=== PATIENT | female | born 2000 | race Caucasian/White ===

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

== ENCOUNTER 2020-03-07 18:09 | Emergency (ER) | payer OTHER, MEDICAID, SELFPAY ==
[2020-03-07 18:09] VITALS: BP 139/90; PULSE 102; RESP 16; TEMP 36.1; O2SAT 98
[2020-03-07 18:10] VITALS: BP 139/90; PULSE 96; RESP 16; TEMP 36.1; O2SAT 98; BMI 32.7
--- NOTE | 2020-03-07 18:36 | ED.DCSUM_ITS ---
- ER Visit Summary Date of Service: 03/07/20 Chief Complaint: [Pain to right thumb] History of Present Illness: The patient is a 19 F [presents to the emergency department with pain in the right thumb that started 2 or 3 days ago. Patient denies any trauma. Patient states certain movements cause her severe pain and at times having hard time changing her baby's diaper due to the pain. Patient is right-hand dominant. Patient is not currently working and does not do a lot of repetitive motions with her hands. She denies any fevers or recent illness. She has not taken anything for the pain at home.] Physical Examination: [Right hand-patient does have tenderness along the exte nsor tendon of the thumb. She has a positive Erin test. There is no erythema or warmth noted to the thumb. There is no swelling to the thumb. She has normal range of motion. She is neurovascular intact. No evidence of trauma.] Test Results: [None indicated] Emergency Department Course and Treatment: [She was placed in a thumb spica splint] Treatment Plan: [We will be given a prescription for naproxen. Patient advised to follow-up with her primary care physician in 10 days.] Disposition: [Discharged home in stable condition] Impression: [Right thumb pain-suspect de Quervain's synovitis] This note was generated with [employer] dictation software. It may contain incorrect words, spelling, and punctuation that were not noted in review of the chart prior to signing ED Disposition - Plan for ED Patient: Referrals: Osiel Jennings MD [Primary Care Provider] -
--- NOTE | 2020-03-07 18:38 | ED.DEP ---
ED Disposition - Plan for ED Patient: Instructions: ED De Quervain Tenosynovitis Prescriptions: Naproxen [Naprosyn] 500 mg PO BID PRN #20 tab Prescription Printed Referrals: Osiel Jennings MD [Primary Care Provider] - 5-7 Days
== END 2020-03-07 19:03 | disposition home or self-care (01) ==
PROVIDERS: Emergency Provider Emergency Medicine; PCP Pediatrics
DX: M79.644 Pain in right finger(s) (principal)
CPT/HCPCS: 99283

== ENCOUNTER 2020-05-18 12:59 | Emergency (ER) | payer OTHER, MEDICAID, SELFPAY ==
[2020-05-18 13:00] VITALS: BP 133/86; PULSE 97; RESP 16; TEMP 36.1; O2SAT 98; BMI 30.6
--- NOTE | 2020-05-18 13:48 | RAD_ITS ---
STUDY: X-RAY - LEFT ANKLE REASON FOR EXAM: Left ankle pain status post left ankle injury from fall yesterday. TECHNIQUE: 3 view(s) of the ankle. COMPARISON: None. FINDINGS: Normal visualized distal tibia and fibula. Normal medial and lateral malleoli. There is a tibiotalar joint effusion. Normal visualized talus and calcaneus. The visualized subtalar, talonavicular, calcaneocuboid and tarsal articulations are normal. There is soft tissue swelling overlying the lateral malleolus. RAD/Ankle min 3 Views IMPRESSION: Tibiotalar joint effusion. Soft tissue swelling. Electronically Signed: Roberto Crowell MD at 14:14 EST Tel , Service support ,
--- NOTE | 2020-05-18 14:40 | ED.VIS.GEN ---
History of Present Illness Chief Complaint: Fall Informant: Patient Onset: Yesterday Context: Gradual Onset Timing: Continuous Current Severity: Moderate Maximum Severity: Moderate Narrative: The patient is an otherwise healthy 20-year-old female who presents to the emergency department with lower extremity injury. Patient states she was going downstairs last night it was dark. She states she thought she was at the bottom and stepped. She ended up losing her balance and falling. She struck her head on the wall but did not lose consciousness. She states that she had a mild headache today, but no visual change, vomiting, or other neurologic symptoms. Her major complaint is of pain in the right ankle which she states twisted underneath her. She has been able to bear weight with difficulty. Prior similar symptoms: No Recent Illness/Hospitalization: No Past Medical History - Allergies and Home Meds Allergies/Adverse Reactions: Allergies No Known Allergies Allergy (Verified 05/18/20 13:02) Primary Care Physician: Osiel Jennings MD [Primary Care Provider] - Prior records reviewed: Yes Past Medical History: None Surgical History: no surgical history Smoking Status: Never smoker Review of Systems General: Denies: Chills, Fever, Sweats Eyes: Denies: Visual changes - bilaterally, Diplopia ENT: Denies: Rhinorrhea, Sore throat Cardiovascular: Denies: Chest pain, Palpitations Respiratory: Denies: Dyspnea, Cough, Dyspnea on exertion Gastrointestinal: Denies: Abdominal pain, Nausea, Vomiting, Diarrhea, Melena, Hematochezia Genitourinary: Denies: Dysuria, Hematuria, Frequency Musculoskeletal: Denies: Back pain, Extremity Pain Skin: Denies: Rash, Wounds Neurological: Denies: Headache, Weakness, Numbness Physical Exam Vital Signs/Narrative: Vital Signs Temp Pulse Resp BP Pulse Ox 05/18/20 13:00 97.0 F L 97 16 133/86 H 98 Inital Vital Signs reviewed: Yes General: Well nourished, Well developed, No Acute Distress Head: Normocephalic, Atraumatic Eyes: Perrl, EOMI ENT: Moist mucous membranes, No rhinorrhea Neck: Supple, Nontender Cardiovascular: Regular rate, Regular rhythm, No murmurs Respiratory: No distress, CTA bilaterally, Chest nontender Abdomen: Soft, Nontender, Nondistended, Normal bowel sounds Back: Nontender, Normal Inspection Extremities: No edema, Tenderness - Tender over the lateral malleolus. No pain at the proximal fibula. No pain at fifth metatarsal. Argueta negative. Normal pulses. Skin: Normal color, No rash Neurological: Alert, Oriented x3, Cranial nerves II-XII grossly intact, Normal Strength, Normal Sensation Psychological: Normal affect, Normal Mood Diagnostic/Tx/Re-eval Clinical Impression(s) from Imaging Studies Ankle X-Ray 05/18/20 13:48 IMPRESSION: Tibiotalar joint effusion. Soft tissue swelling. Electronically Signed: Roberto Crowell MD at 14:14 EST Tel , Service support , - Medical Decision Making Plain films were obtained. These were reviewed by both myself and the radiologist. There is no evidence of fracture dislocation. There is some soft tissue swelling. Patient is placed in an Aircast for comfort. She will be given crutches and anti-inflammatories. She was counseled on concerning symptoms and reasons to return. She will be discharged home. Impression 1. Left ankle sprain ED Disposition - Plan for ED Patient: Instructions: ED Ankle Sprain (Adult) Prescriptions: Naproxen [Naprosyn] 500 mg PO BID PRN #20 tab Prescription Printed Referrals: Osiel Jennings MD [Primary Care Provider] -
--- NOTE | 2020-05-18 15:03 | ED.RN ---
DISCHARGE INSTRUCTIONS GIVEN TO AND REVIEWED WITH PATIENT, PATIENT DENIES QUESTIONS OR CONCERNS AND VOICES UNDERSTANDING OF DISCHARGE INSTRUCTIONS. PT AMBULATES OUT OF ROOM WITHOUT DIFFICULTY.
== END 2020-05-18 15:21 | disposition home or self-care (01) ==
LOC: ED 14:58
PROVIDERS: Emergency Provider Emergency Medicine; PCP Family Medicine
DX: S93.402A Sprain of unspecified ligament of left ankle, initial encounter (principal); X50.1XXA Overexertion from prolonged static or awkward postures, initial encounter; Y93.89 Activity, other specified; Y92.009 Unspecified place in unspecified non-institutional (private) residence as the place of occurrence of the external cause; Y99.8 Other external cause status
CPT/HCPCS: 73610; 99284

== ENCOUNTER → 2020-06-26 | Outpatient (CLI) | payer OTHER, MEDICAID, SELFPAY ==
[2020-07-01 08:44] LABS: HPV Reflexed? NOT INDICATED
== END | disposition home or self-care (01) ==
LOC: LABSPEC 13:15
PROVIDERS: PCP Family Medicine; Visit Provider Obstetrics & Gynecology
DX: Z12.4 Encounter for screening for malignant neoplasm of cervix (principal)
CPT/HCPCS: 88175; G0145

== ENCOUNTER 2020-10-22 20:52 | Emergency (ER) | payer OTHER, MEDICAID, SELFPAY ==
[2020-10-22 20:52] VITALS: BP 120/75; PULSE 95; RESP 16; TEMP 36.6; O2SAT 98; BMI 34.0
--- NOTE | 2020-10-22 23:02 | EX.ED.DYSGE1 ---
HPI History of Present Illness Chief Complaint: Cold Sx Informant: patient Onset/Context/Timing Onset: Days Context: Gradual Onset Timing: Continuous Current Severity: Mild Maximum Severity: Mild Worsened by: None Relieved by: None Narrative Recent Illness/Hospitalization: No PFSH PFSH Home Medications NK 10/22/20 [History Last Taken Unknown] Allergy/AdvReac Type Severity Reaction Status Date / Time No Known Allergies Allergy Verified 10/22/20 20:53 Social History Smoking Status: Never smoker ROS ROS ED Constitutional Constitutional ED: Denies chills or fever(s) ENT ENT ED: Reports rhinorrhea and sore throat; Denies ear pain Cardiovascular Cardiovascular: Denies chest pain Respiratory/Chest Respiratory/Chest: Reports cough; Denies dyspnea Gastrointestinal Gastrointestinal: Denies abdominal pain or nausea Genitourinary Genitourinary ED: Denies dysuria Musculoskeletal Musculoskeletal: Denies myalgias Integumentary Denies rash Neurologic Neurologic: Denies headache(s) Psychiatric Psychiatric: Denies depression Endocrine Endocrinology: Denies polyuria Allergic/Immunologic Allergic/Immunologic ED: Denies urticaria EXAM Physical Exam Const Vital Signs: 10/22/20 20:52 10/22/20 21:05 10/22/20 23:11 Temperature 97.9 F Temperature Source Temporal Pulse Rate 95 90 Respiratory Rate 16 16 Blood Pressure 120/75 118/68 Blood Pressure Mean 90 Pulse Ox 98 97 Oxygen Delivery Method Room Air Room Air Positive well nourished and well developed General Appearance ED: well developed HEENT Negative for trauma Eyes EOMs intact bilaterally Neck no lymphadenopathy and supple Resp normal respiratory effort and clear to auscultation bilaterally Cardio regular rate and regular rhythm Extremity normal to inspection Neuro oriented x3 Sensorium / Orientation: alert Psych mental status grossly normal Skin no rashes or lesions noted MDM MDM MDM Narrative Medical decision making narrative: Patient has some mild erythema. No sign of abscess. Strep test was negative. Covid negative. Patient declined treatment. She was given a work note. Lab Data Attestation: I reviewed the patient's lab results. Discharge Plan Triage Chief Complaint: Cold Sx ED Provider: Ulices Story Dx/Rx/DC Orders Clinical Impression: Pharyngitis Instructions: ED Pharyngitis, Viral Prescriptions: No Action NK RF: 0 Primary Care Provider: Gabino Summers Referrals: Gabino Summers MD [Primary Care Provider] - Disposition Disposition: Home, self care Discharge Date/Time: 10/22/20 23:12
[2020-10-22 23:11] VITALS: BP 118/68; PULSE 90; RESP 16; O2SAT 97
== END 2020-10-22 23:12 | disposition home or self-care (01) ==
PROVIDERS: Emergency Provider Emergency Medicine; PCP Family Medicine
DX: J02.9 Acute pharyngitis, unspecified (principal)
CPT/HCPCS: 87426; 87880; 99282

== ENCOUNTER 2021-05-09 14:19 | Emergency (ER) | payer OTHER, MEDICAID, SELFPAY ==
[2021-05-09 14:19] VITALS: BP 116/78; PULSE 89; RESP 18; TEMP 36.1; O2SAT 99; BMI 30.4
--- NOTE | 2021-05-09 14:22 | RAD_ITS ---
STUDY: X-RAY - RIGHT KNEE REASON FOR EXAM: Female, 21 years old. FALL TECHNIQUE: 4 view(s) of the knee. COMPARISON: September 12, 2018 right knee x-ray FINDINGS: There are benign-appearing bilateral sclerotic densities within the medial lateral femoral condyles measuring 7.2 mm on the medially and 3.3 mm on the right. Normal visualized proximal tibia and fibula. Normal proximal tibiofibular articulation. Normal medial femorotibial compartment. Normal lateral femorotibial compartment. Normal patellofemoral articulation. The soft tissue structures are unremarkable. RAD/Knee 4 or More Views IMPRESSION: Stable right knee. No visualized acute fracture. Electronically Signed: Patito Person MD at 15:41 EST Tel , Service support ,
--- NOTE | 2021-05-09 14:22 | RAD_ITS ---
STUDY: X-RAY - RIGHT HAND REASON FOR EXAM: Female, 21 years old. FALL TECHNIQUE: 3 view(s) of the hand. COMPARISON: None. FINDINGS: Normal radiocarpal articulation. Normal distal radioulnar joint. Normal visualized carpal bones. Normal carpal articulations Normal carpometacarpal articulation of the thumb. Normal second through fifth carpometacarpal joints. Normal metacarpi. Normal metacarpophalangeal joint of the thumb. Normal interphalangeal joint of the thumb. Normal proximal and distal phalanges of the thumb. Normal metacarpophalangeal joints of the second through fifth fingers. Normal proximal and distal interphalangeal joints of the second through fifth fingers. Normal phalanges of the second through fifth fingers. The soft tissue structures are unremarkable. RAD/Hand Min 3 Views IMPRESSION: Normal x-ray examination of the hand. Electronically Signed: Patito Person MD at 15:52 EST Tel , Service support ,
--- NOTE | 2021-05-09 17:58 | ED.VIS.FALL ---
HPI HPI - Fall History of Present Illness Chief Complaint: Fall Detail of Chief Complaint: Fall with injury to right ring finger and right knee Informant: patient Narrative Narrative: Patient presents to the emergency department with a fall that occurred approximately noon today. Patient states that she was coming down her spiral staircase that is within when she fell and she thinks she went down about 20 steps. Patient complains of pain in her right knee and right ring finger. She denies regular head or loss consciousness. She denies chest or abdomen pain. She has been ambulatory. PFS PFS Home Medications NK 10/22/20 [History Last Taken Unknown] Allergy/AdvReac Type Severity Reaction Status Date / Time No Known Allergies Allergy Verified 05/09/21 14:19 Social History Smoking Status: Never smoker ROS ROS ED Constitutional Constitutional ED: Reports systems reviewed and no addt'l complaints, except as documented; Denies body ache(s), change in weight or chills Eyes Eyes: Denies acute decrease in peripheral vision, change in vision, double vision or loss of vision ENT ENT ED: Reports none; Denies ear pain, lip swelling, loss taste/smell, neck pain, otalgia or sore throat Cardiovascular Cardiovascular: Reports none; Denies abdominal pain, chest pain with activity, leg edema, lightheadedness, palpitations, rapid heart rate or syncope Respiratory/Chest Respiratory/Chest: Reports none; Denies change in mental status, dry cough, dyspnea, hemoptysis, shortness of breath at rest or shortness of breath with exertion Gastrointestinal Gastrointestinal: Reports none; Denies abdominal pain, change in stool character, diarrhea, hematemesis, hematochezia, melena, rectal bleeding or vomiting Genitourinary Genitourinary ED: Reports none; Denies abdominal discomfort, anuria, dysuria, genital pain or polyuria Musculoskeletal Musculoskeletal: Reports none and other Details: Right knee pain and right ring finger pain ; Denies arthralgias, back pain, difficulty walking, extremity pain, muscle weakness or myalgias Integumentary Reports none; Denies abscess or rash Neurologic Neurologic: Reports none; Denies abnormal gait, confusion, focal weakness, frequent falls, headache(s), loss of vision, numbness, paresthesias, radicular pain, vertigo or weakness Psychiatric Psychiatric: Reports systems reviewed and no addt'l complaints, except as documented and none; Denies behavioral changes, confusion, difficulty concentrating, hallucinations, suicidal ideation, tactile hallucinations or visual hallucinations Endocrine Endocrinology: Denies none, cold intolerance, excessive sweating, fatigue or heat intolerance Hematologic/Lymphatic Hematologic/Lymphatic: Reports none; Denies anemia, easy bleeding or easy bruising Allergic/Immunologic Allergic/Immunologic ED: Denies as per HPI, none, lip swelling, mouth swelling, throat swelling, tongue swelling or hives EXAM Physical Exam Const Vital Signs: 05/09/21 14:19 Temperature 96.9 F L Temperature Source Temporal Pulse Rate 89 Respiratory Rate 18 Blood Pressure 116/78 Blood Pressure Mean 90 Pulse Ox 99 Oxygen Delivery Method Room Air Positive well nourished and well developed General Appearance ED: well developed and NAD HEENT Reports TM's clear and moist mucous membranes normocephalic and atraumatic; Negative for trauma or tenderness Tympanic Membrane ED: Yes TM's clear Eyes PERRL and EOMs intact bilaterally General Eye ED: Negative for pale conjunctiva or scleral icterus Neck no lymphadenopathy, supple and no JVD General: Negative for tenderness Chest Wall inspection of chest normal and palpation of chest normal Chest: Negative for tenderness Resp normal respiratory effort and clear to auscultation bilaterally Effort and Inspection: Negative for respiratory distress or pain with movement Auscultation: Negative for rhonchi, wheezes or diminished lung sounds Cardio regular rate, regular rhythm, S1 normal heart sound, S2 normal heart sound and no murmurs Peripheral Pulses: pulses 2+ throughout GI normal to inspection, nondistended, normoactive bowel sounds, soft to palpation, non-tender, non-distended and no masses Back/Spine no CVA tenderness and no thoracic nor lumbar tenderness Extremity Extremity Narrative: Evaluation of the right ring finger does reveal some tenderness and some mild soft tissue swelling over the distal phalanx of the ring finger. No ecchymosis or bruising noted. No obvious deformity. No subungual hematoma noted. Evaluation of the right knee reveals some tenderness over the medial joint line. There is no ecchymosis or bruising noted. Normal varus and valgus stress on the knee noted. Normal anterior and posterior drawer test. Neurovascular intact distally. There is no joint effusion noted. General Extremety ED: Negative for edema General Extremity: Negative for edema Neuro oriented x3, CN's II-XII intact bilaterally, no sensory deficits noted and gait normal Sensorium / Orientation: awake, alert, oriented to person, oriented to place and oriented to time Motor Exam: strength 5/5 throughout and strength abnormal Psych mental status grossly normal Skin no rashes or lesions noted and no wounds MDM MDM Radiography Diagnostic Testing: Clinical Impression(s) from Imaging Studies Hand X-Ray 05/09/21 14:22 IMPRESSION: Normal x-ray examination of the hand. Electronically Signed: Patito Person MD at 15:52 EST Tel , Service support , Knee X-Ray 05/09/21 14:22 IMPRESSION: Stable right knee. No visualized acute fracture. Electronically Signed: Patito Person MD at 15:41 EST Tel , Service support , Discharge Plan Triage Chief Complaint: Fall ED Provider: Reece Carbone Dx/Rx/DC Orders Clinical Impression: Fall, Right knee sprain, Contusion of right ring finger Instructions: ED Knee Sprain, ED Finger Sprain Prescriptions: No Action NK RF: 0 Primary Care Provider: Gabino Summers Referrals: Gabino Summers MD [Primary Care Provider] - 5-7 Days Disposition Disposition: Home, Self Care
[2021-05-09 19:34] VITALS: RESP 18
== END 2021-05-09 19:38 | disposition home or self-care (01) ==
LOC: ED 18:02
PROVIDERS: Emergency Provider Emergency Medicine; PCP Family Medicine
DX: S60.041A Contusion of right ring finger without damage to nail, initial encounter (principal); S83.91XA Sprain of unspecified site of right knee, initial encounter; W10.8XXA Fall (on) (from) other stairs and steps, initial encounter
CPT/HCPCS: 73130; 73564; 99283

== ENCOUNTER 2021-07-14 17:26 | Emergency (ER) | payer OTHER, MEDICAID, SELFPAY ==
[2021-07-14 17:27] VITALS: BP 126/82; PULSE 96; RESP 16; TEMP 36.9; O2SAT 98; BMI 30.4
--- NOTE | 2021-07-14 18:59 | EX.ED.DYSGE1 ---
HPI History of Present Illness Chief Complaint: Sore Throat Informant: patient Narrative Narrative: Presents here for concern of Covid. Symptoms started 5 days ago. Sinus congestion, chills myalgias. States she cannot taste or smell. She has been vaccinated however has been over a year ago she is not have any booster. 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 Mild dyspnea and cough. No vomiting or diarrhea. No Covid infections in the past. She states she was at a health care clinic earlier today with a negative rapid test. Reports sore throat started today. Prior similar symptoms: No PFSH PFSH Medical History Encounter for screening for COVID-19 Home Medications NK 10/22/20 [History Last Taken Unknown] Allergy/AdvReac Type Severity Reaction Status Date / Time No Known Allergies Allergy Verified 07/14/21 17:26 Social History Smoking Status: Never smoker ROS ROS ED Constitutional Constitutional ED: Reports chills; Denies fever(s) or sweats Eyes Eyes: Denies change in vision ENT ENT ED: Denies dysphagia or sore throat Cardiovascular Cardiovascular: Denies chest pain, leg edema, palpitations or racing heartbeat Respiratory/Chest Respiratory/Chest: Reports cough and dyspnea; Denies dyspnea on exertion Gastrointestinal Gastrointestinal: Denies abdominal pain, diarrhea, nausea or vomiting Genitourinary Genitourinary ED: Denies dysuria, hematuria or urinary frequency Musculoskeletal Musculoskeletal: Reports myalgias; Denies back pain, extremity pain or neck pain Integumentary Denies rash or wounds Neurologic Neurologic: Denies headache(s), paresthesias or weakness EXAM Physical Exam Const Vital Signs: 07/14/21 17:27 Temperature 98.4 F Temperature Source Temporal Pulse Rate 96 Respiratory Rate 16 Blood Pressure 126/82 H Blood Pressure Mean 96 Pulse Ox 98 Oxygen Delivery Method Room Air Positive well nourished and well developed General Appearance ED: well developed and NAD HEENT Reports moist mucous membranes HEENT Narrative: No posterior pharyngeal erythema. No exudates. Airway patent. normocephalic and atraumatic Eyes PERRL, EOMs intact bilaterally and conjunctivae normal General Eye ED: Yes normal appearance of both eyes Neck no lymphadenopathy and supple General: Negative for tenderness Chest Wall Chest: Negative for tenderness Resp normal respiratory effort and normal air movement Effort and Inspection: symmetric chest movement; Negative for respiratory distress Cardio regular rate, regular rhythm and no murmurs Peripheral Pulses: pulses 2+ throughout GI normal to inspection, nondistended, normoactive bowel sounds and non-tender Palpation: Negative for guarding or rebound tenderness present Back/Spine no CVA tenderness and no thoracic nor lumbar tenderness Extremity normal to inspection General Extremety ED: Negative for edema or tenderness General Extremity: Negative for edema Neuro oriented x3 and no sensory deficits noted Sensorium / Orientation: awake and alert Skin no rashes or lesions noted and no wounds MDM MDM MDM Narrative Medical decision making narrative: Patient vital signs stable afebrile pulse ox 98% room air. She has normal throat exam. She had rapid strep obtained from triage discussed this will be negative due to her normal throat exam. PCR Covid was obtained and sent due to her symptoms and reporting rapid test negative earlier. She does have Covid symptoms with loss of taste or smell. She is not hypoxic. She will picker/puller a pulse oximeter to monitor discussed return precautions. Should use Tylenol Motrin as needed. Discussed with her cough and sputum, could have Covid pneumonia changes if x-ray was obtained however would not change the plan as antibiotics would not be warranted. She is currently not hypoxic. All questions were answered. Patient is being discharged under pandemic conditions under declared global, national and state disaster activation, with limited medical resources. Patient and community understands this. Results discussed in layman's terms to the patient satisfaction. All questions answered in layman's terms. Patient understands importance of follow-up care as directed. Patient has been instructed to return to the ED immediately if new symptoms, problems, or questions occur. We mutually agree with the plan of disposition. The patient understand that they may call or return with any questions or concerns at any time. Discharge Plan Triage Chief Complaint: Sore Throat ED Provider: Marco A Garcia Dx/Rx/DC Orders Clinical Impression: Suspected 2019-nCoV infection, Sore throat Instructions: Coronavirus Disease 2019 (COVID-19): Caring for Yourself or Others Prescriptions: No Action NK RF: 0 Primary Care Provider: Gabino Summers Referrals: Gabino Summers MD [Primary Care Provider] - 5-7 Days Activity Restrictions/Additional Instructions: Your PCR test is pending. Use Tylenol Motrin as needed continue oral fluids. Monitor your pulse ox. Return if oxygen drops below 90 or significant worsening dyspnea. Disposition Disposition: Home, Self Care
== END 2021-07-14 19:23 | disposition home or self-care (01) ==
LOC: ED 19:20
PROVIDERS: Student in an Organized Health Care Education/Training Program; Emergency Provider Emergency Medicine; PCP Family Medicine; Visit Provider Emergency Medicine
DX: J02.9 Acute pharyngitis, unspecified (principal); Z20.822 Contact with and (suspected) exposure to COVID-19; R06.00 Dyspnea, unspecified
CPT/HCPCS: 87077; 87635; 87880; 99282; U0003; U0005

== ENCOUNTER 2021-09-15 13:34 | Emergency (ER) | payer OTHER, MEDICAID, SELFPAY ==
[2021-09-15 13:35] VITALS: BP 123/77; PULSE 78; RESP 15; TEMP 36.1; O2SAT 99; BMI 29.2
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
--- NOTE | 2021-09-15 14:10 | RAD_ITS ---
INDICATION: injury -- add NAVICULAR please EXAMINATION/TECHNIQUE: X-RAY - LEFT XR Wrist Min 3 Views 4 VIEWS COMPARISON: None. FINDINGS: SOFT TISSUES: No soft tissue swelling or gas. No radiopaque foreign body. BONES/JOINTS: No acute fracture or subluxation.. Normal alignment. Preservation of the joint space.. No sclerotic or destructive changes observed. RAD/Wrist min 3 Views IMPRESSION: No evidence of acute osseous abnormality Electronically Signed: Moreno Felder MD at 14:34 EDT ,
[2021-09-15 15:21] VITALS: PULSE 76; RESP 16; O2SAT 98
== END 2021-09-15 15:34 | disposition home or self-care (01) ==
PROVIDERS: Emergency Provider Emergency Medicine; PCP Family Medicine; Visit Provider Emergency Medicine
DX: S63.92XA Sprain of unspecified part of left wrist and hand, initial encounter (principal); V17.4XXA Pedal cycle driver injured in collision with fixed or stationary object in traffic accident, initial encounter; Y93.55 Activity, bike riding
CPT/HCPCS: 73110; 99283

== ENCOUNTER → 2021-11-16 | Outpatient (CLI) | payer OTHER, MEDICAID, SELFPAY ==
[2021-11-16 12:34] LABS: Hematocrit 40.2 % (37-47); Hemoglobin 13.7 g/dL (12.0-15.0); Mean Corp Hgb Conc 34.1 g/dL (32-36); Mean Corpuscular Hgb 28.7 pg (27.0-32.0); Mean Corpuscular Volume 84.3 fL (81-99); Mean Platelet Vol. 10.1 fl (6.2-12.0); Platelet Count 346 K/mm3 (150-450); RBC Distribution Width CV 12.3 % (11.6-14.6); RBC Distribution Width SD 37.3 fl (35.1-43.9); Red Blood Count 4.77 M/mm3 (4.2-5.4); White Blood Count 8.2 K/mm3 (4.4-11.0)
[2021-11-16 12:50] LABS: T3 Total - Triiodothyronine 1.26 ng/mL (0.6-1.81); Vitamin B12 356 pg/mL (211-911); Vitamin D,25 Hydroxy 27.2 ng/mL
[2021-11-16 12:59] LABS: ALB/GLOB Ratio 1.1 RATIO (0.9-2.4); AST(SGOT) 10 U/L (15-37); Alanine Aminotransfer ALT/SGPT 22 U/L (13-56); Albumin, Serum 3.9 g/dL (3.2-5.0); Alkaline Phosphatase 61 U/L (45-117); Anion Gap 5 (5-15); BUN 18 mg/dL (7-18); BUN/Creat Ratio 20.1 RATIO (10-20); Calcium,Total 9.3 mg/dL (8.5-10.1); Chloride 108 mmol/L (98-107); EST Glomerular Filtration Rate 83 mL/min (>60); Est Glom Filt Rate - Afr Amer 101 mL/min (>60); Ferritin 32 ng/mL (8-252); Free T3 3.1 pg/mL (2.18-3.98); Globulin 3.4 g/dL (2.2-4.2); Glucose 81 mg/dL (74-106); Iron 66 ug/dL (50-170); Iron Binding Capacity,Total 301 ug/dL (250-450); Potassium 4.3 mmol/L (3.5-5.1); Protein, Total 7.3 g/dL (6.4-8.2); Sodium Level 141 mmol/L (136-145); T4 Free Direct 0.95 ng/dL (0.76-1.46); Thyroid Stim Hormone (TSH) 2.42 uIU/mL (0.358-3.74)
[2021-11-17 22:07] LABS: Chlamydia By Nucleic Acid AMP Negative (Negative)
[2021-11-18 12:43] LABS: Gonococcus By Nucleic Acid AMP Negative (Negative)
== END | disposition home or self-care (01) ==
LOC: WOBLAB 12:15
PROVIDERS: PCP Family Medicine; Visit Provider Obstetrics & Gynecology
DX: E03.9 Hypothyroidism, unspecified (principal); F32.1 Major depressive disorder, single episode, moderate; E55.9 Vitamin D deficiency, unspecified; F41.1 Generalized anxiety disorder; D51.3 Other dietary vitamin B12 deficiency anemia; N91.5 Oligomenorrhea, unspecified; Z11.3 Encounter for screening for infections with a predominantly sexual mode of transmission
CPT/HCPCS: 36415; 80053; 82306; 82607; 82728; 83540; 83550; 84439; 84443; 84480; 84481; 85027; 87491; 87591

== ENCOUNTER → 2021-11-19 | Outpatient (CLI) | payer OTHER, MEDICAID, SELFPAY ==
[2021-11-19 09:53] LABS: Glucose 75GTT - Fasting 95 mg/dL (70-99)
[2021-11-19 09:54] LABS: Glucose 75GTT - 30 minutes 127 mg/dL (100-160)
[2021-11-19 10:01] LABS: Insulin 75GTT - Fasting 25.9 mU/L (2.6-37.6)
[2021-11-19 10:01] LABS: Insulin 75GTT - 30 MIN 146.2 mU/L (Not Estab.)
[2021-11-19 12:03] LABS: Glucose 75GTT - 120 minutes 103 mg/dL (70-140)
[2021-11-19 12:03] LABS: Glucose 75GTT - 60 minutes 103 mg/dL (100-160)
[2021-11-19 12:10] LABS: Insulin 75GTT - 60 min 180.2 mU/L (Not Estab)
[2021-11-19 12:16] LABS: Insulin 75GTT - 120 min 68.9 mU/L (Not Estab.)
[2021-11-19 13:02] LABS: hCG Titer Quant., Serum < 1 mIU/mL (1-3)
== END | disposition home or self-care (01) ==
LOC: WOBLAB 08:46
PROVIDERS: PCP Family Medicine; Visit Provider Obstetrics & Gynecology
DX: R73.09 Other abnormal glucose (principal); Z83.3 Family history of diabetes mellitus; N91.5 Oligomenorrhea, unspecified
CPT/HCPCS: 36415; 82951; 82952; 83525; 84702

== ENCOUNTER 2022-05-14 12:57 | Emergency (ER) | payer OTHER, MEDICAID, SELFPAY ==
[2022-05-14 12:57] VITALS: BP 126/80; PULSE 110; RESP 18; TEMP 36.1; O2SAT 97; BMI 31.6
--- NOTE | 2022-05-14 15:00 | RAD_ITS ---
INDICATION: COUGH EXAMINATION/TECHNIQUE: X-RAY - XR Chest 1 View COMPARISON: 12/28/2017 FINDINGS: LINES/DEVICES: None. LUNGS: No consolidation, edema or effusion. No pneumothorax. MEDIASTINUM AND CARDIOVASCULAR STRUCTURES: Cardiac silhouette not enlarged. Central airways and mediastinal contour are unremarkable. BONES AND SOFT TISSUES: Unremarkable. RAD/Chest 1 View (Portable) IMPRESSION: No radiographic evidence of acute cardiopulmonary disease. Electronically Signed: German Kirby MD at 15:25 EST ,
[2022-05-14 16:32] VITALS: O2SAT 98
--- NOTE | 2022-05-14 16:47 | EX.ED.VIS.UR ---
HPI HPI - URI History of Present Illness Chief Complaint: Shortness of Breath Narrative Narrative: 22-year-old female presenting with fever, chills, body aches. She also complains of nausea without vomiting. She states is hard to eat because she cannot taste anything. She states she had a fever the other day at work about 3 days ago. She has not had return of fever. She also complains of sore throat and pain with swallowing. She states that being ill has now made her feel like she is having a migraine and she has a history of migraines. There is nothing typical or abnormal about her migraine headache today ROS ROS ED Constitutional Constitutional ED: Reports chills and fever(s) Eyes Eyes: Denies change in vision or diplopia ENT ENT ED: Denies rhinorrhea or sore throat Cardiovascular Cardiovascular: Denies chest pain or palpitations Respiratory/Chest Respiratory/Chest: Denies cough or dyspnea Gastrointestinal Gastrointestinal: Reports nausea and vomiting; Denies abdominal pain Genitourinary Genitourinary ED: Denies dysuria or hematuria Musculoskeletal Musculoskeletal: Reports myalgias Integumentary Denies abscess or Abrasions Neurologic Neurologic: Reports headache(s); Denies paresthesias or weakness Psychiatric Psychiatric: Denies anxiety or depression [facility] Medical History (Updated 05/14/22 @ 16:34 by Alexandre Guevara) Anxiety Depression Encounter for screening for COVID-19 Home Medications amoxicillin 875 mg-potassium clavulanate 125 mg tablet 1 tab PO BID #20 tabs 05/14/22 [Rx Last Taken Unknown] ondansetron 4 mg disintegrating tablet 4 mg PO Q8H PRN nausea and vomiting #10 tabs 05/14/22 [Rx Last Taken Unknown] Allergy/AdvReac Type Severity Reaction Status Date / Time No Known Allergies Allergy Verified 05/14/22 13:00 Social History Smoking Status: Never smoker EXAM Physical Exam Const Vital Signs: 05/14/22 12:57 05/14/22 16:32 05/14/22 16:57 Temperature 97.0 F L Temperature Source Temporal Pulse Rate 110 H 108 H Respiratory Rate 18 15 Respiratory Effort Normal Respiratory Depth Normal Respiratory Pattern Normal Blood Pressure 126/80 H 105/60 Blood Pressure Mean 95 75 Pulse Ox 97 99 Oxygen Delivery Method Room Air Room Air Room Air Positive well nourished General Appearance ED: NAD; Negative for pallor HEENT Reports moist mucous membranes normocephalic Mouth ED: Yes lips normal and Yes tongue normal Mouth: lips normal and tongue normal Throat: posterior oropharynx abnormal Positive for erythema and exudates Eyes PERRL Neck General: lymphadenopathy anterior cervical Resp normal respiratory effort and clear to auscultation bilaterally Auscultation: Negative for rales, rhonchi or wheezes Cardio Rate: regular rate Rhythm: regular rhythm GI non-tender Extremity normal to inspection Neuro oriented x3 and CN's II-XII intact bilaterally Sensorium / Orientation: alert Psych mental status grossly normal Skin General Skin Exam: Negative for jaundice or pallor MDM MDM MDM Narrative Medical decision making narrative: Patient presenting with viral symptoms. Rapid COVID and rapid influenza are negative. Chest x-ray on my interpretation shows no acute cardiopulmonary process. The radiologist are persistent and agrees. On exam she does have erythema and exudates and I will test her for strep. She is also complaining of a migraine headache today and will be treated with Reglan and Benadryl. Patient tested positive for strep today. She is given 10 mg of Decadron p.o. She started on Augmentin here in the ER. She will be given prescription for this. Patient feeling improved after treatment. She will be discharged home in stable condition. Impression: 1. Strep pharyngitis 2. Headache 3. Nausea/vomiting Lab Data Attestation: I reviewed the patient's lab results. Radiography Diagnostic Testing: Clinical Impression(s) from Imaging Studies Chest X-Ray 05/14/22 15:00 IMPRESSION: No radiographic evidence of acute cardiopulmonary disease. Electronically Signed: German Kirby MD at 15:25 EST , Discharge Plan Triage Chief Complaint: Shortness of Breath ED Provider: Matty Hubbard Dx/Rx/DC Orders Instructions: ED Pharyngitis, Strep (Confirmed) Prescriptions: New amoxicillin-pot clavulanate 875-125 mg tablet 1 tab PO BID Qty: 20 0RF ondansetron 4 mg tablet,disintegrating 4 mg PO Q8H PRN (Reason: nausea and vomiting) Qty: 10 0RF Primary Care Provider: Gabino Summers Referrals: Gabino Summers MD [Primary Care Provider] - Disposition Disposition: Home, Self Care
[2022-05-14 16:57] VITALS: BP 105/60; PULSE 108; RESP 15; O2SAT 99
[2022-05-14] MEDS: DiphenhydrAMINE 50 MG/ML Syringe 25 MG IV (17:05)
[2022-05-14] MEDS: 0.9% Normal Saline 1,000 ML 999 ML IV (17:05)
[2022-05-14] MEDS: Metoclopramide 10 MG/2 ML Vial IV (17:05)
[2022-05-14] MEDS: dexAMETHasone 10 MG/ML Vial PO.IVFORM (17:58)
[2022-05-14] MEDS: Amox/Clavulanate 875 MG Tablet PO (17:58)
[2022-05-14 18:03] VITALS: BP 120/78; PULSE 107; RESP 16; O2SAT 100
== END 2022-05-14 18:04 | disposition home or self-care (01) ==
PROVIDERS: Emergency Provider Student in an Organized Health Care Education/Training Program; PCP Family Medicine; Visit Provider Student in an Organized Health Care Education/Training Program
DX: J02.0 Streptococcal pharyngitis (principal); R11.2 Nausea with vomiting, unspecified; R51.9 Headache, unspecified; R06.02 Shortness of breath; Z20.822 Contact with and (suspected) exposure to COVID-19
CPT/HCPCS: 71045; 87077; 87428; 87880; 96361; 96374; 96375; 99284; J7030; A4216

== ENCOUNTER 2022-09-27 20:50 | Emergency (ER) | payer OTHER, MEDICAID, SELFPAY ==
[2022-09-27 20:50] VITALS: BP 135/90; PULSE 84; RESP 18; TEMP 36.2; O2SAT 98; BMI 33.3
--- NOTE | 2022-09-27 20:58 | ED.VIS.DYS ---
HPI History of Present Illness Chief Complaint: Shortness of Breath Narrative Narrative: 22-year-old female here with shortness of breath. Patient notes has been ongoing for the past several days, approximately 3. She notes today got worse she notes having a panic attack which caused worsening shortness of breath. She denies any chest pain. She denies any productive cough. Does note coughing when she is having difficulty breathing. She denies any lower extremity edema, orthopnea or proximal nocturnal dyspnea. She denies any volume loss such as vomiting or diarrhea. She denies any bleeding diathesis. She denies any sick contacts or recent travel. The patient denies recent surgery in the last 4 weeks or immobilization in the last 3 days, denies previous diagnosis of DVT or PE, hemoptysis, unilateral leg swelling or malignancy with treatment the last 6 months. No estrogen use noted. [facility] Medical History (Updated 09/27/22 @ 22:[address] Da Viramontes DO) Anxiety Depression Encounter for screening for COVID-19 Home Medications amoxicillin 875 mg-potassium clavulanate 125 mg tablet 1 tab PO BID #20 tabs 05/14/22 [Rx Last Taken Unknown] ondansetron 4 mg disintegrating tablet 4 mg PO Q8H PRN nausea and vomiting #10 tabs 05/14/22 [Rx Last Taken Unknown] Allergy/AdvReac Type Severity Reaction Status Date / Time No Known Allergies Allergy Verified 09/27/22 20:52 Social History Smoking Status: Never smoker ROS ROS ED ROS Narrative Constitutional: Denies fever HEENT: Denies sore throat Neck: Denies neck pain Cardiovascular: Denies chest pain, syncope Respiratory: Endorses shortness of breath GI: Denies nausea vomiting or abdominal pain : Denies changes in urinary habits Musculoskeletal: Denies muscle or joint pain Neurologic: Denies numbness weakness or loss of sensation Skin denies rash EXAM Physical Exam Narrative Exam Narrative: Nursing triage notes reviewed, Vital signs reviewed Constitutional: please see mdm HENT: MMM Eyes: Pupils equal round and reactive to light, Extraocular muscles intact Neck: No stridor, no JVD, full neck ROM Lungs: Clear to auscultation, No wheezing or rales. No increased work of breathing, no conversational dyspnea, no accessory muscle use, no nasal flaring. No respiratory distress noted Heart: Regular rate and rhythm, No murmurs, No rubs and No gallops, 2+ distal pulses (radial, femoral, posterior tibial) in all extremities Abdomen: Soft, there is no tenderness, rigidity, rebound or guarding, no obvious peritoneal signs, no palpable pulsatile abdominal masses, no auscultated abdominal bruit : No CVAT Extremities: No edema Neuro: No focal neurological deficits, cranial nerves II through XII intact, 5/5 strength in all extremities. Intact sensation to light touch in all extremities, 2+ reflexes bilateral patella dens. Normal gait. No ataxia. Skin: No rash or lesions noted Const Vital Signs: 09/27/22 20:50 09/27/22 21:33 Temperature 97.2 F L Temperature Source Temporal Pulse Rate 84 Respiratory Rate 18 Respiratory Effort Normal Non-Labored Respiratory Depth Normal Respiratory Pattern Normal Blood Pressure 135/90 H Blood Pressure Mean 105 Pulse Ox 98 Oxygen Delivery Method Room Air Room Air MDM MDM MDM Narrative Medical decision making narrative: Chief Complaint: Shortness of breath External records reviewed: Chest x-ray from 2021 shows no acute process MDM: The patient was hemodynamically stable, afebrile, nontoxic-appearing. Patient no signs of significant respiratory distress did not require BiPAP or intubation. Patient no conversational dyspnea or increased work of breathing. Accessory muscle use. Lungs were clear. No obvious full consolidation was noted on exam I considered the following differential diagnosis: Pneumonia, asthma exacerbation, PE, ACS, arrhythmia, COVID, flu Patient's physical exam was not consistent with asthma or COPD as there is no wheezing. She had a low risk Wells score and as such I have low suspicion for PE. I did obtain an EKG and chest x-ray to rule out evidence of pneumonia, ACS or arrhythmia obtain a COVID and flu swab to rule out signs of viral infectious etiologies. Work-up showed no evidence of myocardial ischemia, arrhythmia. No evidence of pneumonia, pneumothorax or focal cardiopulmonary abnormalities. COVID and flu swab are pending at this time. Instructed patient follow-up on [facility] for COVID and flu swab results. There is no need for ED observation to await these test as there is no specific treatment that is indicated given her benign appearance, low risk factor profile and young age. She is window for Tamiflu. There is no benefit to Paxlovid in this patient population and demographic. Factors affecting care: None Social determinants of health: None History obtained from others: Shared decision making: I will have a discussion with the patient and or visitors regarding risk/benefits of further testing or admission. They will be made aware of of the risk/benefits inherent in this decision they will be given the opportunity to voice understanding. Consults: None Lab Data Attestation: I reviewed the patient's lab results. Lab results narrative: EKG with normal sinus rhythm, normal axis, normal intervals, no ST or T wave changes to suggest ischemia. No evidence of WPW, Brugada, ARVD. Radiography Chest X-Ray - ED: Read by ED Physician Diagnostic Testing: Clinical Impression(s) from Imaging Studies Chest X-Ray 09/27/22 21:35 IMPRESSION: Normal x-ray examination of the chest. Electronically Signed: Guru Ward MD at 21:51 EDT Reading Location ID and State: [address] [place] [address] , Service support , I have personally reviewed the patient's chest x-ray. Chest x-ray is unremarkable for pulmonary edema, pneumothorax, pneumonia or focal cardiopulmonary abnormality. Discharge Plan Triage Chief Complaint: Shortness of Breath ED Provider: Da Viramontes Dx/Rx/DC Orders Clinical Impression: Acute dyspnea Instructions: ED Dyspnea Prescriptions: No Action amoxicillin-pot clavulanate 875-125 mg tablet 1 tab PO BID Qty: 20 0RF ondansetron 4 mg tablet,disintegrating 4 mg PO Q8H PRN (Reason: nausea and vomiting) Qty: 10 0RF Stand Alone Forms: ED Work / School Excuse Primary Care Provider: Gabino Summers Referrals: Gabino Summers MD [Primary Care Provider] - Activity Restrictions/Additional Instructions: Thank you for trusting us with your care today! Please take Tylenol (2 pills, 650 mg), ibuprofen (2 pills, 400 mg) every 6 hours as needed for pain and fever control. Please return to the emergency department if your symptoms change or worsen. Please follow with your primary care physician for further outpatient evaluation and management. Disposition Disposition: Home, Self Care
[2022-09-27 21:33] VITALS: O2SAT 99
--- NOTE | 2022-09-27 21:35 | RAD_ITS ---
STUDY: X-RAY CHEST REASON FOR EXAM: Female, 22 years old. Shortness of breath TECHNIQUE: PA and lateral COMPARISON: May 14 0.22 FINDINGS: The lungs are clear and expanded. There is no demonstrated pleural abnormality. Normal size heart. Normal mediastinum and karyn. Normal visualized pulmonary arteries. Normal visualized aortic arch and descending thoracic aorta. Normal visualized thoracic spine. Normal visualized ribs, clavicles, and shoulders. There is no demonstrated abnormality of the visualized soft tissue structures of the upper abdomen. RAD/Chest PA and Lateral IMPRESSION: Normal x-ray examination of the chest. Electronically Signed: Guru Ward MD at 21:51 EDT ,
[2022-09-27 22:41] VITALS: BP 129/84; PULSE 62; RESP 15; O2SAT 99
== END 2022-09-27 22:42 | disposition home or self-care (01) ==
PROVIDERS: Emergency Provider Emergency Medicine; PCP Family Medicine; Visit Provider Emergency Medicine
DX: R06.00 Dyspnea, unspecified (principal)
CPT/HCPCS: 71046; 87428; 93005; 99282

== ENCOUNTER 2023-05-26 21:30 | Emergency (ER) | payer OTHER, MEDICAID, SELFPAY ==
[2023-05-26 21:31] VITALS: BP 127/88; PULSE 97; RESP 15; TEMP 37; O2SAT 99; BMI 32.5
--- NOTE | 2023-05-26 22:32 | EX.ED.DYSGE1 ---
HPI History of Present Illness Chief Complaint: General Illness Informant: patient Onset/Context/Timing Onset: Days Context: Gradual Onset Timing: Continuous Maximum Severity: Mild Narrative Narrative: 23-year-old female no seen past medical history. URI symptoms with a sore throat last 3 days. No vomiting or diarrhea. No dysuria. She also requested to be tested to see if she might be . Last menstrual period was 04/21/23. No abdominal pain. No vaginal bleeding. Prior similar symptoms: Yes Recent Illness/Hospitalization: No PFSH PFSH Medical History Anxiety Depression Encounter for screening for COVID-19 Home Medications amoxicillin 875 mg-potassium clavulanate 125 mg tablet 1 tab PO BID #20 tabs 05/14/22 [Rx Last Taken Unknown] ondansetron 4 mg disintegrating tablet 4 mg PO Q8H PRN nausea and vomiting #10 tabs 05/14/22 [Rx Last Taken Unknown] Allergy/AdvReac Type Severity Reaction Status Date / Time No Known Allergies Allergy Verified 05/26/23 21:36 Social History Smoking Status: Never smoker ROS ROS ED ROS Narrative Cough, fever, chills and sore throat. Review of Systems ROS Unobtainable: Denies due to encephalopathy Constitutional Constitutional ED: Reports chills, fever(s) and subjective Eyes Eyes: Denies blurry vision ENT ENT ED: Reports sore throat; Denies ear pain or rhinorrhea Cardiovascular Cardiovascular: Denies chest pain or palpitations Respiratory/Chest Respiratory/Chest: Reports cough Gastrointestinal Gastrointestinal: Denies abdominal pain, constipation, diarrhea, melena, nausea or vomiting Genitourinary Genitourinary ED: Denies dysuria or hematuria Musculoskeletal Musculoskeletal: Denies arthralgias or back pain Integumentary Denies abscess or Abrasions Neurologic Neurologic: Denies headache(s) Psychiatric Psychiatric: Denies anxiety or depression Endocrine Endocrinology: Denies cold intolerance Hematologic/Lymphatic Hematologic/Lymphatic: Reports none Allergic/Immunologic Allergic/Immunologic ED: Denies mouth swelling, tongue swelling or urticaria EXAM Physical Exam Narrative Exam Narrative: 23-year-old female no acute distress. Vital signs stable afebrile. Pulse ox 99% room air no hypoxia. H EENT exam TMs normal. Posterior pharynx minimally erythematous. No exudate. No sign of swelling. No trouble swallowing or breathing. Moist mucous membranes. Neck nontender no lymphadenopathy. No meningismus. Lungs clear to auscultation bilaterally. Heart regular rhythm no murmur. Rate about 90. Abdomen soft nontender. Moving all 4 extremities. Nontender no edema. Awake and alert. Answering questions following commands. Const Vital Signs: 05/26/23 21:31 05/26/23 22:48 Temperature 98.6 F Temperature Source Temporal Pulse Rate 97 Respiratory Rate 15 Respiratory Effort Normal Non-Labored Respiratory Pattern Normal Blood Pressure 127/88 H Blood Pressure Mean 101 Pulse Ox 99 Oxygen Delivery Method Room Air Positive well nourished and well developed; Negative for obese, cachectic, contractures or unkempt General Appearance ED: well developed and NAD; Negative for unkempt, cachectic, contractures, cyanotic, diaphoretic or pallor Nutritional Appearance: Negative for cachectic or obese HEENT Reports moist mucous membranes; Denies dry mucous membranes HEENT Narrative: Mild posterior erythema. No exudate. Tonsils are nonenlarged. No abscess. No trouble breathing or swallowing. Negative for trauma or tenderness Mouth ED: No dry mucous membranes Mouth: No dry mucous membranes Eyes PERRL and EOMs intact bilaterally General Eye ED: Negative for pale conjunctiva or scleral icterus Neck no lymphadenopathy, supple and no JVD General: Negative for tenderness Lymph Lymphatic: Negative for other Chest Wall inspection of chest normal and palpation of chest normal Chest: Negative for other Resp normal respiratory effort and clear to auscultation bilaterally Effort and Inspection: Negative for retractions Auscultation: Negative for rales, rhonchi or wheezes Cardio regular rate, regular rhythm, S1 normal heart sound, S2 normal heart sound and no murmurs Palpation: Negative for palpable S3 or palpable S4 Rate: Negative for bradycardia or tachycardic Rhythm: Negative for abnormal rhythm GI normal to inspection, nondistended, normoactive bowel sounds, non-tender, non-distended and no masses Inspection: Negative for abdominal distention Auscultation: normoactive bowel sounds Palpation: soft; Negative for tender, guarding, mass or rebound tenderness present Bladder / Kidney Exam: No other Back/Spine no CVA tenderness General Back: Negative for CVA tenderness Cervical Spine: Negative for cervical spine tenderness Thoracic Spine / Upper Back: Negative for thoracic spinal tenderness Lumbar Spine / Lower Back: Negative for lumbar spinal tenderness Extremity normal to inspection General Extremety ED: Negative for edema, tenderness or other findings General Extremity: Negative for edema or other findings Neuro oriented x3 and CN's II-XII intact bilaterally Sensorium / Orientation: alert Motor Exam: strength 5/5 throughout Psych mental status grossly normal Appearance: Negative for unkempt Attitude: No agitated Mood & Affect: Negative for depressed, anxious or tearful Skin no rashes or lesions noted, no wounds and skin turgor normal General Skin Exam: elasticity normal; Negative for jaundice or pallor Lesions: No lesion noted Rashes: No rashes noted Trauma: Negative for abrasion Wounds: Negative for wounds noted MDM MDM MDM Narrative Medical decision making narrative: 23-year-old female viral syndrome versus strep throat. Strep being obtained. She also requested a test. Clinically she looks well. She does not need IV, labs or imaging. Repeat exam unchanged. Patient be treated as a viral syndrome. Fluids and rest. Tylenol and Motrin. Warm salt water gargling. Follow-up if not improving or return if worse. History & Record Review Discussion w/independent historian: Patient Additional record(s) reviewed:: Prior inpatient record, Prior outpatient record, Prior ED visit and Prior labs Lab Data Attestation: I reviewed the patient's lab results. Lab results narrative: Rapid strep is negative. Urine test negative. Labs: Laboratory Results - last 24 hr 05/26/23 22:38 Urine Test Negative Discharge Plan Triage Chief Complaint: General Illness ED Provider: Timi Muñoz Dx/Rx/DC Orders Clinical Impression: Viral syndrome Instructions: ED Viral Syndrome (Adult) Prescriptions: No Action amoxicillin-pot clavulanate 875-125 mg tablet 1 tab PO BID Qty: 20 0RF ondansetron 4 mg tablet,disintegrating 4 mg PO Q8H PRN (Reason: nausea and vomiting) Qty: 10 0RF Primary Care Provider: Gabino Summers Referrals: Gabino Summers MD [Primary Care Provider] - As Needed Activity Restrictions/Additional Instructions: Plenty of fluids and rest. Alternate Tylenol and Motrin for fever and body aches. Warm salt water gargling. Follow-up if not improving or return if worse. Your rapid strep test was negative. Your urine test was negative. Disposition Disposition: Home, Self Care
--- OUTSIDE RECORDS SUMMARY | 2023-05-26 22:38 | XMS RPT_ITS | CCD ---
Author Name Unknown Address [address] [place] [address] Organization [facility] Care Team Providers Care Sustain Engineer Name Role Phone CAROL BRYANT Unavailable Unavailable TIKI WATSON Unavailable JOSE ELIAS [place] Unavailable Patrick Peterson MD Primary Care Provider Patrick Porras MD Primary Care Provider Patrick Porras MD Primary Care Provider PATRICK PORRAS Primary Care UnavailPATRICK Braga Primary Care UnavailZOEY Beck Referring Unavailable ZOEY DELGADO Attending Unavailable PATRICK PORRAS Primary Care Unavailab ZOEY Granda Referring Unavailable PATRICK PORRAS Primary Care Unavailab [place] Allergies Allergy Classification Reported Allergen(s) Allergy Type Date of Onset Reaction(s) Facility (6 sources) Cat; Translations: [CATS] Propensity to adverse reactions 04-27-2006 [facility] Work Phone: Medications Current Medications Medication Drug Class(es) Dates Sig (Normalized) Sig (Original) amoxicillin 500 mg oral capsule (1 source) Penicillin-class Antibacterial Start: 02-06-2023 End: 02-16-2023 take 1 capsule by mouth twice daily amoxicillin (AMOXIL) 500 mg capsule Take 1 capsule by mouth twice daily for 10 days. 20 capsule 0 02/06/2023 02/16/2023 Active Completed/Discontinued Medications Medication Drug Class(es) Dates Sig (Normalized) Sig (Original) [id number] 200 actuat albuterol 0.09 mg/actuat metered dose inhaler (5 sources) beta2-Adrenergic Agonist Start: 02-11-2021 take 2 puff(s) by inhalation every four hours as needed for wheezing albuterol HFA (PROVENTIL HFA, VENTOLIN HFA) 90 mcg/actuation inhaler Indications: SOB (shortness of breath) Inhale 2 Puffs as instructed every 4 hours as needed for wheezing/shortnes s of breath. 8.5 g 0 02/11/2021 Active Problems Active Problems Problem Classification Problem Date Documented Date Episodic/Chronic Acquired foot deformities (1 source) Acquired hallux valgus; Translations: [Hallux valgus (acquired), unspecified foot] Chronic Acquired foot deformities (1 source) Talipes planus; Translations: [Flat foot [pes planus] (acquired), right foot] Episodic Disorders usually diagnosed in infancy, childhood, or adolescence (5 sources) Attention deficit hyperactivity disorder, predominantly inattentive type; Translations: [Other specified behavioral and emotional disorders with onset usually occurring in childhood and adolescence] 09-26-2012 Chronic Menstrual disorders (5 sources) Irregular periods; Translations: [Irregular menstruation, unspecified] Onset: 10-23-2012 10-23-2012 Chronic Mycoses (1 source) Tinea pedis; Translations: [Tinea pedis] Episodic Other connective tissue disease (2 sources) Pain in both feet; Translations: [Pain in right foot] Episodic Other non-traumatic joint disorders (1 source) Pain in wrist; Translations: [Pain in left wrist] Episodic Other upper respiratory infections (2 sources) Sore throat symptom; Translations: [Acute pharyngitis, unspecified] 02-06-2023 Episodic Past or Other Problems Problem Classification Problem Date Documented Date Episodic/Chronic Other connective tissue disease (5 sources) Marfanoid physique; Translations: [Unspecified symptoms and signs involving the musculoskeletal system] Onset: 02-22-2016 02-22-2016 Episodic Other connective tissue disease (1 source) Pain in right foot; Translations: [Bilateral foot pain] Onset: 03-03-2022 Episodic Other connective tissue disease (1 source) Pain in left foot; Translations: [Bilateral foot pain] Onset: 03-03-2022 Episodic Results Test Name Value Interpretation Reference Range Facil ity Vital Signs Date Time Vital Sign Value Performing Clinician Evita vargas 02-06-2023 10:27-0400 Body temperature 98.2 [degF] Guru Jenibury CIGARETTE TESTER.MULTIGRAPH OPERATOR Work Phone: [facility] 02-06-2023 10:27-0400 Body weight 84.01 kg Guru Santana CIGARETTE TESTER.MULTIGRAPH OPERATOR Work Phone: [facility] 02-06-2023 10:27-0400 Diastolic blood pressure 74 mm[Hg] Guru Santana CIGARETTE TESTER.MULTIGRAPH OPERATOR Work Phone: [facility] 02-06-2023 10:27-0400 Heart rate 83 /min Guru Santana CIGARETTE TESTER.MULTIGRAPH OPERATOR Work Phone: [facility] 02-06-2023 10:27-0400 Respiratory rate 21 /min Guru Santana CIGARETTE TESTER.MULTIGRAPH OPERATOR Work Phone: [facility] 02-06-2023 10:27-0400 SaO2% (BldA) [Mass fraction] 98 % Guru Santana CIGARETTE TESTER.MULTIGRAPH OPERATOR Work Phone: [facility] 02-06-2023 10:27-0400 Systolic blood pressure 102 mm[Hg] Guru Santana CIGARETTE TESTER.MULTIGRAPH OPERATOR Work Phone: [facility] 08-30-2021 08:44-0400 Body temperature 97 [degF] Jerson Busch MD Work Phone: [facility] 08-30-2021 08:44-0400 Body weight 79.38 kg Jerson Busch MD Work Phone: [facility] 08-30-2021 08:44-0400 Diastolic blood pressure 70 mm[Hg] Jerson Busch MD Work Phone: [facility] 08-30-2021 08:44-0400 Heart rate 72 /min Jerson Busch MD Work Phone: [facility] 08-30-2021 08:44-0400 Respiratory rate 16 /min Jerson Busch MD Work Phone: [facility] 08-30-2021 08:44-0400 SaO2% (BldA) [Mass fraction] 98 % Jerson Busch MD Work Phone: [facility] 08-30-2021 08:44-0400 Systolic blood pressure 122 mm[Hg] Jerson Busch MD Work Phone: [facility] Encounters Encounter Date Encounter Type Care Provider Facility Start: 02-06-2023 End: 02-06-2023 ambulatory PATRICK PORRAS Facility:[facility] Start: 02-06-2023 End: 02-06-2023 Office outpatient visit 25 minutes Guru Santana APRN.CNP Work Phone: [facility] Procedures Date Procedure Procedure Detail Performing Clinician
[2023-05-26 22:52] LABS: Internal QC Validated? YES +Cl - CLEAR BKGD; Pregnancy, Urine Negative Negative
[2023-05-26 22:59] VITALS: BP 108/62; PULSE 73; RESP 15; O2SAT 99
--- NOTE | 2023-05-28 11:56 | ED.RN ---
THIS RN RECEIVED A CALL FROM LAB. PT STREP CULTURE POSITIVE. PER DR. SIMMS REVIEW PT TO BE TREATED WITH KEFLEX 500 MG BID FOR TEN DAYS. THIS RN CALLED AND EDUCATED PATIENT ON DX AND TREATMENT. PRESCRIPTION CALLED TO [facility] [place] AT THE PATIENTS REQUEST.
== END 2023-05-26 22:59 | disposition home or self-care (01) ==
PROVIDERS: Emergency Provider Emergency Medicine; PCP Family Medicine; Visit Provider Emergency Medicine
DX: B34.9 Viral infection, unspecified (principal)
CPT/HCPCS: 81025; 87077; 87880; 99282

== ENCOUNTER 2023-06-01 11:25 | Emergency (ER) | payer OTHER, MEDICAID, SELFPAY ==
[2023-06-01 11:26] VITALS: BP 102/56; PULSE 121; RESP 18; TEMP 38.9; O2SAT 99; BMI 31.2
[2023-06-01 13:27] VITALS: PULSE 120; RESP 12; O2SAT 98
--- NOTE | 2023-06-01 14:06 | EDS_ITS ---
HPI HPI - URI History of Present Illness Chief Complaint: Cold Sx Detail of Chief Complaint: Upper respiratory tract infectious symptoms with fever, chills and myalgias Informant: patient Onset/Context/Timing Onset: Yesterday Context: Sudden Onset Timing: Continuous Quality: Documented temperature to 102.8 ?F, upper respiratory tract symptoms Location: Generalized Current Severity: Mild Maximum Severity: Severe Worsened by: Not Worsened By Swallowing, Eating Solids or Drinking Liquids Relieved by: Not Relieved By Tylenol or NSAIDs Associated Symptoms Associated Symptoms: Positive for Nasal Congestion, Headache, Myalgias, Nausea, Shortness of Breath, Chest Pain and Nonproductive cough; Negative for Sinus Pressure, Vomiting, Diarrhea, Hemoptysis or Productive Cough Narrative Narrative: Patient is a 23-year-old who presents with document temperature 102.8 ?F with headache, myalgias, arthralgias, nonproductive cough with nasal congestion, postnasal drainage sore throat. She denies any ill contacts. She denies light sensitivity, neck stiffness. She does report nausea without vomiting diarrhea. She denies urologic symptoms. Patient states she is not . Prior similar symptoms: No Recent Illness/Hospitalization: No ROS ROS ED Constitutional Constitutional ED: Reports chills, fever(s) and sweats Eyes Eyes: Denies blurry vision, change in vision or diplopia ENT ENT ED: Reports rhinorrhea and sore throat; Denies ear pain Cardiovascular Cardiovascular: Reports chest pain; Denies orthopnea, palpitations, paroxysmal nocturnal dyspnea or racing heartbeat Respiratory/Chest Respiratory/Chest: Reports cough and dyspnea; Denies dyspnea on exertion, orthopnea, paroxysmal nocturnal dyspnea or sputum Gastrointestinal Gastrointestinal: Reports nausea; Denies abdominal pain, diarrhea or vomiting Genitourinary Genitourinary ED: Denies dysuria, hematuria or urinary frequency Musculoskeletal Musculoskeletal: Reports arthralgias and myalgias; Denies back pain or neck pain Integumentary Denies Abrasions or rash Neurologic Neurologic: Reports headache(s); Denies paresthesias or weakness Endocrine Endocrinology: Denies cold intolerance or heat intolerance Hematologic/Lymphatic Hematologic/Lymphatic: Denies easy bleeding or easy bruising [facility] Medical History Anxiety Depression Encounter for screening for COVID-19 Home Medications ondansetron 4 mg disintegrating tablet 4 mg PO Q8H PRN nausea and vomiting #10 tabs 05/14/22 [Rx Last Taken Unknown] cephalexin 500 mg capsule 500 mg PO Q12H 06/01/23 [History Last Taken Unknown] ondansetron 4 mg disintegrating tablet 4 mg PO Q8H PRN PRN Nausea #10 tabs 06/01/23 [Rx Last Taken Unknown] oseltamivir 75 mg capsule (Tamiflu) 75 mg PO BID 5 days #10 caps 06/01/23 [Rx Last Taken Unknown] Allergy/AdvReac Type Severity Reaction Status Date / Time No Known Allergies Allergy Verified 06/01/23 11:26 Social History household members: family current occupational status: employed Smoking Status: Never smoker EXAM Physical Exam Const Vital Signs: 06/01/23 11:26 06/01/23 13:25 06/01/23 13:27 Temperature 102.0 F H Temperature Source Oral Pulse Rate 121 H 120 H Respiratory Rate 18 12 Respiratory Pattern Normal Blood Pressure 102/56 L Blood Pressure Mean 71 Pulse Ox 99 98 Oxygen Delivery Method Room Air Vital signs remarkable temperature 102.0 ?F with a heart rate of 120. Positive well nourished and well developed Constitutional Narrative: Patient appears ill but not toxic. General Appearance ED: well developed; Negative for cyanotic, diaphoretic or pallor HEENT Reports dry mucous membranes normocephalic and atraumatic Face and Sinus: Negative for sinus tenderness Mouth ED: Yes dry mucous membranes Mouth: dry mucous membranes Throat: posterior oropharynx normal Eyes PERRL and EOMs intact bilaterally General Eye ED: Negative for pale conjunctiva or scleral icterus Neck no lymphadenopathy, supple and no meningeal signs Resp normal respiratory effort and clear to auscultation bilaterally Cardio S1 normal heart sound, S2 normal heart sound and no murmurs Rate: tachycardic Rhythm: regular rhythm GI non-tender, non-distended and no masses Auscultation: normoactive bowel sounds Palpation: soft Back/Spine no CVA tenderness Extremity normal to inspection and full ROM General Extremety ED: Negative for cyanosis General Extremity: Negative for cyanosis Neuro oriented x3, CN's II-XII intact bilaterally and no sensory deficits noted Sensorium / Orientation: alert Psych mental status grossly normal Skin General Skin Exam: Negative for jaundice or pallor Lesions: no lesions Rashes: no rashes MDM MDM MDM Narrative Medical decision making narrative: Patient with upper respiratory tract infectious symptoms. Will obtain swab to rule out COVID versus influenza versus RSV. Since patient's respiratory rate is normal with no hypoxia and no abnormal oscillatory findings x-ray was not obtained. Patient was treated with Zofran for her nausea. She was prescribed Tamiflu. She was given a work excuse. Prior records indicate patient had uncomplicated . Otherwise unremarkable. History & Record Review Additional record(s) reviewed:: Prior inpatient record Discharge Plan Triage Chief Complaint: Cold Sx ED Provider: Dereje Sanchez Dx/Rx/DC Orders Clinical Impression: Fever in adult, Type A influenza, Sinus tachycardia seen on monitoring specialist Instructions: ED Influenza (Adult) Prescriptions: New oseltamivir [Tamiflu] 75 mg capsule 75 mg PO BID 5 Days Qty: 10 0RF ondansetron [ondansetron] 4 mg tablet,disintegrating 4 mg PO Q8H PRN PRN (Reason: Nausea) Qty: 10 0RF No Action ondansetron 4 mg tablet,disintegrating 4 mg PO Q8H PRN (Reason: nausea and vomiting) Qty: 10 0RF cephalexin 500 mg capsule 500 mg PO Q12H Patient Comments: TAKE 1 CAPSULE BY MOUTH TWICE DAILY Primary Care Provider: Gabino Summers Referrals: Gabino Summers MD [Primary Care Provider] - 1 Week if not improving Disposition Disposition: Home, Self Care
[2023-06-01] MEDS: Ibuprofen 400 MG Tablet 800 MG PO (14:22)
[2023-06-01] MEDS: Ondansetron ODT 4 MG Tablet PO (14:22)
[2023-06-01 14:24] VITALS: PULSE 118; RESP 14
== END 2023-06-01 14:25 | disposition home or self-care (01) ==
PROVIDERS: Emergency Provider Emergency Medicine; PCP Family Medicine; Visit Provider Emergency Medicine
DX: J10.1 Influenza due to other identified influenza virus with other respiratory manifestations (principal); R00.0 Tachycardia, unspecified; R51.9 Headache, unspecified
CPT/HCPCS: 87631; 99283

== ENCOUNTER 2024-04-13 15:43 | Emergency (ER) | payer OTHER, SELFPAY ==
[2024-04-13] VITALS (8 sets, daily range): BP systolic 124–129; BP diastolic 72–84; PULSE 74–116; RESP 15–22; TEMP 36.7–37; O2SAT 96–99; BMI 34.1
--- NOTE | 2024-04-13 16:03 | RAD_ITS ---
INDICATION: cough, sob EXAMINATION/TECHNIQUE: X-RAY - XR Chest 2 Views COMPARISON: 09/27/2022 FINDINGS: LINES/DEVICES: None. LUNGS: No consolidation, edema or effusion. No pneumothorax. MEDIASTINUM AND CARDIOVASCULAR STRUCTURES: Cardiac silhouette not enlarged. Central airways and mediastinal contour are unremarkable. BONES AND SOFT TISSUES: Unremarkable. RAD/Chest PA and Lateral IMPRESSION: No radiographic evidence of acute cardiopulmonary disease. Electronically Signed: German Kirby MD at 17:15 EST ,
--- NOTE | 2024-04-13 16:03 | EKG12_ITS ---
Test Reason : SOB Blood Pressure : */* mmHG Vent. Rate : 86 BPM Atrial Rate : 86 BPM P-R Int : 146 ms QRS Dur : 78 ms QT Int : 370 ms P-R-T Axes : 42 78 54 degrees QTcB Int : 442 ms Normal sinus rhythm with sinus arrhythmia Normal ECG Confirmed by SAIRA MC, CLAUDE ([id number]), rewrite editor BRIGETTE VIGIL ([id number]) on 04/15/2024 8:13:06 AM Referred By: Confirmed By: CLAUDE CHÁVEZ MD
--- NOTE | 2024-04-13 16:05 | EX.ED.DYSGE1 ---
HPI History of Present Illness Chief Complaint: Shortness of Breath Narrative Narrative: Patient is a 23-year-old female with a past medical history anxiety, depression who presents to the emergency department chief complaint of cough and shortness of breath. Patient states that she has had a cough for the past week and notes that she has been coughing up thick yellow sputum. States that her daughter is sick as well. She states that she also is complaining some shortness of breath which is worsening, which ultimately prompted her for here for further evaluation management. Patient denies any history of blood clots denies any recent travel history. [facility] Medical History Anxiety Depression Encounter for screening for COVID-19 Home Medications ?Medication ?Instructions ?Recorded ?Last Taken ?Type NK 04/13/24 Unknown History prednisone 50 mg tablet 50 mg PO DAILY 5 days #5 tabs 04/13/24 Unknown Rx Allergy/AdvReac Type Severity Reaction Status Date / Time cat dander (cats) Allergy Mild Itching Verified 04/13/24 15:44 Social History household members: family current occupational status: employed Smoking Status: Never smoker ROS ROS ED ROS Narrative Constitutional: Complains of chills denies any fevers, headaches, lightness, dizziness Eyes: Denies change in vision, double vision Cardiovascular: Complains of chest pain mainly when she coughs and denies any palpitation Respiratory: Complains of cough and shortness of breath as noted above denies wheezing Abdomen: Complains of nausea vomiting denies any abdominal pain : Denies any pain phonation, hematuria, polyuria, vaginal discharge, possibility Neurological: Denies numbness, weakness, tingling Musculoskeletal: Denies back pain Skin: Denies rashes or lesions EXAM Physical Exam Narrative Exam Narrative: General: Patient lying in bed rest comfortably did not appear to be in acute distress Head: Atraumatic, normocephalic Eyes: PERRL bilateral, EOMI bilateral, no conjunctival injection noted Neck: Soft, supple, trachea midline Cardiovascular: Regular in rhythm no murmurs gallops rubs noted Respiratory: Clear to auscultation bilaterally no rales rhonchi or wheezes noted Abdomen: Soft, nondistended, nontender to palpation, bowel sounds present for Extremities: +5/5 strength noted in the bilateral upper and lower extremities, no pedal edema exam, radial pulses +2/4 in the bilateral upper extremities Neurological: Patient is following commands knew that she was at [facility] there is 2023 Skin: Warm, dry, intact Const Vital Signs: 04/13/24 15:44 04/13/24 16:46 04/13/24 16:48 Temperature 98.6 F Temperature Source Oral Pulse Rate 89 Respiratory Rate 20 H Respiratory Effort Normal Respiratory Depth Normal Respiratory Pattern Blood Pressure 124/84 H Blood Pressure Mean 97 Pulse Ox 98 99 Oxygen Delivery Method Room Air Room Air Room Air 04/13/24 17:43 04/13/24 18:14 04/13/24 19:00 Temperature Temperature Source Pulse Rate 89 74 113 H Respiratory Rate 15 20 H 22 H Respiratory Effort Respiratory Depth Respiratory Pattern Tachypnea Blood Pressure Blood Pressure Mean Pulse Ox 96 99 Oxygen Delivery Method Room Air 04/13/24 19:03 Temperature 98.1 F Temperature Source Oral Pulse Rate 116 H Respiratory Rate 22 H Respiratory Effort Respiratory Depth Respiratory Pattern Blood Pressure 129/72 H Blood Pressure Mean 91 Pulse Ox 98 Oxygen Delivery Method Room Air MDM MDM MDM Narrative Medical decision making narrative: Patient is a 23-year-old female who presented to the emergency department with a chief complaint of cough and shortness of breath. Patient will have a workup performed here on the differential diagnose includes but not limited to pneumonia, upper respiratory infection second viral etiology, ACS, PE although based on revised Durham score she is in the low risk group therefore feel this less likely. Once workup is obtained reviewed she will be reevaluated. Patient CBC reviewed and was largely unremarkable no evidence leukocytosis white blood count normal at 9.5, hemoglobin stable 13.4, platelet count normal at 330. Patient sodium normal at 139, potassium normal 3.7, creatinine normal at 0.97. Patient's troponin was normal at less than 3. Patient's EKG was reviewed and independently interpreted by myself which showed sinus rhythm with a rate of 86 bpm. Patient's test was negative. Patient's chest x-ray was reviewed and by myself and by radiology showed no acute cardiopulmonary processes. Patient ambulated here in the emergency department and her oxygen level dropped to the mid 80s and she became tachypneic therefore I added on a CTA of the chest as well as gave her 3 DuoNebs and steroids. Patient CTA of the chest reviewed and showed no evidence of pulmonary embolism or arterial dissection. Did reevaluate the patient states that she is feeling better and would like to go home. Patient will be prescribed a MDI inhaler which will be dispensed here. And will be placed on a 5-day course of steroids once again she does not have any history of asthma or COPD that she is stating however she was wheezing here in the emergency department. Patient was advised to follow-up with her primary care physician and return with worsening symptoms or other concerns. She is agreeable this plan all question concerns answered she is discharged home in stable condition Lab Data Labs: Laboratory Results - last 24 hr 04/13/24 16:25 WBC 9.5 RBC 4.76 Hgb 13.4 Hct 39.8 MCV 83.6 MCH 28.2 MCHC 33.7 RDW Std Deviation 37.6 RDW Coeff of Bailee 12.4 Plt Count 330 MPV 9.6 Immature Gran % (Auto) 0.300 Neut % (Auto) 57.0 Lymph % (Auto) 25.2 [place] % (Auto) 5.8 Eos % (Auto) 11.3 H Baso % (Auto) 0.4 Absolute Neuts (auto) 5.4 Absolute Lymphs (auto) 2.39 Nucleated RBC % 0 Sodium 139 Potassium 3.7 Chloride 109 H Carbon Dioxide 28.0 Anion Gap 2 L BUN 10 Creatinine 0.97 Estim Creat Clear Calc 100.79 Est GFR (MDRD) Af Amer 90 Est GFR (MDRD) Non-Af 74 BUN/Creatinine Ratio 10.3 Glucose 81 Calcium 8.9 Troponin I High Sens < 3 L Serum , Qual NEGATIVE Radiography Diagnostic Testing: Clinical Impression(s) from Imaging Studies Chest X-Ray 04/13/24 16:03 IMPRESSION: No radiographic evidence of acute cardiopulmonary disease. Electronically Signed: German Kirby MD at 17:15 EST Reading Location ID and State: [facility] / [place] Tel , Service support , Chest CTA 04/13/24 18:05 IMPRESSION: Normal CTA chest examination, without a demonstrated pulmonary embolism or arterial dissection. Electronically Signed: German Kirby MD at 19:44 EST , Discharge Plan Triage Chief Complaint: Shortness of Breath ED Provider: Tee Templeton Dx/Rx/DC Orders Clinical Impression: Upper respiratory infection, viral, Bilateral wheezing, Shortness of breath Prescriptions: New prednisone 50 mg tablet 50 mg PO DAILY 5 Days Qty: 5 0RF No Action NK Primary Care Provider: Sofie Paz NP Referrals: Sofie Paz NP, [facility] [Primary Care Provider] - Activity Restrictions/Additional Instructions: Use inhaler as prescribed take steroids as prescribed. Follow with your primary care physician outpatient setting. Return with worsening symptoms or any concerns Print Language: Welsh Disposition Disposition: Home, Self Care
[2024-04-13 16:33] LABS: Absolute Lymphocyte Count 2.39 X10^3/uL (0.83-4.51); Absolute Neutrophil Count 5.4 X10^3/uL (2.0-7.7); Basophil# 0.04 X10^3/uL; Basophil% 0.4 % (0-1); Eosinophil# 1.07 X10^3/uL; Eosinophils% 11.3 % (0-5); Hematocrit 39.8 % (37-47); Hemoglobin 13.4 g/dL (12.0-15.0); Lymphocyte # 2.39 X10^3/ul (0.83-4.51); Lymphocyte % 25.2 % (19-41); Mean Corp Hgb Conc 33.7 g/dL (32-36); Mean Corpuscular Hgb 28.2 pg (27.0-32.0); Mean Corpuscular Volume 83.6 fL (81-99); Mean Platelet Vol. 9.6 fl (6.2-12.0); Monocyte# 0.55 X10^3/uL; Monocyte% 5.8 % (0-10); NRBC Flagged by Analyzer 0 % (0-5); Platelet Count 330 K/mm3 (150-450); RBC Distribution Width CV 12.4 % (11.6-14.6); RBC Distribution Width SD 37.6 fl (35.1-43.9); Red Blood Count 4.76 M/mm3 (4.2-5.4); White Blood Count 9.5 K/mm3 (4.4-11.0)
[2024-04-13 16:44] LABS: Internal QC Validated? YES +Cl - CLEAR BKGD; Pregnancy, Serum, hCG Quali. NEGATIVE Negative
[2024-04-13 16:51] LABS: Anion Gap 2 (5-15); BUN 10 mg/dL (7-18); BUN/Creat Ratio 10.3 RATIO (10-20); Calcium,Total 8.9 mg/dL (8.5-10.1); Chloride 109 mmol/L (98-107); Creatinine, Serum 0.97 mg/dL (0.55-1.02); EST Glomerular Filtration Rate 74 mL/min (>60); Est Glom Filt Rate - Afr Amer 90 mL/min (>60); Estimated Creatinine Clearance 100.79 ml/min; Glucose 81 mg/dL (74-106); Potassium 3.7 mmol/L (3.5-5.1); Sodium Level 139 mmol/L (136-145); Troponin-I HS < 3 pg/mL (3.0-54.0)
--- NOTE | 2024-04-13 18:05 | CT_ITS ---
STUDY: CTA CHEST REASON FOR EXAM: Female, 23 years old. Hypoxia with ambulation RADIATION DOSAGE (If Supplied By Facility): CTDIvol = ( 18.46 ) mGy, DLP = ( 500.10 ) mGycm TECHNIQUE: The examination was performed with the intravenous administration of 100mL Isovue-370. Post-processing of the angiographic images was performed, with multiplanar reformation and 3D reconstruction. Individualized dose optimization techniques were used for this CT. COMPARISON: None. FINDINGS: Normal enhancement of the main pulmonary artery and right and left pulmonary arteries. Normal enhancement of the bilateral peripheral pulmonary arteries. There is no demonstrated pulmonary embolism. Normal thoracic aorta and visualized great vessels. There is no demonstrated aortic dissection. Normal heart and pericardium. Normal mediastinum. Normal hilar regions. There are no pulmonary infiltrates. There are no pleural effusions. Normal osseous structures. No acute findings in the upper abdomen. CT/CTA Chest W/WO Contrast IMPRESSION: Normal CTA chest examination, without a demonstrated pulmonary embolism or arterial dissection. Electronically Signed: German Kirby MD at 19:44 EST ,
[2024-04-13] MEDS: Ipratropium/Albuterol Sulfate 3 ML AMPUL.NEB INHALATION ×3 (18:12)
[2024-04-13] MEDS: predniSONE 20 MG Tablet 60 MG PO (18:17)
--- NOTE | 2024-04-13 20:04 | ED.RN ---
Patient ambulated, HR 130, O2 96% and RR 30 during ambulation.
== END 2024-04-13 21:21 | disposition home or self-care (01) ==
PROVIDERS: Emergency Provider Emergency Medicine; PCP Nurse Practitioner Adult Health; Visit Provider Emergency Medicine
DX: J06.9 Acute upper respiratory infection, unspecified (principal); F41.9 Anxiety disorder, unspecified; R06.02 Shortness of breath; F32.A Depression, unspecified; R06.2 Wheezing; Z79.52 Long term (current) use of systemic steroids
CPT/HCPCS: 71046; 71275; 80048; 84484; 84703; 85025; 93005; 94640; 99284; Q9967; A4216

== ENCOUNTER 2024-08-25 11:09 | Emergency (ER) | payer OTHER, MEDICAID, SELFPAY ==
[2024-08-25 11:10] VITALS: BP 137/108; PULSE 125; RESP 22; TEMP 35.9; O2SAT 97; BMI 31.8
--- NOTE | 2024-08-25 11:44 | EKG12_ITS ---
Test Reason : GENERAL Blood Pressure : */* mmHG Vent. Rate : 106 BPM Atrial Rate : 106 BPM P-R Int : 140 ms QRS Dur : 76 ms QT Int : 328 ms P-R-T Axes : 40 82 39 degrees QTcB Int : 435 ms Sinus tachycardia Otherwise normal ECG Confirmed by SAIRA MC, CLAUDE ([id number]), food expeditor EDDIE RAMOS ([id number]) on 08/27/2024 8:24:16 AM Referred By: Confirmed By: CLAUDE CHÁVEZ MD
[2024-08-25] MEDS: 0.9% Normal Saline (1000mL) 1,000 ML 999 ML IV (11:57)
--- NOTE | 2024-08-25 11:57 | EX.ED.DYSGE1 ---
HPI <FRANKY Dolan - Last Filed: 08/25/24 15:57> History of Present Illness Chief Complaint: Shortness of Breath Narrative Narrative: Patient presenting today with flulike symptoms that started Monday. She reports productive cough with white-colored sputum, fatigue, decreased appetite, nausea, 4 episodes of vomiting yesterday, 1 episode of vomiting today, fevers, chills, headache, and feeling short of breath. She denies abdominal pain, hematemesis, diarrhea, and urinary symptoms. She has no concerns for , she is currently on her menstrual period. Her daughter is currently sick with similar symptoms. PFS <FRANKY Dolan - Last Filed: 08/25/24 15:57> [facility] Medical History Anxiety Depression Encounter for screening for COVID-19 Home Medications ?Medication ?Instructions ?Recorded ?Last Taken ?Type prednisone 50 mg tablet 50 mg PO DAILY 5 days #5 tabs 04/13/24 Unknown Rx azithromycin 250 mg tablet 250 mg PO DAILY #4 TABLETS 08/25/24 Unknown Rx prednisone 20 mg tablet 40 mg (2 x 20 mg) PO DAILY 4 days 08/25/24 Unknown Rx #8 tabs Allergy/AdvReac Type Severity Reaction Status Date / Time latex Allergy Intermediate Hives Verified 08/25/24 11:10 cat dander (cats) Allergy Mild Itching Verified 08/25/24 11:10 ochoa Allergy Mild PT UNSURE Verified 08/25/24 11:10 OF REACTION Social History household members: family current occupational status: employed Smoking Status: Never smoker ROS <FRANKY Dolan - Last Filed: 08/25/24 15:57> ROS ED Constitutional Constitutional ED: Reports chills and fever(s) ENT ENT ED: Denies rhinorrhea or sore throat Cardiovascular Cardiovascular: Denies chest pain or palpitations Respiratory/Chest Respiratory/Chest: Reports cough, dyspnea and sputum Gastrointestinal Gastrointestinal: Reports nausea and vomiting; Denies abdominal pain, constipation or diarrhea Genitourinary Genitourinary ED: Denies dysuria, hematuria or urinary urgency Musculoskeletal Musculoskeletal: Denies arthralgias or myalgias Integumentary Denies rash Neurologic Neurologic: Reports headache(s); Denies weakness EXAM <Janet Castillo PA - Last Filed: 08/25/24 15:57> Physical Exam Const Vital Signs: 08/25/24 11:10 08/25/24 11:59 08/25/24 12:00 Temperature 96.7 F L Temperature Source Temporal Pulse Rate 125 H Respiratory Rate 22 H Respiratory Effort Normal Non-Labored Respiratory Depth Normal Respiratory Pattern Normal Blood Pressure 137/108 H Blood Pressure Mean 117 Pulse Ox 97 Oxygen Delivery Method Room Air Room Air Room Air 08/25/24 12:18 08/25/24 13:09 08/25/24 15:40 Temperature 98.9 F Temperature Source Pulse Rate 83 104 H 90 Respiratory Rate 16 20 H 18 Respiratory Effort Respiratory Depth Respiratory Pattern Blood Pressure 115/78 112/73 Blood Pressure Mean 90 86 Pulse Ox 92 98 Oxygen Delivery Method Room Air Positive well nourished, well developed and no apparent distress General Appearance ED: well developed HEENT Reports normocephalic and head/scalp atraumatic Mouth ED: Yes moist mucous membranes normal Eyes PERRL and EOMs intact bilaterally Neck full ROM and supple Neck Narrative: No meningeal signs Chest Wall inspection of chest normal Resp normal respiratory effort Resp Narrative: Faint expiratory wheezes bilaterally Cardio regular rhythm Rate: tachycardic GI soft to palpation, non-tender, non-distended and no masses Back/Spine normal ROM and normal to inspection Extremity normal to inspection and full ROM Neuro oriented x3, CN's II-XII intact bilaterally, moves all extremities, no focal motor deficits and no sensory deficits noted Sensorium / Orientation: awake and alert Psych mental status grossly normal and thought process normal Skin no rashes or lesions noted and no wounds <Dr. Ulices Don DO - Last Filed: 08/25/24 15:22> Physical Exam Const Vital Signs: 08/25/24 11:10 08/25/24 11:59 08/25/24 12:00 Temperature 96.7 F L Temperature Source Temporal Pulse Rate 125 H Respiratory Rate 22 H Respiratory Effort Normal Non-Labored Respiratory Depth Normal Respiratory Pattern Normal Blood Pressure 137/108 H Blood Pressure Mean 117 Pulse Ox 97 Oxygen Delivery Method Room Air Room Air Room Air 08/25/24 12:18 08/25/24 13:09 08/25/24 15:40 Temperature 98.9 F Temperature Source Pulse Rate 83 104 H 90 Respiratory Rate 16 20 H 18 Respiratory Effort Respiratory Depth Respiratory Pattern Blood Pressure 115/78 112/73 Blood Pressure Mean 90 86 Pulse Ox 92 98 Oxygen Delivery Method Room Air [facility] <FRANKY Dolan - Last Filed: 08/25/24 15:57> [facility] Narrative Medical decision making narrative: Patient presenting with flulike symptoms that started on . She is nontoxic-appearing. Daughter is currently sick with similar symptoms. I do suspect viral illness. She was tested for COVID, influenza, RSV and viral swab is negative. Given she is tachypneic and tachycardic, labs will be obtained, she reports feeling dehydrated, she will be given IV fluids. CBC, BMP, troponin, troponin, urine hCG are negative. D-dimer is elevated, therefore CT of the chest obtained to assess for PE and infiltrate. CTA shows scattered groundglass pneumonia. She was given a DuoNeb breathing treatment. On reexamination she does report improvement of her symptoms. Due to slight wheezing during initial exam, she will be given a course of prednisone. She will also be started on a Z-Dhaval with first dose here. Given she is resting comfortably and has a pulse ox of 98% I do feel she can be discharged. Recommended she follow-up closely with her PCP, she will be discharged home in stable condition. Lab Data Labs: Laboratory Results - last 24 hr 08/25/24 08/25/24 08/25/24 11:45 11:58 13:46 WBC 6.3 RBC 5.06 Hgb 14.4 Hct 41.8 MCV 82.6 MCH 28.5 MCHC 34.4 RDW Std Deviation 37.7 RDW Coeff of Bailee 12.4 Plt Count 298 MPV 9.3 Immature Gran % (Auto) 0.200 Neut % (Auto) 72.0 H Lymph % (Auto) 16.3 L [place] % (Auto) 7.7 Eos % (Auto) 3.3 Baso % (Auto) 0.5 Absolute Neuts (auto) 4.5 Absolute Lymphs (auto) 1.02 Nucleated RBC % 0 D-Dimer Quant (PE/DVT) 1.04 H* Sodium 136 Potassium 4.0 Chloride 102 Carbon Dioxide 20.9 L Anion Gap 13 BUN 17 Creatinine 1.07 Estim Creat Clear Calc 87.36 Est GFR (MDRD) Non-Af 74 BUN/Creatinine Ratio 15.4 Glucose 87 Calcium 9.4 Troponin T High Sens < 6 Urine Test Negative Radiography X-Ray: Read by ED Physician Diagnostic Testing: Clinical Impression(s) from Imaging Studies Chest X-Ray 08/25/24 12:11 IMPRESSION: No acute process detected. Reading Location: [facility] Chest CTA 08/25/24 12:21 IMPRESSION: No PE. Scattered patches of ground-glass pneumonia. Reading Location: [facility] EKG Initial EKG: Comments: 106 bpm, no ST elevation, sinus tachycardia, interpreted by attending ED physician <Dr. Ulices Don, DO - Last Filed: 08/25/24 15:22> [facility] History & Record Review Discussion w/independent historian: Patient Lab Data Attestation: I reviewed the patient's lab results. Labs: Laboratory Results - last 24 hr 08/25/24 08/25/24 08/25/24 11:45 11:58 13:46 WBC 6.3 RBC 5.06 Hgb 14.4 Hct 41.8 MCV 82.6 MCH 28.5 MCHC 34.4 RDW Std Deviation 37.7 RDW Coeff of Bailee 12.4 Plt Count 298 MPV 9.3 Immature Gran % (Auto) 0.200 Neut % (Auto) 72.0 H Lymph % (Auto) 16.3 L [place] % (Auto) 7.7 Eos % (Auto) 3.3 Baso % (Auto) 0.5 Absolute Neuts (auto) 4.5 Absolute Lymphs (auto) 1.02 Nucleated RBC % 0 D-Dimer Quant (PE/DVT) 1.04 H* Sodium 136 Potassium 4.0 Chloride 102 Carbon Dioxide 20.9 L Anion Gap 13 BUN 17 Creatinine 1.07 Estim Creat Clear Calc 87.36 Est GFR (MDRD) Non-Af 74 BUN/Creatinine Ratio 15.4 Glucose 87 Calcium 9.4 Troponin T High Sens < 6 Urine Test Negative Radiography Diagnostic Testing: Clinical Impression(s) from Imaging Studies Chest X-Ray 08/25/24 12:11 IMPRESSION: No acute process detected. Reading [facility] Chest CTA 08/25/24 12:21 IMPRESSION: No PE. Scattered patches of ground-glass pneumonia. Reading Location: [facility] Treatment and Re-Evaluation :: I have personally performed a face to face assessment of the patient and have reviewed the GABBY Note. I performed a substantive portion of the visit including all aspects of the following. My jj findings include: History is 24-year-old female presenting to the emergency room with cough and shortness of breath. Patient states that her daughter has had an upper respiratory infection. She began to feel ill for the past several days noting cough headache rhinorrhea. Cough has been productive of whitish sputum. She notes that she uses a albuterol inhaler but does not have a history of asthma as her PFTs were negative. Exam is afebrile. Patient does have a slight tachypnea and tachycardia. Lung sounds show some mild wheezing expiratory bilaterally and rhonchi at the bases left greater than right. She is awake alert no acute distress. Medical Decison Making my independent interpretation the chest x-ray is no acute process. D-dimer slightly elevated. EKG is a sinus rhythm. Normal white count. COVID flu RSV swabs were negative. CTA of the chest was obtained. Patient received a DuoNeb. The CT of the chest is negative patient will be discharged home with burst dose prednisone as well as continued MDI. PCP follow-up if not improving return if worsening. Discharge Plan Triage Chief Complaint: Shortness of Breath ED Midlevel Provider: Janet Castillo ED Provider: Ulices Don Dx/Rx/DC Orders Clinical Impression: Pneumonia Instructions: ED Pneumonia (Adult) Prescriptions: New prednisone 20 mg tablet 40 mg PO DAILY 4 Days Qty: 8 0RF azithromycin 250 mg tablet 250 mg PO DAILY Qty: 4 0RF No Action prednisone 50 mg tablet 50 mg PO DAILY 5 Days Qty: 5 0RF Stand Alone Forms: ED Work / School Excuse Primary Care Provider: Sofie Paz NP Referrals: Sofie Paz NP, [employer] [Primary Care Provider] - 5-7 Days Activity Restrictions/Additional Instructions: Follow-up with your PCP and return for any worsening symptoms. Print Language: Iraqi Disposition Disposition: Home, Self Care Discharge Date/Time: 08/25/24 15:48
[2024-08-25 11:59] VITALS: O2SAT 97
[2024-08-25 12:00] VITALS: O2SAT 93
[2024-08-25] MEDS: Ketorolac 15 MG/ML Vial IV (12:01)
[2024-08-25] MEDS: Ondansetron 4 MG/2 ML Vial IV (12:01)
[2024-08-25 12:04] LABS: Absolute Lymphocyte Count 1.02 X10^3/uL (0.83-4.51); Absolute Neutrophil Count 4.5 X10^3/uL (2.0-7.7); Basophil# 0.03 X10^3/uL; Basophil% 0.5 % (0-1); Eosinophil# 0.21 X10^3/uL; Eosinophils% 3.3 % (0-5); Hematocrit 41.8 % (37-47); Hemoglobin 14.4 g/dL (12.0-15.0); Lymphocyte # 1.02 X10^3/ul (0.83-4.51); Lymphocyte % 16.3 % (19-41); Mean Corp Hgb Conc 34.4 g/dL (32-36); Mean Corpuscular Hgb 28.5 pg (27.0-32.0); Mean Corpuscular Volume 82.6 fL (81-99); Mean Platelet Vol. 9.3 fl (6.2-12.0); Monocyte# 0.48 X10^3/uL; Monocyte% 7.7 % (0-10); NRBC Flagged by Analyzer 0 % (0-5); Neutrophil # 4.52 X10^3/uL (2.7-7.7); Platelet Count 298 K/mm3 (150-450); RBC Distribution Width CV 12.4 % (11.6-14.6); RBC Distribution Width SD 37.7 fl (35.1-43.9); Red Blood Count 5.06 M/mm3 (4.2-5.4); White Blood Count 6.3 K/mm3 (4.4-11.0)
--- NOTE | 2024-08-25 12:11 | RAD_ITS ---
PROCEDURE: CHEST PA AND LATERAL 08/25/2024 REASON FOR EXAM: Shortness of breath, cough, congestion, sore throat, nausea and vomiting TECHNIQUE: Frontal and lateral views of the chest. COMPARISON: Chest radiograph 04/13/2024 FINDINGS: Hardware: No internal hardware detected. EKG lead wires overlie the chest. Heart: Heart size is normal. Contour is normal. Mediastinum: Contours normal. Lungs: Lungs are clear. No pleural effusions. No thickening of interstitium. Bones: Unremarkable RAD/Chest PA and Lateral IMPRESSION: No acute process detected. Reading [facility]
[2024-08-25 12:17] LABS: D-Dimer Quantitative (DVT/PE) 1.04 FEU/ug/m (0.27-0.49)
[2024-08-25 12:18] VITALS: PULSE 83; RESP 16
[2024-08-25] MEDS: Ipratropium/Albuterol Sulfate 3 ML AMPUL.NEB INHALATION (12:18)
--- NOTE | 2024-08-25 12:21 | CT_ITS ---
PROCEDURE: CTA of the chest for pulmonary embolism 08/25/2024 REASON FOR EXAM: SOB, ELEVATED D-DIMER TECHNIQUE: CTA imaging of the abdomen and pelvis with intravenous contrast. Coronal and Sagittal reconstruction series were provided. 3D, 3D post processing, 3D reconstructions, Maximum intensity projection (MIPs) Volume rendering and Shaded surface rendering was provided. CONTRAST: Isovue 370 VOLUME: 100mL One or more dose reduction techniques were used (e.g., Automated exposure control, adjustment of the mA and/or kV according to patient size, use of iterative reconstruction technique). RADIATION DOSE SUMMARY: CTDlvol: 13.86 mGy DLP: 466.56 mGycm COMPARISON: CTA chest 04/13/2024 FINDINGS: Aorta: Unremarkable No filling defects in the pulmonary arteries are appreciated. Scattered focal patches of ground-glass pneumonia are present. No pleural effusion. No bony abnormalities. Other Findings: CT/CTA Chest W/WO Contrast IMPRESSION: No PE. Scattered patches of ground-glass pneumonia. Reading Location[facility]
[2024-08-25 12:31] LABS: Anion Gap 13 (5-15); BUN 17 mg/dL (4-19); BUN/Creat Ratio 15.4 RATIO (10-20); Calcium,Total 9.4 mg/dL (7.6-11.0); Carbon Dioxide 20.9 mmol/L (21.0-32.0); Chloride 102 mmol/L (98-108); Creatinine, Serum 1.07 mg/dL (0.70-1.20); EST Glomerular Filtration Rate 74 (>60); Estimated Creatinine Clearance 87.36 ml/min (50-250); Glucose 87 mg/dL (70-99); Sodium Level 136 mmol/L (133-145)
[2024-08-25 13:09] VITALS: BP 115/78; PULSE 104; RESP 20; O2SAT 92
[2024-08-25 13:28] LABS: Troponin T High Sensitivity < 6 ng/L (<=14)
[2024-08-25 13:57] LABS: Internal QC Validated? YES +Cl - CLEAR BKGD; Pregnancy, Urine Negative Negative
[2024-08-25 15:40] VITALS: BP 112/73; PULSE 90; RESP 18; TEMP 37.2; O2SAT 98
[2024-08-25] MEDS: Azithromycin 250 MG Tablet 500 MG PO (15:45)
[2024-08-25] MEDS: predniSONE 20 MG Tablet 40 MG PO (15:45)
== END 2024-08-25 15:48 | disposition home or self-care (01) ==
PROVIDERS: Physician Assistant; Emergency Provider Emergency Medicine; PCP Nurse Practitioner Adult Health; Visit Provider Emergency Medicine
DX: J18.9 Pneumonia, unspecified organism (principal); R51.9 Headache, unspecified
CPT/HCPCS: 71046; 71275; 80048; 81025; 84484; 85025; 85379; 87631; 93005; 94640; 96361; 96374; 96375; 99284; Q9967; J2405

== ENCOUNTER 2025-02-07 09:02 | Emergency (ER) | payer OTHER, SELFPAY ==
[2025-02-07 09:02] VITALS: BP 119/88; PULSE 90; RESP 14; TEMP 36.1; O2SAT 98; BMI 33.5
[2025-02-07 09:16] VITALS: BP 109/80; BP 116/75; BP 121/80; PULSE 72; PULSE 77; PULSE 79
--- NOTE | 2025-02-07 09:16 | EKG12_ITS ---
Test Reason : Blood Pressure : */* mmHG Vent. Rate : 74 BPM Atrial Rate : 74 BPM P-R Int : 156 ms QRS Dur : 80 ms QT Int : 390 ms P-R-T Axes : 50 85 43 degrees QTcB Int : 432 ms Normal sinus rhythm Normal ECG Confirmed by Finn Peng ([id number]), editor city BRIGETTE VIGIL ([id number]) on 02/10/2025 1:07:35 PM Referred By: SEAN Confirmed By: Finn Peng
--- NOTE | 2025-02-07 09:17 | EDS_ITS ---
HPI History of Present Illness Chief Complaint: Diarrhea Narrative Narrative: Patient is a 24-year-old female with past medical history of anxiety, depression who presented to the emergency department chief complaint of lightheadedness, nausea and diarrhea. Patient states that on 01/29/2025 she donated blood and states that during this time she passed out for about 30 seconds. States that ever since then she has not been feeling well. States that the diarrhea is minimal but notes that her stool is looser than normal for her per self. She denies any recent antibiotic use. Patient states that she does not feel like her heart is racing during these episodes of lightheadedness. States that when she goes from the sitting to standing position this does appear to be worse. States that she was told to drink plenty of fluids with electrolytes which she has been doing as well. Patient notes that the staff called her today where she donated blood and she told them her symptoms and they advised her to seek medical attention by going to the emergency department but did not specify why. [facility] Medical History Anxiety Depression Encounter for screening for COVID-19 Home Medications ?Medication ?Instructions ?Recorded ?Last Taken ?Type prednisone 50 mg tablet 50 mg PO DAILY 5 days #5 tab s 04/13/24 Unknown Rx azithromycin 250 mg tablet 250 mg PO DAILY #4 TABLETS 08/25/24 Unknown Rx prednisone 20 mg tablet 40 mg (2 x 20 mg) PO DAILY 4 days 08/25/24 Unknown Rx #8 tabs ondansetron 4 mg disintegrating 4 mg PO Q6H PRN nausea and 02/07/25 Unknown Rx tablet vomiting #20 tabs Allergy/AdvReac Type Severity Reaction Status Date / Time latex Allergy Intermediate Hives Verified 02/07/25 09:03 cat dander (cats) Allergy Mild Itching Verified 02/07/25 09:03 ochoa Allergy Mild PT UNSURE Verified 02/07/25 09:03 OF REACTION Social History household members: family current occupational status: employed Smoking Status: Never smoker ROS ROS ED ROS Narrative Constitutional: Complains of intermittent lightheadedness as noted above denies any fevers, chills, headaches, dizziness Eyes: Denies double vision blurry vision change in vision Cardiovascular: Denies chest pain Respiratory: Denies shortness of breath Abdomen: Complains of nausea and diarrhea as noted above denies abdominal pain vomiting : Denies any painful urination, hematuria, polyuria states that she is currently on her menstrual cycle Neurological: Denies any numbness, weakness, tingling Musculoskeletal: Denies back pain Skin: Denies any rashes or lesions EXAM Physical Exam Narrative Exam Narrative: General: Patient is lying in bed rest comfortably did not appear to be in acute distress Head: Atraumatic, normocephalic Eyes: PERRL bilateral, EOMI bilaterally, no conjunctival injection noted Neck: Soft, supple, trachea midline Cardiovascular: Regular rate and rhythm Respiratory: Clear to auscultation bilaterally Abdomen: Soft, nondistended, nontender to palpation Extremities: +5/5 strength noted in the bilateral upper and lower extremities, radial pulses +2/4 in the bilateral extremities Neurological: Patient follow commands and that she was at [facility] year is 2024 Skin: Warm, dry, intact no rashes lesions noted Const Vital Signs: 02/07/25 09:02 02/07/25 09:16 Temperature 97 F L Temperature Source Temporal Pulse Rate 90 Pulse Rate [Lying] 72 Pulse Rate [Sitting (for 1 minute prior to obtaining)] 79 Pulse Rate [Standing (for 1 minute prior to obtaining)] 77 Respiratory Rate 14 Blood Pressure 119/88 H Blood Pressure [Lying] 116/75 Blood Pressure [Sitting (for 1 minute prior to obtaining)] 121/80 H Blood Pressure [Standing (for 1 minute prior to obtaining)] 109/80 Blood Pressure Mean 98 Blood Pressure Mean [Lying] 88 Blood Pressure Mean [Sitting (for 1 minute prior to obtaining)] 93 Blood Pressure Mean [Standing (for 1 minute prior to obtaining)] 89 Pulse Ox 98 Oxygen Delivery Method Room Air MDM MDM MDM Narrative Medical decision making narrative: Patient is a 24-year-old female who presents to the emergency department chief complaint of lightheadedness, diarrhea, nausea. On the differential diagnose includes but not limited to cardiac arrhythmia, electrolyte abnormality, viral gastroenteritis, dehydration, orthostatic hypotension. Once workup is obtained reviewed she will be reevaluated. Patient given IV fluids as well as Zofran Patient's CBC reviewed and showed no evidence leukocytosis white blood count was 7.9, he was 13.7, plate count was noted be 367. Patient sodium was 130, potassium normal 4.3, creatinine normal at 0.92. Patient's AST and ALT were 22 and 24 respectively. Patient's troponin was less than 6 EKG reviewed showed sinus rhythm with a rate of 74 bpm with a FL interval 156. Patient lipase no rmal at 16 patient urinalysis reviewed showed no evidence of infection test was negative. At this point in time discussed results with the patient she is feeling much improved and would like to go home at this point time. Orthostatics were negative. She was vies to wear the Holter monitor as prescribed follow-up with her doctor in outpatient and return with worsening symptoms or any concerns. She is agreeable this plan all question concerns answered she was discharged home in stable condition Lab Data Labs: Laboratory Results - last 24 hr 02/07/25 02/07/25 09:18 09:56 WBC 7.9 RBC 4.92 Hgb 13.7 Hct 41.2 MCV 83.7 MCH 27.8 MCHC 33.3 RDW Std Deviation 37.2 RDW Coeff of Bailee 12.3 Plt Count 362 MPV 9.6 Immature Gran % (Auto) 0.300 Neut % (Auto) 55.6 Lymph % (Auto) 24.0 [place] % (Auto) 7.5 Eos % (Auto) 12.0 H Baso % (Auto) 0.6 Absolute Neuts (auto) 4.4 Absolute Lymphs (auto) 1.90 Nucleated RBC % 0 Sodium 138 Potassium 4.3 Chloride 104 Carbon Dioxide 22.9 Anion Gap 11 BUN 12 Creatinine 0.92 Estim Creat Clear Calc 100.85 Est GFR (MDRD) Non-Af 89 BUN/Creatinine Ratio 13.3 Glucose 103 H Calcium 9.3 Total Bilirubin 0.36 AST 22 ALT 24 Alkaline Phosphatase 71 Troponin T High Sens < 6 Total Protein 7.7 Albumin 4.8 Globulin 2.9 Albumin/Globulin Ratio 1.7 Lipase 16 Urine Color Yellow Urine Clarity Clear Urine pH 6.5 Ur Specific [place] 1.010 Urine Protein 15 H Urine Glucose (UA) Normal Urine Ketones Negative Urine Occult Blood 150 H Urine Nitrite Negative Urine Bilirubin Negative Urine Urobilinogen Normal Ur Leukocyte Esterase Negative Urine RBC 5-10 SEEN Urine WBC 0 SEEN Ur Squamous Epith Cells 0-5 SEEN Urine Bacteria 0 SEEN Urine Mucus 0 SEEN Urine Test Negative Discharge Plan Triage Chief Complaint: Diarrhea ED Provider: Tee Templeton Dx/Rx/DC Orders Clinical Impression: Lightheadedness, Nausea, Diarrhea Prescriptions: New ondansetron 4 mg tablet,disintegrating 4 mg PO Q6H PRN (Reason: nausea and vomiting) Qty: 20 0RF No Action prednisone 50 mg tablet 50 mg PO DAILY 5 Days Qty: 5 0RF prednisone 20 mg tablet 40 mg PO DAILY 4 Days Qty: 8 0RF azithromycin 250 mg tablet 250 mg PO DAILY Qty: 4 0RF Primary Care Provider: Sofie Paz NP Referrals: Sofie Paz NP, [facility] [Primary Care Provider] - Activity Restrictions/Additional Instructions: Your blood work did not show any acute findings here today. Your blood pressures were normal when you went from lying to sitting to standing. Your EKG did not show any acute findings. Wear Holter monitor as prescribed. Follow-up your doctor in outpatient setting and return with worsening symptoms or any concerns. Use the Zofran that was sent to your pharmacy as needed for nausea. Print Language: [place] Disposition Disposition: Home, Self Care
[2025-02-07] MEDS: 0.9% Normal Saline (1000mL) 1,000 ML 999 ML IV (09:28)
[2025-02-07 09:31] LABS: Hematocrit 41.2 % (37-47); Hemoglobin 13.7 g/dL (12.0-15.0); Immature Granulocytes Count 0.020 X10^3/uL (0.0-0.0); Mean Corp Hgb Conc 33.3 g/dL (32-36); Mean Corpuscular Volume 83.7 fL (81-99); Mean Platelet Vol. 9.6 fl (6.2-12.0); NRBC Flagged by Analyzer 0 % (0-5); Platelet Count 362 K/mm3 (150-450); RBC Distribution Width CV 12.3 % (11.6-14.6); RBC Distribution Width SD 37.2 fl (35.1-43.9); Red Blood Count 4.92 M/mm3 (4.2-5.4); White Blood Count 7.9 K/mm3 (4.4-11.0)
[2025-02-07 10:01] LABS: Mucous, Urine 0 SEEN /hpf (<or=2+)
[2025-02-07 10:04] LABS: Color, Urine Yellow (Yellow); Glucose, Dipstick Normal (Normal); Ketone-Dipstick Negative (Negative); Leukocyte Esterase-Dipstick Negative /ul (Negative); Nitrite-Dipstick Negative (Negative); Occult Blood-Urine 150 /ul (Negative); Protein-Dipstick 15 mg/dl (Negative); Specific Gravity, Urine 1.010 (1.002-1.030); Urine Bilirubin Dipstick Negative (Negative)
[2025-02-07 10:13] LABS: Internal QC Validated? YES +Cl - CLEAR BKGD; Pregnancy, Urine Negative Negative; Record Kit Lot#,Urine Preg 0000964736; Red Blood Cells-Urine 5-10 SEEN /hpf (0-5); Squamous Epithelial Cells - UA 0-5 SEEN /hpf (5-10)
[2025-02-07 10:18] LABS: AST(SGOT) 22 U/L (<=31); Alanine Aminotransfer ALT/SGPT 24 U/L (<=34); Albumin, Serum 4.8 g/dL (3.5-5.0); Alkaline Phosphatase 71 U/L (35-104); Anion Gap 11 (5-15); BUN 12 mg/dL (4-19); BUN/Creat Ratio 13.3 RATIO (10-20); Calcium,Total 9.3 mg/dL (7.6-11.0); Carbon Dioxide 22.9 mmol/L (21.0-32.0); Chloride 104 mmol/L (98-108); Estimated Creatinine Clearance 100.85 ml/min (50-250); Globulin 2.9 g/dL (2.2-4.2); Glucose 103 mg/dL (70-99); Lipase 16 U/L (13-75); Potassium 4.3 mmol/L (3.3-5.1)
[2025-02-07 10:37] LABS: Troponin T High Sensitivity < 6 ng/L (<=14)
[2025-02-07 11:14] VITALS: BP 119/88; PULSE 90; RESP 14; TEMP 36.1; O2SAT 98
== END 2025-02-07 11:17 | disposition home or self-care (01) ==
PROVIDERS: Emergency Provider Emergency Medicine; PCP Nurse Practitioner Adult Health; Visit Provider Emergency Medicine
DX: R42 Dizziness and giddiness (principal); R19.7 Diarrhea, unspecified; R11.0 Nausea
CPT/HCPCS: 80053; 81001; 81025; 83690; 84484; 85025; 93005; 96361; 96374; 99284; J2405

== ENCOUNTER 2025-03-12 17:26 | Emergency (ER) | payer OTHER, MEDICAID, SELFPAY ==
[2025-03-12 17:26] VITALS: BP 136/93; PULSE 87; RESP 26; TEMP 36.4; O2SAT 99; BMI 33.3
[2025-03-12 17:54] VITALS: O2SAT 97
--- OUTSIDE RECORDS SUMMARY | 2025-03-12 18:09 | XMS RPT_ITS | CCD ---
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 Status: DEP ER Ordering Dr: Tee Templeton DO Date: 02/07/25 Location: ED Sex: F C Admitted: Test Reason : Blood Pressure : */* mmHG Vent. Rate : 74 BPM Atrial Rate : 74 BPM P-R Int : 156 ms QRS Dur : 80 ms QT Int : 390 ms P-R-T Axes : 50 85 43 degrees QTcB Int : 432 ms Normal sinus rhythm Normal ECG Confirmed by Finn Peng ([id number]), news copy editor BRIGETTE VIGIL ([id number]) on 02/10/2025 1:07:35 PM Referred By: SEAN Confirmed By: Finn Peng 02/10/25 1307 Date Finn Peng MD CC: CUSTOMER PRICING MANAGER-Kristen Mccallum; Dr. Tee Templeton, DO Signed Normal [facility] Absolute lymphocyte countOrd ered By: Tee Templeton on 02-07-2025 Lymphocytes Auto (Unsp spec) [#/Vol] 1.90 10*3/uL 0.83-4.51 [facility] Absolute neutrophil countOrd ered By: Tee Templeton on 02-07-2025 Neutrophils (Bld) [#/Vol] 4.4 10*3/uL 2.0-7.7 [facility] Anion gap in Serum or Plasma Ordered By: Tee Templeton on 02-07-2025 Anion gap [Moles/Vol] 11 mmol/L 5-15 [facility] Automated lymphocyte count a s percentage of total leukocytesOrdered By: Tee Templeton on 02-07-2025 Lymphocytes/100 WBC Auto (Unsp spec) 24.0 % 19-41 [facility] BUN/creatinine ratioOrdered By: Tee Templeton on 02-07-2025 Urea nitrogen/Creatinine [Mass ratio] 13.3 mg/mg 10-20 [facility] Basophil percentageOrdered B y: Tee Templeton on 02-07-2025 Basophils/100 WBC (Bld) 0.6 % 0-1 [facility] Bilirubin Test strip Ql (U)O rdered By: Tee Templeton on 02-07-2025 Bilirubin Ql (U) Negative Negative [facility] Bilirubin, totalOrdered By: Tee Templeton on 02-07-2025 Bilirubin [Mass/Vol] 0.36 mg/dL 0.00-1.30 [facility] CBC W/Diff, Automatedon 01-27 Absolute Lymph 1.90 X10 3/uL Normal 0.83-4.51 [facility] Comment on above: Performed By: #### L 629.2243 #### [facility] [address] [place], [place] [address], [address] Absolute Neut 4.4 X10 3/uL Normal 2.0-7.7 [facility] Comment on above: Performed By: #### L 400.7600 #### [facility] [address] [place], [address] Basophils/100 WBC (Bld) 0.6 % Normal 0-1 [facility] Comment on above: Performed By: #### L 400.7600 #### [facility] [address] [place], [address] Eosinophils/100 WBC (Bld) 12.0 % High 0-5 [facility] Comment on above: Performed By: #### L 400.7600 #### [facility] [address] [place], [address] Erythrocyte distribution width (RBC) [Ratio] 12.3 % Normal 11.6-14.6 [facility] Comment on above: Performed By: #### L 400.7600 #### [facility] [address] [place], [address] Hematocrit (Bld) [Volume fraction] 41.2 % Normal 37-47 [facility] Comment on above: Performed By: #### L 400.7600 #### [facility] [address] [place], [address] Hemoglobin (Bld) [Mass/Vol] 13.7 g/dL Normal 12.0-15.0 [facility] Comment on above: Performed By: #### L 400.7600 #### [facility] [address] [place], [address] IG% 0.300 Normal 0.0-0.9 [facility] Comment on above: Result Comment: IG% - Immature Granulocytes (promyelocytes, myelocytes and metamyelocytes) > 1% indicates that a LEFT SHIFT is Present. Performed By: #### L 400.7600 #### [facility] [address] [place], [address] Lymphocytes/100 WBC (Bld) 24.0 % Normal 19-41 [facility] Comment on above: Performed By: #### L 400.7600 #### [facility] [address] [place], [address] MCH (RBC) [Entitic mass] 27.8 pg Normal 27.0-32.0 [facility] Comment on above: Performed By: #### L 400.7600 #### [facility] [address] [place], [address] MCHC (RBC) [Mass/Vol] 33.3 g/dL Normal 32-36 [facility] Comment on above: Performed By: #### L 400.7600 #### [facility] [address] [place], [address] MCV (RBC) [Entitic vol] 83.7 fL Normal 81-99 [facility] Comment on above: Performed By: #### L 400.7600 #### [facility] [address] [place], [address] Monocytes/100 WBC (Bld) 7.5 % Normal 0-10 [facility] Comment on above: Performed By: #### L 400.7600 #### [facility] [address] [place], [address] Neutrophils/100 WBC (Bld) 55.6 % Normal 47-70 [facility] Comment on above: Performed By: #### L 400.7600 #### [facility] [address] [place], [address] Nucleated RBC (Bld) [#/Vol] 0 10*3/uL Normal 0-5 [facility] Comment on above: Performed By: #### L 400.7600 #### [facility] [address] [place], [address] Platelet mean volume (Bld) [Entitic vol] 9.6 fL Normal 6.2-12.0 [facility] Comment on above: Performed By: #### L 400.7600 #### [facility] [address] [place], [address] Platelets (Bld) [#/Vol] 362 10*3/uL Normal 150-450 [facility] Comment on above: Performed By: #### L 400.7600 #### [facility] [address] [place], [address] RBC (Bld) [#/Vol] 4.92 10*6/uL Normal 4.2-5.4 [facility] Comment on above: Performed By: #### L 400.7600 #### [facility] [address] [place], [address] RDW SD 37.2 fl Normal 35.1-43.9 [facility] Comment on above: Performed By: #### L 400.7600 #### [facility] [address] [place], [address] WBC (Bld) [#/Vol] 7.9 10*3/uL Normal 4.4-11.0 [facility] Comment on above: Performed By: #### L 400.7600 #### [facility] [address] [place], [address] Carbon dioxide, total [Moles /volume] in Central venous bloodOrdered By: Tee Templeton on 02-07-2025 CO2 [Moles/Vol] 22.9 mmol/L 21.0-32.0 [facility] Chloride assayOrdered By: James Templeton on 02-07-2025 Chloride [Moles/Vol] 104 mmol/L 98-108 [facility] Comprehensive Metabolic Prof ilon 02-07-2025 Albumin [Mass/Vol] 4.8 g/dL Normal 3.5-5.0 [facility] Comment on above: Performed By: #### L 400.7600 #### [facility] [address] [place], [address] Albumin/Globulin [Mass ratio] 1.7 {ratio} Normal 0.9-2.4 [facility] Comment on above: Performed By: #### L 400.7600 #### [facility] [address] [place], [address] ALK PHOS 71 U/L Normal 35-104 [facility] Comment on above: Performed By: #### L 400.7600 #### [facility] [address] [place], [address] ALT [Catalytic activity/Vol] 24 U/L Normal <=34 [facility] Comment on above: Performed By: #### L 400.7600 #### [facility] [address] [place], [address] AST [Catalytic activity/Vol] 22 U/L Normal <=31 [facility] Comment on above: Performed By: #### L 400.7600 #### [facility] [address] [place], [address] Bilirubin [Mass/Vol] 0.36 mg/dL Normal 0.00-1.30 [facility] Comment on above: Performed By: #### L 400.7600 #### [facility] [address] [place], [address] BUN/CRE 13.3 RATIO Normal 10-20 [facility] Comment on above: Performed By: #### L 400.7600 #### [facility] [address] [place], [address] Calcium [Mass/Vol] 9.3 mg/dL Normal 7.6-11.0 [facility] Comment on above: Performed By: #### L 400.7600 #### [facility] [address] [place], [address] Chloride [Moles/Vol] 104 mmol/L Normal 98-108 [facility] Comment on above: Performed By: #### L 400.7600 #### [facility] [address] [place], [address] CO2 [Moles/Vol] 22.9 mmol/L Normal 21.0-32.0 [facility] Comment on above: Performed By: #### L 400.7600 #### [facility] [address] [place], [address] Creatinine [Mass/Vol] 0.92 mg/dL Normal 0.70-1.20 [facility] Comment on above: Performed By: #### L 400.7600 #### [facility] [address] [place], [address] ECRCL 100.85 ml/min Normal 50-250 [facility] Comment on above: Performed By: #### L 400.7600 #### [facility] [address] [place], [address] GAP 11 Normal 5-15 [facility] Comment on above: Performed By: #### L 400.7600 #### [facility] [address] [place], [address] GFR/1.73 sq M.predicted among non-blacks MDRD (S/P/Bld) [Vol rate/Area] 89 mL/min/{1.73_m2} Normal >60 [facility] Comment on above: Result Comment: mL/m in/1.73m2 CKD-EPI Creatinine Equation (2020) Performed By: #### L 400.7600 #### [facility] [address] [place], [address] Globulin (S) [Mass/Vol] 2.9 g/dL Normal 2.2-4.2 [facility] Comment on above: Performed By: #### L 400.7600 #### [facility] [address] [place], [address] Glucose [Mass/Vol] 103 mg/dL High 70-99 [facility] Comment on above: Performed By: #### L 400.7600 #### [facility] [address] [place], [address] Potassium [Moles/Vol] 4.3 mmol/L Normal 3.3-5.1 [facility] Comment on above: Performed By: #### L 400.7600 #### [facility] [address] [place], [address] Sodium [Moles/Vol] 138 mmol/L Normal 133-145 [facility] Comment on above: Performed By: #### L 400.7600 #### [facility] [address] [place], [address] T PROT 7.7 g/dL Normal 5.9-8.4 [facility] Comment on above: Performed By: #### L 400.7600 #### [facility] [address] [place], [address] Urea nitrogen [Mass/Vol] 12 mg/dL Normal 4-19 [facility] Comment on above: Performed By: #### L 400.7600 #### [facility] [address] [place], [address] Emergency Department Summary on 02-07-2025 Emergency Department Summary [facility] Medical Records Department [address] [place] [address] Emergency Department Summary 02/07/25 MR#: [id number] Acct: [id number] Name: GORDO KHAN Rep #: [id number] : 2000 From: Tee Templeton DO PCP: REESE Bennett Status:REG ER Location: ED ADDENDUM by Dr. Tee Templeton DO on 02/07/25 at 1058 We do not have any Holter monitors here in the emergency department therefore patient was given an out patient ambulatory order for one 02/07/25 1058 Cosigner Signature (if applicable): cc: REESE Mccallum * Signed HPI History of Present Illness Chief Complaint: Diarrhea Narrative Narrative: Patient is a 24-year-old female with past medical history of anxiety, depression who presented to the emergency department chief complaint of lightheadedness, nausea and diarrhea. Patient states that on 01/29/2025 she donated blood and states that during this time she passed out for about 30 seconds. States that ever since then she has not been feeling well. States that the diarrhea is minimal but notes that her stool is looser than normal for her per self. She denies any recent antibiotic use. Patient states that she does not feel like her heart is racing during these episodes of lightheadedness. States that when she goes from the sitting to standing position this does appear to be worse. States that she was told to drink plenty of fluids with electrolytes which she has been doing as well. Patient notes that the staff called her today where she donated blood and she told them her symptoms and they advised her to seek medical attention by going to the emergency department but did not specify why. [facility] Medical History Anxiety Depression Encounter for screening for COVID-19 Home Medications ???Medication ???Instructions ???Recorded ???Last Taken ???Type prednisone 50 mg tablet 50 mg PO DAILY 5 days #5 tabs 03/29 11/19 Unknown Rx azithromycin 250 mg tablet 250 mg PO DAILY #4 TABLETS 5 Unknown Rx prednisone 20 mg tablet 40 mg (2 x 20 mg) PO DAILY 4 days 08/25/24 Unknown Rx #8 tabs ondansetron 4 mg disintegrating 4 mg PO Q6H PRN nausea and 5 Unknown Rx tablet vomiting #20 tabs Allergy/AdvReac Type Severity Reaction Status Date / Time latex Allergy Intermediate Hives Verified 02/07/25 09:03 cat dander (cats) Allergy Mild Itching Verified 02/07/25 09:03 tran Allergy Mild PT UNSURE Verified 02/07/25 09:03 OF REACTION Social History household members: family current occupational status: employed Smoking Status: Never smoker ROS ROS ED ROS Narrative Constitutional: Complains of intermittent lightheadedness as noted above denies any fevers, chills, headaches, dizziness Eyes: Denies double vision blurry vision change in vision Cardiovascular: Denies chest pain Respiratory: Denies shortness of breath Abdomen: Complains of nausea and diarrhea as noted above denies abdominal pain vomiting : Denies any painful urination, hematuria, polyuria states that she is currently on her menstrual cycle Neurological: Denies any numbness, weakness, tingling Musculoskeletal: Denies back pain Skin: Denies any rashes or lesions EXAM Physical Exam Narrative Exam Narrative: General: Patient is lying in bed rest comfortably did not appear to be in acute distress Head: Atraumatic, normocephalic Eyes: PERRL bilateral, EOMI bilaterally, no conjunctival injection noted Neck: Soft, supple, trachea midline Cardiovascular: Regular rate and rhythm Respiratory: Clear to auscultation bilaterally Abdomen: Soft, nondistended, nontender to palpation Extremities: +5/5 strength noted in the bilateral upper and lower extremities, radial pulses +2/4 in the bilateral extremities Neurological: Patient follow commands and that she was at [facility] year is 2024 Skin: Warm, dry, intact no rashes lesions noted Const Vital Signs: 02/07/25 09:02 02/07/25 09:16 Temperature 97 F L Temperature Source Temporal Pulse Rate 90 Pulse Rate [Lying] 72 Pulse Rate [Sitting (for 1 minute prior to obtaining)] 79 Pulse Rate [Standing (for 1 minute prior to obtaining)] 77 Respiratory Rate 14 Blood Pressure 119/88 H Blood Pressure [Lying] 116/75 Blood Pressure [Sitting (for 1 minute prior to obtaining)] 121/80 H Blood Pressure [Standing (for 1 minute prior to obtaining)] 109/80 Blood Pressure Mean 98 Blood Pressure Mean [Lying] 88 Blood Pressure Mean [Sitting (for 1 minute prior to obtaining)] 93 Blood Pressure Mean [Standing (for 1 minute prior to obtaining)] 89 Pulse Ox 98 Oxygen Delivery Method Room Air MDM MDM MDM Narrative (more content not included)... Normal [facility] Eosinophil percentageOrdered By: Tee Tmepleton on 02-07-2025 Eosinophils/100 WBC (Bld) 12.0 % High 0-5 [facility] Erythrocyte distribution wid th ratioOrdered By: Tee Templeton on 02-07-2025 Erythrocyte distribution width (RBC) [Ratio] 12.3 % 11.6-14.6 [facility] Erythrocyte distribution wid th standard deviationOrdered By: Tee Templeton on 02-07-2025 Erythrocyte distribution width (RBC) [Ratio] 37.2 fl 35.1-43.9 [facility] Glomerular filtration rate ( GFR) estimation/1.73 sq m using serum, plasma, or whole bOrdered By: Tee Templeton on 02-07-2025 GFR/1.73 sq M.predicted among non-blacks MDRD (S/P/Bld) [Vol rate/Area] 89 mL/min/{1.73_m2} >60 [facility] Comment on above: mL/min/1.73m2 CKD-EP I Creatinine Equation (2020) Hematocrit Auto (Bld) [Volum e fraction]Ordered By: Tee Templeton on 02-07-2025 Hematocrit (Bld) [Volume fraction] 41.2 % 37-47 [facility] Hemoglobin measurementOrdere d By: Tee Templeton on 02-07-2025 Hemoglobin (Bld) [Mass/Vol] 13.7 g/dL 12.0-15.0 [facility] Immature granulocytes/100 WB C Auto (Bld)Ordered By: Tee Templeton on 02-07-2025 Immature granulocytes/100 WBC (Bld) 0.300 % 0.0-0.9 [facility] Comment on above: IG% - Immature Granu locytes (promyelocytes, myelocytes and metamyelocytes) > 1% indicates that a LEFT SHIFT is Present. Ketones Test strip Ql (U)Ord ered By: Tee Templeton on 02-07-2025 Ketones Ql (U) Negative Negative [facility] L501.4021on 02-07-2025 Trop T High Sen < 6 Normal <=14 [facility] Comment on above: Performed By: #### L 400.3886 #### [facility] [address] [place], [address] Laboratory - Chemistry and C hemistry - challengeOrdered By: Tee Templeton on 02-07-2025 AST [Catalytic activity/Vol] 22 U/L <32 [facility] Lipaseon 02-07-2025 Lipase [Catalytic activity/Vol] 16 U/L Normal 13-75 [facility] Comment on above: Result Comment: Jemma nassar note: LIPASE revised reference range effective 22. New Lipase methodology. Expected to produce lower values than the previous assay method. NEW Reference Range: 13 - 75 U/L Performed By: #### L 700.6800 #### [facility] [place], [address] Lipase measurementOrdered By : Tee Templeton on 02-07-2025 Lipase [Catalytic activity/Vol] 16 U/L 13-75 [facility] Comment on above: Please note:LIPASE r evised reference range effective 22. New Lipase methodology. Expected to produce lower values than the previous assay method. NEW Reference Range: 13 - 75 U/L MCV (mean corpuscular volume ) determinationOrdered By: Tee Templeton on 02-07-2025 MCV (RBC) [Entitic vol] 83.7 fL 81-99 [facility] Mean corpuscular hemoglobin (MCH) determinationOrdered By: Tee Templeton on 02-07-2025 MCH (RBC) [Entitic mass] 27.8 pg 27.0-32.0 [facility] Mean corpuscular hemoglobin concentration (MCHC) determinationOrdered By: Tee Templeton on 02-07-2025 MCHC (RBC) [Mass/Vol] 33.3 g/dL 32-36 [facility] Mean platelet volume determi nationOrdered By: Tee Templeton on 02-07-2025 Platelet mean volume (Bld) [Entitic vol] 9.6 fL 6.2-12.0 [facility] Microscopic analysis of urin e for red blood cells (RBC)Ordered By: Tee Templeton on 02-07-2025 Microscopic analysis of urine for red blood cells (RBC) 5-10 SEEN /hpf 0-5 [facility] Monocyte percentageOrdered B y: Tee Templeton on 02-07-2025 Monocytes/100 WBC (Bld) 7.5 % 0-10 [facility] Mucus LM Ql (Urine sed)Order ed By: Tee Templeton on 02-07-2025 Mucus Ql (Urine sed) 0 SEEN /hpf [facility] Neutrophil percentageOrdered By: Tee Templeton on 02-07-2025 Neutrophils/100 WBC (Bld) 55.6 % 47-70 [facility] Nitrite Test strip Ql (U)Ord ered By: Tee Templeton on 02-07-2025 Nitrite Ql (U) Negative Negative [facility] Nucleated red blood cell per centageOrdered By: Tee Templeotn on 02-07-2025 Nucleated RBC/100 WBC (Bld) [Ratio] 0 % 0-5 [facility] Platelet countOrdered By: James Templeton on 02-07-2025 Platelets (Bld) [#/Vol] 362 10*3/uL 150-450 [facility] Potassium measurement (mass/ volume)Ordered By: Tee Templeton on 02-07-2025 Potassium (Unsp spec) [Mass/Vol] 4.3 mmol/L 3.3-5.1 [facility] ,Urineon 02-07-2025 Beta HCG ( test) Ql (U) Negative Normal [facility] Comment on above: Result Comment: Very dilute urine specimens, as indicated by a low specific gravity, may not contain dairy supplies sales representative levels of hCG. If is still suspected, a first morning urine specimen should be collected 48 hours later and tested. Performed By: #### L 400.0001, L400.7600 #### [facility] [address] [place], [place] [address], [address] Protein Test strip Ql (U)Ord ered By: Tee Templeton on 02-07-2025 Protein Ql (U) 15 mg/dl High Negative [facility] RBC Auto (Bld) [#/Vol]Ordere d By: Tee Templeton on 02-07-2025 RBC (Bld) [#/Vol] 4.92 10*6/uL 4.2-5.4 [facility] Serum creatinine measurement (mass/volume)Ordered By: Tee Templeton on 02-07-2025 Creatinine [Mass/Vol] 0.92 mg/dL 0.70-1.20 [facility] Serum globulin measurementOr dered By: Tee Templeton on 02-07-2025 Globulin (S) [Mass/Vol] 2.9 g/dL 2.2-4.2 [facility] Serum glucose measurement (m ass/volume)Ordered By: Tee Templeton on 02-07-2025 Glucose [Mass/Vol] 103 mg/dL High 70-99 [facility] Serum or plasma alanine amador otransferase (ALT) measurementOrdered By: Tee Templeton on 02-07-2025 ALT [Catalytic activity/Vol] 24 U/L <35 [facility] Serum or plasma albumin trina urement (mass/volume)Ordered By: Tee Templeton on 02-07-2025 Albumin [Mass/Vol] 4.8 g/dL 3.5-5.0 [facility] Serum or plasma albumin/glob ulin mass ratioOrdered By: Tee Templeton on 02-07-2025 Albumin/Globulin [Mass ratio] 1.7 {ratio} 0.9-2.4 [facility] Serum or plasma alkaline fiordaliza sphatase measurementOrdered By: Tee Templeton on 02-07-2025 ALP [Catalytic activity/Vol] 71 U/L 35-104 [facility] Serum or plasma calcium trina urement (mass/volume)Ordered By: Tee Templeton on 02-07-2025 Calcium [Mass/Vol] 9.3 mg/dL 7.6-11.0 [facility] Serum or plasma urea nitroge n measurement (mass/volume)Ordered By: Tee Templeton on 02-07-2025 Urea nitrogen [Mass/Vol] 12 mg/dL 4-19 [facility] Sodium levelOrdered By: Ashlyn Templeton on 02-07-2025 Sodium [Moles/Vol] 138 mmol/L 133-145 [facility] Squamous epithelial cells de tection in urine sediment by light microscopyOrdered By: Tee Templeton on 02-07-2025 Epithelial cells.squamous LM Ql (Urine sed) 0-5 SEEN /hpf 5-10 [facility] Total proteinOrdered By: Judi Templeton on 02-07-2025 Protein [Mass/Vol] 7.7 g/dL 5.9-8.4 [facility] Troponin T HS 2 HRon 025 Trop T High Sen Normal <=14 [facility] Comment on above: Result Comment: Tyron elled via OM: Ordered Performed By: #### L 400.7600 #### [facility] [address] [place], [address] Troponin T HS 4 HRon 025 Trop T High Sen Normal <=14 [facility] Comment on above: Result Comment: Tyron elled via OM: Ordered Performed By: #### L 499.0043 #### [facility] [address] [place], [address] Troponin T.cardiac [Mass/vol ume] in Serum or Plasma by High sensitivity methodOrdered By: Tee Templeton on 02-07-2025 Troponin T.cardiac High sensitivity method [Mass/Vol] < 6 ng/L <14 [facility] Urinalysis, Completeon 02-07 EPI,SQUAMOUS 0-5 SEEN Normal 5-10 [facility] Comment on above: Order Comment: CLEAN CATCH Performed By: #### L 400.0001, L400.7600 #### [facility] [address] [place], [address] RBC 5-10 SEEN Normal 0-5 [facility] Comment on above: Order Comment: CLEAN CATCH Performed By: #### L 400.0001, L400.7600 #### [facility] [address] [place], [address] BACTERIA 0 SEEN Normal None Seen [facility] Comment on above: Order Comment: CLEAN CATCH Performed By: #### L 400.0001, L400.7600 #### [facility] [address] [place], [address] Mucus Ql (Urine sed) 0 SEEN Normal [facility] Comment on above: Order Comment: CLEAN CATCH Performed By: #### L 400.0001, L400.7600 #### [facility] [address] [place], [address] WBC 0 SEEN Normal 0-5 [facility] Comment on above: Order Comment: CLEAN CATCH Performed By: #### L 400.0001, L400.7600 #### [facility] [address] [place], [address] Urine clarityOrdered By: Judi Templeton on 02-07-2025 Clarity (U) Clear Clear [facility] Urine color determinationOrd ered By: Tee Templteon on 02-07-2025 Color (U) Yellow Yellow [facility] Urine glucose detectionOrder ed By: Tee Templeton on 02-07-2025 Glucose Ql (U) Normal mg/dl Normal [facility] Urine leukocyte esterase det ection by dipstickOrdered By: Tee Templeton on 02-07-2025 Leukocyte esterase Test strip Ql (U) Negative Negative [facility] Urine pHOrdered By: Tee bustillos on 02-07-2025 pH (U) 6.5 [pH] 5.0 - 8.0 [facility] Urine testOrdered By: Tee Templeton on 02-07-2025 HCG ( test) Ql (U) Negative [facility] Comment on above: Very dilute urine sp ecimens, as indicated by a low specificgravity, may not contain dairy supplies sales representative levels of hCG. If is still suspected, a first morning urinespecimen should be collected 48 hours later and tested. Urine sediment bacteria coun t by microscopy (number/high power field)Ordered By: Tee Templeton on 02-07-2025 Bacteria LM.HPF (Urine sed) [#/Area] 0 /[HPF] None Seen [facility] Urine specific gravity measu rementOrdered By: Tee Templeton on 02-07-2025 Specific gravity (U) [Rel density] 1.010 1.002-1.030 [facility] Urine urobilinogen measureme ntOrdered By: Tee Templeton on 02-07-2025 Urobilinogen Ql (U) Normal mg/dl Normal [facility] White blood cell (WBC) count Ordered By: Tee Templeton on 02-07-2025 WBC (Bld) [#/Vol] 7.9 10*3/uL [facility]11.[facility] White blood cell countOrdere d By: Tee Templeton on 02-07-2025 White blood cell count 0 SEEN /hpf 0-5 [facility] CNPNon 11-27-2024 CNPN Telephone (GMINE) GORDO KHAN ([id number]) 2000 F Date Time Provider Department 11/27/24 DHRUV ROBERTS During your visit today, we recorded the following information about you: Yaniv Vera 11/27/2024 3:36 PM Signed Attempted to reach PT in regard to upcoming genetics visit with Dhruv Roberts Left a vague VM on an unidentified voicemail box. Explained that I would also be following up with a FamilyLeaf message that they could respond there or provided the [facility] line for a call back. Yaniv [facility] Allergies As of Date: 11/27/2024 Noted Allergy Reaction CATS 04/27/2006 TRAN 09/04/2023 4 - Hives 9 - Itching 2 - Rash 12 - Shortness of Breath 7 - Swelling LATEX 09/04/2023 4 - Hives 9 - Itching 2 - Rash 7 - Swelling Date Reviewed: 10/23/2024 Reviewed by: Cristine Glass MA - Fully Assessed Reason for Visit: Appointment [186] Prescriptions as of 11/27/2024 - albuterol HFA (PROVENTIL HFA, VENTOLIN HFA) 90 mcg/actuation inhaler Inhale 2 puffs as instructed every 4 hours as needed for wheezing/shortness of breath. - medroxyPROGESTERone (PROVERA) 10 mg tablet Take 1 tablet by mouth once daily for 10 days. - letrozole (FEMARA) 2.5 mg tablet Take 1 tablet by mouth once daily. - PNV 119-iron fum-folic acid ( 19) 29 mg iron- 1 mg tab Take 1 tablet by mouth once daily. - fluticasone (FLONASE) 50 mcg/actuation nasal spray Use 2 Sprays in each nostril once daily. Rinse mouth after use. 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 CNOVmary kay 10-23-2024 CNOV Office Visit (OBGYWM ) GORDO KHAN ([id number]) 2000 F Date Time Provider Department 10/23/24 1:40 PM ARELY JIM OBGYWM During your visit today, we recorded the following information about you: Blood pressure Weight 118/70 88.5 kg Arely Jmi MD 10/23/2024 2:05 PM Signed Subjective The patient is a 24-year-old female with a history of one delivery and three miscarriages presenting for preconception counseling and evaluation of infertility. Infertility - Has been unable to conceive after at least a year of trying with her new partner. - One of her three miscarriages was with her current partner. - Carrier screening revealed she is positive for the spinal muscular atrophy (SMA) gene. - Uncertain if her daughter is a carrier of the SMA gene. - denies any known family history Thyroid Concerns - Thyroid peroxidase antibodies were positive. - Denies any known history of thyroid disease. No current symptoms were explicitly reported or denied in the transcript; therefore, no ROS items can be listed based on the available information. Objective Blood pressure 118/70, weight 88.5 kg (195 lb), last menstrual period 09/21/2024. General: No acute distress. Labs: - SMA carrier screening: Positive - TPO antibody test: Positive Assessment AND Plan 1. 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 - Ordered comprehensive thyroid function tests. - Discussed potential link between thyroid dysfunction and recurrent miscarriages. - Educated on low inflammatory diet: advised reducing processed foods and simple sugars, increasing intake of whole foods and proteins. - Will refer to endocrinology if thyroid function tests are abnormal. 2. 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 - Educated on autosomal recessive inheritance; partner needs testing to determine carrier status. - Partner to contact women's health for testing or wait for genetic counseling appointment. - Referral to Genetics for detailed family pedigree analysis and further counseling. 3. Irregular menstrual cycle (N92.6) - Discussed potential impact of thyroid dysfunction on menstrual irregularities. - Awaiting results of thyroid function tests to determine further management. 4. History of recurrent miscarriages (N96) 5. Infertility, female (N97.9) - Three miscarriages, one with current partner; unable to conceive after at least a year. - Discussed potential genetic and thyroid-related causes. - Ordered thyroid function tests. - Referral to Genetics for further evaluation and counseling. - Discussed possibility of CHLOE if partner is also a carrier of SMA. Recording using [employer] software for draft documentation of the visit was discussed with the patient/authorized dairy supplies sales representative; all questions welcomed and answered. Patient/authorized dairy supplies sales representative agreed to proceed Medical Decision Making: Problems: Moderate: New problem with uncertain prognosis Data: Unique test(s) ordered: 3+ Medical Decision Making Level: 4 - Moderate Arely Mclaughlin MD Allergies As of Date: 10/23/2024 Noted Allergy Reaction CATS 04/27/2006 TRAN 09/04/2023 4 - Hives 9 - Itching 2 - Rash 12 - Shortness of Breath 7 - Swelling LATEX 09/04/2023 4 - Hives 9 - Itching 2 - Rash 7 - Swelling Date Reviewed: 10/23/2024 Reviewed by: Cristine Glass MA - Fully Assessed Reason for Visit: Discussion [813] Primary Visit Diagnosis:Thyroid antibody positive [R76.8] Other Visit Diagnoses:Irregular menstrual cycle [N92.6] 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 - letrozole (FEMARA) 2.5 mg tablet Take 1 tablet by mouth once daily. - PNV 119-iron fum-folic acid ( 19) 29 mg iron- 1 mg tab Take 1 tablet by mouth once daily. - albuterol HFA (PROVENTIL HFA, VENTOLIN HFA) 90 mcg/actuation inhaler Inhale 2 puffs as instructed every 4 hours as needed for wheezing/shortness of breath. - fluticasone (FLONASE) 50 mcg/actuation nasal spray Use 2 Sprays in each nostril once daily. Rinse mouth after use. Meds Comments as of 10/01/2008: No current medications/reviewed October 01, 2008/Geraldine Brock Cma Ca Problem List As Of Date 10/23/2024 Noted Resolved Attention deficit disorder (ADD) [F98.8] Irregular menstrual cycle [N92.6] (more content not included)... Normal [facility] No Panel Informationon 10-23 Interpretation and review of laboratory results Normal [facility] T3, FREEon 10-23-2024 Free T3 [Mass/Vol] 3.4 pg/mL 2.3 - 4.1 pg/mL [facility] T3Free SerPl-mCncon 10-24-19 25 Free T3 [Mass/Vol] 3.4 pg/mL Normal 2.3-4.1 [facility] Comment on above: Order Comment: Speci men Type: BLOOD SPECIMENOrdering Facility: [facility] Address: [address] [place] [address] Performed By: #### 3 051-0, 3016-3, 3024-7 ####[facility] LABCLIA [id number] [place] [address] [place] T4 FREE/FREE THYROXINEon Free T4 [Mass/Vol] 1 ng/dL 0.9 - 1.7 ng/dL [facility] T4 Free SerP-nc 025 Free T4 [Mass/Vol] 1.0 ng/dL Normal 0.9-1.7 [facility] Comment on above: Order Comment: Speci men Type: BLOOD SPECIMENOrdering Facility: [facility] Address: [address] [place] [address] Performed By: #### 3 051-0, 3016-3, 3027 ####[facility] LABIA [id number] [place] [address] [place] THYROID STIMULATING HORMONEo n 10-23-2024 TSH Qn 2.55 m[IU]/L [facility] Comment on above: If the patient is pr egnant, TSH reference range varies by gestational period: First Trimester (weeks 9-12): 0.180-2.990 mIU/L Second Trimester: 0.110-3.980 mIU/L Third Trimester: 0.480-4.710 mIU/L Luisito Kohli et al. A Practical Approach for the Verifications and Determination of Site- and Trimester-Specific Reference Intervals for Thyroid Function tests in . Thyroid, 2019:29:3:412-420. Hank Singh et al. 2017 Guidelines of the [place] Thyroid Association for the Diagnosis and Management of Thyroid Disease during and the . Thyroid, 2017:27:3:315-389. TSH SerPl-aCncon 10-23-2024 TSH Qn 2.550 m[IU]/L Normal 0.270-4.200 [facility] Comment on above: Order Comment: Speci men Type: BLOOD SPECIMENOrdering Facility: [facility] Address: [address] [place] [address] Result Comment: If t he patient is , TSH reference range varies by gestational period: First Trimester (weeks 9-12): 0.180-2.990 mIU/L Second Trimester: 0.110-3.980 mIU/L Third Trimester: 0.480-4.710 mIU/L Luisito Kohli et al. A Practical Approach for the Verifications and Determination of Site- and Trimester-Specific Reference Intervals for Thyroid Function tests in . Thyroid, 2019:29:3:412-420. Hank Singh et al. 2017 Guidelines of the [place] Thyroid Association for the Diagnosis and Management of Thyroid Disease during and the . Thyroid, 2017:27:3:315-389. Performed By: #### 3 051-0, 3016-3, 3024-7 ####[facility] LABCLIA [id number] [place] [id number] [place] CARRIER SCREEN, STANDARDon 0 10-09-2024 CARRIER SCREEN RESULTS View results in S canned Documents link when available. Normal [facility] Comment on above: Order Comment: Speci men Type: BLOOD SPECIMENOrdering Facility: [facility] Address: [address] [place] [address] Performed By: #### C RRSCN ####MYRIADCLIA [id number] [place] [address] CHROMOSOME ANALYSIS, CONSTIT UTIONAL, BLOODon 10-09-2024 CHROMOSOME ANALYSIS, CONSTITUTIONAL, BLOOD Normal [facility] Comment on above: Order Comment: Speci men Type: BLOOD SPECIMENOrdering Facility: [facility] Address: [address] [place] [address] Result Comment: Elliot ruiz Accession Number: [id number] Doctor: DION BARRIENTOS Clinical diagnosis: History of recurrent miscarriages Specimen Type: Peripheral blood Received Date: 10/09/2024 Number of cells counted: 20 Number of cells analyzed: 5 Number of cells karyotyped: 5 Banding resolution: 550 Banding method: G-banding DIAGNOSIS: 46,XX INTERPRETATION: Normal, female karyotype COMMENT: Cytogenetic analysis on synchronized and unsynchronized PHA- stimulated, peripheral blood cultures showed a normal, female karyotype (46,XX). There was no significant numerical chromosome abnormality and no structural change detected within the limits of resolution. Interpretation performed by Heather Neri, PhD Performed by [facility] Molecular Pathology and Cytogenomics ([id number]), Division of Laboratory Medicine Ken Rodney Department of Pathology & Laboratory Medicine, Diagnostics [place] [id number] [place] [address]. [place] [address] Toll free: Performed By: #### C HRBLD ####CLARITY [email or web address] [facility] [id number] [place] [address] [place] CNOVon 10-09-2024 CNOV Office Visit (OBGYWM ) GORDO KHAN ([id number]) 2000 F Date Time Provider Department 10/09/24 11:30 AM DION BARRIENTOS OBGYWM During your visit today, we recorded the following information about you: Blood pressure Weight Last Period 114/78 87.5 kg 09/21/24 Dion Barrientos MD 10/09/2024 12:10 PM Addendum Begin taking 10 days of Provera starting tomorrow as directed. If you start your period unexpectedly during this time, please let us know. Continue taking your folic acid ( vitamin) daily. Follow the upcoming instructions provided on when to start Femara for ovulation induction, timing intercourse, and scheduling your blood work. Undergo the recommended blood tests, which include a thyroid panel with thyroperoxidase antibody levels, rubella and varicella immunity testing, and a prolactin level. Arrange to have a genetic carrier screening blood test and a chromosome analysis as discussed; please check with your insurance ([employer] and [employer]) regarding coverage. Marc is advised to complete a semen analysis. Schedule an ultrasound with saline infusion to evaluate your uterus for polyps or other abnormalities. Start the femara on day 3 of your cycle. Cycle day one is the first day of menstrual flow (usually more than spotting, when you would wear more than a pantyliner for protection). Take the femara for 5 days. If you are prescribed more than one pill of femara you make take them all at the same time. Time intercourse every other day cycle day 9-16. Use an ovulation prediction kit starting at about day 10 if you want. Record date/dates that you get color changes if you get color changes. Get a day 21 progesterone level drawn (if day 21 is a Monday it is ok to get it a day early or day late). Call with onset of your period or on day 32 w/ the results of a home test if you haven't started your period yet. Risks of ovulation induction include but are not limited to : multiple gestatations (twins or rarely triplets), ovarian hyperstimulation syndrome that results in large ovarian cysts and sometimes pain and electrolyte abnormalities that need treated by hospitalization, increased pain or bleeding with menstruation, moodiness, nausea, breast tenderness or allergic reactions to the medication. Dion Barrientos MD 10/09/2024 1:06 PM Signed Obstetrics and Gynecology [place] OPERATIONS LEAD Visit Subjective Recording using [employer] software for draft documentation of the visit was discussed with the patient/authorized dairy supplies sales representative; all questions welcomed and answered. Patient/authorized dairy supplies sales representative agreed to proceed CHIEF COMPLAINT: The patient is a 24-year-old female with a history of three miscarriages presenting for evaluation of infertility and irregular menstrual cycles. HPI: Infertility - Has been trying to conceive for over a year with her current partner, Marc, who is 30 years old and has no children. - Reports three miscarriages since 2019, with only one occurring in the past year. - Two miscarriages were with her previous partner, and the most recent one was with her current partner. - No complications conceiving her daughter, who was born full-term via vaginal delivery in 2019 with her ex-. - Miscarriages occurred around 2.5 months gestation; passed all three miscarriages on her own. - No history of surgeries, chemotherapy, or radiation that would affect fertility. - No known history of sexually transmitted diseases or pelvic infections for either patient or partner. - No major medical issues reported that would affect fertility. - Currently taking a vitamin daily. - Has not used ovulation prediction kits or timed intercourse; sexually active 2-3 times a week. - No history of genetic testing to determine carrier status for any conditions. Menstrual Irregularities - Reports irregular menstrual cycles, with periods sometimes showing up and sometimes not. - When periods do occur, they last at least 24 hours and are described as really bad on the first day, requiring changing protection every 2 hours. - The following two days are light, with specs here and there. - Has been tracking periods using an kaylie on her phone; last three periods were on August 20 (3 days), September 21 (3 days), and skipped June. - Periods have always been irregular, with similar patterns observed a year or two ago. - Menarche at age 11. - No history of thyroid issues, PCOS, pre-diabetes, or high blood sugars. - Reports heat intolerance, feeling burning up when others are cold. - No history of abnormal Pap smears. - No nipple discharge, excessive thirst, or urination. - No new headaches or blurry vision, though she reports always having headaches. - Prescribed control in the past but never took it. Family History - Pa (more content not included)... Normal [facility] MeV IgG Qn (S)on 10-09-2024 MEASLES IGG AB, QUAL Positive Normal [facility] Comment on above: Order Comment: Speci men Type: BLOOD SPECIMENOrdering Facility: [facility] Address: [address] [place] [address] Result Comment: The result suggests recent or past exposure to Measles virus or Measles vaccination. The current test does not detect neutralizing antibodies. Positive result may also be seen due to presence of passively-transferred antibodies. Please correlate with patient's history. Performed By: #### V ZVG2, 7962-4, RUBIGG ####[facility] LABCLIA [id number] [place] [address] [place] Prolactin SerPl-mCncon 10-09 Prolactin [Mass/Vol] 8.9 ng/mL Normal 4.4-33.8 [facility] Comment on above: Order Comment: Speci men Type: BLOOD SPECIMENOrdering Facility: [facility] Address: [address] [place] [address] Result Comment: Prol actin test is performed using the [employer] Electrochemiluminescence Immunoassay method. Results obtained with different methods or kits cannot be used interchangeably. Performed By: #### 2 842-3 ####[facility] LABIA [id number] [address] RUBELLA IGG ANTIBODYon 10-09 RUBELLA IGG AB, QUAL Positive Normal Positive [facility] Comment on above: Order Comment: Speci men Type: BLOOD SPECIMENOrdering Facility: [facility] Address: [address] [place] [address] Result Comment: The result suggests recent or past exposure to Rubella virus or history of Rubella vaccination. Positive result may also be seen due to presence of passively-transferred antibodies. Please correlate with patient's history. Performed By: #### V ZVG2, 7962-4, RUBIGG ####[facility] LABIA [id number] [place] [address] [place] THYROID PEROXIDASE ANTIBODYo n 10-09-2024 TPO Ab Qn 224.4 [IU]/mL High <5.6 [facility] Comment on above: Order Comment: Speci men Type: BLOOD SPECIMENOrdering Facility: [facility] Address: [address] [place] [address] Result Comment: Thyr oid Peroxidase Antibody test is used as an aid in diagnosis of autoimmune thyroid disease. Clinical correlation is required. Performed By: #### M ICRO ####[facility] LABCLIA [id number] [address] [place] VARICELLA ZOSTER IGGon 10-09 VARICELLA ZOSTER IGG, QUAL Positive Normal Positive [facility] Comment on above: Order Comment: Speci men Type: BLOOD SPECIMENOrdering Facility: [facility] Address: [address] [place] [address] [place] [address] Result Comment: The result suggests recent or past exposure to Varicella-Zoster virus or chickenpox vaccination or zoster vaccination. Positive result may also be seen due to presence of passively-transferred antibodies. Please correlate with patient's history. Performed By: #### V ZVG2, 7962-4, RUBIGG ####[facility] LABCLIA [id number] [address] OF [facility] CNOVon 10-03-2024 CNOV Office Visit (OBGYWM ) GORDO KHAN ([id number]) 2000 F Date Time Provider Department 10/03/24 7:00 AM TRACI JUDD OBBRIDGETTWM During your visit today, we recorded the following information about you: Blood pressure Weight Height Last Period 104/76 88 kg 1.63 m 09/21/24 Traci Judd APRN.SINGLE POINTED OPERATOR 10/03/2024 7:18 AM Signed Retail Manager In Training offered: Patient declines. Sam is a 24 year old who presents for an annual gynecologic exam with complaints, discuss infertility . Working at [employer]: cycles every 21-45 days and 1-3 days of flow. Contraception: none- actively trying for prenancy HPV vaccine: Yes Last Pap: 09/2023 normal HPV: N/A History of abnormal pap: No Last mammogram: never Sexually active: Yes OB History Gravida1 Para1 Term1 Preterm0 AB0 Living1 SAB0 IAB0 Ectopic0 Multiple0 Live Births1 [employer] History LMP: 09/21/2024, Having periods Age at Menarche: 11 Age at First : Age at Menopause: [employer] Mach[employer] History Comments: Sexual Activity: Yes; Male Contraception: None Menstrual Tracking History Flowsheet Row Office Visit from 10/03/2024 in OB/Gynecology Period Cycle (Days) 2 Period Duration (Days) 2 Menstrual Flow Heavy PAST MEDICAL HISTORY Diagnosis Date Attention deficit disorder (ADD) 05/29/2008 Depression Generalized anxiety disorder Infertility, female Menarche 05/29/2009 menstral cycle PMH - PAST MEDICAL HISTORY OF Color Vision - Normal PAST SURGICAL HISTORY Procedure Laterality Date EXTRACTION ERUPTED TOOTH/EXR 2023 wisdom teeth FAMILY HISTORY Problem Relation Age of Onset Diabetes Mother other (irritable bowel syndrome) Mother No Known Problems Father Stroke Maternal Grandmother Diabetes Maternal Grandmother Multiple Sclerosis Maternal Grandmother Diabetes Maternal Grandfather Bipolar disorder Maternal Grandfather Schizophrenia Maternal Grandfather Cancer Paternal Grandmother Depression Half-brother Suicide Attempts Half-brother Asthma Half-sister other (eating disorder) Half-sister Leukemia Paternal cousin 8 SOCIAL HISTORY Social History Tobacco Use Smoking status: Never Passive exposure: Yes Smokeless tobacco: Never Tobacco comments: Mom smokes in her bedroom Vaping Use Vaping status: Some Days Substances: Nicotine Substance Use Topics Alcohol use: Yes Comment: occasionally Drug use: Not Currently Types: Marijuana REVIEW OF SYSTEMS Abdomen: No abdominal pain, nausea, vomiting, diarrhea, or constipation. No bloating, early satiety, indigestion, or increased flatulence. Bladder: No dysuria, gross hematuria, urinary frequency, urinary urgency, or incontinence. Breast: No breast lumps, nipple d/c, overlying skin changes, redness or skin retraction. Allergies and current medication updated:Yes SENSITIVE EXAM: The sensitive examination was discussed with the Patient or Patient's Authorized Tape Sewer. As applicable, any other physician, advance practice provider, medical student, or other health professional student that will be observing or involved in the sensitive examination for educational or training purposes was discussed with the Patient or Authorized Tape Sewer. The Patient or Authorized Tape Sewer has agreed to proceed with the sensitive examination. (Sensitive examination includes inspection and/or palpation of the breasts, pelvis, prostate and anorectal regions). EXAM: BP 104/76 Ht 5' 4.173 (1.63m) Wt 194 lb (88.0kg) LMP 09/21/2024 BMI 33.12 kg/(m2). GENERAL: pleasant, female in no apparent distress HEENT: Normocephalic, atraumatic, mucus membranes moist, and no lesions DERMATOLOGY: Normal, without lesions, non-icteric, and non-hirsute BREAST: soft, non-tender, symmetric, no dominant mass, normal nipple-areolar complex, no lymphadenopathy, and no nipple discharge CHEST: Normal inspiratory effort ABDOMEN: soft, non-tender, and no masses PELVIC: external genitalia normal, normal Bartholin's glands, urethra, Waianae's glands, no vulvar lesions, no cervical lesions, good vaginal support, physiologic discharge present, normal appearing perineal body and perianal region BIMANUAL: uterus normal size, shape and consistency, no adnexal masses, and non-tender RECTOVAGINAL: deferred. NEURO: alert and oriented x3,exam grossly non-focal EXTREMITIES: normal ASSESSMENT/PLAN: 1) Health maintenance: Pap/HPV up to date. Mammogram starting age 40. Nutrition, exercise and routine health maintenance exams reviewed. Calcium/Vitamin D supplementation information provided. Colon cancer screening: start at age 45 2) Contraception: none. Contraceptive options reviewed and information provided. 3) STD screening: Declined STD check. 4) Follow up one year or sooner as needed Traci Judd APRN.SINGLE POINTED OPERATOR Allergies As of Date: 10/03/2024 Noted Alirio (more content not included)... Normal [facility] CNOVon 09-19-2024 CNOV Office Visit (MARTIN HAMPTON) GORDO KHAN ([id number]) 2000 F Date Time Provider Department 09/19/24 11:20 AM GENEVIEVE MCCALLUM During your visit today, we recorded the following information about you: Pulse Respiration Blood pressure Weight 88/minute 18/minute 118/68 88.5 kg Height 1.632 m Genevieve Mccallum APRN.SINGLE POINTED OPERATOR 09/19/2024 1:13 PM Signed This note was created using NoteWriter. Subjective Gordo Khan is a 24 year old female here today for [place] [facility] follow up on ER visit on 08/25/24 for SOB, cough, congestion, ST, nausea and vomiting. CT showed pneumonia. She was treated with antibiotic, steroid, and inhaler. Sypmptoms improved overall. She reports conitnued cough but this has improved. Non productive. She notices wheezing when lays down at night. SOB improved. She is using her inhaler as needed which is helping. She would like refill Denies fever, chills, NAVARRO, nausea, vomiting. CTA chest 04/13/2024 FINDINGS: Aorta: Unremarkable No filling defects in the pulmonary arteries are appreciated. Scattered focal patches of ground-glass pneumonia are present. No pleural effusion. No bony abnormalities. Other Findings: CT/CTA Chest W/WO Contrast IMPRESSION: No PE. Scattered patches of ground-glass pneumonia. Reading [facility] CC: REESE Mccallum; FRANKY Dolan ~ Computer Analyst: Signed ALLERGIES Allergen Reactions Cats Tran Hives, Itching, Rash, Shortness of Breath, Swelling Latex Hives, Itching, Rash, Swelling Current Outpatient Medications Medication Sig Dispense Refill fluticasone (FLONASE) 50 mcg/actuation nasal spray Use 2 Sprays in each nostril once daily. Rinse mouth after use. 1 Each 0 albuterol HFA (PROVENTIL HFA, VENTOLIN HFA) 90 mcg/actuation inhaler Inhale 2 puffs as instructed every 4 hours as needed for wheezing/shortness of breath. 18 g 1 methylPREDNISolone (MEDROL, BAL,) 4 mg Dose-Pack TAKE 1 PACK DIRECTED (Patient not taking: Reported on 09/19/2024) 21 tablet 0 cyclobenzaprine (FLEXERIL) 10 mg tablet Take 1 tablet by mouth three times a day as needed for muscle spasm for up to 12 doses. (Patient not taking: Reported on 09/19/2024) 12 tablet 0 No current facility-administered medications for this visit. ACTIVE PROBLEM LIST Attention Deficit Disorder (Add) Irregular Menses Marfanoid Habitus Obesity, Class I, Bmi 30-34.9 PAST MEDICAL HISTORY Diagnosis Date Attention deficit disorder (ADD) 05/29/2008 Depression Generalized anxiety disorder Menarche 05/29/2009 menstral cycle PMH - PAST MEDICAL HISTORY OF Color Vision - Normal PAST SURGICAL HISTORY Procedure Laterality Date EXTRACTION ERUPTED TOOTH/EXR 2023 wisdom teeth Social History Tobacco Use Smoking status: Never Passive exposure: Yes Smokeless tobacco: Never Tobacco comments: Mom smokes in her bedroom Vaping Use Vaping status: Some Days Substances: Nicotine Substance Use Topics Alcohol use: Yes Comment: occasionally Drug use: Not Currently Types: Marijuana Family History Problem Relation Age of Onset Diabetes Mother other (irritable bowel syndrome) Mother No Known Problems Father Stroke Maternal Grandmother Diabetes Maternal Grandmother Multiple Sclerosis Maternal Grandmother Diabetes Maternal Grandfather Bipolar disorder Maternal Grandfather Schizophrenia Maternal Grandfather Cancer Paternal Grandmother Depression Half-brother Suicide Attempts Half-brother Asthma Half-sister other (eating disorder) Half-sister Leukemia Paternal cousin 8 Review of Systems Constitutional: Negative for chills and fatigue. HENT: Negative for congestion, sinus pressure, sinus pain and sore throat. Respiratory: Positive for cough, shortness of breath and wheezing. Negative for chest tightness. Cardiovascular: Negative for chest pain and leg swelling. Gastrointestinal: Negative for diarrhea, nausea and vomiting. Musculoskeletal: Negative for arthralgias. Neurological: Negative for dizziness and headaches. Objective BP 118/68 Pulse 88 Resp 18 Ht 163.2 cm (5' 4.25) Wt 88.5 kg (195 lb) LMP 11/04/2023 (Exact Date) SpO2 95% BMI 33.21 kg/m? Physical Exam Vitals and nursing note reviewed. Constitutional: General: She is not in acute distress. Appearance: She is not ill-appearing. Cardiovascular: Rate and Rhythm: Normal rate and regular rhythm. Pulses: Normal pulses. Heart sounds: Normal heart sounds, S1 normal and S2 normal. Pulmonary: Effort: Pulmonary effort is normal. No accessory muscle usage or respiratory distress. Breath sounds: Normal breath sounds. No decreased breath sounds, wheezing, rhonchi or rales. Musculoskeletal: Right lower leg: No edema. Left lower leg: No edema. Skin: (more content not included)... Normal [facility] 12 Lead EKGon 08-25-2024 12 Lead EKG [facility] Cardiovascular Services [address] [place] [address] 12 Lead EKG 08/25/24 1159 MR#: [id number] Acct: [id number] Name: GORDO KHAN Rep #: [id number] : 2000 From: Bj Stanley MD Attending Dr: Status: DEP ER Ordering Dr: Janet Castillo Date: 08/25/24 Location: ED Sex: F C Admitted: Test Reason : GENERAL Blood Pressure : */* mmHG Vent. Rate : 106 BPM Atrial Rate : 106 BPM P-R Int : 140 ms QRS Dur : 76 ms QT Int : 328 ms P-R-T Axes : 40 82 39 degrees QTcB Int : 435 ms Sinus tachycardia Otherwise normal ECG Confirmed by SAIRA MC, BJ ([id number]), news copy editor VALERI RAMOS ([id number]) on 08/27/2024 8:24:16 AM Referred By: Confirmed By: BJ STANLEY MD 08/27/24 0824 Date Bj Stanley MD CC: REESE Mccallum; Dr. Ulices Don DO; FRANKY Dolan Signed Normal [facility] Absolute neutrophil countOrd ered By: Janet Castillo on 08-25-2024 Neutrophils (Bld) [#/Vol] 4.5 10*3/uL 2.0-7.7 [facility] Anion gap in Serum or Plasma Ordered By: Janet Castillo on 08-25-2024 Anion gap [Moles/Vol] 13 mmol/L 10-10 [facility] BUN/creatinine ratioOrdered By: Janet Castillo on 08-25-2024 Urea nitrogen/Creatinine [Mass ratio] 15.4 mg/mg 10- [facility] Basic Metabolic Profile (BMP )on 08-25-2024 BUN/CRE 15.4 RATIO Normal 10-20 [facility] Comment on above: Performed By: #### L 300.8000, L500.2500, L100.0100 #### [facility] [address] [place], [address] Calcium [Mass/Vol] 9.4 mg/dL Normal 7.6-11.0 [facility] Comment on above: Performed By: #### L 300.8000, L500.2500, L100.0100 #### [facility] [address] [place], [address] Chloride [Moles/Vol] 102 mmol/L Normal 98-108 [facility] Comment on above: Performed By: #### L 300.8000, L500.2500, L100.0100 #### [facility] [address] [place], [address] CO2 [Moles/Vol] 20.9 mmol/L Low 21.0-32.0 [facility] Comment on above: Performed By: #### L 300.8000, L500.2500, L100.0100 #### [facility] [address] [place], [address] Creatinine [Mass/Vol] 1.07 mg/dL Normal 0.70-1.20 [facility] Comment on above: Performed By: #### L 300.8000, L500.2500, L100.0100 #### [facility] [address] [place], [address] ECRCL 87.36 ml/min Normal 50-250 [facility] Comment on above: Performed By: #### L 300.8000, L500.2500, L100.0100 #### [facility] [address] [place], [address] GAP 13 Normal 5-15 [facility] Comment on above: Performed By: #### L 300.8000, L500.2500, L100.0100 #### [facility] [address] [place], [address] GFR/1.73 sq M.predicted among non-blacks MDRD (S/P/Bld) [Vol rate/Area] 74 mL/min/{1.73_m2} Normal >60 [facility] Comment on above: Result Comment: mL/m in/1.73m2 CKD-EPI Creatinine Equation (2020) Performed By: #### L 300.8000, L500.2500, L100.0100 #### [facility] [address] [place], [address] Glucose [Mass/Vol] 87 mg/dL Normal 70-99 [facility] Comment on above: Performed By: #### L 300.8000, L500.2500, L100.0100 #### [facility] [address] [place], [address] Potassium [Moles/Vol] 4.0 mmol/L Normal 3.3-5.1 [facility] Comment on above: Performed By: #### L 300.8000, L500.2500, L100.0100 #### [facility] [address] [place], [address] Sodium [Moles/Vol] 136 mmol/L Normal 133-145 [facility] Comment on above: Performed By: #### L 300.8000, L500.2500, L100.0100 #### [facility] [address] [place], [address] Urea nitrogen [Mass/Vol] 17 mg/dL Normal 4-19 [facility] Comment on above: Performed By: #### L 300.8000, L500.2500, L100.0100 #### [facility] [address] [place], [address] Basophil percentageOrdered B y: Janet Castillo on 08-25-2024 Basophils/100 WBC (Bld) 0.5 % 0-1 [facility] CBC W/Diff, Automatedon 03-3 0-2025 Absolute Lymph 1.02 X10 3/uL Normal 0.83-4.51 [facility] Comment on above: Performed By: #### L 300.8000, L500.2500, L100.0100 #### [facility] [address] [place], [address] Absolute Neut 4.5 X10 3/uL Normal 2.0-7.7 [facility] Comment on above: Performed By: #### L 300.8000, L500.2500, L100.0100 #### [facility] [address] [place], [address] Basophils/100 WBC (Bld) 0.5 % Normal 0-1 [facility] Comment on above: Performed By: #### L 300.8000, L500.2500, L100.0100 #### [facility] [address] [place], [address] Eosinophils/100 WBC (Bld) 3.3 % Normal 0-5 [facility] Comment on above: Performed By: #### L 300.8000, L500.2500, L100.0100 #### [facility] [address] [place], [address] Erythrocyte distribution width (RBC) [Ratio] 12.4 % Normal 11.6-14.6 [facility] Comment on above: Performed By: #### L 300.8000, L500.2500, L100.0100 #### [facility] [address] [place], [address] Hematocrit (Bld) [Volume fraction] 41.8 % Normal 37-47 [facility] Comment on above: Performed By: #### L 300.8000, L500.2500, L100.0100 #### [facility] [address] [place], [address] Hemoglobin (Bld) [Mass/Vol] 14.4 g/dL Normal 12.0-15.0 [facility] Comment on above: Performed By: #### L 300.8000, L500.2500, L100.0100 #### [facility] [address] [place], [address] IG% 0.200 Normal 0.0-0.9 [facility] Comment on above: Result Comment: IG% - Immature Granulocytes (promyelocytes, myelocytes and metamyelocytes) > 1% indicates that a LEFT SHIFT is Present. Performed By: #### L 300.8000, L500.2500, L100.0100 #### [facility] [address] [place], [address] Lymphocytes/100 WBC (Bld) 16.3 % Low 19-41 [facility] Comment on above: Performed By: #### L 300.8000, L500.2500, L100.0100 #### [facility] [address] [place], [address] MCH (RBC) [Entitic mass] 28.5 pg Normal 27.0-32.0 [facility] Comment on above: Performed By: #### L 300.8000, L500.2500, L100.0100 #### [facility] [address] [place], [address] MCHC (RBC) [Mass/Vol] 34.4 g/dL Normal 32-36 [facility] Comment on above: Performed By: #### L 300.8000, L500.2500, L100.0100 #### [facility] [address] [place], [address] MCV (RBC) [Entitic vol] 82.6 fL Normal 81-99 [facility] Comment on above: Performed By: #### L 300.8000, L500.2500, L100.0100 #### [facility] [address] [place], [address] Monocytes/100 WBC (Bld) 7.7 % Normal 0-10 [facility] Comment on above: Performed By: #### L 300.8000, L500.2500, L100.0100 #### [facility] [address] [place], [address] Neutrophils/100 WBC (Bld) 72.0 % High 47-70 [facility] Comment on above: Performed By: #### L 300.8000, L500.2500, L100.0100 #### [facility] [address] [place], [address] Nucleated RBC (Bld) [#/Vol] 0 10*3/uL Normal 0-5 [facility] Comment on above: Performed By: #### L 300.8000, L500.2500, L100.0100 #### [facility] [address] [place], [address] Platelet mean volume (Bld) [Entitic vol] 9.3 fL Normal 6.2-12.0 [facility] Comment on above: Performed By: #### L 300.8000, L500.2500, L100.0100 #### [facility] [address] [place], [address] Platelets (Bld) [#/Vol] 298 10*3/uL Normal 150-450 [facility] Comment on above: Performed By: #### L 300.8000, L500.2500, L100.0100 #### [facility] [address] [place], [address] RBC (Bld) [#/Vol] 5.06 10*6/uL Normal 4.2-5.4 [facility] Comment on above: Performed By: #### L 300.8000, L500.2500, L100.0100 #### [facility] [address] [place], [address] RDW SD 37.7 fl Normal 35.1-43.9 [facility] Comment on above: Performed By: #### L 300.8000, L500.2500, L100.0100 #### [facility] [address] [place], [address] WBC (Bld) [#/Vol] 6.3 10*3/uL Normal 4.4-11.0 [facility] Comment on above: Performed By: #### L 300.8000, L500.2500, L100.0100 #### [facility] [address] [place], [address] CTA Chest W/WO Contraston CTA Chest W/WO Contrast [facility] Imaging Services [address] [place] [address] CTA Chest W/WO Contrast MR#: [id number] Acct: [id number] Name: GORDO KHAN Rep #: [id number] : 2000 24 From: Al Webb DO PCP: REESE Bennett Status: REG ER Study: CTA Chest W/WO Contrast Date of Exam: 08/25/24 Exam# [id number] Ordering Dr: Janet Castillo PROCEDURE: CTA of the chest for pulmonary embolism 08/25/2024 REASON FOR EXAM: SOB, ELEVATED D-DIMER TECHNIQUE: CTA imaging of the abdomen and pelvis with intravenous contrast. Coronal and Sagittal reconstruction series were provided. 3D, 3D post processing, 3D reconstructions, Maximum intensity projection (MIPs) Volume rendering and Shaded surface rendering was provided. CONTRAST: Isovue 370 VOLUME: 100mL One or more dose reduction techniques were used (e.g., Automated exposure control, adjustment of the mA and/or kV according to patient size, use of iterative reconstruction technique). RADIATION DOSE SUMMARY: CTDlvol: 13.86 mGy DLP: 466.56 mGycm COMPARISON: CTA chest 04/13/2024 FINDINGS: Aorta: Unremarkable No filling defects in the pulmonary arteries are appreciated. Scattered focal patches of ground-glass pneumonia are present. No pleural effusion. No bony abnormalities. Other Findings: CT/CTA Chest W/WO Contrast IMPRESSION: No PE. Scattered patches of ground-glass pneumonia. Reading Location: [facility] CC: REESE Mccallum; FRANKY Dolan Computer Analyst: Signed Normal [facility] Carbon dioxide, total [Moles /volume] in Central venous bloodOrdered By: Janet Castillo on 08-25-2024 CO2 [Moles/Vol] 20.9 mmol/L Low 21.0-32.0 [facility] Chest PA and Lateralon 08-25 Chest PA and Lateral [facility] Imaging Services [address] [place] [address] Chest PA and Lateral MR#: [id number] Acct: [id number] Name: GORDO KHAN Rep #: [id number] : 2000 F 24 From: Al Webb DO PCP: REESE Bennett Status: PRE ER Study: Chest PA and Lateral Date of Exam: 08/25/24 Exam# [id number] Ordering Dr: Janet Castillo PROCEDURE: CHEST PA AND LATERAL 08/25/2024 REASON FOR EXAM: Shortness of breath, cough, congestion, sore throat, nausea and vomiting TECHNIQUE: Frontal and lateral views of the chest. COMPARISON: Chest radiograph 04/13/2024 FINDINGS: Hardware: No internal hardware detected. EKG lead wires overlie the chest. Heart: Heart size is normal. Contour is normal. Mediastinum: Contours normal. Lungs: Lungs are clear. No pleural effusions. No thickening of interstitium. Bones: Unremarkable RAD/Chest PA and Lateral IMPRESSION: No acute process detected. Reading Location: [facility] CC: REESE Mccallum; FRANKY Dolan Computer Analyst: Signed Normal [facility] Chloride assayOrdered By: Nai Castillo on 08-25-2024 Chloride [Moles/Vol] 102 mmol/L 98-108 [facility] D-Dimer Quantitative (DVT/PE )on 08-25-2024 D-DIMER QUANT 1.04 FEU/ug/m Invalid Interpretation Code 0.27-0.49 [facility] Comment on above: Order Comment: BO REYES VALUE CALLED TO HAYLEY SIMG 08/25/24 1217 Pam Iyer. RESULTS READ BACK BY SAME. Result Comment: D-Di joaquin ELEVATED (>0.49): Additional studies and clinical assessments are indicated to conclude diagnosis of: Deep Vein Thrombosis (DVT) or Pulmonary Embolism (PE) Performed By: #### L 300.8000, L500.2500, L100.0100 #### [facility] [address] [facility] [place], [address] D-dimer measurement for deep venous thrombosisOrdered By: Janet Castillo on 08-25-2024 D-Dimer Quantitative (PE/DVT) 1.04 FEU/ug/m High 0.27-0.49 [facility] Comment on above: D-Dimer ELEVATED (>0 .49): Additional studies and clinicalassessments are indicated to conclude diagnosis of:Deep Vein Thrombosis (DVT) or Pulmonary Embolism (PE) Emergency Department Summary on 08-25-2024 Emergency Department Summary [facility] Medical Records Department [address] [place] [address] Emergency Department Summary 08/25/24 MR#: [id number] Acct: [id number] Name: GORDO KHAN Rep #: [id number] : 2000 From: Janet WILKINS PCP: Genevieve Mccallum NP-C Status:DEP ER Location: ED HPI History of Present Illness Chief Complaint: Shortness of Breath Narrative Narrative: Patient presenting today with flulike symptoms that started Monday. She reports productive cough with white-colored sputum, fatigue, decreased appetite, nausea, 4 episodes of vomiting yesterday, 1 episode of vomiting today, fevers, chills, headache, and feeling short of breath. She denies abdominal pain, hematemesis, diarrhea, and urinary symptoms. She has no concerns for , she is currently on her menstrual period. Her daughter is currently sick with similar symptoms. [facility] Medical History Anxiety Depression Encounter for screening for COVID-19 Home Medications ???Medication ???Instructions ???Recorded ???Last Taken ???Type prednisone 50 mg tablet 50 mg PO DAILY 5 days #5 tabs 03/29 11/19 Unknown Rx azithromycin 250 mg tablet 250 mg PO DAILY #4 TABLETS 5 Unknown Rx prednisone 20 mg tablet 40 mg (2 x 20 mg) PO DAILY 4 days 08/25/24 Unknown Rx #8 tabs Allergy/AdvReac Type Severity Reaction Status Date / Time latex Allergy Intermediate Hives Verified 08/25/24 11:10 cat dander (cats) Allergy Mild Itching Verified 08/25/24 11:10 tran Allergy Mild PT UNSURE Verified 08/25/24 11:10 OF REACTION Social History household members: family current occupational status: employed Smoking Status: Never smoker ROS ROS ED Constitutional Constitutional ED: Reports chills and fever(s) ENT ENT ED: Denies rhinorrhea or sore throat Cardiovascular Cardiovascular: Denies chest pain or palpitations Respiratory/Chest Respiratory/Chest: Reports cough, dyspnea and sputum Gastrointestinal Gastrointestinal: Reports nausea and vomiting; Denies abdominal pain, constipation or diarrhea Genitourinary Genitourinary ED: Denies dysuria, hematuria or urinary urgency Musculoskeletal Musculoskeletal: Denies arthralgias or myalgias Integumentary Denies rash Neurologic Neurologic: Reports headache(s); Denies weakness EXAM Physical Exam Const Vital Signs: 08/25/24 11:10 08/25/24 11:59 08/25/24 12:00 Temperature 96.7 F L Temperature Source Temporal Pulse Rate 125 H Respiratory Rate 22 H Respiratory Effort Normal Non-Labored Respiratory Depth Normal Respiratory Pattern Normal Blood Pressure 137/108 H Blood Pressure Mean 117 Pulse Ox 97 Oxygen Delivery Method Room Air Room Air Room Air 08/25/24 12:18 08/25/24 13:09 08/25/24 15:40 Temperature 98.9 F Temperature Source Pulse Rate 83 104 H 90 Respiratory Rate 16 20 H 18 Respiratory Effort Respiratory Depth Respiratory Pattern Blood Pressure 115/78 112/73 Blood Pressure Mean 90 86 Pulse Ox 92 98 Oxygen Delivery Method Room Air Positive well nourished, well developed and no apparent distress General Appearance ED: well developed HEENT Reports normocephalic and head/scalp atraumatic Mouth ED: Yes moist mucous membranes normal Eyes PERRL and EOMs intact bilaterally Neck full ROM and supple Neck Narrative: No meningeal signs Chest Wall inspection of chest normal Resp normal respiratory effort Resp Narrative: Faint expiratory wheezes bilaterally Cardio regular rhythm Rate: tachycardic GI soft to palpation, non-tender, non-distended and no masses Back/Spine normal ROM and normal to inspection Extremity normal to inspection and full ROM Neuro oriented x3, CN's II-XII intact bilaterally, moves all extremities, no focal motor deficits and no sensory deficits noted Sensorium / Orientation: awake and alert Psych mental status grossly normal and thought process normal Skin no rashes or lesions noted and no wounds Physical Exam Const Vital Signs: 08/25/24 11:10 08/25/24 11:59 08/25/24 12:00 Temperature 96.7 F L Temperature Source Temporal Pulse Rate 125 H Respiratory Rate 22 H Respiratory Effort Normal Non-Labored Respiratory Depth Normal Respiratory Pattern Normal Blood Pressure 137/108 H Blood Pressure Mean 117 Pulse Ox 97 Oxygen Delivery Method Room Air Room Air Room Air 08/25/24 12:18 08/25/24 13:09 08/25/24 15:40 Temperature 98.9 F Temperature Source Pulse Rate 83 104 H 90 Respiratory Rate 16 20 H 18 Respiratory Effort Respiratory Depth Respiratory Pattern (more content not included)... Normal [facility] Eosinophil percentageOrdered By: Janet Castillo on 08-25-2024 Eosinophils/100 WBC (Bld) 3.3 % 0-5 [facility] Erythrocyte distribution wid th ratioOrdered By: Janet Castillo on 08-25-2024 Erythrocyte distribution width (RBC) [Ratio] 12.4 % 11.6-14.6 [facility] Erythrocyte distribution wid th standard deviationOrdered By: Janet Castillo on 08-25-2024 Erythrocyte distribution width (RBC) [Entitic vol] 37.7 fL 35.1-43.9 [facility] Estimation of creatinine fabrice aranceOrdered By: Janet Castillo on 08-25-2024 Estimated Creatinine Clearance Calc 87.36 ml/min 50-250 [facility] GFR/1.73 sq M.predicted jennifer g non-blacks MDRD (S/P/Bld) [Vol rate/Area]Ordered By: Janet Castillo on 08-25-2024 Estimated GFR (MDRD) Non-Af Amer 74 >60 [facility] Comment on above: mL/min/1.73m2 CKD-EP I Creatinine Equation (2020) Hematocrit Auto (Bld) [Volum e fraction]Ordered By: Janet Castillo on 08-25-2024 Hematocrit (Bld) [Volume fraction] 41.8 % 37-47 [facility] Hemoglobin measurementOrdere d By: Janet Castillo on 08-25-2024 Hemoglobin (Bld) [Mass/Vol] 14.4 g/dL 12.0-15.0 [facility] Immature granulocytes/100 WB C Auto (Bld)Ordered By: Janet Castillo on 08-25-2024 Immature granulocytes/100 WBC (Bld) 0.200 % 0.0-0.9 [facility] Comment on above: IG% - Immature Granu locytes (promyelocytes, myelocytes and metamyelocytes) > 1% indicates that a LEFT SHIFT is Present. Influenza virus A and B and SARS-CoV-2 (COVID-19) and Respiratory syncytial virus RNAOrdered By: Janet Castillo on 08-25-2024 SARS-CoV-2 (COVID-19) RNA ARSH+probe Ql (Unsp spec) [facility] L501.4021on 08-25-2024 Trop T High Sen < 6 Normal <=14 [facility] Comment on above: Performed By: #### L 501.4024 #### [facility] [address] [place] [address], [address] Lymphocytes Auto (Unsp spec) [#/Vol]Ordered By: Janet Castillo on 08-25-2024 Lymphocytes (Bld) [#/Vol] 1.02 10*3/uL 0.83-4.51 [facility] Lymphocytes/100 WBC Auto (Un sp spec)Ordered By: Janet Castillo on 08-25-2024 Lymphocytes/100 WBC (Bld) 16.3 % Low 19-41 [facility] M100.678on 08-25-2024 M100.678 SARS-CoV-2 (COVID 19 ) Negative INFLUENZA A Negative INFLUENZA B Negative RSV PCR Negative Normal [facility] Comment on above: Performed By: #### L [phone] #### [facility] [place], [address] MCV (mean corpuscular volume ) determinationOrdered By: Janet Castillo on 08-25-2024 MCV (RBC) [Entitic vol] 82.6 fL 81-99 [facility] Mean corpuscular hemoglobin (MCH) determinationOrdered By: Janet Castillo on 08-25-2024 MCH (RBC) [Entitic mass] 28.5 pg 27.0-32.0 [facility] Mean corpuscular hemoglobin concentration (MCHC) determinationOrdered By: Janet Castillo on 08-25-2024 MCHC (RBC) [Mass/Vol] 34.4 g/dL 32-36 [facility] Mean platelet volume determi nationOrdered By: Janet Castillo on 08-25-2024 Platelet mean volume (Bld) [Entitic vol] 9.3 fL 6.2-12.0 [facility] Monocyte percentageOrdered B y: Janet Castillo on 08-25-2024 Monocytes/100 WBC (Bld) 7.7 % 0-10 [facility] Neutrophil percentageOrdered By: Janet Castillo on 08-25-2024 Neutrophils/100 WBC (Bld) 72.0 % High 47-70 [facility] No Panel InformationOrdered By: Janet Castillo on 08-25-2024 Troponin T High Sensitivity < 6 ng/L <14 [facility] Nucleated red blood cell per centageOrdered By: Janet Castillo on 08-25-2024 Nucleated RBC/100 WBC (Bld) [Ratio] 0 % 0-5 [facility] Platelet countOrdered By: Nai Castillo on 08-25-2024 Platelets (Bld) [#/Vol] 298 10*3/uL 150-450 [facility] Potassium (Unsp spec) [Mass/ Vol]Ordered By: Janet Castillo on 08-25-2024 Potassium [Moles/Vol] 4.0 mmol/L 3.3-5.1 [facility] ,Urineon 08-25-2024 Beta HCG ( test) Ql (U) Negative Normal [facility] Comment on above: Result Comment: Very dilute urine specimens, as indicated by a low specific gravity, may not contain dairy supplies sales representative levels of hCG. If is still suspected, a first morning urine specimen should be collected 48 hours later and tested. Performed By: #### L [id number] #### [facility], [address] RBC Auto (Bld) [#/Vol]Ordere d By: Janet Castillo on 08-25-2024 RBC (Bld) [#/Vol] 5.06 10*6/uL 4.2-5.4 [facility] Serum creatinine measurement (mass/volume)Ordered By: Janet Castillo on 08-25-2024 Creatinine [Mass/Vol] 1.07 mg/dL 0.70-1.20 [facility] Serum glucose measurement (m ass/volume)Ordered By: Janet Castillo on 08-25-2024 Glucose [Mass/Vol] 87 mg/dL 70-99 [facility] Serum or plasma calcium trina urement (mass/volume)Ordered By: Janet Castillo on 08-25-2024 Calcium [Mass/Vol] 9.4 mg/dL 7.6-11.0 [facility] Serum or plasma urea nitroge n measurement (mass/volume)Ordered By: Janet Castillo on 08-25-2024 Urea nitrogen [Mass/Vol] 17 mg/dL 4-19 [facility] Sodium levelOrdered By: Roderick Castillo on 08-25-2024 Sodium [Moles/Vol] 136 mmol/L 133-145 [facility] Urine testOrdered By: Janet Castillo on 08-25-2024 HCG ( test) Ql (U) Negative [facility] Comment on above: Very dilute urine sp ecimens, as indicated by a low specificgravity, may not contain dairy supplies sales representative levels of hCG. If is still suspected, a first morning urinespecimen should be collected 48 hours later and tested. White blood cell (WBC) count Ordered By: Janet Castillo on 08-25-2024 WBC (Bld) [#/Vol] 6.3 10*3/uL 4.4-11.0 [facility] 08-21-2024 [facility] Office Visit (FRWS ) GORDO KHAN ([id number]) 2000 F Date Time Provider Department 08/21/24 2:30 PM [facility] During your visit today, we recorded the following information about you: Tanya Alas MA 08/21/2024 2:57 PM Signed Patient presents with: Left shoulder pain: Referred by Fadia Jeter AMB ROOMING INTAKE FLOWSHEET DATA Pain Pain Level: 8 Pain Location: Arm-Upper Left Description: Aching, Burning, Crushing, Pulsating, Sharp, Shooting, Sore, Spasm, Stabbing, Stiffness, Tenderness, Throbbing Duration Amount of Time: 45 Duration Units: Minutes Frequency: Continuous Intervention/Comfort measure: Medication, Cold, Heat Patient woke up Monday morning with pain in her left shoulder. Thought she slept on it wrong. Went to urgent care on Monday. Given Prednisone and Flexeril for the pain. Has 3 tablets left of Prednisone to take. 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 Roberto Hernandez V, DO 08/21/2024 2:57 PM Signed SERVICE DATE: August 21, 2024 PCP: Genevieve Mccallum APRN.SINGLE POINTED OPERATOR Subjective Patient ID: Gordo is a 24 year old female. Chief Complaint: Patient presents with: Left shoulder pain: Referred by Fadia Jeter PAIN EVALUATION 08/20/2024 1648 Pain Level: 8 Pain Location: Arm-Upper Left Description: Aching;Burning;Crushing ;Pulsating;Sharp;Shooti ng;Sore;Spasm;Stabbing; Stiffness; Tenderness;Throbbing Duration Amount of Time: 45 Duration Units: Minutes Frequency: Continuous Intervention/Comfort measure: Medication;Cold;Heat HPI Left Shoulder Pain: - Acute onset left shoulder pain began over the weekend. - Initially thought to be due to sleeping position; pain persisted and worsened, causing significant discomfort and inability to sleep on Monday night. - Describes pain as aching and severe enough to prevent sleep. - No previous history of left shoulder issues. - Pain localized to the posterior aspect of the shoulder, radiating from the shoulder to the bicep. - Pain present at rest and exacerbated by movement, particularly lifting the arm. - Unable to lift the arm above a certain height due to severe pain. - Pain also noted with wrist movement and pushing on the shoulder. - Denies numbness, tingling, or neck pain. - No recent changes in activities, hobbies, or sports. - No recent immunizations or injections in the left shoulder. - Right-handed, so the affected shoulder is non-dominant. - Currently taking Prednisone for 2 days with minimal relief; also using Flexeril at bedtime. Review of Systems ACTIVE PROBLEM LIST Attention Deficit Disorder (Add) Irregular Menses Marfanoid Habitus Obesity, Class I, Bmi 30-34.9 PAST MEDICAL HISTORY Diagnosis Date Attention deficit disorder (ADD) 05/29/2008 Depression Generalized anxiety disorder Menarche 05/29/2009 menstral cycle PMH - PAST MEDICAL HISTORY OF Color Vision - Normal PAST SURGICAL HISTORY Procedure Laterality Date EXTRACTION ERUPTED TOOTH/EXR 2023 wisdom teeth FAMILY HISTORY Problem Relation Age of Onset Diabetes Mother other (irritable bowel syndrome) Mother No Known Problems Father Stroke Maternal Grandmother Diabetes Maternal Grandmother Multiple Sclerosis Maternal Grandmother Diabetes Maternal Grandfather Bipolar disorder Maternal Grandfather Schizophrenia Maternal Grandfather Cancer Paternal Grandmother Depression Half-brother Suicide Attempts Half-brother Asthma Half-sister other (eating disorder) Half-sister Leukemia Paternal cousin 8 Social History Tobacco Use Smoking status: Never Passive exposure: Yes Smokeless tobacco: Never Tobacco comments: Mom smokes in her bedroom Vaping Use Vaping status: Some Days Substances: Nicotine Substance Use Topics Alcohol use: Yes Comment: occasionally Drug use: Not Currently Types: Marijuana ALLERGIES Allergen Reactions Cats Tran Hives, Itching, Rash, Shortness of Breath, Swelling Latex Hives, Itching, Rash, Swelling MEDICATIONS: cyclobenzaprine (FLEXERIL) 10 mg tablet Take 1 tablet by mouth three times a day as needed for muscle spasm for up to 12 doses. albuterol HFA (PROVENTIL HFA, VENTOLIN HFA) 90 mcg/actuation inhaler Inhale 2 Puffs as instructed every 4 hours as needed for wheezing/shortness of breath. fluticasone (FLONASE) 50 mcg/actuation nasal spray Use 2 Sprays in each nostril once daily. Rinse mouth after use. methylPREDNISolone (MEDROL, BAL,) 4 mg Dose-Pack TAKE 1 PACK DIRECTED Allergies, medications, past surgical history, family history and past medical history were reviewed per this encounter. Objective Ortho Exam General: No acute distress. MSK/Ext: Limited active range of motion in left shoulder due to pain; passive elevation of left arm elicits pain; pain with abduction and adduction of left arm; pain wit (more content not included)... Normal [facility] CNOVon 08-19-2024 CNOV Office Visit (WSTR ) GORDO KHAN ([id number]) 2000 F Date Time Provider Department 08/19/24 3:00 PM FADIA JETER [facility] During your visit today, we recorded the following information about you: Temperature Pulse Respiration Blood pressure 99.1 degrees 88/minute 16/minute 130/72 Weight 90 kg Fadia Jeter APRN.SINGLE POINTED OPERATOR 08/19/2024 3:15 PM Signed This note was created using NoteWriter. Subjective Gordo Kohli Bill is a 24 year old female. HPI Pt awoke two days ago with pain in her left bicep and shoulder. No known strain or trauma. No previous episodes. No fever Review of Systems As above Objective BP 130/72 Pulse 88 Temp 37.3 ?C (99.1 ?F) Resp 16 Wt 90 kg (198 lb 6.6 oz) LMP 11/04/2023 (Exact Date) SpO2 98% BMI 33.79 kg/m? Physical Exam Vitals and nursing note reviewed. Constitutional: General: She is not in acute distress. Appearance: Normal appearance. She is not ill-appearing. HENT: Head: Normocephalic. Mouth/Throat: Mouth: Mucous membranes are moist. Eyes: Conjunctiva/sclera: Conjunctivae normal. Cardiovascular: Rate and Rhythm: Normal rate and regular rhythm. Pulmonary: Effort: Pulmonary effort is normal. Breath sounds: Normal breath sounds. Musculoskeletal: Cervical back: Normal range of motion. Comments: Patient unable to move left shoulder due to pain. There is no obvious swelling, ecchymosis, erythema noted to the left upper arm or shoulder. Left upper arm and shoulder are very tender to light touch. Skin: General: Skin is warm and dry. Neurological: General: No focal deficit present. Mental Status: She is alert. Psychiatric: Mood and Affect: Mood normal. Behavior: Behavior normal. Assessment and Plan ASSESSMENT/PLAN: 1. Acute pain of left shoulder - ICD9: 719.41, ICD10: M25.512 Unsure of etiology of patient's presentation. Patient was given prescriptions for muscle relaxer and steroids in case there is a strain component. Basic x-ray was performed and she was given follow-up with orthopedics for continued evaluation and monitoring. - XR SHOULDER GENERAL 3V OR MORE AP/TRUE AP/OTHER LEFT - CONSULT PANEL TO ORTHOPAEDICS - CYCLOBENZAPRINE 10 MG TABLET - PREDNISONE 50 MG TABLET Fadia Jeter APRN.CNP Allergies As of Date: 08/19/2024 Noted Allergy Reaction CATS 04/27/2006 TRAN 09/04/2023 4 - Hives 9 - Itching 2 - Rash 12 - Shortness of Breath 7 - Swelling LATEX 09/04/2023 4 - Hives 9 - Itching 2 - Rash 7 - Swelling Date Reviewed: 08/19/2024 Reviewed by: Fadia Jeter APRN.SINGLE POINTED OPERATOR - Fully Assessed Reason for Visit: Arm Pain [137] Cmt: left shoulder and upper arm pain x 2 days, denies injury Primary Visit Diagnosis:Acute pain of left shoulder [M25.512] Order(s):XR SHOULDER GENERAL 3V OR MORE AP/TRUE AP/OTHER LEFT [[id number]] Order #: [id number] FUTURE CONSULT PANEL TO ORTHOPAEDICS [[id number]] Order #: [id number]: 1 FUTURE cyclobenzaprine (FLEXERIL) 10 mg tabletTake 1 tablet by mouth three times a day as needed for muscle spasm for up to 12 doses.Disp: 12 tabletRfl: 0 predniSONE (DELTASONE) 50 mgTake 1 tablet by mouth once daily for 5 days.Disp: 5 tabletRfl: 0 Prescriptions as of 08/19/2024 - cyclobenzaprine (FLEXERIL) 10 mg tablet Take 1 tablet by mouth three times a day as needed for muscle spasm for up to 12 doses. - predniSONE (DELTASONE) 50 mg Take 1 tablet by mouth once daily for 5 days. - albuterol HFA (PROVENTIL HFA, VENTOLIN HFA) 90 mcg/actuation inhaler Inhale 2 Puffs as instructed every 4 hours as needed for wheezing/shortness of breath. - fluticasone (FLONASE) 50 mcg/actuation nasal spray Use 2 Sprays in each nostril once daily. Rinse mouth after use. Meds Comments as of 10/01/2008: No current medications/reviewed October 01, 2008/Geraldine Brock [facility] Problem List As Of Date 08/19/2024 Noted Resolved Attention deficit disorder (ADD) [F98.8] Irregular menses [N92.6] 10/23/2012 Marfanoid habitus [R29.91] 02/22/2016 Obesity, Class I, BMI 30-34.9 [E66.811] 09/04/2023 Prescriptions ordered this encounter Disp Refills Start End CYCLOBENZAPRINE 10 MG TABLET 12 t* 0 08/19/2024 Route: ORAL Sig: Take 1 tablet by mouth three times a day as needed for muscle spasm for up to 12 doses. PREDNISONE 50 MG TABLET 5 ta* 0 08/19/2024 08/24/2024 Route: ORAL Sig: Take 1 tablet by mouth once daily for 5 days. Encounter Status:Closed by FADIA JETER on 08/19/24 Normal [facility] XR SHLDR >/=3V AP/GARY AP/OTH R LTon 08-19-2024 XR SHLDR >/=3V AP/GARY AP/OTHR LT * * *Final Report* * * DATE OF EXAM: Aug 19 2024 3:50PM WOX 5252 - XR SHLDR >/=3V AP/GARY AP/OTHR LT / PROCEDURE REASON: Acute pain of left shoulder * * * * Physician Interpretation * * * * PROCEDURE: Left shoulder INDICATION: Acute pain of left shoulder .pt. states Lt shoulder pain throughout for 2 days. No injury TECHNIQUE: XR SHLDR >/=3V AP/GARY AP/OTHR LT COMPARISON: None FINDINGS: No fractures or dislocations are seen. The bones, joint spaces and soft tissues are unremarkable. IMPRESSION: Negative Computer Analyst: PSCB Transcribe Date/Time: Aug 19 2024 4:04P Dictated by : MERRITT NAVARRO MD This examination was interpreted and the report reviewed and electronically signed by: MERRITT NAVARRO MD on Aug 19 2024 4:04PM EST [id number] Normal [facility] XR Shoulder - left 3 Viewson 08-19-2024 IMPRESSION: Negative Computer Analyst: PSCB Transcribe Date/Time: Aug 19 2024 4:04P Dictated by : MERRITT NAVARRO MD This examination was interpreted and the report reviewed and electronically signed by: MERRITT NAVARRO MD on Aug 19 2024 4:04PM EST DIVISION OF RADIOLOGY * * *Final Report* * * DATE OF EXAM: Aug 19 2024 3:50PM WOX 5252 - XR SHLDR >/=3V AP/GARY AP/OTHR LT / PROCEDURE REASON: Acute pain of left shoulder * * * * Physician Interpretation * * * * PROCEDURE: Left shoulder INDICATION: Acute pain of left shoulder .pt. states Lt shoulder pain throughout for 2 days. No injury TECHNIQUE: XR SHLDR >/=3V AP/GARY AP/OTHR LT COMPARISON: None FINDINGS: No fractures or dislocations are seen. The bones, joint spaces and soft tissues are unremarkable. DIVISION OF RADIOLOGY Provider, [facility] Medardo [facility] - 08/19/2024 * * *Final Report* * * DATE OF EXAM: Aug 19 2024 3:50PM WOX 5252 - XR SHLDR >/=3V AP/GARY AP/OTHR LT / PROCEDURE REASON: Acute pain of left shoulder * * * * Physician Interpretation * * * * PROCEDURE: Left shoulder INDICATION: Acute pain of left shoulder .pt. states Lt shoulder pain throughout for 2 days. No injury TECHNIQUE: XR SHLDR >/=3V AP/GARY AP/OTHR LT COMPARISON: None FINDINGS: No fractures or dislocations are seen. The bones, joint spaces and soft tissues are unremarkable. IMPRESSION IMPRESSION: Negative Computer Analyst: ESPERANZA Transcribe Date/Time: Aug 19 2024 4:04P Dictated by : MERRITT NAVARRO MD This examination was interpreted and the report reviewed and electronically signed by: MERRITT NAVARRO MD on Aug 19 2024 4:04PM EST [facility] Radiology Study observation (narrative) [facility] XR Shoulder - left 3 ViewsOr dered By: [facility]cf Provider on 08-19-2024 [facility] CNOVon 07-16-2024 CNOV Office Visit (UCWSTR ) GORDO KHAN ([id number]) 2000 F Date Time Provider Department 07/16/24 10:30 AM TRU [facility] During your visit today, we recorded the following information about you: Temperature Pulse Respiration Blood pressure 98.1 degrees 80/minute 18/minute 118/78 Weight 88.1 kg Tru Walters APRN.SINGLE POINTED OPERATOR 07/16/2024 10:50 AM Signed ASSESSMENT/PLAN: 1. Skin infection - ICD9: 686.9, ICD10: L08.9 (primary diagnosis) - Begin treatment with Cephalaxin (Keflex) - No lymphangetic streaking, this was defined for patient to watch for and to seek medical care immediately if appears - Follow up for recheck in three days - CEPHALEXIN 500 MG CAPSULE - MUPIROCIN 2 % TOPICAL OINTMENT 2. Cat scratch - ICD9: 919.0, E906.8, ICD10: W55.03XA 3. Need for tetanus booster - ICD9: V03.7, ICD10: Z23 - TDAP VACCINE, AGE 7+ YR (ADACEL, BOOSTRIX) ROSE MARIE Blackburn Jonathan, APRN.CNP 07/16/2024 12:29 PM Signed Subjective HPI HPI Gordo Khan is a 24 year old female who presents today for CC of cat scratches on right hand. This started 2 days ago/worsening. Has tried otc medication for relief. Symptoms are worsened by rom of hand. Denies possibility of being . . .Patient presents with: cat scratches : Right hand x 1 day PAST MEDICAL HISTORY Diagnosis Date Attention deficit disorder (ADD) 05/29/2008 Depression Generalized anxiety disorder Menarche 05/29/2009 menstral cycle PMH - PAST MEDICAL HISTORY OF Color Vision - Normal PAST SURGICAL HISTORY Procedure Laterality Date EXTRACTION ERUPTED TOOTH/EXR 2023 wisdom teeth ALLERGIES Cats, Tran, and Latex MEDICATIONS albuterol HFA (PROVENTIL HFA, VENTOLIN HFA) 90 mcg/actuation inhaler Inhale 2 Puffs as instructed every 4 hours as needed for wheezing/shortness of breath. fluticasone (FLONASE) 50 mcg/actuation nasal spray Use 2 Sprays in each nostril once daily. Rinse mouth after use. cephALEXin (KEFLEX) 500 mg capsule Take 1 capsule by mouth three times a day for 7 days. mupirocin (BACTROBAN) 2 % ointment Apply to affected area three times a day for 10 days. FAMILY HISTORY Problem Relation Age of Onset Diabetes Mother other (irritable bowel syndrome) Mother No Known Problems Father Stroke Maternal Grandmother Diabetes Maternal Grandmother Multiple Sclerosis Maternal Grandmother Diabetes Maternal Grandfather Bipolar disorder Maternal Grandfather Schizophrenia Maternal Grandfather Cancer Paternal Grandmother Depression Half-brother Suicide Attempts Half-brother Asthma Half-sister other (eating disorder) Half-sister Leukemia Paternal cousin 8 Social History Tobacco Use Smoking status: Never Passive exposure: Yes Smokeless tobacco: Never Tobacco comments: Mom smokes in her bedroom Vaping Use Vaping status: Some Days Substances: Nicotine Substance Use Topics Alcohol use: Yes Comment: occasionally Drug use: Not Currently Types: Marijuana ROS Objective Blood pressure 118/78, pulse 80, temperature 36.7 ?C (98.1 ?F), temperature source Tympanic, resp. rate 18, weight 88.1 kg (194 lb 3.6 oz), last menstrual period 11/04/2023, SpO2 98%. Physical Exam Constitutional: General: She is not in acute distress. Appearance: She is not toxic-appearing or diaphoretic. HENT: Head: Normocephalic and atraumatic. Pulmonary: Effort: Pulmonary effort is normal. No accessory muscle usage or respiratory distress. Musculoskeletal: Hands: Neurological: Mental Status: She is alert and oriented to person, place, and time. ASSESSMENT/PLAN: 1. Skin infection - ICD9: 686.9, ICD10: L08.9 (primary diagnosis) - Begin treatment with Cephalaxin (Keflex) - No lymphangetic streaking, this was defined for patient to watch for and to seek medical care immediately if appears - Follow up for recheck in three days - CEPHALEXIN 500 MG CAPSULE - MUPIROCIN 2 % TOPICAL OINTMENT 2. Cat scratch - ICD9: 919.0, E906.8, ICD10: W55.03XA 3. Need for tetanus booster - ICD9: V03.7, ICD10: Z23 - TDAP VACCINE, AGE 7+ YR (ADACEL, BOOSTRIX) Tru Walters APRN.SINGLE POINTED OPERATOR Allergies As of Date: 07/16/2024 Noted Allergy Reaction CATS 04/27/2006 TRAN 09/04/2023 4 - Hives 9 - Itching 2 - Rash 12 - Shortness of Breath 7 - Swelling LATEX 09/04/2023 4 - Hives 9 - Itching 2 - Rash 7 - Swelling Date Reviewed: 07/16/2024 Reviewed by: Janiya Feliz LPN - Fully Assessed Reason for Visit: cat scratches [Other] Cmt: Right hand x 1 day Primary Visit Diagnosis:Skin infection [L08.9] Other Visit Diagnoses:Cat scratch [W55.03XA] Need for tetanus booster [Z23] Order(s):TDAP VACCINE, AGE 7+ YR (ADACEL, BOOSTRIX) [[id number]] Order #: [id number] cephALEXin (KEFLEX) 500 mg capsuleTake 1 capsule by mouth three times a day for 7 days.Disp: 21 capsuleRfl: 0 mupirocin (BACTROBAN) (more content not included)... Normal [facility] 05-27-2024 CNPN Telephone (AGINTMLW) GORDO KHAN ([id number]) 2000 F Date Time Provider Department 05/27/24 GENEVIEVE MCCALLUM During your visit today, we recorded the following information about you: Yecenia Blue MA 05/27/2024 4:38 PM Signed ----- Message from Genevieve Mccallum APRN.SINGLE POINTED OPERATOR sent at 05/26/2024 9:32 AM EST ----- PFT shows normal spirometry. They was some reduction in flow which can be seen with asthma or copd. An there was response with the inhaler. As needed inhaler can be beneficial and I would like her to continue to use this. Yecenia Blue MA 05/27/2024 4:38 PM Signed Patient informed of results and recommendations. Patient would like refill of albuterol inhaler sent to [facility] in [place], refill pended. Yecenia Blue MA Allergies As of Date: 05/27/2024 Noted Allergy Reaction CATS 04/27/2006 TRAN 09/04/2023 4 - Hives 9 - Itching 2 - Rash 12 - Shortness of Breath 7 - Swelling LATEX 09/04/2023 4 - Hives 9 - Itching 2 - Rash 7 - Swelling Date Reviewed: 04/29/2024 Reviewed by: Anisa Caruso LPN - Fully Assessed Reason for Visit: Results [95] Order(s):albuterol HFA (PROVENTIL HFA, VENTOLIN HFA) 90 mcg/actuation inhalerInhale 2 Puffs as instructed every 4 hours as needed for wheezing/shortness of breath.Disp: 18 gRfl: 1 Prescriptions as of 05/28/2024 - albuterol HFA (PROVENTIL HFA, VENTOLIN HFA) 90 mcg/actuation inhaler Inhale 2 Puffs as instructed every 4 hours as needed for wheezing/shortness of breath. - fluticasone (FLONASE) 50 mcg/actuation nasal spray Use 2 Sprays in each nostril once daily. Rinse mouth after use. Meds Comments as of 10/01/2008: No current medications/reviewed October 01, 2008/Geraldine Brock [facility] Problem List As Of Date 05/27/2024 Noted Resolved Attention deficit disorder (ADD) [F98.8] Irregular menses [N92.6] 10/23/2012 Marfanoid habitus [R29.91] 02/22/2016 Obesity, Class I, BMI 30-34.9 [E66.811] 09/04/2023 Prescriptions ordered this encounter Disp Refills Start End ALBUTEROL SULFATE HFA 90 MCG/ACTUATI* 18 g 1 05/28/2024 Cmt: Generic or brand: dispense inhaler preferred by patient/insurance unless DARIAN flag is selected. Route: INHALATION Sig: Inhale 2 Puffs as instructed every 4 hours as needed for wheezing/shortness of breath. Medications Discontinued During This Encounter Prescriptions - albuterol HFA (PROVENTIL HFA, VENTOLIN HFA) 90 mcg/actuation inhaler (Discontinued) Inhale 2 Puffs as instructed every 4 hours as needed for wheezing/shortness of breath. Encounter Status:Closed by GENEVIEVE MCCALLUM on 05/28/24 [facility] 05-23-2024 [facility] Telephone (AGINTMLW) GORDO KHAN ([id number]) 2000 F Date Time Provider Department 05/23/24 GENEVIEVE MCCALLUMMLYogi During your visit today, we recorded the following information about you: Charlette Soto 05/23/2024 11:44 AM Signed Patient was calling in to get the results from her Pulmonary Function test that she had done last week. Explained that Genevieve is out of the office this week. Patient was very understanding and said she will call back next week. Charlette Soto Allergies As of Date: 05/23/2024 Noted Allergy Reaction CATS 04/27/2006 TRAN 09/04/2023 4 - Hives 9 - Itching 2 - Rash 12 - Shortness of Breath 7 - Swelling LATEX 09/04/2023 4 - Hives 9 - Itching 2 - Rash 7 - Swelling Date Reviewed: 04/29/2024 Reviewed by: Anisa Caruso LPN - Fully Assessed Reason for Visit: Results [95] Prescriptions as of 05/23/2024 - albuterol HFA (PROVENTIL HFA, VENTOLIN HFA) 90 mcg/actuation inhaler Inhale 2 Puffs as instructed every 4 hours as needed for wheezing/shortness of breath. - fluticasone (FLONASE) 50 mcg/actuation nasal spray Use 2 Sprays in each nostril once daily. Rinse mouth after use. Meds Comments as of 10/01/2008: No current medications/reviewed October 01, 2008/Geraldine Brock [facility] Problem List As Of Date 05/23/2024 Noted Resolved Attention deficit disorder (ADD) [F98.8] Irregular menses [N92.6] 10/23/2012 Marfanoid habitus [R29.91] 02/22/2016 Obesity, Class I, BMI 30-34.9 [E66.811] 09/04/2023 Encounter Status:Closed by CHARLETTE SOTO on 05/23/24 [facility] CNOwen 04-29-2024 CN Office Visit (AGINTM LW) GORDO KHAN ([id number]) 2000 F Date Time Provider Department 04/29/24 2:20 PM GENEVIEVE MCCALLUMMLYogi During your visit today, we recorded the following information about you: Temperature Pulse Respiration Blood pressure 98.4 degrees 88/minute 18/minute 104/62 Weight Height 91.9 kg 1.632 m Genevieve Mccallum, MITCHELL.SINGLE POINTED OPERATOR 04/29/2024 3:32 PM Addendum This note was created using NoteWriter. Subjective Gordo Khan is a 23 year old female here today for concerns for persistent cough. She was seen by ARTHUR Walters on 01/30/24 for URI. She was given prednisone and flonase. She most recently went to urgent care on 04/13/24 for cough and sob. Cxr and CT chest negative. She reported cough with thick yellow sputum x 1 wk. Her daughter was reported as sick as well. They did report her oxygen dropped into mid 80s on ambulation and was why they ordered chest CT and gave her duonebs. This improved her symptoms and was discharged on prednisone. No leukocytosis. She reports she continues with cough and reports sinus drainage pressure and pain. She reports slight left ear discomfort. She reports feeling better after steroid rx. States she continues coughing and feeling fatigue. Sob improved but continues with coughing episodes. Denies fever, chills, wheezing, CP, palpitations, nausea, vomiting, diarrhea. STUDY: CTA CHEST REASON FOR EXAM: Female, 23 years old. Hypoxia with ambulation RADIATION DOSAGE (If Supplied By Facility): CTDIvol = ( 18.46 ) mGy, DLP = ( 500.10 ) mGycm TECHNIQUE: The examination was performed with the intravenous administration of 100mL Isovue-370. Post-processing of the angiographic images was performed, with multiplanar reformation and 3D reconstruction. Individualized dose optimization techniques were used for this CT. COMPARISON: None. FINDINGS: Normal enhancement of the main pulmonary artery and right and left pulmonary arteries. Normal enhancement of the bilateral peripheral pulmonary arteries. There is no demonstrated pulmonary embolism. Normal thoracic aorta and visualized great vessels. There is no demonstrated aortic dissection. Normal heart and pericardium. Normal mediastinum. Normal hilar regions. There are no pulmonary infiltrates. There are no pleural effusions. Normal osseous structures. No acute findings in the upper abdomen. CT/CTA Chest W/WO Contrast Chest xray X-RAY - XR Chest 2 Views COMPARISON: 09/27/2022 FINDINGS: LINES/DEVICES: None. LUNGS: No consolidation, edema or effusion. No pneumothorax. MEDIASTINUM AND CARDIOVASCULAR STRUCTURES: Cardiac silhouette not enlarged. Central airways and mediastinal contour are unremarkable. BONES AND SOFT TISSUES: Unremarkable. RAD/Chest PA and Lateral IMPRESSION: No radiographic evidence of acute cardiopulmonary disease. Electronically Signed: German Kirby MD at 17:15 EST Reading Location ID and State: [facility] / [place] Tel , Service support , CC: REESE Mccallum; Dr. Tee Templeton, DO ~ Computer Analyst: Signed Review of Systems Constitutional: Positive for fatigue. Negative for chills and fever. HENT: Positive for congestion, postnasal drip, rhinorrhea, sinus pressure and sinus pain. Negative for ear pain. Sinus headache Respiratory: Positive for cough, shortness of breath and wheezing. Negative for chest tightness. Cardiovascular: Negative for chest pain, palpitations and leg swelling. Gastrointestinal: Negative for diarrhea, nausea and vomiting. Musculoskeletal: Negative for arthralgias. Neurological: Positive for headaches. Negative for dizziness. Objective BP 104/62 Pulse 88 Temp 36.9 ?C (98.4 ?F) (Oral) Resp 18 Ht 163.2 cm (5' 4.25) Wt 91.9 kg (202 lb 9.6 oz) LMP 11/04/2023 (Exact Date) SpO2 96% BMI 34.51 kg/m? Physical Exam Vitals and nursing note reviewed. Constitutional: General: She is not in acute distress. Appearance: She is not ill-appearing. HENT: Head: Normocephalic and atraumatic. Right Ear: Hearing, tympanic membrane, ear canal and external ear normal. Left Ear: Hearing, ear canal and external ear normal. No drainage or swelling. A middle ear effusion is present. No mastoid tenderness. Tympanic membrane is erythematous. Tympanic membrane is not bulging. Nose: Congestion present. Right Sinus: Maxillary sinus tenderness present. Left Sinus: Maxillary sinus tenderness present. Mouth/Throat: Lips: Biron. Mouth: Mucous membranes are moist. Cardiovascular: Rate and Rhythm: Normal rate and regular rhythm. Pulses: Normal pulses. Heart sounds: Normal heart sounds. Pulmonary: Effort: Pulm (more content not included)... Normal [facility] 12 Lead EKGon 04-13-2024 12 Lead EKG [facility] [address] [place] [address] 12 Lead EKG 04/13/24 1611 MR#: [id number] Acct: [id number] Name: GORDO KHAN Rep #: [id number] : 2000 From: Bj Stanley MD Attending Dr: Status: DEP ER Ordering Dr: Tee Templeton DO Date: 04/13/24 Location: ED Sex: F C Admitted: Test Reason : SOB Blood Pressure : */* mmHG Vent. Rate : 86 BPM Atrial Rate : 86 BPM P-R Int : 146 ms QRS Dur : 78 ms QT Int : 370 ms P-R-T Axes : 42 78 54 degrees QTcB Int : 442 ms Normal sinus rhythm with sinus arrhythmia Normal ECG Confirmed by BJ STANLEY MD ([id number]), news copy editor BRIGETTE VIGIL ([id number]) on 04/15/2024 8:13:06 AM Referred By: Confirmed By: BJ STANLEY MD 04/15/24 0813 Date Bj Stanley MD CC: REESE Mccallum; Dr. Tee Templeton DO Signed Normal [facility] Basic Metabolic Profile (BMP )on 04-13-2024 BUN/CRE 10.3 RATIO Normal 10-20 [facility] Comment on above: Order Comment: 'TROP ' Serial specimen #1, #2 or #3: 1 Performed By: Zia### L 400.7600 #### [facility] [address] [place], [address] CA,Total 8.9 mg/dL Normal 8.5-10.1 [facility] Comment on above: Order Comment: 'TROP ' Serial specimen #1, #2 or #3: 1 Performed By: #### L 400.7600 #### [facility] [address] [place], [address] Chloride [Moles/Vol] 109 mmol/L High 98-107 [facility] Comment on above: Order Comment: 'TROP ' Serial specimen #1, #2 or #3: 1 Performed By: #### L 400.7600 #### [facility] [address] [place], [address] CO2 [Moles/Vol] 28.0 mmol/L Normal 21.0-32.0 [facility] Comment on above: Order Comment: 'TROP ' Serial specimen #1, #2 or #3: 1 Performed By: #### L 400.7600 #### [facility] [address] [place], [address] Creatinine [Mass/Vol] 0.97 mg/dL Normal 0.55-1.02 [facility] Comment on above: Order Comment: 'TROP ' Serial specimen #1, #2 or #3: 1 Result Comment: The validity of the calculated GFR GFRAA in patients over 70 years has not been determined. Clinical correlation is essential. Performed By: #### L 400.7600 #### [facility] [address] [place], [address] ECRCL 100.79 ml/min Normal [facility] Comment on above: Order Comment: 'TROP ' Serial specimen #1, #2 or #3: 1 Performed By: #### L 400.7600 #### [facility] [address] [place], [address] EST GFR - AA 90 mL/min Normal >60 [facility] Comment on above: Order Comment: 'TROP ' Serial specimen #1, #2 or #3: 1 Result Comment: Afri can Czech GFR Calc Performed By: #### L 400.7600 #### [facility] [address] [place], [address] GAP 2 Low 5-15 [facility] Comment on above: Order Comment: 'TROP ' Serial specimen #1, #2 or #3: 1 Performed By: #### L 400.7600 #### [facility] [address] [place], [address] GFR/1.73 sq M.predicted among non-blacks MDRD (S/P/Bld) [Vol rate/Area] 74 mL/min/{1.73_m2} Normal >60 [facility] Comment on above: Order Comment: 'TROP ' Serial specimen #1, #2 or #3: 1 Result Comment: Non- GFR Calc Performed By: #### L 400.7600 #### [facility] [address] [place], [address] Glucose [Mass/Vol] 81 mg/dL Normal 74-106 [facility] Comment on above: Order Comment: 'TROP ' Serial specimen #1, #2 or #3: 1 Performed By: #### L 400.7600 #### [facility] [address] [place], [address] Potassium [Moles/Vol] 3.7 mmol/L Normal 3.5-5.1 [facility] Comment on above: Order Comment: 'TROP ' Serial specimen #1, #2 or #3: 1 Performed By: #### L 400.7600 #### [facility] [address] [place], [address] Sodium [Moles/Vol] 139 mmol/L Normal 136-145 [facility] Comment on above: Order Comment: 'TROP ' Serial specimen #1, #2 or #3: 1 Performed By: #### L 400.7600 #### [facility] [address] [place], [address] Urea nitrogen [Mass/Vol] 10 mg/dL Normal 7-18 [facility] Comment on above: Order Comment: 'TROP ' Serial specimen #1, #2 or #3: 1 Performed By: #### L 400.7600 #### [facility] [address] [place], [address] CBC W/Diff, Automatedon 11-06 03-2023 Absolute Lymph 2.39 X10 3/uL Normal 0.83-4.51 [facility] Comment on above: Performed By: #### L 400.7600 #### [facility] [address] [place], [address] Absolute Neut 5.4 X10 3/uL Normal 2.0-7.7 [facility] Comment on above: Performed By: #### L 400.7600 #### [facility] [address] [place], [address] Basophils/100 WBC (Bld) 0.4 % Normal 0-1 [facility] Comment on above: Performed By: #### L 400.7600 #### [facility] [address] [place], [address] Eosinophils/100 WBC (Bld) 11.3 % High 0-5 [facility] Comment on above: Performed By: #### L 400.7600 #### [facility] [address] [place], [address] Erythrocyte distribution width (RBC) [Ratio] 12.4 % Normal 11.6-14.6 [facility] Comment on above: Performed By: #### L 400.7600 #### [facility] [address] [place], [address] Hematocrit (Bld) [Volume fraction] 39.8 % Normal 37-47 [facility] Comment on above: Performed By: #### L 400.7600 #### [facility] [address] [place], [address] Hemoglobin (Bld) [Mass/Vol] 13.4 g/dL Normal 12.0-15.0 [facility] Comment on above: Performed By: #### L 400.7600 #### [facility] [address] [place], [address] IG% 0.300 Normal 0.0-0.9 [facility] Comment on above: Result Comment: IG% - Immature Granulocytes (promyelocytes, myelocytes and metamyelocytes) > 1% indicates that a LEFT SHIFT is Present. Performed By: #### L 400.7600 #### [facility] [address] [place], [address] Lymphocytes/100 WBC (Bld) 25.2 % Normal 19-41 [facility] Comment on above: Performed By: #### L 400.7600 #### [facility] [address] [place], [address] MCH (RBC) [Entitic mass] 28.2 pg Normal 27.0-32.0 [facility] Comment on above: Performed By: #### L 400.7600 #### [facility] [address] [place], [address] MCHC (RBC) [Mass/Vol] 33.7 g/dL Normal 32-36 [facility] Comment on above: Performed By: #### L 400.7600 #### [facility] [address] [place], [address] MCV (RBC) [Entitic vol] 83.6 fL Normal 81-99 [facility] Comment on above: Performed By: #### L 400.7600 #### [facility] [address] [place], [address] Monocytes/100 WBC (Bld) 5.8 % Normal 0-10 [facility] Comment on above: Performed By: #### L 400.7600 #### [facility] [address] [place], [address] Neutrophils/100 WBC (Bld) 57.0 % Normal 47-70 [facility] Comment on above: Performed By: #### L 400.7600 #### [facility] [address] [place], [address] Nucleated RBC (Bld) [#/Vol] 0 10*3/uL Normal 0-5 [facility] Comment on above: Performed By: #### L 400.7600 #### [facility] [address] [place], [address] Platelet mean volume (Bld) [Entitic vol] 9.6 fL Normal 6.2-12.0 [facility] Comment on above: Performed By: #### L 400.7600 #### [facility] [address] [place], [address] Platelets (Bld) [#/Vol] 330 10*3/uL Normal 150-450 [facility] Comment on above: Performed By: #### L 400.7600 #### [facility] [address] [place], [address] RBC (Bld) [#/Vol] 4.76 10*6/uL Normal 4.2-5.4 [facility] Comment on above: Performed By: #### L 400.7600 #### [facility] [address] [place], [address] RDW SD 37.6 fl Normal 35.1-43.9 [facility] Comment on above: Performed By: #### L 400.7600 #### [facility] [address] [place], [address] WBC (Bld) [#/Vol] 9.5 10*3/uL Normal 4.4-11.0 [facility] Comment on above: Performed By: #### L 400.7600 #### [facility] [address] [place], [address] CTA Chest W/WO Contraston CTA Chest W/WO Contrast [facility] Imaging Services [address] [place], [place] [address] CTA Chest W/WO Contrast MR#: [id number] Acct: [id number] Name: GORDO KHAN Rep #: [id number] : 2000 23 From: German Kirby MD PCP: REESE Bennett Status: REG ER Study: CTA Chest W/WO Contrast Date of Exam: 04/13/24 Exam# [id number] Ordering Dr: [place] [id number] STUDY: CTA CHEST REASON FOR EXAM: Female, 23 years old. Hypoxia with ambulation RADIATION DOSAGE (If Supplied By Facility): CTDIvol = ( 18.46 ) mGy, DLP = ( 500.10 ) mGycm TECHNIQUE: The examination was performed with the intravenous administration of 100mL Isovue-370. Post-processing of the angiographic images was performed, with multiplanar reformation and 3D reconstruction. Individualized dose optimization techniques were used for this CT. COMPARISON: None. FINDINGS: Normal enhancement of the main pulmonary artery and right and left pulmonary arteries. Normal enhancement of the bilateral peripheral pulmonary arteries. There is no demonstrated pulmonary embolism. Normal thoracic aorta and visualized great vessels. There is no demonstrated aortic dissection. Normal heart and pericardium. Normal mediastinum. Normal hilar regions. There are no pulmonary infiltrates. There are no pleural effusions. Normal osseous structures. No acute findings in the upper abdomen. CT/CTA Chest W/WO Contrast IMPRESSION: Normal CTA chest examination, without a demonstrated pulmonary embolism or arterial dissection. Electronically Signed: German Kirby MD at 19:44 EST , CC: REESE Mccallum; Dr. Tee Templeton DO Computer Analyst: Signed Normal [facility] Chest PA and Lateralon 04-13 Chest PA and Lateral [facility] Imaging Services [address] [place] [id number] Chest PA and Lateral MR#: [id number] Acct: [id number] Name: GORDO KHAN Rep #: [id number] : 2000 23 From: German Kirby MD PCP: REESE Bennett Status: REG ER Study: Chest PA and Lateral Date of Exam: 04/13/24 Exam# [id number] Ordering Dr: [place] [id number] INDICATION: cough, sob EXAMINATION/TECHNIQUE: X-RAY - XR Chest 2 Views COMPARISON: 09/27/2022 FINDINGS: LINES/DEVICES: None. LUNGS: No consolidation, edema or effusion. No pneumothorax. MEDIASTINUM AND CARDIOVASCULAR STRUCTURES: Cardiac silhouette not enlarged. Central airways and mediastinal contour are unremarkable. BONES AND SOFT TISSUES: Unremarkable. RAD/Chest PA and Lateral IMPRESSION: No radiographic evidence of acute cardiopulmonary disease. Electronically Signed: German Kirby MD at 17:15 EST , CC: REESE Mccallum; Dr. Tee Templeton DO Computer Analyst: Signed Normal [facility] Emergency Department Summary on 04-13-2024 Emergency Department Summary [facility] Medical Records Department [address] [place] [address] Emergency Department Summary 04/13/24 MR#: [id number] Acct: [id number] Name: GORDO KHAN Rep #: [id number] : 2000 23 From: Tee Templeton DO PCP: REESE Bennett Status:REG ER Location: ED HPI History of Present Illness Chief Complaint: Shortness of Breath Narrative Narrative: Patient is a 23-year-old female with a past medical history anxiety, depression who presents to the emergency department chief complaint of cough and shortness of breath. Patient states that she has had a cough for the past week and notes that she has been coughing up thick yellow sputum. States that her daughter is sick as well. She states that she also is complaining some shortness of breath which is worsening, which ultimately prompted her for here for further evaluation management. Patient denies any history of blood clots denies any recent travel history. [facility] Medical History Anxiety Depression Encounter for screening for COVID-19 Home Medications ???Medication ???Instructions ???Recorded ???Last Taken ???Type NK 04/13/24 Unknown History prednisone 50 mg tablet 50 mg PO DAILY 5 days #5 tabs 04/13/24 Unknown Rx Allergy/AdvReac Type Severity Reaction Status Date / Time cat dander (cats) Allergy Mild Itching Verified 04/13/24 15:44 Social History household members: family current occupational status: employed Smoking Status: Never smoker ROS ROS ED ROS Narrative Constitutional: Complains of chills denies any fevers, headaches, lightness, dizziness Eyes: Denies change in vision, double vision Cardiovascular: Complains of chest pain mainly when she coughs and denies any palpitation Respiratory: Complains of cough and shortness of breath as noted above denies wheezing Abdomen: Complains of nausea vomiting denies any abdominal pain : Denies any pain phonation, hematuria, polyuria, vaginal discharge, possibility Neurological: Denies numbness, weakness, tingling Musculoskeletal: Denies back pain Skin: Denies rashes or lesions EXAM Physical Exam Narrative Exam Narrative: General: Patient lying in bed rest comfortably did not appear to be in acute distress Head: Atraumatic, normocephalic Eyes: PERRL bilateral, EOMI bilateral, no conjunctival injection noted Neck: Soft, supple, trachea midline Cardiovascular: Regular in rhythm no murmurs gallops rubs noted Respiratory: Clear to auscultation bilaterally no rales rhonchi or wheezes noted Abdomen: Soft, nondistended, nontender to palpation, bowel sounds present for Extremities: +5/5 strength noted in the bilateral upper and lower extremities, no pedal edema exam, radial pulses +2/4 in the bilateral upper extremities Neurological: Patient is following commands knew that she was at [facility] there is 2023 Skin: Warm, dry, intact Const Vital Signs: 04/13/24 15:44 04/13/24 16:46 04/13/24 16:48 Temperature 98.6 F Temperature Source Oral Pulse Rate 89 Respiratory Rate 20 H Respiratory Effort Normal Respiratory Depth Normal Respiratory Pattern Blood Pressure 124/84 H Blood Pressure Mean 97 Pulse Ox 98 99 Oxygen Delivery Method Room Air Room Air Room Air 04/13/24 17:43 04/13/24 18:14 04/13/24 19:00 Temperature Temperature Source Pulse Rate 89 74 113 H Respiratory Rate 15 20 H 22 H Respiratory Effort Respiratory Depth Respiratory Pattern Tachypnea Blood Pressure Blood Pressure Mean Pulse Ox 96 99 Oxygen Delivery Method Room Air 04/13/24 19:03 Temperature 98.1 F Temperature Source Oral Pulse Rate 116 H Respiratory Rate 22 H Respiratory Effort Respiratory Depth Respiratory Pattern Blood Pressure 129/72 H Blood Pressure Mean 91 Pulse Ox 98 Oxygen Delivery Method Room Air MDM MDM MDM Narrative Medical decision making narrative: Patient is a 23-year-old female who presented to the emergency department with a chief complaint of cough and shortness of breath. Patient will have a workup performed here on the differential diagnose includes but not limited to pneumonia, upper respiratory infection second viral etiology, ACS, PE although based on revised [place] score she is in the low risk group therefore feel this less likely. Once workup is obtained reviewed she will be reevaluated. Patient CBC reviewed and was largely unremarkable no evidence leukocytosis white blood count normal at 9.5, hemoglobin stable 13.4, platelet count normal at 330. Patient sodium normal at 139, po tassium normal 3.7, creatinine normal at 0.97. Patient's troponin was normal at less than 3. (more content not included)... Normal [facility] L501.4020on 04-13-2024 TROPONIN-I HS < 3 Low 3.0-54.0 [facility] Comment on above: Order Comment: 'TROP ' Serial specimen #1, #2 or #3: 1 Result Comment: Jemma nassar Note: New Test Units and Gender Specific Reference Ranges. For more information see Policy Stat Procedure [place] High Sensitivity Troponin (TNIH) and attachments. Performed By: #### L 400.7600 #### [facility] [address] [place], [place], [address] ,Serum,hCG Quali.on 04-13-2024 HCG, SERUM QUAL Negative Normal [facility] Comment on above: Performed By: #### L 700.6800 #### [facility] [address] [place], [place], [address] CNOVon 01-30-2024 CNOV Office Visit (UCTR ) GORDO KHAN Kamilla ([id number]) 2000 F Date Time Provider Department 01/30/24 1:15 PM [facility] During your visit today, we recorded the following information about you: Temperature Pulse Respiration Blood pressure 97.9 degrees 94/minute 16/minute 132/80 Weight 91.6 kg Tru Walters APRN.CNP 01/30/2024 1:11 PM Signed Subjective HPI HPI Gordo Kamilla Khan is a 23 year old female who presents today for CC of sinus congestion, cough, st, ear pain, mouth pain. This started 2 days ago. Has tried otc medication for relief. Symptoms are worsened by nothing. No known sick exposure. Nonsmoker. Denies possibility of being . .Patient presents with: Sinus Problem: drainage, sore throat, left ear pain x 2-3 days PAST MEDICAL HISTORY 05/29/2008: Attention deficit disorder (ADD) No date: Depression No date: Generalized anxiety disorder 05/29/2009: Menarche Comment: menstral cycle No date: PMH - PAST MEDICAL HISTORY OF Comment: Color Vision - Normal PAST SURGICAL HISTORY 2023: EXTRACTION ERUPTED TOOTH/EXR Comment: wisdom teeth ALLERGIES Cats, Tran, and Latex MEDICATIONS No prescriptions on file. FAMILY HISTORY Problem Relation Age of Onset Diabetes Mother other (irritable bowel syndrome) Mother No Known Problems Father Stroke Maternal Grandmother Diabetes Maternal Grandmother Multiple Sclerosis Maternal Grandmother Diabetes Maternal Grandfather Bipolar disorder Maternal Grandfather Schizophrenia Maternal Grandfather Cancer Paternal Grandmother Depression Half-brother Suicide Attempts Half-brother Asthma Half-sister other (eating disorder) Half-sister Leukemia Paternal cousin 8 Social History Tobacco Use Smoking status: Never Passive exposure: Yes Smokeless tobacco: Never Tobacco comments: Mom smokes in her bedroom Vaping Use Vaping status: Some Days Substances: Nicotine Substance Use Topics Alcohol use: Yes Comment: occasionally Drug use: Not Currently Types: Marijuana Review of Systems Constitutional: Positive for malaise/fatigue. Negative for fever. HENT: Positive for congestion, ear pain and sore throat. Negative for ear discharge and nosebleeds. Respiratory: Positive for cough. Negative for shortness of breath and wheezing. Musculoskeletal: Negative for neck pain. Skin: Negative for itching and rash. Objective Blood pressure 132/80, pulse 94, temperature 36.6 ?C (97.9 ?F), resp. rate 16, weight 91.6 kg (201 lb 15.1 oz), last menstrual period 11/04/2023, SpO2 98%. Physical Exam Constitutional: General: She is not in acute distress. Appearance: She is not toxic-appearing or diaphoretic. HENT: Head: Normocephalic and atraumatic. Right Ear: Hearing, tympanic membrane, ear canal and external ear normal. Left Ear: Hearing, tympanic membrane, ear canal and external ear normal. Nose: Nose normal. Mouth/Throat: Pharynx: Uvula midline. No pharyngeal swelling, oropharyngeal exudate, posterior oropharyngeal erythema or uvula swelling. Eyes: General: Lids are normal. No scleral icterus. Right eye: No discharge. Left eye: No discharge. Conjunctiva/sclera: Conjunctivae normal. Pupils: Pupils are equal, round, and reactive to light. Neck: Trachea: Trachea normal. Cardiovascular: Rate and Rhythm: Normal rate and regular rhythm. Heart sounds: Normal heart sounds. Pulmonary: Effort: Pulmonary effort is normal. Breath sounds: Normal breath sounds. Musculoskeletal: Cervical back: Normal range of motion and neck supple. Lymphadenopathy: Cervical: No cervical adenopathy. Right cervical: No superficial cervical adenopathy. Left cervical: No superficial cervical adenopathy. Skin: Findings: No rash. Neurological: Mental Status: She is alert and oriented to person, place, and time. ASSESSMENT/PLAN: 1. URI, acute - ICD9: 465.9, ICD10: J06.9 (primary diagnosis) - Discussed viral etiology and rationale for treatment. - Symptomatic treatment with prn analgesia - Supportive care with fluids and rest - Follow up in 3-5 days if symptoms persist or sooner if worsening of symptoms If positive for covid and desires treatment discuss with pcp. - PREDNISONE 10 MG TABLET - FLUTICASONE PROPIONATE 50 MCG/ACTUATION NASAL SPRAY,SUSPENSION 2. Stomatitis - ICD9: 528.00, ICD10: K12.1 -use medication as prescribed -follow up if symptoms persist, worsen, change - PREDNISONE 10 MG TABLET - TRIAMCINOLONE ACETONIDE 0.1 % DENTAL PASTE 3. Dysfunction of both eustachian tubes - ICD9: 381.81, ICD10: H69.93 -use medication as prescribed -follow up if symptoms persist, worsen, change - PREDNISONE 10 MG TABLET No problem-specific Assessment AND Plan notes found for this encounter. Tru Walters APRN.SINGLE POINTED OPERATOR 01/30/2024 1:34 PM Signed Addended by: TRU WALTERS on: 01/30/2024 01:34 PM Modules acce (more content not included)... Normal [facility] COVID AND INFLUENZA A/B AND RSV PCR, ROUTINEon 01-30-2024 SARS-CoV-2 (COVID-19) RNA ARSH+probe Ql (Unsp spec) SARS-COV-2 (AGENT OF COVID-19) RNA: Not detected INFLUENZA A RNA: Not detected INFLUENZA B RNA: Not detected RESPIRATORY SYNCYTIAL VIRUS (RSV) RNA: Not detected Normal [facility] Comment on above: Performed By: #### C VFLRS ####[facility] LABCLIA [id number] [address] CNPNon 01-18-2024 CNPN Telephone (AGFAMPLE) GORDO KHAN ([id number]) 2000 F Date Time Provider Department 01/18/24 GENEVIEVE MCCALLUM During your visit today, we recorded the following information about you: Becca Mercer MA 01/18/2024 9:48 AM Signed ----- Message from Genevieve Mccallum APRN.SINGLE POINTED OPERATOR sent at 01/17/2024 4:22 PM EDT ----- Let pt know that her NCT was unremarkable. There was no evidence of ulnar or median nerve neuropathy (CTS) or cervical radiculopathy. I would recommend NSAIDS. If persists she can follow up with ortho or may need neuro referral. Results: Extensive electrodiagnostic examination of the right upper extremity and additional nerve conduction studies on the left (including palmar mixed nerve responses) disclose no definite abnormalities. Specifically, there is no evidence of a right or left median neuropathy at or distal to the wrist (carpal tunnel syndrome). There is also no evidence of a right ulnar or radial mononeuropathy based on screening electrodiagnostic studies of these nerves. Furthermore, there is no evidence of a right cervical Becca Mercer MA 01/18/2024 9:50 AM Signed Patient is informed Becca Mercer MA Allergies As of Date: 01/18/2024 Noted Allergy Reaction CATS 04/27/2006 TRAN 09/04/2023 4 - Hives 9 - Itching 2 - Rash 12 - Shortness of Breath 7 - Swelling LATEX 09/04/2023 4 - Hives 9 - Itching 2 - Rash 7 - Swelling Date Reviewed: 12/09/2023 Reviewed by: Jessica Travis LPN - Fully Assessed Reason for Visit: Results [95] Meds Comments as of 10/01/2008: No current medications/reviewed October 01, 2008/Geraldine [facility] Problem List As Of Date 01/18/2024 Noted Resolved Attention deficit disorder (ADD) [F98.8] Irregular menses [N92.6] 10/23/2012 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 If you are a patient reviewing this test result, call the doctor who ordered the test with any questions. [facility] CNOVon 12-09-2023 CNOV Office Visit (UCWSTR ) INESSA KHANHAYLIE Kohli ([id number]) 2000 F Date Time Provider Department 12/09/23 8:45 AM [facility] During your visit today, we recorded the following information about you: Temperature Pulse Respiration Blood pressure 97.7 degrees 72/minute 20/minute 117/78 Weight Last Period 89 kg 11/04/23 Tru Walters APRN.TAMARA 12/09/2023 10:15 AM Signed Subjective HPI HPI Gordo Kohli Bill is a 23 year old female who presents today for CC of fall today, resulting in left ankle/foot injury and right wrist injury. Has tried nothing for reli. Symptoms are worsened by rom. Denies possibility of being . .Patient presents with: Trauma: Fell from standing on bed, hurt R wrist and Left ankle, x 30 mins ago PAST MEDICAL HISTORY Diagnosis Date Attention deficit disorder (ADD) 05/29/2008 Depression Generalized anxiety disorder Menarche 05/29/2009 menstral cycle PMH - PAST MEDICAL HISTORY OF Color Vision - Normal PAST SURGICAL HISTORY Procedure Laterality Date EXTRACTION ERUPTED TOOTH/EXR 2023 wisdom teeth ALLERGIES Cats, Tran, and Latex MEDICATIONS No prescriptions on file. FAMILY HISTORY Problem Relation Age of Onset Diabetes Mother other (irritable bowel syndrome) Mother No Known Problems Father Stroke Maternal Grandmother Diabetes Maternal Grandmother Multiple Sclerosis Maternal Grandmother Diabetes Maternal Grandfather Bipolar disorder Maternal Grandfather Schizophrenia Maternal Grandfather Cancer Paternal Grandmother Depression Half-brother Suicide Attempts Half-brother Asthma Half-sister other (eating disorder) Half-sister Leukemia Paternal cousin 8 Social History Tobacco Use Smoking status: Never Passive exposure: Yes Smokeless tobacco: Never Tobacco comments: Mom smokes in her bedroom Vaping Use Vaping Use: Some days Substances: Nicotine Substance Use Topics Alcohol use: Yes Comment: occasionally Drug use: Not Currently Types: Marijuana ROS Objective Blood pressure 117/78, pulse 72, temperature 36.5 ?C (97.7 ?F), resp. rate 20, weight 89 kg (196 lb 3.4 oz), last menstrual period 11/04/2023, SpO2 98%. Physical Exam Constitutional: General: She is not in acute distress. Appearance: She is not toxic-appearing or diaphoretic. HENT: Head: Normocephalic and atraumatic. Pulmonary: Effort: Pulmonary effort is normal. No accessory muscle usage or respiratory distress. Musculoskeletal: Right wrist: Tenderness and bony tenderness present. No snuff box tenderness. Decreased range of motion. Arms: Legs: Neurological: Mental Status: She is alert and oriented to person, place, and time. ASSESSMENT/PLAN: 1. Fall, initial encounter - ICD9: E888.9, ICD10: W19.XXXA (primary diagnosis) 2. Pain of left lower extremity due to injury - ICD9: 729.5, ICD10: M79.605 -no bony abnormality noted on xray -Rest, Ice, Compression, Elevation discussed -discussed use of ibuprofen -follow up with primary care if symptoms persist/worsen in 10-14 days - XR FOOT GENERAL 3V AP/LAT/OBL LEFT IMPRESSION: No acute bony finding. Hallux valgus with associated findings as described. Dictated by : MICHAEL HUDSON MD - XR ANKLE GENERAL 3V AP/LAT/OBL LEFT 3. Injury of right wrist, initial encounter - ICD9: 959.3, ICD10: S69.91XA - XR WRIST GENERAL 3V PA/LAT/OBL RIGHT Findings: Right wrist: No fracture or bony destruction. Joint space is maintained. Left foot and ankle: hallux valgus with lateral bunion and lateral subluxation first metatarsal sesamoid. Joint space is otherwise maintained. No fracture or bone destruction. Tru Walters APRN.SINGLE POINTED OPERATOR Allergies As of Date: 12/09/2023 Noted Allergy Reaction CATS 04/27/2006 TRAN 09/04/2023 4 - Hives 9 - Itching 2 - Rash 12 - Shortness of Breath 7 - Swelling LATEX 09/04/2023 4 - Hives 9 - Itching 2 - Rash 7 - Swelling Date Reviewed: 12/09/2023 Reviewed by: Jessica Travis LPN - Fully Assessed Reason for Visit: Trauma [112] Cmt: Fell from standing on bed, hurt R wrist and Left ankle, x 30 mins ago Primary Visit Diagnosis:Fall, initial encounter [W19.XXXA] Other Visit Diagnoses:Pain of left lower extremity due to injury [M79.605] Injury of right wrist, initial encounter [S69.91XA] Order(s):XR FOOT GENERAL 3V AP/LAT/OBL LEFT [[id number]] Order #: [id number]. #:[id number] XR ANKLE GENERAL 3V AP/LAT/OBL LEFT [[id number]] Order #: [id number] FUTURE XR WRIST GENERAL 3V PA/LAT/OBL RIGHT [[id number]] Order #: [id number]. #:[id number] Meds Comments as of 10/01/2008: No current medications/reviewed October 01, 2008/Geraldine Brock [facility] [place] Problem List As Of Date 12/09/2023 Noted Resolved Attention deficit disorder (ADD) [F98.8] Irregular menses [N92.6] 10/23/2012 Marfanoid habitus [R29.91] 02/22/2016 Obesity, Class I, (more content not included)... Normal [facility] No Panel Informationon 12-08 IMPRESSION: No acute bony finding. Hallux valgus with associated findings as described. Computer Analyst: ESPERANZA Transcribe Date/Time: Dec 09 2023 9:47A Dictated by : MICHAEL HUDSON MD This examination was interpreted and the report reviewed and electronically signed by: MICHAEL HUDSON MD on Dec 09 2023 9:54AM EST DIVISION OF RADIOLOGY Radiology Study observation (narrative) [facility] No Panel InformationOrdered By: [facility] Provider on 12-09-2023 [facility] XR ANKLE 3V AP/LAT/OBL LTon 12-09-2023 XR ANKLE 3V AP/LAT/OBL LT * * *Final Report* * * DATE OF EXAM: Dec 09 2023 9:17AM WOX 5298 - XR ANKLE 3V AP/LAT/OBL LT / PROCEDURE REASON: Pain of left lower extremity due to injury * * * * Physician Interpretation * * * * Left ankle and foot and RIGHT wrist HISTORY: 23 years old Clinical information: Pain of left lower extremity due to injury Medial left ankle and lateral hind foot pain following a fall this morning (accession [id number]), Medial left ankle and lateral hind foot pain following a fall this morning (accession [id number]), Radial right wrist pain following a fall this morning (accession [id number]) TECHNIQUE: Images: XR FOOT 3V AP/LAT/OBL LT, XR ANKLE 3V AP/LAT/OBL LT, XR WRIST 3V PA/LAT/OBL RT Comparison: None. RESULT: Findings: Right wrist: No fracture or bony destruction. Joint space is maintained. Left foot and ankle: hallux valgus with lateral bunion and lateral subluxation first metatarsal sesamoid. Joint space is otherwise maintained. No fracture or bone destruction. IMPRESSION: No acute bony finding. Hallux valgus with associated findings as described. Computer Analyst: NAYELIB Transcribe Date/Time: Dec 09 2023 9:47A Dictated by : MICHAEL HUDSON MD This examination was interpreted and the report reviewed and electronically signed by: MICHAEL HUDSON MD on Dec 09 2023 9:54AM EST [id number] Normal [facility] XR Ankle - left AP and Later al and obliqueon 12-09-2023 * * *Final Report* * * DATE OF EXAM: Dec 09 2023 9:17AM WOX 5298 - XR ANKLE 3V AP/LAT/OBL LT / PROCEDURE REASON: Pain of left lower extremity due to injury * * * * Physician Interpretation * * * * Left ankle and foot and RIGHT wrist HISTORY: 23 years old Clinical information: Pain of left lower extremity due to injury Medial left ankle and lateral hind foot pain following a fall this morning (accession [id number]), Medial left ankle and lateral hind foot pain following a fall this morning (accession [id number]), Radial right wrist pain following a fall this morning (accession [id number]) TECHNIQUE: Images: XR FOOT 3V AP/LAT/OBL LT, XR ANKLE 3V AP/LAT/OBL LT, XR WRIST 3V PA/LAT/OBL RT Comparison: None. RESULT: Findings: Right wrist: No fracture or bony destruction. Joint space is maintained. Left foot and ankle: hallux valgus with lateral bunion and lateral subluxation first metatarsal sesamoid. Joint space is otherwise maintained. No fracture or bone destruction. DIVISION OF RADIOLOGY Provider, [facility] - 12/09/2023 * * *Final Report* * * DATE OF EXAM: Dec 09 2023 9:17AM WOX 5298 - XR ANKLE 3V AP/LAT/OBL LT / PROCEDURE REASON: Pain of left lower extremity due to injury * * * * Physician Interpretation * * * * Left ankle and foot and RIGHT wrist HISTORY: 23 years old Clinical information: Pain of left lower extremity due to injury Medial left ankle and lateral hind foot pain following a fall this morning (accession [id number]), Medial left ankle and lateral hind foot pain following a fall this morning (accession [id number]), Radial right wrist pain following a fall this morning (accession [id number]) TECHNIQUE: Images: XR FOOT 3V AP/LAT/OBL LT, XR ANKLE 3V AP/LAT/OBL LT, XR WRIST 3V PA/LAT/OBL RT Comparison: None. RESULT: Findings: Right wrist: No fracture or bony destruction. Joint space is maintained. Left foot and ankle: hallux valgus with lateral bunion and lateral subluxation first metatarsal sesamoid. Joint space is otherwise maintained. No fracture or bone destruction. IMPRESSION IMPRESSION: No acute bony finding. Hallux valgus with associated findings as described. Computer Analyst: ESPREANZA Transcribe Date/Time: Dec 09 2023 9:47A Dictated by : MICHAEL HUDSON MD This examination was interpreted and the report reviewed and electronically signed by: MICHAEL HUDSON MD on Dec 09 2023 9:54AM EST [facility] XR FOOT 3V AP/LAT/OBL LTon 0 12-09-2023 XR FOOT 3V AP/LAT/OBL LT * * *Final Report* * * DATE OF EXAM: Dec 09 2023 9:17AM WOX 5336 - XR FOOT 3V AP/LAT/OBL LT / PROCEDURE REASON: Pain of left lower extremity due to injury * * * * Physician Interpretation * * * * Left ankle and foot and RIGHT wrist HISTORY: 23 years old Clinical information: Pain of left lower extremity due to injury Medial left ankle and lateral hind foot pain following a fall this morning (accession [id number]), Medial left ankle and lateral hind foot pain following a fall this morning (accession [id number]), Radial right wrist pain following a fall this morning (accession [id number]) TECHNIQUE: Images: XR FOOT 3V AP/LAT/OBL LT, XR ANKLE 3V AP/LAT/OBL LT, XR WRIST 3V PA/LAT/OBL RT Comparison: None. RESULT: Findings: Right wrist: No fracture or bony destruction. Joint space is maintained. Left foot and ankle: hallux valgus with lateral bunion and lateral subluxation first metatarsal sesamoid. Joint space is otherwise maintained. No fracture or bone destruction. IMPRESSION: No acute bony finding. Hallux valgus with associated findings as described. Computer Analyst: PSCB Transcribe Date/Time: Dec 09 2023 9:47A Dictated by : MICHAEL HUDSON MD This examination was interpreted and the report reviewed and electronically signed by: MICHAEL HUDSON MD on Dec 09 2023 9:54AM EST [id number] Normal [facility] XR Foot - left AP and Latera l and obliqueon 12-09-2023 * * *Final Report* * * DATE OF EXAM: Dec 09 2023 9:17AM WOX 5336 - XR FOOT 3V AP/LAT/OBL LT / PROCEDURE REASON: Pain of left lower extremity due to injury * * * * Physician Interpretation * * * * Left ankle and foot and RIGHT wrist HISTORY: 23 years old Clinical information: Pain of left lower extremity due to injury Medial left ankle and lateral hind foot pain following a fall this morning (accession [id number]), Medial left ankle and lateral hind foot pain following a fall this morning (accession [id number]), Radial right wrist pain following a fall this morning (accession [id number]) TECHNIQUE: Images: XR FOOT 3V AP/LAT/OBL LT, XR ANKLE 3V AP/LAT/OBL LT, XR WRIST 3V PA/LAT/OBL RT Comparison: None. RESULT: Findings: Right wrist: No fracture or bony destruction. Joint space is maintained. Left foot and ankle: hallux valgus with lateral bunion and lateral subluxation first metatarsal sesamoid. Joint space is otherwise maintained. No fracture or bone destruction. DIVISION OF RADIOLOGY Provider, [facility] - 12/09/2023 * * *Final Report* * * DATE OF EXAM: Dec 09 2023 9:17AM WOX 5336 - XR FOOT 3V AP/LAT/OBL LT / PROCEDURE REASON: Pain of left lower extremity due to injury * * * * Physician Interpretation * * * * Left ankle and foot and RIGHT wrist HISTORY: 23 years old Clinical information: Pain of left lower extremity due to injury Medial left ankle and lateral hind foot pain following a fall this morning (accession [id number]), Medial left ankle and lateral hind foot pain following a fall this morning (accession [id number]), Radial right wrist pain following a fall this morning (accession [id number]) TECHNIQUE: Images: XR FOOT 3V AP/LAT/OBL LT, XR ANKLE 3V AP/LAT/OBL LT, XR WRIST 3V PA/LAT/OBL RT Comparison: None. RESULT: Findings: Right wrist: No fracture or bony destruction. Joint space is maintained. Left foot and ankle: hallux valgus with lateral bunion and lateral subluxation first metatarsal sesamoid. Joint space is otherwise maintained. No fracture or bone destruction. IMPRESSION IMPRESSION: No acute bony finding. Hallux valgus with associated findings as described. Computer Analyst: ESPERANZA Transcribe Date/Time: Dec 09 2023 9:47A Dictated by : MICHAEL HUDSON MD This examination was interpreted and the report reviewed and electronically signed by: MICHAEL HUDSON MD on Dec 09 2023 9:54AM EST [facility] XR WRIST 3V PA/LAT/OBL RTon 12-09-2023 XR WRIST 3V PA/LAT/OBL RT * * *Final Report* * * DATE OF EXAM: Dec 09 2023 9:17AM WOX 5271 - XR WRIST 3V PA/LAT/OBL RT / PROCEDURE REASON: Injury of right wrist, initial encounter * * * * Physician Interpretation * * * * Left ankle and foot and RIGHT wrist HISTORY: 23 years old Clinical information: Pain of left lower extremity due to injury Medial left ankle and lateral hind foot pain following a fall this morning (accession [id number]), Medial left ankle and lateral hind foot pain following a fall this morning (accession [id number]), Radial right wrist pain following a fall this morning (accession [id number]) TECHNIQUE: Images: XR FOOT 3V AP/LAT/OBL LT, XR ANKLE 3V AP/LAT/OBL LT, XR WRIST 3V PA/LAT/OBL RT Comparison: None. RESULT: Findings: Right wrist: No fracture or bony destruction. Joint space is maintained. Left foot and ankle: hallux valgus with lateral bunion and lateral subluxation first metatarsal sesamoid. Joint space is otherwise maintained. No fracture or bone destruction. IMPRESSION: No acute bony finding. Hallux valgus with associated findings as described. Computer Analyst: [facility] Transcribe Date/Time: Dec 09 2023 9:47A Dictated by : MICHAEL HUDSON MD This examination was interpreted and the report reviewed and electronically signed by: MICHAEL HUDSON MD on Dec 09 2023 9:54AM EST [id number] Normal [facility] XR Wrist - right PA and Late ral and Obliqueon 12-09-2023 * * *Final Report* * * DATE OF EXAM: Dec 09 2023 9:17AM WOX 5271 - XR WRIST 3V PA/LAT/OBL RT / PROCEDURE REASON: Injury of right wrist, initial encounter * * * * Physician Interpretation * * * * Left ankle and foot and RIGHT wrist HISTORY: 23 years old Clinical information: Pain of left lower extremity due to injury Medial left ankle and lateral hind foot pain following a fall this morning (accession [id number]), Medial left ankle and lateral hind foot pain following a fall this morning (accession [id number]), Radial right wrist pain following a fall this morning (accession [id number]) TECHNIQUE: Images: XR FOOT 3V AP/LAT/OBL LT, XR ANKLE 3V AP/LAT/OBL LT, XR WRIST 3V PA/LAT/OBL RT Comparison: None. RESULT: Findings: Right wrist: No fracture or bony destruction. Joint space is maintained. Left foot and ankle: hallux valgus with lateral bunion and lateral subluxation first metatarsal sesamoid. Joint space is otherwise maintained. No fracture or bone destruction. DIVISION OF RADIOLOGY Provider, [facility] - 12/09/2023 * * *Final Report* * * DATE OF EXAM: Dec 09 2023 9:17AM WOX 5271 - XR WRIST 3V PA/LAT/OBL RT / PROCEDURE REASON: Injury of right wrist, initial encounter * * * * Physician Interpretation * * * * Left ankle and foot and RIGHT wrist HISTORY: 23 years old Clinical information: Pain of left lower extremity due to injury Medial left ankle and lateral hind foot pain following a fall this morning (accession [id number]), Medial left ankle and lateral hind foot pain following a fall this morning (accession [id number]), Radial right wrist pain following a fall this morning (accession [id number]) TECHNIQUE: Images: XR FOOT 3V AP/LAT/OBL LT, XR ANKLE 3V AP/LAT/OBL LT, XR WRIST 3V PA/LAT/OBL RT Comparison: None. RESULT: Findings: Right wrist: No fracture or bony destruction. Joint space is maintained. Left foot and ankle: hallux valgus with lateral bunion and lateral subluxation first metatarsal sesamoid. Joint space is otherwise maintained. No fracture or bone destruction. IMPRESSION IMPRESSION: No acute bony finding. Hallux valgus with associated findings as described. Computer Analyst: PSCB Transcribe Date/Time: Dec 09 2023 9:47A Dictated by : MICHAEL HUDSON MD This examination was interpreted and the report reviewed and electronically signed by: MICHAEL HUDSON MD on Dec 09 2023 9:54AM EST [facility] CNOVon 11-28-2023 CNOV Office Visit (AGINTM LW) GORDO KHAN ([id number]) 2000 F Date Time Provider Department 11/28/23 8:00 AM GENEVIEVE MCCALLUMMLW During your visit today, we recorded the following information about you: Temperature Pulse Respiration Blood pressure 97.8 degrees 80/minute 18/minute 102/70 Weight Height 91.2 kg 1.632 m Genevieve Mccallum, RAMP ATTENDANT.SINGLE POINTED OPERATOR 11/28/2023 1:29 PM Signed This note was created using [employer]. Subjective Gordo Khan is a 23 year old female here today for complaints of right hand pain. She reports this has been occurring for months. Reports pain starts base of thumb and will shoot up into her entire hand and into forearm. Reports worsening over the past week. States pain has been there for awhile but has worsened. States 1-4th digits are numb intermittently but the thumb is always numb and tingling. 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 Pain is constant. Pain 10/10. At best 8/10. She has tried tylenol aleve, ibuprofen and nothing helps. She is wearing a compression sleeve which she reports does not help. Reports her left hand is starting to have same symptoms but not as severe or constant as right. ALLERGIES Allergen Reactions Cats Tran Hives, Itching, Rash, Shortness of Breath, Swelling Latex Hives, Itching, Rash, Swelling No current outpatient medications on file. No current facility-administered medications for this visit. ACTIVE PROBLEM LIST Attention Deficit Disorder (Add) Irregular Menses Marfanoid Habitus Obesity, Class I, Bmi 30-34.9 PAST MEDICAL HISTORY Diagnosis Date Attention deficit disorder (ADD) 05/29/2008 Depression Generalized anxiety disorder Menarche 05/29/2009 menstral cycle PMH - PAST MEDICAL HISTORY OF Color Vision - Normal PAST SURGICAL HISTORY Procedure Laterality Date EXTRACTION ERUPTED TOOTH/EXR 2023 wisdom teeth Social History Tobacco Use Smoking status: Never Passive exposure: Yes Smokeless tobacco: Never Tobacco comments: Mom smokes in her bedroom Vaping Use Vaping Use: Some days Substances: Nicotine Substance Use Topics Alcohol use: Yes Comment: occasionally Drug use: Not Currently Types: Marijuana Family History Problem Relation Age of Onset Diabetes Mother other (irritable bowel syndrome) Mother No Known Problems Father Stroke Maternal Grandmother Diabetes Maternal Grandmother Multiple Sclerosis Maternal Grandmother Diabetes Maternal Grandfather Bipolar disorder Maternal Grandfather Schizophrenia Maternal Grandfather Cancer Paternal Grandmother Depression Half-brother Suicide Attempts Half-brother Asthma Half-sister other (eating disorder) Half-sister Leukemia Paternal cousin 8 Review of Systems Constitutional: Negative for activity change, appetite change, chills, fatigue and fever. Respiratory: Negative for shortness of breath and wheezing. Cardiovascular: Negative for chest pain, palpitations and leg swelling. Musculoskeletal: Positive for arthralgias. See HPI Skin: Negative. Neurological: Positive for numbness. Negative for dizziness and headaches. See HPI Objective BP 102/70 (BP Site: Right Arm, BP Position: Sitting, BP Cuff Size: Regular Adult) Pulse 80 Temp 36.6 ?C (97.8 ?F) (Oral) Resp 18 Ht 163.2 cm (5' 4.25) Wt 91.2 kg (201 lb) LMP 09/14/2023 (Exact Date) BMI 34.23 kg/m? Physical Exam Vitals and nursing note reviewed. Constitutional: General: She is not in acute distress. Appearance: She is not ill-appearing. Cardiovascular: Rate and Rhythm: Normal rate and regular rhythm. Pulses: Normal pulses. Heart sounds: Normal heart sounds. Pulmonary: Effort: Pulmonary effort is normal. Breath sounds: Normal breath sounds. Musculoskeletal: Right wrist: Tenderness present. Decreased range of motion. Left wrist: Normal. Right hand: Tenderness present. Decreased range of motion. Decreased strength. Decreased sensation. There is disruption of two-point discrimination. Left hand: Normal. Comments: Positive tinel's and phalens on right Skin: General: Skin is warm and dry. Neurological: Mental Status: She is alert and oriented to person, place, and time. Psychiatric: Mood and Affect: Mood normal. Behavior: Behavior normal. Thought Content: Thought content normal. Judgment: Judgment normal. ASSESSMENT/PLAN: 1. Pain in both hands - ICD9: 729.5, ICD10: M79.641, M79.642 (primary diagnosis) - Chronic, R>L, symptoms consistent with CTS, DD tendonitis. (+) tinel's and Phalen on right. Will order EMG. Reviewed exercises and use of splint at night. Will refer to ortho for evaluation and further recommendations. - CONSULT TO ORTHOPAEDICS - EMG(NEURO/NI) - COCK-UP WRIST SPLINT 2. Disturbance of skin sensation - ICD9: 782.0, ICD10: R20.9 - see above - CONSULT TO ORTHOPAEDICS - EM (more content not included)... [facility] Visit (AGINTM LW) GORDO KHAN ([id number]) 2000 F Date Time Provider Department 11/08/23 9:20 AM GENEVIEVE MCCALLUM AGINTMLW During your visit today, we recorded the following information about you: Temperature Pulse Respiration Blood pressure 98.2 degrees 82/minute 18/minute 102/72 Weight Height 88.4 kg 1.632 m Genevieve Mccallum, RAMP ATTENDANT.SINGLE POINTED OPERATOR 11/08/2023 12:57 PM Signed This note was created using NoteWriter. Subjective Gordo Khan is a 23 year old female here today that she might be . Reports she was concerned because she did not get her period for about a month. States she had one test that was positive than negative. Reportes she got her period 11/04/23. Prior her LMP was 09/14/23. She reports she is doing okay. She has been trying to get for about a year now. Denies fever, chills, abd pain. ALLERGIES Allergen Reactions Cats Tran Hives, Itching, Rash, Shortness of Breath, Swelling Latex Hives, Itching, Rash, Swelling No current outpatient medications on file. No current facility-administered medications for this visit. ACTIVE PROBLEM LIST Attention Deficit Disorder (Add) Irregular Menses Marfanoid Habitus Obesity, Class I, Bmi 30-34.9 PAST MEDICAL HISTORY Diagnosis Date Attention deficit disorder (ADD) 05/29/2008 Depression Generalized anxiety disorder Menarche 05/29/2009 menstral cycle PMH - PAST MEDICAL HISTORY OF Color Vision - Normal PAST SURGICAL HISTORY Procedure Laterality Date EXTRACTION ERUPTED TOOTH/EXR 2023 wisdom teeth Social History Tobacco Use Smoking status: Never Passive exposure: Yes Smokeless tobacco: Never Tobacco comments: Mom smokes in her bedroom Vaping Use Vaping Use: Some days Substances: Nicotine Substance Use Topics Alcohol use: Yes Comment: occasionally Drug use: Not Currently Types: Marijuana Family History Problem Relation Age of Onset Diabetes Mother other (irritable bowel syndrome) Mother No Known Problems Father Stroke Maternal Grandmother Diabetes Maternal Grandmother Multiple Sclerosis Maternal Grandmother Diabetes Maternal Grandfather Bipolar disorder Maternal Grandfather Schizophrenia Maternal Grandfather Cancer Paternal Grandmother Depression Half-brother Suicide Attempts Half-brother Asthma Half-sister other (eating disorder) Half-sister Leukemia Paternal cousin 8 . Review of Systems Constitutional: Negative for activity change, chills, diaphoresis, fatigue and fever. Respiratory: Negative for shortness of breath. Cardiovascular: Negative for chest pain. Genitourinary: Positive for vaginal bleeding. Negative for decreased urine volume, difficulty urinating, dyspareunia, dysuria, flank pain, frequency, genital sores, hematuria, pelvic pain, urgency, vaginal discharge and vaginal pain. See HPI Neurological: Negative for dizziness. Psychiatric/Behavioral: Negative for dysphoric mood. The patient is not nervous/anxious. Objective BP 102/72 (BP Site: Right Arm, BP Position: Sitting, BP Cuff Size: Regular Adult) Pulse 82 Temp 36.8 ?C (98.2 ?F) (Oral) Resp 18 Ht 163.2 cm (5' 4.25) Wt 88.4 kg (194 lb 12.8 oz) LMP 09/14/2023 (Exact Date) SpO2 97% BMI 33.18 kg/m? Physical Exam Vitals and nursing note reviewed. Constitutional: General: She is not in acute distress. Appearance: She is not ill-appearing. Cardiovascular: Rate and Rhythm: Normal rate and regular rhythm. Pulses: Normal pulses. Heart sounds: Normal heart sounds. No murmur heard. Pulmonary: Effort: Pulmonary effort is normal. Breath sounds: Normal breath sounds. Abdominal: Palpations: Abdomen is soft. Tenderness: There is no abdominal tenderness. Skin: General: Skin is warm and dry. Neurological: Mental Status: She is alert and oriented to person, place, and time. Psychiatric: Mood and Affect: Mood normal. Behavior: Behavior normal. Thought Content: Thought content normal. Judgment: Judgment normal. ASSESSMENT/PLAN: 1. Irregular menses - ICD9: 626.4, ICD10: N92.6 - missed period. She has now had her period. Normal bleeding. Support provided - encouraged to follow up with OPERATIONS LEAD if further concerns regarding . I did encourage her if this is something she is desiring she should be taking vitamin. She does not smoke. - call if any concerns Genevieve Mccallum APRN.SINGLE POINTED OPERATOR Allergies As of Date: 11/08/2023 Noted Allergy Reaction CATS 04/27/2006 TRAN 09/04/2023 4 - Hives 9 - Itching 2 - Rash 12 - Shortness of Breath 7 - Swelling LATEX 09/04/2023 4 - Hives 9 - Itching 2 - Rash 7 - Swelling Date Reviewed: 10/03/2023 Reviewed by: Traci Judd APRN.SINGLE POINTED OPERATOR - Fully Assessed Primary Visit Diagnosis:Irregular menses [N92.6] Meds Comments as of 10/01/2008: No current medications/reviewed October 01 (more content not included)... Normal [facility] CBC panel Auto (Bld)on 09-03 Erythrocyte distribution width (RBC) [Ratio] 12.5 % 11.5 - 15.0 % [facility] Hematocrit (Bld) [Volume fraction] 43.1 % 36.0 - 46.0 % [facility] Hemoglobin (Bld) [Mass/Vol] 14.2 g/dL 11.5 - 15.5 g/dL [facility] MCH (RBC) [Entitic mass] 28.1 pg 26.0 - 34.0 pg [facility] MCHC (RBC) [Mass/Vol] 32.9 g/dL 30.5 - 36.0 g/dL [facility] MCV (RBC) [Entitic vol] 85.2 fL 80.0 - 100.0 fL [facility] Platelet mean volume (Bld) [Entitic vol] 9.6 fL 9.0 - 12.7 fL [facility] Platelets (Bld) [#/Vol] 384 10*3/uL 150 - 400 k/uL [facility] RBC (Bld) [#/Vol] 5.06 10*6/uL 3.90 - 5.2 0 m/uL [facility] WBC (Bld) [#/Vol] 9.48 10*3/uL 3.70 - 11. 00 k/uL [facility] Comprehensive metabolic 2000 panelon 09-04-2023 Albumin [Mass/Vol] 4.6 g/dL 3.9 - 4.9 g/dL [facility] ALP [Catalytic activity/Vol] 67 U/L 34 - 123 U/L [facility] ALT With P-5'-P [Catalytic activity/Vol] 38 U/L 7 - 38 U/L [facility] Anion gap [Moles/Vol] 11 mmol/L 9 - 18 mmol/L [facility] AST With P-5'-P [Catalytic activity/Vol] 19 U/L 13 - 35 U/L [facility] Bilirubin [Mass/Vol] 0.2 mg/dL 0.2 - 1 .3 mg/dL [facility] Calcium [Mass/Vol] 10.0 mg/dL 8.5 - 10. 2 mg/dL [facility] Chloride [Moles/Vol] 102 mmol/L 97 - 10 5 mmol/L [facility] CO2 [Moles/Vol] 25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 [facility] 06-01-2023 14:24-0500 Respiratory rate 14 /min [facility] 06-01-2023 13:27-0500 SaO2% (BldA) [Mass fraction] 98 % [facility] 06-01-2023 11:26-0500 Body height 162.[address] [facility] 06-01-2023 11:26-0500 Body mass index (BMI) [Ratio] 31.2 kg/m2 [facility] 06-01-2023 11:26-0500 Body temperature 102 [degF] [facility] 06-01-2023 11:26-0500 Body weight 82.[address] [facility] 06-01-2023 11:26-0500 Diastolic blood pressure 56 mm[Hg] [facility] 06-01-2023 11:26-0500 Systolic blood pressure 102 mm[Hg] [facility] 05-26-2023 22:59-0500 Diastolic blood pressure 62 mm[Hg] [facility] 05-26-2023 22:59-0500 Heart rate 73 /min [facility] 05-26-2023 22:59-0500 Respiratory rate 15 /min [facility] 05-26-2023 22:59-0500 SaO2% (BldA) [Mass fraction] 99 % [facility] 05-26-2023 22:59-0500 Systolic blood pressure 108 mm[Hg] [facility] 05-26-2023 21:31-0500 Body height 162.[address] [facility] 05-26-2023 21:31-0500 Body mass index (BMI) [Ratio] 32.5 kg/m2 [facility] 05-26-2023 21:31-0500 Body temperature 98.6 [degF] [facility] 05-26-2023 21:31-0500 Body weight 86.[address] [facility] 02-06-2023 10:27-0400 Body temperature 98.2 [degF] Guru Santana RAMP ATTENDANT.SINGLE POINTED OPERATOR Work Phone: [facility] 02-06-2023 10:27-0400 Body weight 84.01 kg Guru Santana RAMP ATTENDANT.SINGLE POINTED OPERATOR Work Phone: [facility] 02-06-2023 10:27-0400 Diastolic blood pressure 74 mm[Hg] Guru Santana RAMP ATTENDANT.SINGLE POINTED OPERATOR Work Phone: [facility] 02-06-2023 10:27-0400 Heart rate 83 /min Guru Santana RAMP ATTENDANT.SINGLE POINTED OPERATOR Work Phone: [facility] 02-06-2023 10:27-0400 Respiratory rate 21 /min Guru Santana RAMP ATTENDANT.SINGLE POINTED OPERATOR Work Phone: [facility] 02-06-2023 10:27-0400 SaO2% (BldA) [Mass fraction] 98 % Guru Santana RAMP ATTENDANT.SINGLE POINTED OPERATOR Work Phone: [facility] 02-06-2023 10:27-0400 Systolic blood pressure 102 mm[Hg] Guru Santana RAMP ATTENDANT.SINGLE POINTED OPERATOR Work Phone: [facility] 09-27-2022 22:41-0400 Diastolic blood pressure 84 mm[Hg] [facility] 09-27-2022 22:41-0400 Heart rate 62 /min [facility] 09-27-2022 22:41-0400 Respiratory rate 15 /min [facility] 09-27-2022 22:41-0400 SaO2% (BldA) [Mass fraction] 99 % [facility] 09-27-2022 22:41-0400 Systolic blood pressure 129 mm[Hg] [facility] 09-27-2022 20:50-0400 Body height 162.[address] [facility] 09-27-2022 20:50-0400 Body mass index (BMI) [Ratio] 33.3 kg/m2 [facility] 09-27-2022 20:50-0400 Body temperature 97.2 [degF] [facility] 09-27-2022 20:50-0400 Body weight 88.[address] [facility] 05-14-2022 18:03-0500 Diastolic blood pressure 78 mm[Hg] [facility] Work Phone: 05-14-2022 18:03-0500 Heart rate 107 /min [facility] Work Phone: 05-14-2022 18:03-0500 Respiratory rate 16 /min [facility] Work Phone: 05-14-2022 18:03-0500 SaO2% (BldA) [Mass fraction] 100 % [facility] Work Phone: 05-14-2022 18:03-0500 Systolic blood pressure 120 mm[Hg] [facility] Work Phone: 05-14-2022 12:57-0500 Body height 165.[address] [facility] Work Phone: 05-14-2022 12:57-0500 Body mass index (BMI) [Ratio] 31.6 kg/m2 [facility] Work Phone: 05-14-2022 12:57-0500 Body temperature 97 [degF] [facility] Work Phone: 05-14-2022 12:57-0500 Body weight 86.[address] [facility] Work Phone: 09-15-2021 15:21-0400 Heart rate 76 /min Dr. Gabino Summers Work Phone: [facility] Work Phone: 09-15-2021 15:21-0400 Respiratory rate 16 /min Dr. Gabino Summers Work Phone: [facility] Work Phone: 09-15-2021 15:21-0400 SaO2% (BldA) [Mass fraction] 98 % Dr. Gabino Summers Work Phone: [facility] Work Phone: 09-15-2021 13:35-0400 Body height 162.[address] Gabino Summers Work Phone: [facility] Work Phone: 09-15-2021 13:35-0400 Body mass index (BMI) [Ratio] 29.2 kg/m2 Dr. Gabino Summers Work Phone: [facility] Work Phone: 09-15-2021 13:35-0400 Body temperature 96.9 [degF] Dr. Gabino Summers Work Phone: [facility] Work Phone: 09-15-2021 13:35-0400 Body weight 77.[address] Gabino Summers Work Phone: [facility] Work Phone: 09-15-2021 13:35-0400 Diastolic blood pressure 77 mm[Hg] Dr. Gabino Summers Work Phone: [facility] Work Phone: 09-15-2021 13:35-0400 Systolic blood pressure 123 mm[Hg] Dr. Gabino Summers Work Phone: [facility] Work Phone: 08-30-2021 08:44-0400 Body temperature 97 [degF] Jerson Busch MD Work Phone: [facility] 08-30-2021 08:44-0400 Body weight 79.38 kg Jerson Busch MD Work Phone: [facility] 08-30-2021 08:44-0400 Diastolic blood pressure 70 mm[Hg] Jerson Busch MD Work Phone: [facility] 08-30-2021 08:44-0400 Heart rate 72 /min Jerson Busch MD Work Phone: [facility] 08-30-2021 08:44-0400 Respiratory rate 16 /min Jerson Busch MD Work Phone: [facility] 08-30-2021 08:44-0400 SaO2% (BldA) [Mass fraction] 98 % Jerson Busch MD Work Phone: [facility] 08-30-2021 08:44-0400 Systolic blood pressure 122 mm[Hg] Jerson Busch MD Work Phone: [facility] 07-14-2021 16:27-0500 Body mass index (BMI) [Ratio] 30.4 kg/m2 Dr. Gabino Summers Work Phone: [facility] Work Phone: 07-14-2021 16:27-0500 Body temperature 98.4 [degF] Dr. Gabino Summers Work Phone: [facility] Work Phone: 07-14-2021 16:27-0500 Body weight 80.[address] Gabino Summers Work Phone: [facility] Work Phone: 07-14-2021 16:27-0500 Diastolic blood pressure 82 mm[Hg] Dr. Gabino Summers Work Phone: [facility] Work Phone: 07-14-2021 16:27-0500 Heart rate 96 /min Dr. Gabino Summers Work Phone: [facility] Work Phone: 07-14-2021 16:27-0500 Respiratory rate 16 /min Dr. Gabino Summers Work Phone: [facility] Work Phone: 07-14-2021 16:27-0500 SaO2% (BldA) [Mass fraction] 98 % Dr. Gabino Summers Work Phone: [facility] Work Phone: 07-14-2021 16:27-0500 Systolic blood pressure 126 mm[Hg] Dr. Gabino Summers Work Phone: [facility] Work Phone: 07-14-2021 10:11-0500 Body mass index (BMI) [Ratio] 29.4 kg/m2 Dr. Gabino Summers Work Phone: [facility] Work Phone: 07-14-2021 10:11-0500 Body temperature 97 [degF] Dr. Gabino Summers Work Phone: [facility] Work Phone: 07-14-2021 10:11-0500 Body weight 80.[address] Gabino Summers Work Phone: [facility] Work Phone: 07-14-2021 10:11-0500 Diastolic blood pressure 66 mm[Hg] Dr. Gabino Summers Work Phone: [facility] Work Phone: 07-14-2021 10:11-0500 Heart rate 71 /min Dr. Gabino Summers Work Phone: [facility] Work Phone: 07-14-2021 10:11-0500 Respiratory rate 16 /min Dr. Gabino Summers Work Phone: [facility] Work Phone: 07-14-2021 10:11-0500 SaO2% (BldA) [Mass fraction] 98 % Dr. Gabino Summers Work Phone: [facility] Work Phone: 07-14-2021 10:11-0500 Systolic blood pressure 108 mm[Hg] Dr. Gabino Summers Work Phone: [facility] Work Phone: Encounters Encounter Date Encounter Type Care Provider Facility Start: 02-07-2025 End: 02-07-2025 Emergency department patient visit Genevieve LEIGH Work Phone: -Emergency Department Work Phone: Start: 01-13-2025 End: 01-14-2025 Refill Genevieve Mccallum APRN.SINGLE POINTED OPERATOR Work Phone: [facility] Comment on above: Refill Request Start: 11-27-2024 End: 11-27-2024 Telephone encounter Dhruvedwina Roberts [facility] Work Phone: [facility] Comment on above: Appointment Start: 11-09-2024 End: 11-11-2024 Refill Genevieve Mccallum APRN.SINGLE POINTED OPERATOR Work Phone: [facility] Comment on above: Refill Request Start: 10-25-2024 End: 12-25-2024 Follow-up encounter Arely Diamond MD Work Phone: OB/Gynecology Start: 10-23-2024 End: 10-23-2024 Patient encounter procedure Arely Diamond MD Work Phone: OB/Gynecology Comment on above: Thyroid antibody pos itive (Primary Dx); Irregular menstrual cycle; History of recurrent miscarriages; Infertility, female; Carrier of spinal muscular atrophy Start: 10-23-2024 End: 10-23-2024 ambulatory ARELY DIAMOND Facility:[facility] Start: 10-18-2024 End: 10-23-2024 Follow-up encounter Dion Barrientos MD Work Phone: OB/Gynecology Start: 10-09-2024 End: 10-09-2024 ambulatory DION BARRIENTOS Facility:[facility] Start: 10-09-2024 End: 10-09-2024 Patient encounter procedure Dion Barrientos MD Work Phone: OB/Gynecology Comment on above: Irregular menstrual cycle (Primary Dx); Pre-conception counseling; Oligo-ovulation; History of recurrent miscarriages Start: 10-09-2024 End: 10-09-2024 ambulatory DION BARRIENTOS Facility:[facility] Start: 10-03-2024 End: 10-03-2024 Patient encounter procedure Traci Judd APRN.SINGLE POINTED OPERATOR Work Phone: OB/Gynecology Comment on above: Encounter for gyneco logical examination (general) (routine) without abnormal findings (Primary Dx) Start: 10-03-2024 End: 10-03-2024 Patient encounter status Traci Judd APRN.SINGLE POINTED OPERATOR Work Phone: [facility] Start: 10-03-2024 End: 10-03-2024 ambulatory TRACI JUDD Facility:[facility] Start: 10-03-2024 Encounter for gynecological examination (general) (routine) without abnormal findings TRACI JUDD [facility] Start: 09-19-2024 End: 09-19-2024 ambulatory GENEVIEVE MCCALLUM Facility:[facility] Start: 08-30-2024 End: 08-30-2024 ambulatory Genevieve Mccallum RAMP ATTENDANT.SINGLE POINTED OPERATOR Work Phone: [facility] Start: 08-30-2024 End: 08-30-2024 Follow-up encounter Genevieve Mccallum RAMP ATTENDANT.SINGLE POINTED OPERATOR Work Phone: [facility] Comment on above: ED Follow-up ([facility] 3/30/25) Start: 08-25-2024 End: 08-25-2024 Emergency department patient visit Genevieve Mccallum CUSTOMER PRICING MANAGER-C Work Phone: -Emergency Department Work Phone: Start: 08-21-2024 End: 08-21-2024 ambulatory ROBERTO HERNANDEZ Facility:[facility] Start: 08-21-2024 End: 08-21-2024 Patient encounter procedure Roberto Hernandez DO Work Phone: [facility] Comment on above: Subacromial bursitis of left shoulder joint (Primary Dx) Start: 08-19-2024 End: 08-19-2024 Subsequent hospital visit by physician [facility] Work Phone: Radiology Comment on above: Acute pain of left s carmelita [M25.512] Start: 08-19-2024 End: 08-19-2024 ambulatory FADIA MOOMAW Facility:[facility] Start: 08-19-2024 End: 08-19-2024 Patient encounter procedure Fadia Jeter RAMP ATTENDANT.SINGLE POINTED OPERATOR Work Phone: [facility] Comment on above: Acute pain of left s carmelita (Primary Dx) Start: 07-29-2024 End: 07-31-2024 E-mail encounter from caregiver Genevieve Mccallum APRN.SINGLE POINTED OPERATOR Work Phone: [facility] Start: 07-29-2024 End: 07-31-2024 Patient encounter procedure Genevieve Mccallum APRN.SINGLE POINTED OPERATOR Work Phone: [facility] Comment on above: Appointment Request Start: 07-24-2024 End: 07-25-2024 Refill Genevieve Mccallum APRN.SINGLE POINTED OPERATOR Work Phone: [facility] Comment on above: Refill Request Start: 07-16-2024 End: 07-16-2024 ambulatory GENEVIEVE MCCALLUM Facility:[facility] Start: 07-16-2024 End: 07-16-2024 Patient encounter procedure Tru Walters RAMP ATTENDANT.SINGLE POINTED OPERATOR Work Phone: [facility] Comment on above: Skin infection (Prim toy Dx); Cat scratch; Need for tetanus booster Start: 05-27-2024 End: 05-28-2024 Telephone encounter Genevieve Mccallum APRN.SINGLE POINTED OPERATOR Work Phone: [facility] Comment on above: Results Start: 05-23-2024 End: 05-23-2024 Telephone encounter Genevieve Mccallum RAMP ATTENDANT.SINGLE POINTED OPERATOR Work Phone: [facility] Comment on above: Results Start: 05-15-2024 End: 05-15-2024 Patient encounter procedure [facility] Start: 05-15-2024 End: 05-15-2024 ambulatory GENEVIEVE M ALESSIO [facility] Comment on above: Procedure Start: 04-29-2024 End: 04-29-2024 Patient encounter procedure Genevieve Mccallum RAMP ATTENDANT.SINGLE POINTED OPERATOR Work Phone: [facility] Comment on above: SOB (shortness of br eath) (Primary Dx); Lower respiratory infection; Acute non-recurrent maxillary sinusitis Start: 04-29-2024 End: 04-29-2024 ambulatory GENEVIEVE MCCALLUM Facility:[facility] Start: 04-16-2024 End: 04-16-2024 ambulatory Genevieve Mccallum APRN.SINGLE POINTED OPERATOR Work Phone: [facility] Start: 04-13-2024 End: 04-13-2024 Emergency department patient visit Genevieve Mccallum NP Facility:[facility] Start: 02-24-2024 End: 02-24-2024 Patient encounter procedure Immunization Clinic Nurse Fabiana Work Phone: [facility] Start: 02-24-2024 End: 02-24-2024 ambulatory Immunization Clinic Nurse Fabiana Work Phone: [facility] Start: 01-30-2024 End: 01-30-2024 Patient encounter procedure Tru Walters RAMP ATTENDANT.SINGLE POINTED OPERATOR Work Phone: [facility] Comment on above: URI, acute (Primary Dx); Stomatitis; Dysfunction of both eustachian tubes Start: 01-30-2024 End: 01-30-2024 ambulatory GENEVIEVE MCCALLUM Facility:[facility] Start: 01-18-2024 End: 01-18-2024 E-mail encounter from caregiver Alexandre Sauceda MD Work Phone: [facility] Start: 01-18-2024 End: 01-18-2024 Patient encounter procedure Alexandre Sauceda MD Work Phone: [facility] Comment on above: Appointment Cancella tion Request Start: 01-18-2024 End: 01-18-2024 Telephone encounter Genevieve Mccallum APRN.SINGLE POINTED OPERATOR Work Phone: [facility] Comment on above: Results Start: 01-08-2024 End: 01-09-2024 ambulatory GENEVIEVE MCCALLUM Neurology Comment on above: EMG Start: 01-08-2024 End: 01-08-2024 Patient encounter procedure Emg 1 Neur Main (Max Weight: 1000) Work Phone: Neurology Start: 12-09-2023 End: 12-09-2023 Subsequent hospital visit by physician Neema [facility] Fabiana Work Phone: Radiology Comment on above: Pain of left lower e xtremity due to injury [M79.605] Start: 12-09-2023 End: 12-09-2023 ambulatory GENEVIEVE MCCALLUM Facility:[facility] Start: 12-09-2023 End: 12-09-2023 Patient encounter procedure Tru Walters APRN.SINGLE POINTED OPERATOR Work Phone: [facility] Comment on above: Fall, initial encoun ter (Primary Dx); Pain of left lower extremity due to injury; Injury of right wrist, initial encounter Start: 11-28-2023 End: 11-28-2023 Patient encounter procedure Genevieve Mccallum APRN.SINGLE POINTED OPERATOR Work Phone: [facility] Comment on above: Pain in both hands ( Primary Dx); Disturbance of skin sensation Start: 11-28-2023 End: 11-28-2023 ambulatory GENEVIEVE MCCALLUM Facility:[facility] Start: 11-08-2023 End: 11-08-2023 Patient encounter procedure Genevieve Mccallum RAMP ATTENDANT.SINGLE POINTED OPERATOR Work Phone: [facility] Comment on above: Irregular menses (Pr imary Dx) Start: 11-08-2023 End: 11-08-2023 ambulatory GENEVIEVE MCCALLUM Facility:[facility] Start: 10-03-2023 End: 10-03-2023 Patient encounter procedure Traci Judd APRN.SINGLE POINTED OPERATOR Work Phone: OB/Gynecology Comment on above: Encounter for gyneco logical examination (general) (routine) without abnormal findings (Primary Dx); Screening for cervical cancer Start: 10-03-2023 End: 10-03-2023 Patient encounter status Traci Judd APRN.SINGLE POINTED OPERATOR Work Phone: [facility] Start: 09-04-2023 Telephone encounter Genevieve Mccallum APRN.SINGLE POINTED OPERATOR Work Phone: [facility] Comment on above: Results Start: 09-04-2023 End: 09-04-2023 Patient encounter procedure Genevieve Mccallum RAMP ATTENDANT.SINGLE POINTED OPERATOR Work Phone: [facility] Comment on above: Wellness examination (Primary Dx); Encounter for medical examination to establish care; Encounter for immunization; Screening for cervical cancer; Screening for thyroid disorder; Screening for lipid disorders; Screening for deficiency anemia; Encounter for screening for diabetes mellitus; Encounter for hepatitis C screening test for low risk patient; Screening for HIV (human immunodeficiency virus); Obesity, Class I, BMI 30-34.9 Start: 09-04-2023 End: 09-04-2023 Patient encounter status Genevieve Mccallum APRN.SINGLE POINTED OPERATOR Work Phone: [facility] Work Phone: Start: 06-01-2023 End: 06-01-2023 Emergency department patient visit [facility] Work Phone: Start: 05-26-2023 End: 05-26-2023 Emergency department patient visit [facility] Work Phone: Start: 02-06-2023 End: 02-06-2023 Office outpatient visit 25 minutes Guru Esther TROTTER Work Phone: [facility] Comment on above: Sore throat (Primary Dx); Strep throat Start: 09-27-2022 End: 09-27-2022 [facility] Start: 05-14-2022 End: 05-14-2022 [facility] Start: 03-03-2022 End: 03-03-2022 Patient encounter procedure Olivier Avserena Work Phone: Podiatry Comment on above: Acquired hallux valg us, unspecified laterality (Primary Dx); Pes planus of both feet; Tinea pedis of right foot Start: 03-03-2022 End: 03-03-2022 Subsequent hospital visit by physician Neema [facility] Work Phone: Radiology Comment on above: Bilateral foot pain [M79.671, M79.672] Start: 03-01-2022 Orders Only Olivier Min gardner Work Phone: Podiatry Comment on above: Bilateral foot pain (Primary Dx) Start: 11-19-2021 End: 11-19-2021 Patient encounter procedure [facility] vamp marker Off Start: 11-16-2021 End: 11-16-2021 Patient encounter procedure [facility] vamp marker Off Start: 09-15-2021 End: 09-15-2021 Emergency department patient visit Dr. Gabino Summers Work Phone: [facility] Start: 08-30-2021 End: 08-30-2021 Subsequent hospital visit by physician Neema [facility] Work Phone: Radiology Comment on above: Acute wrist pain, le ft [M25.532] Start: 08-30-2021 End: 08-30-2021 Patient encounter procedure Jerson Busch MD Work Phone: [facility] Comment on above: Acute wrist pain, le ft (Primary Dx) Start: 07-14-2021 End: 07-14-2021 Emergency department patient visit Dr. Gabino Summers Work Phone: [facility] Start: 07-14-2021 End: 07-14-[address] Gabino Summers Work Phone: [facility] Start: 04-11-2017 End: 04-11-2017 Ambulatory [facility] Procedures Date Procedure Procedure Detail Performing Clinician Start: 02-07-2025 Urnls dip stick/tabl et reagent auto microscopy Genevieve Alessio CUSTOMER PRICING MANAGER-C Work Phone: Start: 02-07-2025 Estimated creatinine clearance Genevieve Alessio CUSTOMER PRICING MANAGER-C Work Phone: Start: 08-25-2024 SARS-CoV-2, Influenz a & RSV (PCR) Genevievecarlin Mccallum CUSTOMER PRICING MANAGER-C Work Phone: Start: 08-25-2024 CT angiography of ch est with contrast Genevieve Mccallum CUSTOMER PRICING MANAGER-C Work Phone: Start: 08-25-2024 X-ray of chest, PA a nd lateral views Genevieve Mccallum CUSTOMER PRICING MANAGER-C Work Phone: Start: 08-19-2024 Radex shoulder compl ete minimum 2 views Fadia Moomaw RAMP ATTENDANT.SINGLE POINTED OPERATOR Work Phone: Start: 05-15-2024 Brncdilat rspse spmt ry pre&post-brncdilat admn Genevieve Mccallum RAMP ATTENDANT.SINGLE POINTED OPERATOR Work Phone: Start: 01-08-2024 Nerve conduction dyan dies 5-6 studies Genevieve Mccallum RAMP ATTENDANT.SINGLE POINTED OPERATOR Work Phone: Start: 12-09-2023 Radex foot complete minimum 3 views Tru Walters RAMP ATTENDANT.SINGLE POINTED OPERATOR Work Phone: Start: 12-09-2023 Radex wrist complete minimum 3 views Tru Walters RAMP ATTENDANT.SINGLE POINTED OPERATOR Work Phone: Start: 09-04-2023 MENINGOCOCCAL B VACC INE (BEXSERO) Genevieve Mccallum RAMP ATTENDANT.SINGLE POINTED OPERATOR Work Phone: Start: 09-04-2023 Adult depression scr eening assessment Emg 1000) Work Phone: Start: 06-01-2023 SARS-CoV-2, Influenz a & RSV (PCR) Start: 05-26-2023 Streptococcus pyogen es antigen assay Start: 02-06-2023 STREP A MOLECULAR (POC) Jaja Vigil RAMP ATTENDANT.SINGLE POINTED OPERATOR Work Phone: Start: 09-27-2022 Plain chest X-ray Start: 05-14-2022 Plain chest X-ray Start: 09-15-2021 Plain x-ray of wrist Dr Daphne Summers Work Phone: Start: 08-30-2021 Radex wrist complete minimum 3 views Jerson Busch MD Work Phone: Start: 07-14-2021 Streptococcus pyogen es antigen assay Dr. Gabino Summers Work Phone: SARS-CoV-2 & FLU Ant igen (Rapid) SARS-CoV-2 & FLU Ant igen (Rapid) Streptococcus pyogen es antigen assay Plan of Treatment Date Care Activity Detail Author Start: 07-16-2034 Urine microalbumin profile DTaP,Tdap,Td Vaccine (9 - Td or Tdap) [facility] Start: 05-29-2028 Urine microalbumin profile DTaP,Tdap,Td Vaccine (8 - Td or Tdap) [facility] Start: 10-02-2026 Screening for malignant neoplasm of cervix Cervical Cancer Screening [facility] Start: 10-07-2025 End: 10-07-2025 Patient encounter procedure 10/07/2025 11:30 AM EDT Office Visit OB/Gynecology [address] [place] [id number] Traci Judd APRN.[facility] [address] [place] [id number] ANNUAL OB/Gynecology Comment on above: ANNUAL Start: 02-07-2025 Ambulatory ECG [facility] Start: 02-07-2025 [facility] Start: 02-07-2025 [facility] Start: 01-27-2025 Influenza vaccination Influenza Vacc ine (#1) [facility] Start: 01-01-2025 End: 01-01-2025 Patient encounter procedure 01/01/2025 11:10 AM EDT Office Visit OB/Gynecology [address] [place], [place] [id number] Dion Barrientos MD [address] [place], [place] [address] Irregular menstrual cycle [N92.6] OB/Gynecology Comment on above: Irregular menstrual cycle [N92.6] Start: 12-02-2024 End: 12-02-2024 Patient encounter procedure 12/02/2024 2:00 PM EDT Office Visit [facility] [address] [place], [place] [phone] Genevieve Mccallum, RAMP ATTENDANT.[facility] [address] [place] [address] [facility] Comment on above: BLAISEFrancisco Start: 11-28-2024 End: 11-28-2024 Patient encounter procedure [facility] Comment on above: Thyroid count is teetee lly high CONSULT TO MEDICAL G ENETICS - Carrier of spinal muscular atrophy [Z14.8] Start: 11-18-2024 End: 11-18-2024 Patient encounter procedure 11/18/2024 9:20 AM EDT Office Visit OB/Gynecology [address] [place], [place] [phone] Dion Barrientos MD [address] [place], [place] [phone] Irregular menstrual cycle [N92.6] OB/Gynecology Comment on above: Irregular menstrual cycle [N92.6] Start: 11-13-2024 End: 11-13-2024 Patient encounter procedure 11/13/2024 9:00 AM EDT Office Visit [facility] [address] [place] [address] Genevieve Mccallum APRN.[facility] [address] [place] [address] [facility]AO [facility] Comment on above: YAO Start: 10-28-2024 End: 10-28-2024 Patient encounter procedure 10/28/2024 3:00 PM EDT Office Visit [facility] [address] [place], [place] [phone] [facility] [address] [place] [address] Carrier of spinal muscular atrophy [Z14.8] [facility] Comment on above: Carrier of spinal mu scular atrophy [Z14.8] Start: 10-09-2024 End: 01-08-2025 CARRIER SCREEN, STANDARD [facility] Comment on above: Expected: 10/09/2024 , Expires: 01/08/2025 Start: 10-09-2024 End: 01-08-2025 CHROMOSOME ANALYSIS, CONSTITUTIONAL, BLOOD [facility] Comment on above: Expected: 10/09/2024 , Expires: 01/08/2025 Start: 10-09-2024 End: 01-08-2025 Measles virus IgG Ab [Units/volume] in Serum [facility] Comment on above: Expected: 10/09/2024 , Expires: 01/08/2025 Start: 10-09-2024 End: 01-08-2025 Prolactin [Mass/volume] in Serum or Plasma [facility] Comment on above: Expected: 10/09/2024 , Expires: 01/08/2025 Start: 10-09-2024 End: 01-08-2025 RUBELLA IGG ANTIBODY [facility] Comment on above: Expected: 10/09/2024 , Expires: 01/08/2025 Start: 10-09-2024 End: 01-08-2025 THYROID PEROXIDASE ANTIBODY [facility] Work Phone: Comment on above: Expected: 10/09/2024 , Expires: 01/08/2025 Start: 10-09-2024 End: 10-09-2025 US Uterus and Fallopian tubes W saline IU SONOHYSTEROGRAPHY (SIS) US [facility]I Anc Imaging Routine Irregular menstrual cycle Oligo-ovulation Expected: 10/09/2024, Expires: 10/09/2025 [facility] Comment on above: Expected: 10/09/2024 , Expires: 10/09/2025 Start: 10-09-2024 End: 01-08-2025 VARICELLA ZOSTER IGG [facility] Comment on above: Expected: 10/09/2024 , Expires: 01/08/2025 Start: 10-09-2024 End: 10-09-2024 Patient encounter procedure 10/09/2024 11:30 AM EDT Office Visit OB/Gynecology [address] [place] [address] Dion Barrientos MD [address] [place] [address] Needs appt with doctor to discuss infertility OB/Gynecology Comment on above: Needs appt with doct or to discuss infertility Start: 10-03-2024 End: 10-03-2024 Patient encounter procedure 10/03/2024 7:00 AM EDT Office Visit OB/Gynecology [address] [place] [address] Traci Judd APRN.SINGLE POINTED OPERATOR [address] [place] [address] annual OB/Gynecology Comment on above: annual Start: 09-19-2024 End: 09-19-2024 Patient encounter procedure 09/19/2024 11:20 AM EDT Office Visit [facility] [address] [place] [address] Genevieve Mccallum, RAMP ATTENDANT.SINGLE POINTED OPERATOR [address] [place] [address] follow up ED on 08/25, SOB [facility] Comment on above: follow up ED on 08/25 Start: 09-03-2024 Anxiety Screening Anxiety Screening [facility] Start: 09-03-2024 Depression Screening Depression Scre ening [facility] Start: 08-25-2024 [facility] Start: 08-25-2024 [facility] Start: 08-23-2024 End: 08-23-2024 Patient encounter procedure 08/23/2024 11:30 AM EDT Office Visit [facility] [address] [place] [address] Evelin Real PA-C [address] [address] Acute pain of left shoulder [M25.512] [facility] Comment on above: Acute pain of left s houlder [M25.512] Start: 08-21-2024 End: 08-21-2024 Patient encounter procedure 08/21/2024 2:30 PM EDT Office Visit [facility] [address] [place], [place] [phone] Roberto Hernandez, V, DO [address], [place] [phone] Acute pain of left shoulder [M25.512] [facility] Comment on above: Acute pain of left s houlder [M25.512] Start: 01-30-2024 End: 02-13-2024 COVID & INFLUENZA A/B & RSV PCR, ROUTINE [facility] Work Phone: Comment on above: Expected: 01/30/2024 , Expires: 02/13/2024 Start: 01-28-2024 Influenza vaccination C [facility] Start: 01-22-2024 End: 01-22-2024 Patient encounter procedure 01/22/2024 7:45 AM EDT Office Visit [facility] [address] [place], [place] [phone] Alexandre Sauceda MD [address] [place] [address] pain in both hands [facility] Comment on above: pain in both hands Start: 01-05-2024 End: 01-05-2024 Patient encounter procedure 01/05/2024 8:45 AM EDT Office Visit [facility] [address] [place] [address] Alexandre Sauceda MD [address] [place], [place] [id number] pain both hands [facility] Comment on above: pain both hands Start: 06-01-2023 [facility] Start: 05-26-2023 [facility] Start: 05-26-2023 Streptococcus pyogen es antigen assay Group A Streptococcus Rapid Screen [facility] Start: 01-27-2023 Influenza vaccination INFLUENZA (#1) [facility] Start: 05-29-2022 DEPRESSION ASSESSMENT DEPRESSION ASS ESSMENT [facility] Start: 05-14-2022 [facility] Work Phone: Start: 03-03-2022 End: 2022 25-hydroxyvitamin D3 [Mass/volume] in Serum or Plasma VITAMIN D 25 HYDROXY Lab Routine Acquired hallux valgus, unspecified laterality Expected: 03/03/2022, Expires: 2022 [facility] Work Phone: Comment on above: Expected: 03/03/2022 , Expires: 2022 Start: 01-27-2022 Influenza vaccination C [facility] Start: 11-19-2021 Measurement of gluco se 2 hours after glucose challenge for glucose tolerance test [facility] Work Phone: Start: 05-29-2021 DEPRESSION ASSESSMENT DEPRESSION ASS ESSMENT [facility] Start: 02-16-2021 Urine microalbumin profile DTAP,TDAP,TD (7 - Td or Tdap) [facility] Start: 2020 PAP TESTING PAP TESTING [facility] Start: 2020 Screening for malignant neoplasm of cervix Pap Testing [facility] Start: 2018 Pneumococcal vaccination Pneumococcal Vaccine (1 of 2 - PCV) [facility] Start: 2018 Shingrix Vaccine (1 of 2) Shingrix Vaccine (1 of 2) [facility] Start: 2017 CHLAMYDIA SCREENING (18-24) CHLAMYDIA SCREENING (18-24) [facility] Start: 2017 GC (GONORRHEA) SCREENING (18-24) GC (GONORRHEA) SCREENING (18-24) [facility] Start: 2017 HEPATITIS C SCREENING HEPATITIS C SC REENING [facility] Start: 2017 HIV SCREENING HIV SCREENING [facility] Start: 02-25-2016 MENINGOCOCCAL B: Consider based on risk (2 of 2 - Risk Bexsero 2-dose series) MENINGOCOCCAL B: Consider based on risk (2 of 2 - Risk Bexsero 2-dose series) [facility] Start: 2013 PEDS TO ADULT TRANSITION ANNUAL ASSESSMENT PEDS TO ADULT TRANSITION ANNUAL ASSESSMENT [facility] Start: 2011 Adult depression screening assessment DEPRESSION SCREENING [facility] Start: 2011 PEDS TO ADULT TRANSITION INITIAL DISCUSSION PEDS TO ADULT TRANSITION INITIAL DISCUSSION [facility] Start: 2004 COVID-19 VACCINE (1) COVID-19 VACCIN E (1) [facility] Start: 1999 COVID-19 VACCINE (#1) COVID-19 VACCI NE (#1) [facility] End: 11-27-2024 EMG(NEURO/NI) EMG(NEURO/NI) EMG Routine Pain in both hands Disturbance of skin sensation 1 Occurrences starting 11/28/2023 until 11/27/2024 [facility] Work Phone: Comment on above: 1 Occurrences starti ng 11/28/2023 until 11/27/2024 Im adm prq id subq/i m njxs 1 vaccine IMADM PRQ ID SUBQ/IM NJXS 1 VACC Immunization/Injection Routine Encounter for immunization Ordered: 09/04/2023 [facility] Work Phone: Comment on above: Ordered: 09/04/2023 End: 05-29-2025 LUNG DIFFUSION CAPACITY (DLCO) LUNG DIFFUSION CAPACITY (DLCO) PFT Routine SOB (shortness of breath) 1 Occurrences starting 04/29/2024 until 05/29/2025 [facility] Comment on above: 1 Occurrences starti ng 04/29/2024 until 05/29/2025 LUNG DIFFUSION CAPACITY (DLCO) LUNG DIFFUSION CAPACITY (DLCO) PFT Routine SOB (shortness of breath) 05/15/2024 10:49 AM EST [facility] Work Phone: End: 05-29-2025 LUNG VOLUMES LUNG VOLUMES PFT Routine SOB (shortness of breath) 1 Occurrences starting 04/29/2024 until 05/29/2025 [facility] Comment on above: 1 Occurrences starti ng 04/29/2024 until 05/29/2025 LUNG VOLUMES LUNG VOLUMES PFT Routine SOB (shortness of breath) 05/15/2024 10:49 AM EST [facility] Work Phone: PAP TEST PAP TEST Lab [place] Encounter for gynecological examination (general) (routine) without abnormal findings Screening for cervical cancer 10/03/2023 8:26 AM EDT [facility] Work Phone: Patient Education [facility] Work Phone: Patient referral [facility] Work Phone: End: 05-29-2025 SPIROMETRY - BASELINE AND POST DILATOR SPIROMETRY - BASELINE AND POST DILATOR PFT Routine SOB (shortness of breath) 1 Occurrences starting 04/29/2024 until 05/29/2025 [facility] Work Phone: Comment on above: 1 Occurrences starti ng 04/29/2024 until 05/29/2025 SPIROMETRY - BASELIN E AND POST DILATOR SPIROMETRY - BASELINE AND POST DILATOR PFT Routine SOB (shortness of breath) 05/15/2024 10:49 AM EST [facility] Work Phone: End: 03-31-2023 XR FOOT GENERAL 3V AP/LAT/OBL BILATERAL XR FOOT GENERAL 3V AP/LAT/OBL BILATERAL Radiology Routine Bilateral foot pain 1 Occurrences starting 03/01/2022 until 03/31/2023 [facility] Work Phone: Comment on above: 1 Occurrences starti ng 03/01/2022 until 03/31/2023 End: 03-03-2022 XR FOOT GENERAL 3V AP/LAT/OBL BILATERAL [facility] Work Phone: Comment on above: 1 Occurrences starti ng 03/03/2022 until [facility] Immunization Date Immunization Notes Care Provider Declan willingham 07-16-2024 tetanus toxoid, redu tre diphtheria toxoid, and acellular pertussis vaccine, adsorbed Tru Walters RAMP ATTENDANT.SINGLE POINTED OPERATOR Work Phone: [facility] 02-24-2024 influenza, seasonal, injectable Immunization [facility] Work Phone: [facility] 02-24-2024 influenza virus vaccine, unspecified formulation Dhruv Friedridge [facility] Work Phone: [facility] 09-04-2023 meningococcal B vaccine, recombinant, OMV, adjuvanted Genevieve Alessio RAMP ATTENDANT.SINGLE POINTED OPERATOR Work Phone: [facility] 02-23-2021 COVID-19 original vaccine, age 12+ yr, monovalent (PFIZER-BIONTECH - ASHBY TOP) Genevieve Alessio RAMP ATTENDANT.SINGLE POINTED OPERATOR Work Phone: [facility] 02-23-2021 COVID-19 original vaccine, age 12+ yr, monovalent (PFIZER-BIONTECH - PURPLE TOP) Dion Barrientos MD Work Phone: [facility] 02-02-2021 COVID-19 original vaccine, age 12+ yr, monovalent (PFIZER-BIONTECH - ASHBY TOP) Genevieve Alessio RAMP ATTENDANT.SINGLE POINTED OPERATOR Work Phone: [facility] 02-02-2021 COVID-19 original vaccine, age 12+ yr, monovalent (PFIZER-BIONTECH - PURPLE TOP) Dion Barrientos MD Work Phone: [facility] 05-29-2018 tetanus toxoid, redu tre diphtheria toxoid, and acellular pertussis vaccine, adsorbed Genevieve Alessio RAMP ATTENDANT.SINGLE POINTED OPERATOR Work Phone: [facility] 07-07-2017 influenza, injectabl e, quadrivalent, contains preservative Jerson Busch MD Work Phone: [facility] Work Phone: 07-07-2017 influenza virus vaccine, unspecified formulation Genevieve Mccallum ROSE MARIE Work Phone: [facility] 01-14-2017 meningococcal polysaccharide (groups A, C, Y and W-135) diphtheria toxoid conjugate vaccine (MCV4P) Jerson Busch MD Work Phone: [facility] Work Phone: 01-28-2016 meningococcal B vaccine, recombinant, OMV, adjuvanted Jerson Busch MD Work Phone: [facility] 01-28-2016 meningococcal polysaccharide (groups A, C, Y and W-135) diphtheria toxoid conjugate vaccine (MCV4P) Jerson Busch MD Work Phone: [facility] 02-16-2011 hepatitis A vaccine, pediatric/adolescent dosage, 2 dose schedule Jerson Busch MD Work Phone: [facility] 02-16-2011 hepatitis A vaccine, unspecified formulation Jerson Busch MD Work Phone: [facility] 02-16-2011 human papilloma viru s vaccine, quadrivalent Jerson Busch MD Work Phone: [facility] 02-16-2011 meningococcal polysaccharide (groups A, C, Y and W-135) diphtheria toxoid conjugate vaccine (MCV4P) Jerson Busch MD Work Phone: [facility] 02-16-2011 Meningococcal, MCV4, unspecified conjugate formulation(groups A, C, Y and W-135) Jerson Busch MD Work Phone: [facility] 02-16-2011 tetanus toxoid, redu tre diphtheria toxoid, and acellular pertussis vaccine, adsorbed Jerson Busch MD Work Phone: [facility] 09-10-2010 human papilloma viru s vaccine, quadrivalent Jerson Busch MD Work Phone: [facility] 09-10-2010 varicella virus vaccine Carolina Busch MD Work Phone: [facility] 07-02-2010 hepatitis A vaccine, pediatric/adolescent dosage, 2 dose schedule Jerson Busch MD Work Phone: [facility] 07-02-2010 hepatitis A vaccine, unspecified formulation Jersno Busch MD Work Phone: [facility] 07-02-2010 human papilloma viru s vaccine, quadrivalent Jerson Busch MD Work Phone: [facility] 07-26-2004 diphtheria, tetanus toxoids and acellular pertussis vaccine Jerson Busch MD Work Phone: [facility] [facility] Work Phone: 07-26-2004 measles, mumps and rubella virus vaccine Jerson Busch MD Work Phone: [facility] Work Phone: 07-26-2004 poliovirus vaccine, inactivated Jerson Busch MD Work Phone: [facility] Work Phone: 12-06-2000 hepatitis B vaccine, pediatric or pediatric/adolescent dosage Jerson Busch MD Work Phone: [facility] Work Phone: 12-06-2000 pneumococcal conjuga te vaccine, 7 valent Jerson Busch MD Work Phone: [facility] Work Phone: 08-17-2000 diphtheria, tetanus toxoids and acellular pertussis vaccine Jerson Busch MD Work Phone: [facility] Work Phone: 08-17-2000 haemophilus influenz ae type b vaccine, HbOC conjugate Jerson Busch MD Work Phone: [facility] Work Phone: 08-17-2000 poliovirus vaccine, inactivated Jerson Busch MD Work Phone: [facility] Work Phone: 05-04-2000 diphtheria, tetanus toxoids and acellular pertussis vaccine, unspecified formulation Jerson Busch MD Work Phone: [facility] 05-04-2000 measles, mumps and rubella virus vaccine Jerson Busch MD Work Phone: [facility] Work Phone: 05-04-2000 pneumococcal conjuga te vaccine, 7 valent Jerson Busch MD Work Phone: [facility] Work Phone: 05-04-2000 varicella virus vaccine Carolina Busch MD Work Phone: [facility] Work Phone: 02-17-2000 hepatitis B vaccine, pediatric or pediatric/adolescent dosage Jerson Busch MD Work Phone: [facility] Work Phone: 02-17-2000 pneumococcal conjuga te vaccine, 7 valent Jerson Busch MD Work Phone: [facility] Work Phone: 1999 diphtheria, tetanus toxoids and acellular pertussis vaccine Jerson Busch MD Work Phone: [facility] Work Phone: 1999 haemophilus influenz ae type b vaccine, HbOC conjugate Jerson Busch MD Work Phone: [facility] Work Phone: 1999 hepatitis B vaccine, pediatric or pediatric/adolescent dosage Jerson Busch MD Work Phone: [facility] Work Phone: 1999 diphtheria, tetanus toxoids and acellular pertussis vaccine Jerson Busch MD Work Phone: [facility] Work Phone: 1999 haemophilus influenz ae type b vaccine, HbOC conjugate Jerson Busch MD Work Phone: [facility] Work Phone: 1999 poliovirus vaccine, inactivated Jerson Busch MD Work Phone: [facility] Work Phone: 1999 diphtheria, tetanus toxoids and acellular pertussis vaccine Jerson Busch MD Work Phone: [facility] Work Phone: 1999 haemophilus influenz ae type b vaccine, HbOC conjugate Jerson Busch MD Work Phone: [facility] Work Phone: 1999 poliovirus vaccine, inactivated Jerson Busch MD Work Phone: [facility] Work Phone: Payers Date Payer Category Payer Self-pay [id number] 2018 Private Health Insurance [id number] 2018 Private Health Insurance [id number] 2013 Unknown [id number] 2012 Medicaid [employer] [id number] 2012-Present [phone] [address] [place] [address] Medicaid [id number] 2012 Medicaid [id number] 2012 Unknown [id number] 2012 Unknown [id number] Unknown [id number] Unknown [id number] Social History Date Type Detail Facility Start: 09-18-2018 End: 02-07-2025 Tobacco smoking status NHIS Never smoked tobacco [facility] Work Phone: Start: 08-30-2021 End: 02-06-2023 Alcohol intake Current non-drinker of alcohol (finding) [facility] Start: 09-18-2018 End: 06-05-2022 Tobacco Comment Mom smokes in her bedroom [facility] Start: 1999 Sex Assigned At Not on file C [facility] Start: 08-20-2021 End: 03-03-2022 Exposure to SARS-CoV-2 (event) Not sure [facility] Work Phone: Start: 09-15-2021 End: 06-01-2023 Tobacco smoking status NHIS Unknown if ever smoked [facility] Start: 08-20-2018 None [facility] Start: 1999 Sex Assigned At Female [facility] History of tobacco use Passive smoker [facility] Start: 09-18-2018 End: 06-05-2022 Tobacco use and exposure Smokeless tobacco non-user [facility] Start: 02-06-2023 End: 02-24-2024 History of Social function [facility] Work Phone: Start: 02-06-2023 End: 02-24-2024 Tobacco use panel [facility] Work Phone: Start: 04-29-2012 National Score (1-100), lower number is lower risk 92 [facility] Work Phone: Start: 09-04-2023 End: 10-09-2024 Alcohol intake Current drinker of alcohol (finding) [facility] Start: 09-04-2023 Alcohol [facility] Start: 11-27-2023 Gender identity Identifies as female gender (finding) [facility] Start: 01-06-2024 Sexual orientation Heterosexual (fin ding) [facility] Start: 08-25-2024 Sex Female (finding) [facility] NEGATED: Highlighted row [facility] Functional Status Date Assessment Result Facility 12-20-2014 Are you deaf, or do you have serious difficulty hearing No 12/20/2014 9:17 AM EDT Chema Almaraz Cma No [facility] 12-20-2014 Are you blind, or do you have serious difficulty seeing, even when wearing glasses No 12/20/2014 9:17 AM EDT Chema Almaraz Cma No [facility] 12-20-2014 Do you have serious difficulty walking or climbing stairs No 12/20/2014 9:17 AM EDT Chema Almaraz Cma No [facility] 12-20-2014 Do you have difficul ty dressing or bathing No 12/20/2014 9:17 AM EDT Chema Almaraz Cma No [facility] 12-20-2014 Because of a physica l, mental, or emotional condition, do you have difficulty doing errands alone such as visiting a physician's office or shopping No 12/20/2014 9:17 AM EDT Chema Almaraz Cma [facility] Mental Status Date Assessment Result Facility 06-01-2023 Cognitive function Level Of Cons ciousness Awake;Alert;Appropriate [facility] Work Phone: 05-26-2023 Cognitive function Level Of Cons ciousness Awake;Alert;Appropriate;Fol lows Commands [facility] Work Phone: 12-20-2014 Because of a physica l, mental, or emotional condition, do you have serious difficulty concentrating, remembering, or making decisions No 12/20/2014 9:17 AM EDT Chema Almaraz C[facility] Clinical Notes 08-30-2021 to 02-07-2025 Telephone Encounter - Yecenia Blue MA - 01/13/2025 9:01 AM EDTTelephone Encounter - Yecenia Blue MA - 01/13/2025 9:01 AM EDTTelephone Encounter - Yaniv Vera - 11/27/2024 3:32 PM EDT Note Date & Type Note Facility 02-07-2025 Discharge summary [facility] 01-13-2025 Telephone encounter Note patient electronically requesting refills as follows: Last seen 09/19/24 . Last refill 11/11/24 . Requested Prescriptions Pending Prescriptions Disp Refills albuterol HFA (PROVENTIL HFA, VENTOLIN HFA) 90 mcg/actuation inhaler 18 g 5 Sig: Inhale 2 puffs as instructed every 4 hours as needed for wheezing/shortness of breath. Please review and advise. Yecenia Blue MA [facility] 01-13-2025 Miscellaneous Notes patient electronically requesting refills as follows: Last seen 09/19/24 . Last refill 11/11/24 . Requested Prescriptions Pending Prescriptions Disp Refills albuterol HFA (PROVENTIL HFA, VENTOLIN HFA) 90 mcg/actuation inhaler 18 g 5 Sig: Inhale 2 puffs as instructed every 4 hours as needed for wheezing/shortness of breath. Please review and advise. Yecenia Blue MA documented in this encounter [facility] 11-27-2024 Telephone encounter Note Attempted to reach PT in regard to upcoming genetics visit with Dhruv Roberts Left a vague VM on an unidentified voicemail box. Explained that I would also be following up with a MyChart message that they could respond there or provided the [facility] line for a call back. Yaniv [facility] 11-27-2024 Miscellaneous Notes Attempted to reach PT in regard to upcoming genetics visit with Dhruv Roberts Left a vague VM on an unidentified voicemail box. Explained that I would also be following up with a MyChart message that they could respond there or provided the [facility] line for a call back. Yaniv [facility] documented in this encounter [facility] 11-11-2024 Telephone encounter Note patient electronically requesting refills as follows: Last seen 09/19/24 . Last refill 09/19/24 . Requested Prescriptions Pending Prescriptions Disp Refills albuterol HFA (PROVENTIL HFA, VENTOLIN HFA) 90 mcg/actuation inhaler 18 g 1 Sig: Inhale 2 puffs as instructed every 4 hours as needed for wheezing/shortness of breath. Please review and advise. Yecenia Blue MA [facility] 11-11-2024 Miscellaneous Notes patient electronically requesting refills as follows: Last seen 09/19/24 . Last refill 09/19/24 . Requested Prescriptions Pending Prescriptions Disp Refills albuterol HFA (PROVENTIL HFA, VENTOLIN HFA) 90 mcg/actuation inhaler 18 g 1 Sig: Inhale 2 puffs as instructed every 4 hours as needed for wheezing/shortness of breath. Please review and advise. Yecenia Blue MA documented in this encounter [facility] 10-23-2024 Note HNO ID: [id number] Author: ARELY JIM MD Service: ? Author Type: Physician Type: Progress Notes Filed: 10/23/2024 14:05 Note Text: Subjective The patient is a 24-year-old female with a history of one delivery and three miscarriages presenting for preconception counseling and evaluation of infertility. Infertility - Has been unable to conceive after at least a year of trying with her new partner. - One of her three miscarriages was with her current partner. - Carrier screening revealed she is positive for the spinal muscular atrophy (SMA) gene. - Uncertain if her daughter is a carrier of the SMA gene. - denies any known family history Thyroid Concerns - Thyroid peroxidase antibodies were positive. - Denies any known history of thyroid disease. No current symptoms were explicitly reported or denied in the transcript; therefore, no ROS items can be listed based on the available information. Objective Blood pressure 118/70, weight 88.5 kg (195 lb), last menstrual period 09/21/2024. General: No acute distress. Labs: - SMA carrier screening: Positive - TPO antibody test: Positive Assessment AND Plan 1. 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 - Ordered comprehensive thyroid function tests. - Discussed potential link between thyroid dysfunction and recurrent miscarriages. - Educated on low inflammatory diet: advised reducing processed foods and simple sugars, increasing intake of whole foods and proteins. - Will refer to endocrinology if thyroid function tests are abnormal. 2. 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 - Educated on autosomal recessive inheritance; partner needs testing to determine carrier status. - Partner to contact women's health for testing or wait for genetic counseling appointment. - Referral to Genetics for detailed family pedigree analysis and further counseling. 3. Irregular menstrual cycle (N92.6) - Discussed potential impact of thyroid dysfunction on menstrual irregularities. - Awaiting results of thyroid function tests to determine further management. 4. History of recurrent miscarriages (N96) 5. Infertility, female (N97.9) - Three miscarriages, one with current partner; unable to conceive after at least a year. - Discussed potential genetic and thyroid-related causes. - Ordered thyroid function tests. - Referral to Genetics for further evaluation and counseling. - Discussed possibility of CHLOE if partner is also a carrier of SMA. Recording using [employer] software for draft documentation of the visit was discussed with the patient/authorized dairy supplies sales representative; all questions welcomed and answered. Patient/authorized dairy supplies sales representative agreed to proceed Medical Decision Making: Problems: Moderate: New problem with uncertain prognosis Data: Unique test(s) ordered: 3+ Medical Decision Making Level: 4 - Moderate Arely Mclaughlin MD [facility] 10-23-2024 History of Present illness Narrative Subjective The patient is a 24-year-old female with a history of one delivery and three miscarriages presenting for preconception counseling and evaluation of infertility. Infertility - Has been unable to conceive after at least a year of trying with her new partner. - One of her three miscarriages was with her current partner. - Carrier screening revealed she is positive for the spinal muscular atrophy (SMA) gene. - Uncertain if her daughter is a carrier of the SMA gene. - denies any known family history Thyroid Concerns - Thyroid peroxidase antibodies were positive. - Denies any known history of thyroid disease. No current symptoms were explicitly reported or denied in the transcript; therefore, no ROS items can be listed based on the available information. Objective Blood pressure 118/70, weight 88.5 kg (195 lb), last menstrual period 09/21/2024. General: No acute distress. Labs: - SMA carrier screening: Positive - TPO antibody test: Positive Assessment & Plan 1. 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 - Ordered comprehensive thyroid function tests. - Discussed potential link between thyroid dysfunction and recurrent miscarriages. - Educated on low inflammatory diet: advised reducing processed foods and simple sugars, increasing intake of whole foods and proteins. - Will refer to endocrinology if thyroid function tests are abnormal. 2. 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 - Educated on autosomal recessive inheritance; partner needs testing to determine carrier status. - Partner to contact women's health for testing or wait for genetic counseling appointment. - Referral to Genetics for detailed family pedigree analysis and further counseling. 3. Irregular menstrual cycle (N92.6) - Discussed potential impact of thyroid dysfunction on menstrual irregularities. - Awaiting results of thyroid function tests to determine further management. 4. History of recurrent miscarriages (N96) 5. Infertility, female (N97.9) - Three miscarriages, one with current partner; unable to conceive after at least a year. - Discussed potential genetic and thyroid-related causes. - Ordered thyroid function tests. - Referral to Genetics for further evaluation and counseling. - Discussed possibility of CHLOE if partner is also a carrier of SMA. Recording using [employer] software for draft documentation of the visit was discussed with the patient/authorized dairy supplies sales representative; all questions welcomed and answered. Patient/authorized dairy supplies sales representative agreed to proceed Medical Decision Making: Problems: Moderate: New problem with uncertain prognosis Data: Unique test(s) ordered: 3+ Medical Decision Making Level: 4 - Moderate Arely Mclaughlin MD documented in this encounter [facility] 10-23-2024 Telephone encounter Note Spoke to patient and changed to in person visit today. Vanessa Rodriguez RN [facility] 10-23-2024 Miscellaneous Notes Spoke to patient and changed to in person visit today. Vanessa Rodriguez RN documented in this encounter [facility] 10-09-2024 Note HNO ID: [id number] Author: DION BARRIENTOS MD Service: ? Author Type: Physician Type: Progress Notes Filed: 10/09/2024 13:06 Note Text: Obstetrics and Gynecology [employer] Visit Subjective Recording using [employer] software for draft documentation of the visit was discussed with the patient/authorized dairy supplies sales representative; all questions welcomed and answered. Patient/authorized dairy supplies sales representative agreed to proceed CHIEF COMPLAINT: The patient is a 24-year-old female with a history of three miscarriages presenting for evaluation of infertility and irregular menstrual cycles. HPI: Infertility - Has been trying to conceive for over a year with her current partner, Marc, who is 30 years old and has no children. - Reports three miscarriages since 2019, with only one occurring in the past year. - Two miscarriages were with her previous partner, and the most recent one was with her current partner. - No complications conceiving her daughter, who was born full-term via vaginal delivery in 2019 with her ex-. - Miscarriages occurred around 2.5 months gestation; passed all three miscarriages on her own. - No history of surgeries, chemotherapy, or radiation that would affect fertility. - No known history of sexually transmitted diseases or pelvic infections for either patient or partner. - No major medical issues reported that would affect fertility. - Currently taking a vitamin daily. - Has not used ovulation prediction kits or timed intercourse; sexually active 2-3 times a week. - No history of genetic testing to determine carrier status for any conditions. Menstrual Irregularities - Reports irregular menstrual cycles, with periods sometimes showing up and sometimes not. - When periods do occur, they last at least 24 hours and are described as really bad on the first day, requiring changing protection every 2 hours. - The following two days are light, with specs here and there. - Has been tracking periods using an kaylie on her phone; last three periods were on August 20 (3 days), September 21 (3 days), and skipped June. - Periods have always been irregular, with similar patterns observed a year or two ago. - Menarche at age 11. - No history of thyroid issues, PCOS, pre-diabetes, or high blood sugars. - Reports heat intolerance, feeling burning up when others are cold. - No history of abnormal Pap smears. - No nipple discharge, excessive thirst, or urination. - No new headaches or blurry vision, though she reports always having headaches. - Prescribed control in the past but never took it. Family History - Partner is worried about Alzheimer's disease, but no other major medical problems, heart defects, or genetic concerns reported on either side of the family. HISTORY: OB History Gravida4 Para1 Term1 Preterm0 AB3 Living1 SAB3 IAB0 Ectopic0 Multiple0 Live Births1 [employer] History LMP: 09/21/2024 (Exact Date), Having periods Age at Menarche: 11 Age at First : Age at Menopause: [employer] History Comments: Sexual Activity: Yes; Male Contraception: None Menstrual Tracking History Flowsheet Row Office Visit from 10/03/2024 in OB/Gynecology Period Cycle (Days) 2 Period Duration (Days) 2 Menstrual Flow Heavy PAST MEDICAL HISTORY Diagnosis Date Attention deficit disorder (ADD) 05/29/2008 Depression Generalized anxiety disorder Infertility, female Menarche 05/29/2009 menstral cycle PMH - PAST MEDICAL HISTORY OF Color Vision - Normal PAST SURGICAL HISTORY Procedure Laterality Date EXTRACTION ERUPTED TOOTH/EXR 2023 wisdom teeth FAMILY HISTORY Problem Relation Age of Onset Diabetes Mother other (irritable bowel syndrome) Mother No Known Problems Father Stroke Maternal Grandmother Diabetes Maternal Grandmother Multiple Sclerosis Maternal Grandmother Diabetes Maternal Grandfather Bipolar disorder Maternal Grandfather Schizophrenia Maternal Grandfather Cancer Paternal Grandmother Depression Half-brother Suicide Attempts Half-brother Asthma Half-sister other (eating disorder) Half-sister Leukemia Paternal cousin 8 Social History Tobacco Use Smoking status: Never Passive exposure: Yes Smokeless tobacco: Never Tobacco comments: Mom smokes in her bedroom Vaping Use Vaping status: Former Substances: Nicotine Substance Use Topics Alcohol use: Yes Comment: occasionally Drug use: Not Currently Types: Marijuana Current Outpatient Medications Medication Sig PNV 119-iron fum-folic acid ( 19) 29 mg iron- 1 mg tab Take 1 tablet by mouth once daily. albuterol HFA (PROVENTIL HFA, VENTOLIN HFA) 90 mcg/actuation inhaler Inhale 2 puffs as instructed every 4 hours as needed for wheezing/shortness of breath. fluticasone (FLONASE) 50 mcg/actuation nasal spray Use 2 Sprays in each nostril once daily. Rinse mouth after use. medroxyPROGESTERone (PROVERA) 10 mg tablet Take 1 t (more content not included)... [facility] 10-09-2024 History of Present illness Narrative Images from the original note were not included. Obstetrics and Gynecology [employer] Visit Subjective Recording using [employer] software for draft documentation of the visit was discussed with the patient/authorized dairy supplies sales representative; all questions welcomed and answered. Patient/authorized dairy supplies sales representative agreed to proceed CHIEF COMPLAINT: The patient is a 24-year-old female with a history of three miscarriages presenting for evaluation of infertility and irregular menstrual cycles. HPI: Infertility - Has been trying to conceive for over a year with her current partner, Marc, who is 30 years old and has no children. - Reports three miscarriages since 2019, with only one occurring in the past year. - Two miscarriages were with her previous partner, and the most recent one was with her current partner. - No complications conceiving her daughter, who was born full-term via vaginal delivery in 2018 with her ex-. - Miscarriages occurred around 2.5 months gestation; passed all three miscarriages on her own. - No history of surgeries, chemotherapy, or radiation that would affect fertility. - No known history of sexually transmitted diseases or pelvic infections for either patient or partner. - No major medical issues reported that would affect fertility. - Currently taking a vitamin daily. - Has not used ovulation prediction kits or timed intercourse; sexually active 2-3 times a week. - No history of genetic testing to determine carrier status for any conditions. Menstrual Irregularities - Reports irregular menstrual cycles, with periods sometimes showing up and sometimes not. - When periods do occur, they last at least 24 hours and are described as really bad on the first day, requiring changing protection every 2 hours. - The following two days are light, with specs here and there. - Has been tracking periods using an kaylie on her phone; last three periods were on August 20 (3 days), September 21 (3 days), and skipped June. - Periods have always been irregular, with similar patterns observed a year or two ago. - Menarche at age 11. - No history of thyroid issues, PCOS, pre-diabetes, or high blood sugars. - Reports heat intolerance, feeling burning up when others are cold. - No history of abnormal Pap smears. - No nipple discharge, excessive thirst, or urination. - No new headaches or blurry vision, though she reports always having headaches. - Prescribed control in the past but never took it. Family History - Partner is worried about Alzheimer's disease, but no other major medical problems, heart defects, or genetic concerns reported on either side of the family. HISTORY: OB History Gravida4 Para1 Term1 Preterm0 AB3 Living1 SAB3 IAB0 Ectopic0 Multiple0 Live Births1 [employer] History LMP: 09/21/2024 (Exact Date), Having periods Age at Menarche: 11 Age at First : Age at Menopause: [employer] History Comments: Sexual Activity: Yes; Male Contraception: None Menstrual Tracking History Flowsheet Row Office Visit from 10/03/2024 in OB/Gynecology Period Cycle (Days) 2 Period Duration (Days) 2 Menstrual Flow Heavy PAST MEDICAL HISTORY Diagnosis Date Attention deficit disorder (ADD) 05/29/2008 Depression Generalized anxiety disorder Infertility, female Menarche 05/29/2009 menstral cycle PMH - PAST MEDICAL HISTORY OF Color Vision - Normal PAST SURGICAL HISTORY Procedure Laterality Date EXTRACTION ERUPTED TOOTH/EXR 2023 wisdom teeth FAMILY HISTORY Problem Relation Age of Onset Diabetes Mother other (irritable bowel syndrome) Mother No Known Problems Father Stroke Maternal Grandmother Diabetes Maternal Grandmother Multiple Sclerosis Maternal Grandmother Diabetes Maternal Grandfather Bipolar disorder Maternal Grandfather Schizophrenia Maternal Grandfather Cancer Paternal Grandmother Depression Half-brother Suicide Attempts Half-brother Asthma Half-sister other (eating disorder) Half-sister Leukemia Paternal cousin 8 Social History Tobacco Use Smoking status: Never Passive exposure: Yes Smokeless tobacco: Never Tobacco comments: Mom smokes in her bedroom Vaping Use Vaping status: Former Substances: Nicotine Substance Use Topics Alcohol use: Yes Comment: occasionally Drug use: Not Currently Types: Marijuana Current Outpatient Medications Medication Sig PNV 119-iron fum-folic acid ( 19) 29 mg iron- 1 mg tab Take 1 tablet by mouth once daily. albuterol HFA (PROVENTIL HFA, VENTOLIN HFA) 90 mcg/actuation inhaler Inhale 2 puffs as instructed every 4 hours as needed for wheezing/shortness of breath. fluticasone (FLONASE) 50 mcg/actuation nasal spray Use 2 Sprays in each nostril once daily. Rinse mouth after use. medroxyPROGESTERone (PROVERA) 10 mg tablet Take 1 tablet by mouth once daily for 10 days. letrozole (FEMARA) 2.5 mg tablet Take 1 tablet by mouth once daily. No current facility-administered medications for this visit. ALLERGIES Allergen Reactions Cats Tran Hives, Itching, Rash, Shortness of Breath, Swelling Latex Hives, Itching, Rash, Swelling REVIEW OF SYSTEMS: Eyes: (-) blurred vision Skin: (-) hair changes, (-) skin changes Neurological: (+) headaches Genitourinary: (+) irregular menses, (+) heavy day 1, (+) short duration, (-) intermenstrual bleeding, (-) postcoital bleeding Endocrine: (+) heat intolerance, (-) polydipsia, (-) polyuria, (-) nipple discharge Objective SENSITIVE EXAM: Sensitive exam not performed. General: No acute distress. PHYSICAL EXAM: BP 114/78 Wt 193 lb (87.5kg) LMP 09/21/2024 General: No acute distress. Assessment & Plan ASSESSMENT AND PLAN: 1. Irregular menstrual cycle (N92.6) 2. Oligo-ovulation (N97.0) - Menstrual cycles are irregular, with periods sometimes absent and lasting only 24 hours when present; heavy bleeding on the first day requiring protection change every 2 hours, followed by two days of light bleeding. - Initiated Provera for 10 days to ensure complete shedding of the endometrial lining. - Ordered day 21 progesterone level to assess ovulation. - Prescribed Femara for ovulation induction; discussed increased risk of multiple gestations, including a 10-12% chance of twins. 3. Pre-conception counseling (Z31.69) - Discussed patient's history of one full-term vaginal delivery in 2019 and three miscarriages, with the most recent occurring in the past year. - Partner, Marc, is 30 years old with no children and no known history of pregnancies with other partners. - Advised continuation of daily vitamin with folic acid. - Ordered genetic carrier screening for common genetic variants; patient to check with [employer] and [employer] for insurance coverage. - Ordered Rubella and Varicella immunity titers to ensure up-to-date immunity. - Discussed timing of intercourse; currently engaging in sexual activity 2-3 times per week. - Recommended use of ovulation prediction kits to better time intercourse. - Advised on potential need for referral to a fertility specialist if no conception occurs after 4-6 ovulatory cycles on Femara or if semen analysis shows low sperm count. 4. History of recurrent miscarriages (N96) - Three miscarriages since 2019, with the most recent in the past year; all miscarriages occurred before 12 weeks gestation and were passed spontaneously. - Discussed that the most common cause of first-trimester miscarriages is genetic abnormalities. - Ordered thyroid peroxidase antibodies and prolactin level to rule out endocrine causes. - Ordered chromosomal analysis for the patient to identify potential genetic abnormalities. - Scheduled transvaginal ultrasound with saline infusion sonohysterography to evaluate uterine cavity for polyps or other abnormalities. - Offered semen analysis for partner to assess sperm count and motility. Dion Barrientos MD Medical Decision Making: Problems: Moderate: New problem with uncertain prognosis and 2+ stable chronic illnesses Data: Unique test result(s) reviewed: 3+ Unique test(s) ordered: 3+ Risk: Moderate: Moderate risk from testing/treatment Medical Decision Making Level: 4 - Moderate documented in this encounter [facility] 10-09-2024 Instructions Dion Barrientos MD - 10/09/2024 12:08 PM EDT Begin taking 10 days of Provera starting tomorrow as directed. If you start your period unexpectedly during this time, please let us know. Continue taking your folic acid ( vitamin) daily. Follow the upcoming instructions provided on when to start Femara for ovulation induction, timing intercourse, and scheduling your blood work. Undergo the recommended blood tests, which include a thyroid panel with thyroperoxidase antibody levels, rubella and varicella immunity testing, and a prolactin level. Arrange to have a genetic carrier screening blood test and a chromosome analysis as discussed; please check with your insurance ([employer] and [employer]) regarding coverage. Marc is advised to complete a semen analysis. Schedule an ultrasound with saline infusion to evaluate your uterus for polyps or other abnormalities. Start the femara on day 3 of your cycle. Cycle day one is the first day of menstrual flow (usually more than spotting, when you would wear more than a pantyliner for protection). Take the femara for 5 days. If you are prescribed more than one pill of femara you make take them all at the same time. Time intercourse every other day cycle day 9-16. Use an ovulation prediction kit starting at about day 10 if you want. Record date/dates that you get color changes if you get color changes. Get a day 21 progesterone level drawn (if day 21 is a Monday it is ok to get it a day early or day late). Call with onset of your period or on day 32 w/ the results of a home test if you haven't started your period yet. Risks of ovulation induction include but are not limited to : multiple gestatations (twins or rarely triplets), ovarian hyperstimulation syndrome that results in large ovarian cysts and sometimes pain and electrolyte abnormalities that need treated by hospitalization, increased pain or bleeding with menstruation, moodiness, nausea, breast tenderness or allergic reactions to the medication. documented in this encounter [facility] 10-03-2024 Note HNO ID: [id number] Author: TRACI JUDD APRN.SINGLE POINTED OPERATOR Service: ? Author Type: Nurse Practitioner Type: Progress Notes Filed: 10/03/2024 07:18 Note Text: Retail Manager In Training offered: Patient declines. Gordo is a 24 year old who presents for an annual gynecologic exam with complaints, discuss infertility . Working at [employer] M[employer]: cycles every 21-45 days and 1-3 days of flow. Contraception: none- actively trying for prenancy HPV vaccine: Yes Last Pap: 09/2023 normal HPV: N/A History of abnormal pap: No Last mammogram: never Sexually active: Yes OB History Gravida1 Para1 Term1 Preterm0 AB0 Living1 SAB0 IAB0 Ectopic0 Multiple0 Live Births1 [employer] History LMP: 09/21/2024, Having periods Age at Menarche: 11 Age at First : Age at Menopause: [employer] History Comments: Sexual Activity: Yes; Male Contraception: None Menstrual Tracking History Flowsheet Row Office Visit from 10/03/2024 in OB/Gynecology Period Cycle (Days) 2 Period Duration (Days) 2 Menstrual Flow Heavy PAST MEDICAL HISTORY Diagnosis Date Attention deficit disorder (ADD) 05/29/2008 Depression Generalized anxiety disorder Infertility, female Menarche 05/29/2009 menstral cycle PMH - PAST MEDICAL HISTORY OF Color Vision - Normal PAST SURGICAL HISTORY Procedure Laterality Date EXTRACTION ERUPTED TOOTH/EXR 2023 wisdom teeth FAMILY HISTORY Problem Relation Age of Onset Diabetes Mother other (irritable bowel syndrome) Mother No Known Problems Father Stroke Maternal Grandmother Diabetes Maternal Grandmother Multiple Sclerosis Maternal Grandmother Diabetes Maternal Grandfather Bipolar disorder Maternal Grandfather Schizophrenia Maternal Grandfather Cancer Paternal Grandmother Depression Half-brother Suicide Attempts Half-brother Asthma Half-sister other (eating disorder) Half-sister Leukemia Paternal cousin 8 SOCIAL HISTORY Social History Tobacco Use Smoking status: Never Passive exposure: Yes Smokeless tobacco: Never Tobacco comments: Mom smokes in her bedroom Vaping Use Vaping status: Some Days Substances: Nicotine Substance Use Topics Alcohol use: Yes Comment: occasionally Drug use: Not Currently Types: Marijuana REVIEW OF SYSTEMS Abdomen: No abdominal pain, nausea, vomiting, diarrhea, or constipation. No bloating, early satiety, indigestion, or increased flatulence. Bladder: No dysuria, gross hematuria, urinary frequency, urinary urgency, or incontinence. Breast: No breast lumps, nipple d/c, overlying skin changes, redness or skin retraction. Allergies and current medication updated:Yes SENSITIVE EXAM: The sensitive examination was discussed with the Patient or Patient's Authorized Tape Sewer. As applicable, any other physician, advance practice provider, medical student, or other health professional student that will be observing or involved in the sensitive examination for educational or training purposes was discussed with the Patient or Authorized Tape Sewer. The Patient or Authorized Tape Sewer has agreed to proceed with the sensitive examination. (Sensitive examination includes inspection and/or palpation of the breasts, pelvis, prostate and anorectal regions). EXAM: BP 104/76 Ht 5' 4.173 (1.63m) Wt 194 lb (88.0kg) LMP 09/21/2024 BMI 33.12 kg/(m2). GENERAL: pleasant, female in no apparent distress HEENT: Normocephalic, atraumatic, mucus membranes moist, and no lesions DERMATOLOGY: Normal, without lesions, non-icteric, and non-hirsute BREAST: soft, non-tender, symmetric, no dominant mass, normal nipple-areolar complex, no lymphadenopathy, and no nipple discharge CHEST: Normal inspiratory effort ABDOMEN: soft, non-tender, and no masses PELVIC: external genitalia normal, normal Bartholin's glands, urethra, Waianae's glands, no vulvar lesions, no cervical lesions, good vaginal support, physiologic discharge present, normal appearing perineal body and perianal region BIMANUAL: uterus normal size, shape and consistency, no adnexal masses, and non-tender RECTOVAGINAL: deferred. NEURO: alert and oriented x3,exam grossly non-focal EXTREMITIES: normal ASSESSMENT/PLAN: 1) Health maintenance: Pap/HPV up to date. Mammogram starting age 40. Nutrition, exercise and routine health maintenance exams reviewed. Calcium/Vitamin D supplementation information provided. Colon cancer screening: start at age 45 2) Contraception: none. Contraceptive options reviewed and information provided. 3) STD screening: Declined STD check. 4) Follow up one year or sooner as needed Traci Judd APRN.[facility] 10-03-2024 History of Present illness Narrative Retail Manager In Training offered: Patient declines. Gordo is a 24 year old who presents for an annual gynecologic exam with complaints, discuss infertility . Working at [employer] Menses: cycles every 21-45 days and 1-3 days of flow. Contraception: none- actively trying for prenancy HPV vaccine: Yes Last Pap: 09/2023 normal HPV: N/A History of abnormal pap: No Last mammogram: never Sexually active: Yes OB History Gravida1 Para1 Term1 Preterm0 AB0 Living1 SAB0 IAB0 Ectopic0 Multiple0 Live Births1 [employer] History LMP: 09/21/2024, Having periods Age at Menarche: 11 Age at First : Age at Menopause: [employer] History Comments: Sexual Activity: Yes; Male Contraception: None Menstrual Tracking History Flowsheet Row Office Visit from 10/03/2024 in OB/Gynecology Period Cycle (Days) 2 Period Duration (Days) 2 Menstrual Flow Heavy PAST MEDICAL HISTORY Diagnosis Date Attention deficit disorder (ADD) 05/29/2008 Depression Generalized anxiety disorder Infertility, female Menarche 05/29/2009 menstral cycle PMH - PAST MEDICAL HISTORY OF Color Vision - Normal PAST SURGICAL HISTORY Procedure Laterality Date EXTRACTION ERUPTED TOOTH/EXR 2023 wisdom teeth FAMILY HISTORY Problem Relation Age of Onset Diabetes Mother other (irritable bowel syndrome) Mother No Known Problems Father Stroke Maternal Grandmother Diabetes Maternal Grandmother Multiple Sclerosis Maternal Grandmother Diabetes Maternal Grandfather Bipolar disorder Maternal Grandfather Schizophrenia Maternal Grandfather Cancer Paternal Grandmother Depression Half-brother Suicide Attempts Half-brother Asthma Half-sister other (eating disorder) Half-sister Leukemia Paternal cousin 8 SOCIAL HISTORY Social History Tobacco Use Smoking status: Never Passive exposure: Yes Smokeless tobacco: Never Tobacco comments: Mom smokes in her bedroom Vaping Use Vaping status: Some Days Substances: Nicotine Substance Use Topics Alcohol use: Yes Comment: occasionally Drug use: Not Currently Types: Marijuana REVIEW OF SYSTEMS Abdomen: No abdominal pain, nausea, vomiting, diarrhea, or constipation. No bloating, early satiety, indigestion, or increased flatulence. Bladder: No dysuria, gross hematuria, urinary frequency, urinary urgency, or incontinence. Breast: No breast lumps, nipple d/c, overlying skin changes, redness or skin retraction. Allergies and current medication updated:Yes SENSITIVE EXAM: The sensitive examination was discussed with the Patient or Patient's Authorized Tape Sewer. As applicable, any other physician, advance practice provider, medical student, or other health professional student that will be observing or involved in the sensitive examination for educational or training purposes was discussed with the Patient or Authorized Tape Sewer. The Patient or Authorized Tape Sewer has agreed to proceed with the sensitive examination. (Sensitive examination includes inspection and/or palpation of the breasts, pelvis, prostate and anorectal regions). EXAM: BP 104/76 Ht 5' 4.173 (1.63m) Wt 194 lb (88.0kg) LMP 09/21/2024 BMI 33.12 kg/(m^2). GENERAL: pleasant, female in no apparent distress HEENT: Normocephalic, atraumatic, mucus membranes moist, and no lesions DERMATOLOGY: Normal, without lesions, non-icteric, and non-hirsute BREAST: soft, non-tender, symmetric, no dominant mass, normal nipple-areolar complex, no lymphadenopathy, and no nipple discharge CHEST: Normal inspiratory effort ABDOMEN: soft, non-tender, and no masses PELVIC: external genitalia normal, normal Bartholin's glands, urethra, Waianae's glands, no vulvar lesions, no cervical lesions, good vaginal support, physiologic discharge present, normal appearing perineal body and perianal region BIMANUAL: uterus normal size, shape and consistency, no adnexal masses, and non-tender RECTOVAGINAL: deferred. NEURO: alert and oriented x3,exam grossly non-focal EXTREMITIES: normal ASSESSMENT/PLAN: 1) Health maintenance: Pap/HPV up to date. Mammogram starting age 40. Nutrition, exercise and routine health maintenance exams reviewed. Calcium/Vitamin D supplementation information provided. Colon cancer screening: start at age 45 2) Contraception: none. Contraceptive options reviewed and information provided. 3) STD screening: Declined STD check. 4) Follow up one year or sooner as needed Traci Judd APRN.SINGLE POINTED OPERATOR documented in this encounter [facility] 09-19-2024 Note HNO ID: [id number] Author: GENEVIEVE MCCALLUM APRN.TAMARA Service: ? Author Type: Nurse Practitioner Type: Progress Notes Filed: 09/19/2024 13:13 Note Text: This note was created using [employer]. Subjective Gordo Khan is a 24 year old female here today for [facility] follow up on ER visit on 08/25/24 for SOB, cough, congestion, ST, nausea and vomiting. CT showed pneumonia. She was treated with antibiotic, steroid, and inhaler. Sypmptoms improved overall. She reports conitnued cough but this has improved. Non productive. She notices wheezing when lays down at night. SOB improved. She is using her inhaler as needed which is helping. She would like refill Denies fever, chills, NAVARRO, nausea, vomiting. CTA chest 04/13/2024 FINDINGS: Aorta: Unremarkable No filling defects in the pulmonary arteries are appreciated. Scattered focal patches of ground-glass pneumonia are present. No pleural effusion. No bony abnormalities. Other Findings: CT/CTA Chest W/WO Contrast IMPRESSION: No PE. Scattered patches of ground-glass pneumonia. [facility] CC: REESE Mccallum; FRANKY Dolan ~ Computer Analyst: Signed ALLERGIES Allergen Reactions Cats Tran Hives, Itching, Rash, Shortness of Breath, Swelling Latex Hives, Itching, Rash, Swelling Current Outpatient Medications Medication Sig Dispense Refill fluticasone (FLONASE) 50 mcg/actuation nasal spray Use 2 Sprays in each nostril once daily. Rinse mouth after use. 1 Each 0 albuterol HFA (PROVENTIL HFA, VENTOLIN HFA) 90 mcg/actuation inhaler Inhale 2 puffs as instructed every 4 hours as needed for wheezing/shortness of breath. 18 g 1 methylPREDNISolone (MEDROL, BAL,) 4 mg Dose-Pack TAKE 1 PACK DIRECTED (Patient not taking: Reported on 09/19/2024) 21 tablet 0 cyclobenzaprine (FLEXERIL) 10 mg tablet Take 1 tablet by mouth three times a day as needed for muscle spasm for up to 12 doses. (Patient not taking: Reported on 09/19/2024) 12 tablet 0 No current facility-administered medications for this visit. ACTIVE PROBLEM LIST Attention Deficit Disorder (Add) Irregular Menses Marfanoid Habitus Obesity, Class I, Bmi 30-34.9 PAST MEDICAL HISTORY Diagnosis Date Attention deficit disorder (ADD) 05/29/2008 Depression Generalized anxiety disorder Menarche 05/29/2009 menstral cycle PMH - PAST MEDICAL HISTORY OF Color Vision - Normal PAST SURGICAL HISTORY Procedure Laterality Date EXTRACTION ERUPTED TOOTH/EXR 2023 wisdom teeth Social History Tobacco Use Smoking status: Never Passive exposure: Yes Smokeless tobacco: Never Tobacco comments: Mom smokes in her bedroom Vaping Use Vaping status: Some Days Substances: Nicotine Substance Use Topics Alcohol use: Yes Comment: occasionally Drug use: Not Currently Types: Marijuana Family History Problem Relation Age of Onset Diabetes Mother other (irritable bowel syndrome) Mother No Known Problems Father Stroke Maternal Grandmother Diabetes Maternal Grandmother Multiple Sclerosis Maternal Grandmother Diabetes Maternal Grandfather Bipolar disorder Maternal Grandfather Schizophrenia Maternal Grandfather Cancer Paternal Grandmother Depression Half-brother Suicide Attempts Half-brother Asthma Half-sister other (eating disorder) Half-sister Leukemia Paternal cousin 8 Review of Systems Constitutional: Negative for chills and fatigue. HENT: Negative for congestion, sinus pressure, sinus pain and sore throat. Respiratory: Positive for cough, shortness of breath and wheezing. Negative for chest tightness. Cardiovascular: Negative for chest pain and leg swelling. Gastrointestinal: Negative for diarrhea, nausea and vomiting. Musculoskeletal: Negative for arthralgias. Neurological: Negative for dizziness and headaches. Objective BP 118/68 Pulse 88 Resp 18 Ht 163.2 cm (5' 4.25) Wt 88.5 kg (195 lb) LMP 11/04/2023 (Exact Date) SpO2 95% BMI 33.21 kg/m? Physical Exam Vitals and nursing note reviewed. Constitutional: General: She is not in acute distress. Appearance: She is not ill-appearing. Cardiovascular: Rate and Rhythm: Normal rate and regular rhythm. Pulses: Normal pulses. Heart sounds: Normal heart sounds, S1 normal and S2 normal. Pulmonary: Effort: Pulmonary effort is normal. No accessory muscle usage or respiratory distress. Breath sounds: Normal breath sounds. No decreased breath sounds, wheezing, rhonchi or rales. Musculoskeletal: Right lower leg: No edema. Left lower leg: No edema. Skin: General: Skin is warm and dry. Neurological: Mental Status: She is alert and oriented to person, place, and time. Assessment and Plan ASSESSMENT/PLAN: 1. Pneumonia due to infectious organism, unspecified laterality, unspecified part of lung - ICD9: 486, ICD10: J18.9 - acute, pt ove (more content not included)... [facility] 08-30-2024 Note HNO ID: [id number] Author: BECCA MERCER MA Service: ? Author Type: Carbide Grinder Type: Progress Notes Filed: 08/30/2024 09:21 Note Text: ED Follow Up: Patient discharged from [facility] ED on 08/25/24. 1. How are you feeling since your ED visit? Still not feeling good Have your symptoms improved or resolved? No 2. Were you prescribed any medications while in the ED or advised to stop any medication? Yes - If yes, were you able to fill your prescriptions? Yes -if stopped medication, what was the medication? N/A 3. Were you advised to schedule a follow up appointment with your provider? Yes - If no, Do you feel like you need an appointment scheduled? Yes - If yes, Do you need this scheduled now or has this already been scheduled? Yes 4. Were you able to contact the office or division operations manager provider prior to your ED visit? No 5. Is there anything else I can do for you today? No Becca Mercer MA [facility] 08-30-2024 History of Present illness Narrative ED Follow Up: Patient discharged from [facility] ED on 08/25/24. 1. How are you feeling since your ED visit? Still not feeling good Have your symptoms improved or resolved? No 2. Were you prescribed any medications while in the ED or advised to stop any medication? Yes - If yes, were you able to fill your prescriptions? Yes -if stopped medication, what was the medication? N/A 3. Were you advised to schedule a follow up appointment with your provider? Yes - If no, Do you feel like you need an appointment scheduled? Yes - If yes, Do you need this scheduled now or has this already been scheduled? Yes 4. Were you able to contact the office or division operations manager provider prior to your ED visit? No 5. Is there anything else I can do for you today? No Becca Mercer MA documented in this encounter [facility] 08-30-2024 Note Patient Outreach (AG FAMPLE) GORDO KHAN ([id number]) 2000 F Date Time Provider Department 08/30/24 GENEVIEVE MCCALLUM During your visit today, we recorded the following information about you: Becca Mercer MA 08/30/2024 9:21 AM Signed ED Follow Up: Patient discharged from [facility] ED on 08/25/24. 1. How are you feeling since your ED visit? Still not feeling good Have your symptoms improved or resolved? No 2. Were you prescribed any medications while in the ED or advised to stop any medication? Yes - If yes, were you able to fill your prescriptions? Yes -if stopped medication, what was the medication? N/A 3. Were you advised to schedule a follow up appointment with your provider? Yes - If no, Do you feel like you need an appointment scheduled? Yes - If yes, Do you need this scheduled now or has this already been scheduled? Yes 4. Were you able to contact the office or division operations manager provider prior to your ED visit? No 5. Is there anything else I can do for you today? No Becca Mercer MA Allergies As of Date: 08/30/2024 Noted Allergy Reaction CATS 04/27/2006 TRAN 09/04/2023 4 - Hives 9 - Itching 2 - Rash 12 - Shortness of Breath 7 - Swelling LATEX 09/04/2023 4 - Hives 9 - Itching 2 - Rash 7 - Swelling Date Reviewed: 08/21/2024 Reviewed by: Tanya Alas MA - Fully Assessed Reason for Visit: ED Follow-up [821] Cmt: [facility] ED 08/25/24 Prescriptions as of 08/30/2024 - methylPREDNISolone (MEDROL, BAL,) 4 mg Dose-Pack TAKE 1 PACK DIRECTED - cyclobenzaprine (FLEXERIL) 10 mg tablet Take 1 tablet by mouth three times a day as needed for muscle spasm for up to 12 doses. - albuterol HFA (PROVENTIL HFA, VENTOLIN HFA) 90 mcg/actuation inhaler Inhale 2 Puffs as instructed every 4 hours as needed for wheezing/shortness of breath. - fluticasone (FLONASE) 50 mcg/actuation nasal spray Use 2 Sprays in each nostril once daily. Rinse mouth after use. Meds Comments as of 10/01/2008: No current medications/reviewed October 01, 2008/Geraldine Brock Cma Ca Problem List As Of Date 08/30/2024 Noted Resolved Attention deficit disorder (ADD) [F98.8] Irregular menses [N92.6] 10/23/2012 Marfanoid habitus [R29.91] 02/22/2016 Obesity, Class I, BMI 30-34.9 [E66.811] 09/04/2023 Encounter Status:Closed by BECCA MERCER on 08/30/24 [facility] 08-25-2024 Radiology Diagnostic study note [facility] Imaging Services [address] [place], [place] [address] CTA Chest W/WO Contrast MR#: [id number] Acct: [id number] Name: GORDO KHAN Rep #: [id number] : 2000 F 24 From: [employer] DO PCP: REESE Bennett Status: REG E R Study:CTA Chest W/WO Contrast Date of Exam: 08/25/24 Exam# [id number] Ordering Dr: Janet Mckeon PROCEDURE: CTA of the chest for pulmonary embolism 08/25/2024 REASON FOR EXAM: SOB, ELEVATED D-DIMER TECHNIQUE: CTA imaging of the abdomen and pelvis with intravenous contrast. Coronal and Sagittal reconstruction series were provided. 3D, 3D post processing, 3D reconstructions, Maximum intensity projection (MIPs) Volume rendering and Shaded surface rendering was provided. CONTRAST: Isovue 370 VOLUME: 100mL One or more dose reduction techniques were used (e.g., Automated exposure control, adjustment of the mA and/or kV according to patient size, use of iterative reconstruction technique). RADIATION DOSE SUMMARY: CTDlvol: 13.86 mGy DLP: 466.56 mGycm COMPARISON: CTA chest 04/13/2024 FINDINGS: Aorta: Unremarkable No filling defects in the pulmonary arteries are appreciated. Scattered focal patches of ground-glass pneumonia are present. No pleural effusion. No bony abnormalities. Other Findings: CT/CTA Chest W/WO Contrast IMPRESSION: No PE. Scattered patches of ground-glass pneumonia. Reading Location: [facility] CC: REESE Mccallum; FRANKY Dolan ~ Computer Analyst: Signed [facility] 08-25-2024 Radiology Diagnostic study note [facility] Imaging Services [address] [place], [place] [address] Chest PA and Lateral MR#: [id number] Acct: [id number] Name: GORDO KHAN Rep #: [id number] : 2000 F 24 From: [employer] PCP: REESE Bennett Status: PRE E R Study:Chest PA and Lateral Date of Exam: 08/25/24 Exam# [id number] Ordering Dr: Janet Mckeon PROCEDURE: CHEST PA AND LATERAL 08/25/2024 REASON FOR EXAM: Shortness of breath, cough, congestion, sore throat, nausea and vomiting TECHNIQUE: Frontal and lateral views of the chest. COMPARISON: Chest radiograph 04/13/2024 FINDINGS: Hardware: No internal hardware detected. EKG lead wires overlie the chest. Heart: Heart size is normal. Contour is normal. Mediastinum: Contours normal. Lungs: Lungs are clear. No pleural effusions. No thickening of interstitium. Bones: Unremarkable RAD/Chest PA and Lateral IMPRESSION: No acute process detected. Reading Location: [facility]- CC: CUSTOMER PRICING MANAGER-Kristen Mccallum; FRANKY Dolan ~ Computer Analyst: Signed [facility] 08-21-2024 Note HNO ID: [id number] Author: ROBERTO HERNANDEZ DO Service: ? Author Type: Physician Type: Progress Notes Filed: 08/21/2024 14:57 Note Text: SERVICE DATE: August 21, 2024 PCP: Genevieve Mccallum APRN.SINGLE POINTED OPERATOR Subjective Patient ID: Gordo is a 24 year old female. Chief Complaint: Patient presents with: Left shoulder pain: Referred by Fadia Jeter PAIN EVALUATION 08/20/2024 1648 Pain Level: 8 Pain Location: Arm-Upper Left Description: Aching;Burning;Crushing;Pulsating ;Sharp;Shooting;Sore;Spasm;Stabbi ng;Stiffness;T enderness;Throbbing Duration Amount of Time: 45 Duration Units: Minutes Frequency: Continuous Intervention/Comfort measure: Medication;Cold;Heat HPI Left Shoulder Pain: - Acute onset left shoulder pain began over the weekend. - Initially thought to be due to sleeping position; pain persisted and worsened, causing significant discomfort and inability to sleep on Monday night. - Describes pain as aching and severe enough to prevent sleep. - No previous history of left shoulder issues. - Pain localized to the posterior aspect of the shoulder, radiating from the shoulder to the bicep. - Pain present at rest and exacerbated by movement, particularly lifting the arm. - Unable to lift the arm above a certain height due to severe pain. - Pain also noted with wrist movement and pushing on the shoulder. - Denies numbness, tingling, or neck pain. - No recent changes in activities, hobbies, or sports. - No recent immunizations or injections in the left shoulder. - Right-handed, so the affected shoulder is non-dominant. - Currently taking Prednisone for 2 days with minimal relief; also using Flexeril at bedtime. Review of Systems ACTIVE PROBLEM LIST Attention Deficit Disorder (Add) Irregular Menses Marfanoid Habitus Obesity, Class I, Bmi 30-34.9 PAST MEDICAL HISTORY Diagnosis Date Attention deficit disorder (ADD) 05/29/2008 Depression Generalized anxiety disorder Menarche 05/29/2009 menstral cycle PMH - PAST MEDICAL HISTORY OF Color Vision - Normal PAST SURGICAL HISTORY Procedure Laterality Date EXTRACTION ERUPTED TOOTH/EXR 2023 wisdom teeth FAMILY HISTORY Problem Relation Age of Onset Diabetes Mother other (irritable bowel syndrome) Mother No Known Problems Father Stroke Maternal Grandmother Diabetes Maternal Grandmother Multiple Sclerosis Maternal Grandmother Diabetes Maternal Grandfather Bipolar disorder Maternal Grandfather Schizophrenia Maternal Grandfather Cancer Paternal Grandmother Depression Half-brother Suicide Attempts Half-brother Asthma Half-sister other (eating disorder) Half-sister Leukemia Paternal cousin 8 Social History Tobacco Use Smoking status: Never Passive exposure: Yes Smokeless tobacco: Never Tobacco comments: Mom smokes in her bedroom Vaping Use Vaping status: Some Days Substances: Nicotine Substance Use Topics Alcohol use: Yes Comment: occasionally Drug use: Not Currently Types: Marijuana ALLERGIES Allergen Reactions Cats Tran Hives, Itching, Rash, Shortness of Breath, Swelling Latex Hives, Itching, Rash, Swelling MEDICATIONS: cyclobenzaprine (FLEXERIL) 10 mg tablet Take 1 tablet by mouth three times a day as needed for muscle spasm for up to 12 doses. albuterol HFA (PROVENTIL HFA, VENTOLIN HFA) 90 mcg/actuation inhaler Inhale 2 Puffs as instructed every 4 hours as needed for wheezing/shortness of breath. fluticasone (FLONASE) 50 mcg/actuation nasal spray Use 2 Sprays in each nostril once daily. Rinse mouth after use. methylPREDNISolone (MEDROL, BAL,) 4 mg Dose-Pack TAKE 1 PACK DIRECTED Allergies, medications, past surgical history, family history and past medical history were reviewed per this encounter. Objective Ortho Exam General: No acute distress. MSK/Ext: Limited active range of motion in left shoulder due to pain; passive elevation of left arm elicits pain; pain with abduction and adduction of left arm; pain with wrist flexion and extension; tenderness in posterior shoulder region. Constitutional: (+) sleep disturbance Neck: (-) neck pain Neurological: (-) numbness/tingling Musculoskeletal: (+) left shoulder pain, (+) left biceps pain with movement, (+) limited left shoulder range of motion Imaging: - X-ray (Left Shoulder): Normal appearance of the AC joint, humeral head, and glenohumeral joint; no abnormal bone spurs identified. Assessment/Plan ASSESSMENT Diagnosis (M75.52) Subacromial bursitis of left shoulder joint (primary encounter diagnosis) No orders found for this visit on 08/21/24. PLAN 1. Subacromial bursitis of left shoulder joint (M75.52) - Acute onset of left shoulder pain, exacerbated by movement and present at rest, with no prior history of shoulder issues. Pain localized primarily to the posterior aspect of the shoulder, with radiation to the bicep and exacerbation upon wrist movement. - No asso (more content not included)... [facility] 08-21-2024 History of Present illness Narrative Images from the original note were not included. SERVICE DATE: August 21, 2024 PCP: Genevieve Mccallum APRN.SINGLE POINTED OPERATOR Subjective Patient ID: Gordo is a 24 year old female. Chief Complaint: Patient presents with: Left shoulder pain: Referred by Fadia Jeter PAIN EVALUATION 08/20/2024 1648 Pain Level: 8 Pain Location: Arm-Upper Left Description: Aching;Burning;Crushing;Pulsating ;Sharp;Shooting;Sore;Spasm;Stabbi ng;Stiffness;Tenderness;Throbbing Duration Amount of Time: 45 Duration Units: Minutes Frequency: Continuous Intervention/Comfort measure: Medication;Cold;Heat HPI Left Shoulder Pain: - Acute onset left shoulder pain began over the weekend. - Initially thought to be due to sleeping position; pain persisted and worsened, causing significant discomfort and inability to sleep on Monday night. - Describes pain as aching and severe enough to prevent sleep. - No previous history of left shoulder issues. - Pain localized to the posterior aspect of the shoulder, radiating from the shoulder to the bicep. - Pain present at rest and exacerbated by movement, particularly lifting the arm. - Unable to lift the arm above a certain height due to severe pain. - Pain also noted with wrist movement and pushing on the shoulder. - Denies numbness, tingling, or neck pain. - No recent changes in activities, hobbies, or sports. - No recent immunizations or injections in the left shoulder. - Right-handed, so the affected shoulder is non-dominant. - Currently taking Prednisone for 2 days with minimal relief; also using Flexeril at bedtime. Review of Systems ACTIVE PROBLEM LIST Attention Deficit Disorder (Add) Irregular Menses Marfanoid Habitus Obesity, Class I, Bmi 30-34.9 PAST MEDICAL HISTORY Diagnosis Date Attention deficit disorder (ADD) 05/29/2008 Depression Generalized anxiety disorder Menarche 05/29/2009 menstral cycle PMH - PAST MEDICAL HISTORY OF Color Vision - Normal PAST SURGICAL HISTORY Procedure Laterality Date EXTRACTION ERUPTED TOOTH/EXR 2023 wisdom teeth FAMILY HISTORY Problem Relation Age of Onset Diabetes Mother other (irritable bowel syndrome) Mother No Known Problems Father Stroke Maternal Grandmother Diabetes Maternal Grandmother Multiple Sclerosis Maternal Grandmother Diabetes Maternal Grandfather Bipolar disorder Maternal Grandfather Schizophrenia Maternal Grandfather Cancer Paternal Grandmother Depression Half-brother Suicide Attempts Half-brother Asthma Half-sister other (eating disorder) Half-sister Leukemia Paternal cousin 8 Social History Tobacco Use Smoking status: Never Passive exposure: Yes Smokeless tobacco: Never Tobacco comments: Mom smokes in her bedroom Vaping Use Vaping status: Some Days Substances: Nicotine Substance Use Topics Alcohol use: Yes Comment: occasionally Drug use: Not Currently Types: Marijuana ALLERGIES Allergen Reactions Cats Tran Hives, Itching, Rash, Shortness of Breath, Swelling Latex Hives, Itching, Rash, Swelling MEDICATIONS: cyclobenzaprine (FLEXERIL) 10 mg tablet Take 1 tablet by mouth three times a day as needed for muscle spasm for up to 12 doses. albuterol HFA (PROVENTIL HFA, VENTOLIN HFA) 90 mcg/actuation inhaler Inhale 2 Puffs as instructed every 4 hours as needed for wheezing/shortness of breath. fluticasone (FLONASE) 50 mcg/actuation nasal spray Use 2 Sprays in each nostril once daily. Rinse mouth after use. methylPREDNISolone (MEDROL, BAL,) 4 mg Dose-Pack TAKE 1 PACK DIRECTED Allergies, medications, past surgical history, family history and past medical history were reviewed per this encounter. Objective Ortho Exam General: No acute distress. MSK/Ext: Limited active range of motion in left shoulder due to pain; passive elevation of left arm elicits pain; pain with abduction and adduction of left arm; pain with wrist flexion and extension; tenderness in posterior shoulder region. Constitutional: (+) sleep disturbance Neck: (-) neck pain Neurological: (-) numbness/tingling Musculoskeletal: (+) left shoulder pain, (+) left biceps pain with movement, (+) limited left shoulder range of motion Imaging: - X-ray (Left Shoulder): Normal appearance of the AC joint, humeral head, and glenohumeral joint; no abnormal bone spurs identified. Assessment/Plan ASSESSMENT Diagnosis (M75.52) Subacromial bursitis of left shoulder joint (primary encounter diagnosis) No orders found for this visit on 08/21/24. PLAN 1. Subacromial bursitis of left shoulder joint (M75.52) - Acute onset of left shoulder pain, exacerbated by movement and present at rest, with no prior history of shoulder issues. Pain localized primarily to the posterior aspect of the shoulder, with radiation to the bicep and exacerbation upon wrist movement. - No associated paresthesia or cervical pain. Full cervical range of motion preserved. - Physical examination reveals significant tenderness in the posterior shoulder, limited abduction due to pain, and discomfort with internal and external rotation. - Recent x-ray of the left shoulder shows no abnormalities in the AC joint, humeral head, or glenohumeral joint; no evidence of bone spurs. - Differential diagnosis includes subacromial bursitis, given the clinical presentation and absence of radiographic abnormalities. - Discontinue prednisone therapy due to insufficient symptom relief after two days of administration. - Initiate Medrol Dosepak, with instructions to follow the tapering schedule as directed: 6 tablets on day one, decreasing by one tablet each subsequent day until completion. - Maintain use of a sling for an additional 1-2 days to minimize movement and allow for inflammation reduction. - Advised to begin gentle range of motion exercises after discontinuing sling use, avoiding any heavy lifting or overhead activities to prevent exacerbation of symptoms. - If no significant improvement is observed within one week, consider administration of a corticosteroid injection into the subacromial bursa to provide targeted anti-inflammatory effects. - Prescription for Medrol Dosepak transmitted to patient's pharmacy at [facility]. FOLLOW-UP: No follow-ups on file. SIGNATURE: Roberto Hernandez DO PATIENT NAME: Gordo Khan DATE: August 21, 2024 TIME: 2:42 PM Patient presents with: Left shoulder pain: [facility] Pain Pain Level: 8 Pain Location: Arm-Upper Left Description: Aching, Burning, Crushing, Pulsating, Sharp, Shooting, Sore, Spasm, Stabbing, Stiffness, Tenderness, Throbbing Duration Amount of Time: 45 Duration Units: Minutes Frequency: Continuous Intervention/Comfort measure: Medication, Cold, Heat Patient woke up Monday morning with pain in her left shoulder. Thought she slept on it wrong. Went to urgent care on Monday. Given Prednisone and Flexeril for the pain. Has 3 tablets left of Prednisone to take. 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 documented in this encounter [facility] 08-21-2024 Note HNO ID: [id number] Author: TANYA ALAS MA Service: ? Author Type: Carbide Grinder Type: Progress Notes Filed: 08/21/2024 14:57 Note Text: Patient presents with: Left shoulder pain: [facility] Pain Level: 8 Pain Location: Arm-Upper Left Description: Aching, Burning, Crushing, Pulsating, Sharp, Shooting, Sore, Spasm, Stabbing, Stiffness, Tenderness, Throbbing Duration Amount of Time: 45 Duration Units: Minutes Frequency: Continuous Intervention/Comfort measure: Medication, Cold, Heat Patient woke up Monday morning with pain in her left shoulder. Thought she slept on it wrong. Went to urgent care on Monday. Given Prednisone and Flexeril for the pain. Has 3 tablets left of Prednisone to take. 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 [facility] 08-19-2024 History of Present illness Narrative Radiology Service Progress Note PATIENT NAME: Gordo Khan DATE OF SERVICE: August 19, 2024 TIME: 3:43 PM PATIENT IDENTITY VERIFICATION COMPLETED USING TWO (2) IDENTIFIERS: Name and Date of confirmed by patient verbally. FALL SCREENING: Has the patient had 2 falls in the last year or 1 fall with injury or currently using an Ambulatory Assistive Device (Walker, Cane, Wheelchair, Crutches, etc.)? No PATIENT GENDER DATA: Assigned female at . status: : No status: NO. PATIENT RELEVANT IMPLANT DATA REVIEWED: Not Applicable PATIENT PRESENTS WITH AN IMPLANTABLE OR ATTACHED PHOSPHORIC ACID OPERATOR: No RADIOLOGY DEPARTMENT: General X-ray: Exam(s) Completed: Upper Extremity X-Ray(s): Shoulder, AP / TRUE AP / SUPRA OUTLET left PERIPHERAL IV DATA: Not applicable SIGNED BY: RT Adryan(Marcio) August 19, 2024 3:43 PM documented in this encounter [facility] 08-19-2024 Note HNO ID: [id number] Author: ERIK MARTINEZ RT(Marcio) Service: ? Author Type: Technologist Type: Progress Notes Filed: 08/19/2024 15:50 Note Text: Radiology Service Progress Note PATIENT NAME: Gordo Khan DATE OF SERVICE: August 19, 2024 TIME: 3:43 PM PATIENT IDENTITY VERIFICATION COMPLETED USING TWO (2) IDENTIFIERS: Name and Date of confirmed by patient verbally. FALL SCREENING: Has the patient had 2 falls in the last year or 1 fall with injury or currently using an Ambulatory Assistive Device (Walker, Cane, Wheelchair, Crutches, etc.)? No PATIENT GENDER DATA: Assigned female at . status: : No status: NO. PATIENT RELEVANT IMPLANT DATA REVIEWED: Not Applicable PATIENT PRESENTS WITH AN IMPLANTABLE OR ATTACHED PHOSPHORIC ACID OPERATOR: No RADIOLOGY DEPARTMENT: General X-ray: Exam(s) Completed: Upper Extremity X-Ray(s): Shoulder, AP / TRUE AP / SUPRA OUTLET left PERIPHERAL IV DATA: Not applicable SIGNED BY: RT Adryan(R) August 19, 2024 3:43 PM [facility] 08-19-2024 Note HNO ID: [id number] Author: FADIA JETER APRN.SINGLE POINTED OPERATOR Service: ? Author Type: Nurse Practitioner Type: Progress Notes Filed: 08/19/2024 15:15 Note Text: This note was created using [employer]. Subjective Gordo Khan is a 24 year old female. HPI Pt awoke two days ago with pain in her left bicep and shoulder. No known strain or trauma. No previous episodes. No fever Review of Systems As above Objective BP 130/72 Pulse 88 Temp 37.3 ?C (99.1 ?F) Resp 16 Wt 90 kg (198 lb 6.6 oz) LMP 11/04/2023 (Exact Date) SpO2 98% BMI 33.79 kg/m? Physical Exam Vitals and nursing note reviewed. Constitutional: General: She is not in acute distress. Appearance: Normal appearance. She is not ill-appearing. HENT: Head: Normocephalic. Mouth/Throat: Mouth: Mucous membranes are moist. Eyes: Conjunctiva/sclera: Conjunctivae normal. Cardiovascular: Rate and Rhythm: Normal rate and regular rhythm. Pulmonary: Effort: Pulmonary effort is normal. Breath sounds: Normal breath sounds. Musculoskeletal: Cervical back: Normal range of motion. Comments: Patient unable to move left shoulder due to pain. There is no obvious swelling, ecchymosis, erythema noted to the left upper arm or shoulder. Left upper arm and shoulder are very tender to light touch. Skin: General: Skin is warm and dry. Neurological: General: No focal deficit present. Mental Status: She is alert. Psychiatric: Mood and Affect: Mood normal. Behavior: Behavior normal. Assessment and Plan ASSESSMENT/PLAN: 1. Acute pain of left shoulder - ICD9: 719.41, ICD10: M25.512 Unsure of etiology of patient's presentation. Patient was given prescriptions for muscle relaxer and steroids in case there is a strain component. Basic x-ray was performed and she was given follow-up with orthopedics for continued evaluation and monitoring. - XR SHOULDER GENERAL 3V OR MORE AP/TRUE AP/OTHER LEFT - CONSULT PANEL TO ORTHOPAEDICS - CYCLOBENZAPRINE 10 MG TABLET - PREDNISONE 50 MG TABLET Fadia Jeter APRN.CNP [facility] 08-19-2024 History of Present illness Narrative This note was created using [employer]. Subjective Gordo Khan is a 24 year old female. HPI Pt awoke two days ago with pain in her left bicep and shoulder. No known strain or trauma. No previous episodes. No fever Review of Systems As above Objective BP 130/72 Pulse 88 Temp 37.3 C (99.1 F) Resp 16 Wt 90 kg (198 lb 6.6 oz) LMP 11/04/2023 (Exact Date) SpO2 98% BMI 33.79 kg/m Physical Exam Vitals and nursing note reviewed. Constitutional: General: She is not in acute distress. Appearance: Normal appearance. She is not ill-appearing. HENT: Head: Normocephalic. Mouth/Throat: Mouth: Mucous membranes are moist. Eyes: Conjunctiva/sclera: Conjunctivae normal. Cardiovascular: Rate and Rhythm: Normal rate and regular rhythm. Pulmonary: Effort: Pulmonary effort is normal. Breath sounds: Normal breath sounds. Musculoskeletal: Cervical back: Normal range of motion. Comments: Patient unable to move left shoulder due to pain. There is no obvious swelling, ecchymosis, erythema noted to the left upper arm or shoulder. Left upper arm and shoulder are very tender to light touch. Skin: General: Skin is warm and dry. Neurological: General: No focal deficit present. Mental Status: She is alert. Psychiatric: Mood and Affect: Mood normal. Behavior: Behavior normal. Assessment and Plan ASSESSMENT/PLAN: 1. Acute pain of left shoulder - ICD9: 719.41, ICD10: M25.512 Unsure of etiology of patient's presentation. Patient was given prescriptions for muscle relaxer and steroids in case there is a strain component. Basic x-ray was performed and she was given follow-up with orthopedics for continued evaluation and monitoring. - XR SHOULDER GENERAL 3V OR MORE AP/TRUE AP/OTHER LEFT - CONSULT PANEL TO ORTHOPAEDICS - CYCLOBENZAPRINE 10 MG TABLET - PREDNISONE 50 MG TABLET Fadia Jeter APRN.CNP documented in this encounter [facility] 07-25-2024 Telephone encounter Note patient electronically requesting refills as follows: Last seen 04/29/24 . Last refill 05/28/24 . Requested Prescriptions Pending Prescriptions Disp Refills albuterol HFA (PROVENTIL HFA, VENTOLIN HFA) 90 mcg/actuation inhaler 18 g 1 Sig: Inhale 2 Puffs as instructed every 4 hours as needed for wheezing/shortness of breath. Please review and advise. Yecenia Blue MA [facility] 07-25-2024 Miscellaneous Notes patient electronically requesting refills as follows: Last seen 04/29/24 . Last refill 05/28/24 . Requested Prescriptions Pending Prescriptions Disp Refills albuterol HFA (PROVENTIL HFA, VENTOLIN HFA) 90 mcg/actuation inhaler 18 g 1 Sig: Inhale 2 Puffs as instructed every 4 hours as needed for wheezing/shortness of breath. Please review and advise. Yecenia Blue MA documented in this encounter [facility] 07-16-2024 Note HNO ID: [id number] Author: TRU WALTERS APRN.TAMARA Service: ? Author Type: Nurse Practitioner Type: Progress Notes Filed: 07/16/2024 12:29 Note Text: Subjective HPI HPI Gordo Khan is a 24 year old female who presents today for CC of cat scratches on right hand. This started 2 days ago/worsening. Has tried otc medication for relief. Symptoms are worsened by rom of hand. Denies possibility of being . . .Patient presents with: cat scratches : Right hand x 1 day PAST MEDICAL HISTORY Diagnosis Date Attention deficit disorder (ADD) 05/29/2008 Depression Generalized anxiety disorder Menarche 05/29/2009 menstral cycle PMH - PAST MEDICAL HISTORY OF Color Vision - Normal PAST SURGICAL HISTORY Procedure Laterality Date EXTRACTION ERUPTED TOOTH/EXR 2023 wisdom teeth ALLERGIES Cats, Tran, and Latex MEDICATIONS albuterol HFA (PROVENTIL HFA, VENTOLIN HFA) 90 mcg/actuation inhaler Inhale 2 Puffs as instructed every 4 hours as needed for wheezing/shortness of breath. fluticasone (FLONASE) 50 mcg/actuation nasal spray Use 2 Sprays in each nostril once daily. Rinse mouth after use. cephALEXin (KEFLEX) 500 mg capsule Take 1 capsule by mouth three times a day for 7 days. mupirocin (BACTROBAN) 2 % ointment Apply to affected area three times a day for 10 days. FAMILY HISTORY Problem Relation Age of Onset Diabetes Mother other (irritable bowel syndrome) Mother No Known Problems Father Stroke Maternal Grandmother Diabetes Maternal Grandmother Multiple Sclerosis Maternal Grandmother Diabetes Maternal Grandfather Bipolar disorder Maternal Grandfather Schizophrenia Maternal Grandfather Cancer Paternal Grandmother Depression Half-brother Suicide Attempts Half-brother Asthma Half-sister other (eating disorder) Half-sister Leukemia Paternal cousin 8 Social History Tobacco Use Smoking status: Never Passive exposure: Yes Smokeless tobacco: Never Tobacco comments: Mom smokes in her bedroom Vaping Use Vaping status: Some Days Substances: Nicotine Substance Use Topics Alcohol use: Yes Comment: occasionally Drug use: Not Currently Types: Marijuana ROS Objective Blood pressure 118/78, pulse 80, temperature 36.7 ?C (98.1 ?F), temperature source Tympanic, resp. rate 18, weight 88.1 kg (194 lb 3.6 oz), last menstrual period 11/04/2023, SpO2 98%. Physical Exam Constitutional: General: She is not in acute distress. Appearance: She is not toxic-appearing or diaphoretic. HENT: Head: Normocephalic and atraumatic. Pulmonary: Effort: Pulmonary effort is normal. No accessory muscle usage or respiratory distress. Musculoskeletal: Hands: Neurological: Mental Status: She is alert and oriented to person, place, and time. ASSESSMENT/PLAN: 1. Skin infection - ICD9: 686.9, ICD10: L08.9 (primary diagnosis) - Begin treatment with Cephalaxin (Keflex) - No lymphangetic streaking, this was defined for patient to watch for and to seek medical care immediately if appears - Follow up for recheck in three days - CEPHALEXIN 500 MG CAPSULE - MUPIROCIN 2 % TOPICAL OINTMENT 2. Cat scratch - ICD9: 919.0, E906.8, ICD10: W55.03XA 3. Need for tetanus booster - ICD9: V03.7, ICD10: Z23 - TDAP VACCINE, AGE 7+ YR (ADACEL, BOOSTRIX) Tru Walters APRN.[facility] 07-16-2024 History of Present illness Narrative Images from the original note were not included. Subjective HPI HPI Gordo Kahn is a 24 year old female who presents today for CC of cat scratches on right hand. This started 2 days ago/worsening. Has tried otc medication for relief. Symptoms are worsened by rom of hand. Denies possibility of being . . .Patient presents with: cat scratches : Right hand x 1 day PAST MEDICAL HISTORY Diagnosis Date Attention deficit disorder (ADD) 05/29/2008 Depression Generalized anxiety disorder Menarche 05/29/2009 menstral cycle PMH - PAST MEDICAL HISTORY OF Color Vision - Normal PAST SURGICAL HISTORY Procedure Laterality Date EXTRACTION ERUPTED TOOTH/EXR 2023 wisdom teeth ALLERGIES Cats, Tran, and Latex MEDICATIONS albuterol HFA (PROVENTIL HFA, VENTOLIN HFA) 90 mcg/actuation inhaler Inhale 2 Puffs as instructed every 4 hours as needed for wheezing/shortness of breath. fluticasone (FLONASE) 50 mcg/actuation nasal spray Use 2 Sprays in each nostril once daily. Rinse mouth after use. cephALEXin (KEFLEX) 500 mg capsule Take 1 capsule by mouth three times a day for 7 days. mupirocin (BACTROBAN) 2 % ointment Apply to affected area three times a day for 10 days. FAMILY HISTORY Problem Relation Age of Onset Diabetes Mother other (irritable bowel syndrome) Mother No Known Problems Father Stroke Maternal Grandmother Diabetes Maternal Grandmother Multiple Sclerosis Maternal Grandmother Diabetes Maternal Grandfather Bipolar disorder Maternal Grandfather Schizophrenia Maternal Grandfather Cancer Paternal Grandmother Depression Half-brother Suicide Attempts Half-brother Asthma Half-sister other (eating disorder) Half-sister Leukemia Paternal cousin 8 Social History Tobacco Use Smoking status: Never Passive exposure: Yes Smokeless tobacco: Never Tobacco comments: Mom smokes in her bedroom Vaping Use Vaping status: Some Days Substances: Nicotine Substance Use Topics Alcohol use: Yes Comment: occasionally Drug use: Not Currently Types: Marijuana ROS Objective Blood pressure 118/78, pulse 80, temperature 36.7 C (98.1 F), temperature source Tympanic, resp. rate 18, weight 88.1 kg (194 lb 3.6 oz), last menstrual period 11/04/2023, SpO2 98%. Physical Exam Constitutional: General: She is not in acute distress. Appearance: She is not toxic-appearing or diaphoretic. HENT: Head: Normocephalic and atraumatic. Pulmonary: Effort: Pulmonary effort is normal. No accessory muscle usage or respiratory distress. Musculoskeletal: Hands: Neurological: Mental Status: She is alert and oriented to person, place, and time. ASSESSMENT/PLAN: 1. Skin infection - ICD9: 686.9, ICD10: L08.9 (primary diagnosis) - Begin treatment with Cephalaxin (Keflex) - No lymphangetic streaking, this was defined for patient to watch for and to seek medical care immediately if appears - Follow up for recheck in three days - CEPHALEXIN 500 MG CAPSULE - MUPIROCIN 2 % TOPICAL OINTMENT 2. Cat scratch - ICD9: 919.0, E906.8, ICD10: W55.03XA 3. Need for tetanus booster - ICD9: V03.7, ICD10: Z23 - TDAP VACCINE, AGE 7+ YR (ADACEL, BOOSTRIX) Tru Walters APRN.[facility] documented in this encounter [facility] 07-16-2024 Instructions Tru Walters APRN.CNP - 07/16/2024 10:50 AM EST ASSESSMENT/PLAN: 1. Skin infection - ICD9: 686.9, ICD10: L08.9 (primary diagnosis) - Begin treatment with Cephalaxin (Keflex) - No lymphangetic streaking, this was defined for patient to watch for and to seek medical care immediately if appears - Follow up for recheck in three days - CEPHALEXIN 500 MG CAPSULE - MUPIROCIN 2 % TOPICAL OINTMENT 2. Cat scratch - ICD9: 919.0, E906.8, ICD10: W55.03XA 3. Need for tetanus booster - ICD9: V03.7, ICD10: Z23 - TDAP VACCINE, AGE 7+ YR (ADACEL, BOOSTRIX) Tru Walters APRN.CNP documented in this encounter [facility] 05-27-2024 Telephone encounter Note Patient informed of results and recommendations. Patient would like refill of albuterol inhaler sent to [facility] in [place], refill pended. Yecenia Blue MA [facility] 05-27-2024 Telephone encounter Note ----- Message from Genevieve Mccallum APRN.CNP sent at 05/26/2024 9:32 AM EST ----- PFT shows normal spirometry. They was some reduction in flow which can be seen with asthma or copd. An there was response with the inhaler. As needed inhaler can be beneficial and I would like her to continue to use this. [facility] 05-27-2024 Miscellaneous Notes Patient informed of results and recommendations. Patient would like refill of albuterol inhaler sent to [facility] in [place], refill pended. Yecenia Blue MA ----- Message from Genevieve Mccallum APRN.CNP sent at 05/26/2024 9:32 AM EST ----- PFT shows normal spirometry. They was some reduction in flow which can be seen with asthma or copd. An there was response with the inhaler. As needed inhaler can be beneficial and I would like her to continue to use this. documented in this encounter [facility] 05-23-2024 Telephone encounter Note Patient was calling in to get the results from her Pulmonary Function test that she had done last week. Explained that Genevieve is out of the office this week. Patient was very understanding and said she will call back next week. Charlette Soto [facility] 05-23-2024 Miscellaneous Notes Patient was calling in to get the results from her Pulmonary Function test that she had done last week. Explained that Genevieve is out of the office this week. Patient was very understanding and said she will call back next week. Charlette Soto documented in this encounter [facility] 05-15-2024 Note HNO ID: [id number] Author: GEETA TONEY RRT Service: ? Author Type: Registered Resp Therapist Type: Progress Notes Filed: 05/15/2024 11:59 Note Text: PULM FUNCTION: Provider: Matty Mijares MD Assisting Tech: Geeta Toney RRT Spirometry w/BD: 1 DLCO: 1 LV - Gas: 1 [facility] 05-15-2024 History of Present illness Narrative PULM FUNCTION: Provider: Matty Mijares MD Assisting Tech: Geeta Toney RRT Spirometry w/BD: 1 DLCO: 1 LV - Gas: 1 documented in this encounter [facility] 04-29-2024 Note HNO ID: [id number] Author: GENEVIEVE MCCALLUM APRN.CNP Service: ? Author Type: Nurse Practitioner Type: Progress Notes Filed: 04/29/2024 15:32 Note Text: This note was created using [employer]. Subjective Gordo Khan is a 23 year old female here today for concerns for persistent cough. She was seen by ARTHUR Walters on 01/30/24 for URI. She was given prednisone and flonase. She most recently went to urgent care on 04/13/24 for cough and sob. Cxr and CT chest negative. She reported cough with thick yellow sputum x 1 wk. Her daughter was reported as sick as well. They did report her oxygen dropped into mid 80s on ambulation and was why they ordered chest CT and gave her duonebs. This improved her symptoms and was discharged on prednisone. No leukocytosis. She reports she continues with cough and reports sinus drainage pressure and pain. She reports slight left ear discomfort. She reports feeling better after steroid rx. States she continues coughing and feeling fatigue. Sob improved but continues with coughing episodes. Denies fever, chills, wheezing, CP, palpitations, nausea, vomiting, diarrhea. STUDY: CTA CHEST REASON FOR EXAM: Female, 23 years old. Hypoxia with ambulation RADIATION DOSAGE (If Supplied By Facility): CTDIvol = ( 18.46 ) mGy, DLP = ( 500.10 ) mGycm TECHNIQUE: The examination was performed with the intravenous administration of 100mL Isovue-370. Post-processing of the angiographic images was performed, with multiplanar reformation and 3D reconstruction. Individualized dose optimization techniques were used for this CT. COMPARISON: None. __ FINDINGS: Normal enhancement of the main pulmonary artery and right and left pulmonary arteries. Normal enhancement of the bilateral peripheral pulmonary arteries. There is no demonstrated pulmonary embolism. Normal thoracic aorta and visualized great vessels. There is no demonstrated aortic dissection. Normal heart and pericardium. Normal mediastinum. Normal hilar regions. There are no pulmonary infiltrates. There are no pleural effusions. Normal osseous structures. No acute findings in the upper abdomen. __ CT/CTA Chest W/WO Contrast Chest xray X-RAY - XR Chest 2 Views COMPARISON: 09/27/2022 FINDINGS: LINES/DEVICES: None. LUNGS: No consolidation, edema or effusion. No pneumothorax. MEDIASTINUM AND CARDIOVASCULAR STRUCTURES: Cardiac silhouette not enlarged. Central airways and mediastinal contour are unremarkable. BONES AND SOFT TISSUES: Unremarkable. RAD/Chest PA and Lateral IMPRESSION: No radiographic evidence of acute cardiopulmonary disease. Electronically Signed: German Kirby MD at 17:15 EST , CC: REESE Mccallum; Dr. Tee Templeton, DO ~ Computer Analyst: Signed Review of Systems Constitutional: Positive for fatigue. Negative for chills and fever. HENT: Positive for congestion, postnasal drip, rhinorrhea, sinus pressure and sinus pain. Negative for ear pain. Sinus headache Respiratory: Positive for cough, shortness of breath and wheezing. Negative for chest tightness. Cardiovascular: Negative for chest pain, palpitations and leg swelling. Gastrointestinal: Negative for diarrhea, nausea and vomiting. Musculoskeletal: Negative for arthralgias. Neurological: Positive for headaches. Negative for dizziness. Objective BP 104/62 Pulse 88 Temp 36.9 ?C (98.4 ?F) (Oral) Resp 18 Ht 163.2 cm (5' 4.25) Wt 91.9 kg (202 lb 9.6 oz) LMP 11/04/2023 (Exact Date) SpO2 96% BMI 34.51 kg/m? Physical Exam Vitals and nursing note reviewed. Constitutional: General: She is not in acute distress. Appearance: She is not ill-appearing. HENT: Head: Normocephalic and atraumatic. Right Ear: Hearing, tympanic membrane, ear canal and external ear normal. Left Ear: Hearing, ear canal and external ear normal. No drainage or swelling. A middle ear effusion is present. No mastoid tenderness. Tympanic membrane is erythematous. Tympanic membrane is not bulging. Nose: Congestion present. Right Sinus: Maxillary sinus tenderness present. Left Sinus: Maxillary sinus tenderness present. Mouth/Throat: Lips: Biron. Mouth: Mucous membranes are moist. Cardiovascular: Rate and Rhythm: Normal rate and regular rhythm. Pulses: Normal pulses. Heart sounds: Normal heart sounds. Pulmonary: Effort: Pulmonary effort is normal. No accessory muscle usage or respiratory distress. Breath sounds: Normal breath sounds. No decreased air movement. No decreased breath sounds, wheezing, rhonchi or rales. Skin: General: Skin is warm and dry. Neurological: Mental Status: She is alert and oriented to person, place, and t (more content not included)... [facility] 04-29-2024 History of Present illness Narrative This note was created using [employer]. Subjective Gordo Khan is a 23 year old female here today for concerns for persistent cough. She was seen by ARTHUR Walters on 01/30/24 for URI. She was given prednisone and flonase. She most recently went to urgent care on 04/13/24 for cough and sob. Cxr and CT chest negative. She reported cough with thick yellow sputum x 1 wk. Her daughter was reported as sick as well. They did report her oxygen dropped into mid 80s on ambulation and was why they ordered chest CT and gave her duonebs. This improved her symptoms and was discharged on prednisone. No leukocytosis. She reports she continues with cough and reports sinus drainage pressure and pain. She reports slight left ear discomfort. She reports feeling better after steroid rx. States she continues coughing and feeling fatigue. Sob improved but continues with coughing episodes. Denies fever, chills, wheezing, CP, palpitations, nausea, vomiting, diarrhea. STUDY: CTA CHEST REASON FOR EXAM: Female, 23 years old. Hypoxia with ambulation RADIATION DOSAGE (If Supplied By Facility): CTDIvol = ( 18.46 ) mGy, DLP = ( 500.10 ) mGycm TECHNIQUE: The examination was performed with the intravenous administration of 100mL Isovue-370. Post-processing of the angiographic images was performed, with multiplanar reformation and 3D reconstruction. Individualized dose optimization techniques were used for this CT. COMPARISON: None. __ FINDINGS: Normal enhancement of the main pulmonary artery and right and left pulmonary arteries. Normal enhancement of the bilateral peripheral pulmonary arteries. There is no demonstrated pulmonary embolism. Normal thoracic aorta and visualized great vessels. There is no demonstrated aortic dissection. Normal heart and pericardium. Normal mediastinum. Normal hilar regions. There are no pulmonary infiltrates. There are no pleural effusions. Normal osseous structures. No acute findings in the upper abdomen. __ CT/CTA Chest W/WO Contrast Chest xray X-RAY - XR Chest 2 Views COMPARISON: 09/27/2022 FINDINGS: LINES/DEVICES: None. LUNGS: No consolidation, edema or effusion. No pneumothorax. MEDIASTINUM AND CARDIOVASCULAR STRUCTURES: Cardiac silhouette not enlarged. Central airways and mediastinal contour are unremarkable. BONES AND SOFT TISSUES: Unremarkable. RAD/Chest PA and Lateral IMPRESSION: No radiographic evidence of acute cardiopulmonary disease. Electronically Signed: German Kirby MD at 17:15 EST Reading Location ID and State: [facility] / [place] Tel , Service support , CC: REESE Mccallum; Dr. Tee Templeton, DO ~ Computer Analyst: Signed Review of Systems Constitutional: Positive for fatigue. Negative for chills and fever. HENT: Positive for congestion, postnasal drip, rhinorrhea, sinus pressure and sinus pain. Negative for ear pain. Sinus headache Respiratory: Positive for cough, shortness of breath and wheezing. Negative for chest tightness. Cardiovascular: Negative for chest pain, palpitations and leg swelling. Gastrointestinal: Negative for diarrhea, nausea and vomiting. Musculoskeletal: Negative for arthralgias. Neurological: Positive for headaches. Negative for dizziness. Objective BP 104/62 Pulse 88 Temp 36.9 C (98.4 F) (Oral) Resp 18 Ht 163.2 cm (5' 4.25) Wt 91.9 kg (202 lb 9.6 oz) LMP 11/04/2023 (Exact Date) SpO2 96% BMI 34.51 kg/m Physical Exam Vitals and nursing note reviewed. Constitutional: General: She is not in acute distress. Appearance: She is not ill-appearing. HENT: Head: Normocephalic and atraumatic. Right Ear: Hearing, tympanic membrane, ear canal and external ear normal. Left Ear: Hearing, ear canal and external ear normal. No drainage or swelling. A middle ear effusion is present. No mastoid tenderness. Tympanic membrane is erythematous. Tympanic membrane is not bulging. Nose: Congestion present. Right Sinus: Maxillary sinus tenderness present. Left Sinus: Maxillary sinus tenderness present. Mouth/Throat: Lips: Biron. Mouth: Mucous membranes are moist. Cardiovascular: Rate and Rhythm: Normal rate and regular rhythm. Pulses: Normal pulses. Heart sounds: Normal heart sounds. Pulmonary: Effort: Pulmonary effort is normal. No accessory muscle usage or respiratory distress. Breath sounds: Normal breath sounds. No decreased air movement. No decreased breath sounds, wheezing, rhonchi or rales. Skin: General: Skin is warm and dry. Neurological: Mental Status: She is alert and oriented to person, place, and time. Psychiatric: Mood and Affect: Mood normal. Behavior: Behavior normal. Thought Content: Thought content normal. Judgment: Judgment normal. Assessment and Plan ASSESSMENT/PLAN: 1. SOB (shortness of breath) - ICD9: 786.05, ICD10: R06.02 (primary diagnosis) - acute on chronic, recetn CXR and CT chest unremarkable in ER. No significant findings on lung exam today. She does have URI symptoms. Will treat with Augmentin. Will order PFT to assess for obstructive disease - SPIROMETRY - BASELINE AND POST DILATOR - LUNG DIFFUSION CAPACITY (DLCO) - LUNG VOLUMES 2. Lower respiratory infection - ICD9: 519.8, ICD10: J22 - acute, see above. - AMOXICILLIN 875 MG-POTASSIUM CLAVULANATE 125 MG TABLET 3. Acute non-recurrent maxillary sinusitis - ICD9: 461.0, ICD10: J01.00 - Will begin treatment with Augmentin 875 mg PO BID for 10 days - The patient should also be given OTC decongestants prn and nasal saline gtts and suction prn for the first 5-7 days of treatment. - Supportive care with plenty of fluids, rest, and analgesia prn. - Follow up in 3-5 days if symptoms persist or worsen. - AMOXICILLIN 875 MG-POTASSIUM CLAVULANATE 125 MG TABLET Genevieve Mccallum APRN.SINGLE POINTED OPERATOR documented in this encounter [facility] 04-16-2024 Note HNO ID: [id number] Author: ANISA CARUSO LPN Service: ? Author Type: LICENSED NURSE Type: Progress Notes Filed: 04/16/2024 14:10 Note Text: ED Follow Up: Patient discharged from [facility] ED on 04/13/2024. 1. How are you feeling since your ED visit? Better Have your symptoms improved or resolved? Yes 2. Were you prescribed any medications while in the ED or advised to stop any medication? Yes - If yes, were you able to fill your prescriptions? Yes -if stopped medication, what was the medication? na 3. Were you advised to schedule a follow up appointment with your provider? Yes - If no, Do you feel like you need an appointment scheduled? Not applicable - If yes, Do you need this scheduled now or has this already been scheduled? No 4. Were you able to contact the office or division operations manager provider prior to your ED visit? No 5. Is there anything else I can do for you today? No [facility] 04-16-2024 History of Present illness Narrative ED Follow Up: Patient discharged from [facility] ED on 04/13/2024. 1. How are you feeling since your ED visit? Better Have your symptoms improved or resolved? Yes 2. Were you prescribed any medications while in the ED or advised to stop any medication? Yes - If yes, were you able to fill your prescriptions? Yes -if stopped medication, what was the medication? na 3. Were you advised to schedule a follow up appointment with your provider? Yes - If no, Do you feel like you need an appointment scheduled? Not applicable - If yes, Do you need this scheduled now or has this already been scheduled? No 4. Were you able to contact the office or division operations manager provider prior to your ED visit? No 5. Is there anything else I can do for you today? No documented in this encounter [facility] 04-16-2024 Note Patient Outreach (AG INTMLW) GORDO KHAN ([id number]) 2000 F Date Time Provider Department 04/16/24 GENEVIEVE MCCALLUM During your visit today, we recorded the following information about you: Anisa Caruso LPN 04/16/2024 2:10 PM Signed ED Follow Up: Patient discharged from [facility] ED on 04/13/2024. 1. How are you feeling since your ED visit? Better Have your symptoms improved or resolved? Yes 2. Were you prescribed any medications while in the ED or advised to stop any medication? Yes - If yes, were you able to fill your prescriptions? Yes -if stopped medication, what was the medication? na 3. Were you advised to schedule a follow up appointment with your provider? Yes - If no, Do you feel like you need an appointment scheduled? Not applicable - If yes, Do you need this scheduled now or has this already been scheduled? No 4. Were you able to contact the office or division operations manager provider prior to your ED visit? No 5. Is there anything else I can do for you today? No Allergies As of Date: 04/16/2024 Noted Allergy Reaction CATS 04/27/2006 TRAN 09/04/2023 4 - Hives 9 - Itching 2 - Rash 12 - Shortness of Breath 7 - Swelling LATEX 09/04/2023 4 - Hives 9 - Itching 2 - Rash 7 - Swelling Date Reviewed: 01/30/2024 Reviewed by: Columba Guevara MA - Fully Assessed Prescriptions as of 04/16/2024 - fluticasone (FLONASE) 50 mcg/actuation nasal spray Use 2 Sprays in each nostril once daily. Rinse mouth after use. 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 Author Type: Nurse Practitioner Type: Progress Notes Filed: 01/30/2024 13:11 Note Text: Subjective HPI HPI Gordo Khan is a 23 year old female who presents today for CC of sinus congestion, cough, st, ear pain, mouth pain. This started 2 days ago. Has tried otc medication for relief. Symptoms are worsened by nothing. No known sick exposure. Nonsmoker. Denies possibility of being . .Patient presents with: Sinus Problem: drainage, sore throat, left ear pain x 2-3 days PAST MEDICAL HISTORY 05/29/2008: Attention deficit disorder (ADD) No date: Depression No date: Generalized anxiety disorder 05/29/2009: Menarche Comment: menstral cycle No date: PMH - PAST MEDICAL HISTORY OF Comment: Color Vision - Normal PAST SURGICAL HISTORY 2023: EXTRACTION ERUPTED TOOTH/EXR Comment: wisdom teeth ALLERGIES Cats, Tran, and Latex MEDICATIONS No prescriptions on file. FAMILY HISTORY Problem Relation Age of Onset Diabetes Mother other (irritable bowel syndrome) Mother No Known Problems Father Stroke Maternal Grandmother Diabetes Maternal Grandmother Multiple Sclerosis Maternal Grandmother Diabetes Maternal Grandfather Bipolar disorder Maternal Grandfather Schizophrenia Maternal Grandfather Cancer Paternal Grandmother Depression Half-brother Suicide Attempts Half-brother Asthma Half-sister other (eating disorder) Half-sister Leukemia Paternal cousin 8 Social History Tobacco Use Smoking status: Never Passive exposure: Yes Smokeless tobacco: Never Tobacco comments: Mom smokes in her bedroom Vaping Use Vaping status: Some Days Substances: Nicotine Substance Use Topics Alcohol use: Yes Comment: occasionally Drug use: Not Currently Types: Marijuana Review of Systems Constitutional: Positive for malaise/fatigue. Negative for fever. HENT: Positive for congestion, ear pain and sore throat. Negative for ear discharge and nosebleeds. Respiratory: Positive for cough. Negative for shortness of breath and wheezing. Musculoskeletal: Negative for neck pain. Skin: Negative for itching and rash. Objective Blood pressure 132/80, pulse 94, temperature 36.6 ?C (97.9 ?F), resp. rate 16, weight 91.6 kg (201 lb 15.1 oz), last menstrual period 11/04/2023, SpO2 98%. Physical Exam Constitutional: General: She is not in acute distress. Appearance: She is not toxic-appearing or diaphoretic. HENT: Head: Normocephalic and atraumatic. Right Ear: Hearing, tympanic membrane, ear canal and external ear normal. Left Ear: Hearing, tympanic membrane, ear canal and external ear normal. Nose: Nose normal. Mouth/Throat: Pharynx: Uvula midline. No pharyngeal swelling, oropharyngeal exudate, posterior oropharyngeal erythema or uvula swelling. Eyes: General: Lids are normal. No scleral icterus. Right eye: No discharge. Left eye: No discharge. Conjunctiva/sclera: Conjunctivae normal. Pupils: Pupils are equal, round, and reactive to light. Neck: Trachea: Trachea normal. Cardiovascular: Rate and Rhythm: Normal rate and regular rhythm. Heart sounds: Normal heart sounds. Pulmonary: Effort: Pulmonary effort is normal. Breath sounds: Normal breath sounds. Musculoskeletal: Cervical back: Normal range of motion and neck supple. Lymphadenopathy: Cervical: No cervical adenopathy. Right cervical: No superficial cervical adenopathy. Left cervical: No superficial cervical adenopathy. Skin: Findings: No rash. Neurological: Mental Status: She is alert and oriented to person, place, and time. ASSESSMENT/PLAN: 1. URI, acute - ICD9: 465.9, ICD10: J06.9 (primary diagnosis) - Discussed viral etiology and rationale for treatment. - Symptomatic treatment with prn analgesia - Supportive care with fluids and rest - Follow up in 3-5 days if symptoms persist or sooner if worsening of symptoms If positive for covid and desires treatment discuss with pcp. - PREDNISONE 10 MG TABLET - FLUTICASONE PROPIONATE 50 MCG/ACTUATION NASAL SPRAY,SUSPENSION 2. Stomatitis - ICD9: 528.00, ICD10: K12.1 -use medication as prescribed -follow up if symptoms persist, worsen, change - PREDNISONE 10 MG TABLET - TRIAMCINOLONE ACETONIDE 0.1 % DENTAL PASTE 3. Dysfunction of both eustachian tubes - ICD9: 381.81, ICD10: H69.93 -use medication as prescribed -follow up if symptoms persist, worsen, change - PREDNISONE 10 MG TABLET No problem-specific Assessment AND Plan notes found for this encounter. [facility] 01-30-2024 History of Present illness Narrative Images from the original note were not included. Subjective HPI HPI Gordo Khan is a 23 year old female who presents today for CC of sinus congestion, cough, st, ear pain, mouth pain. This started 2 days ago. Has tried otc medication for relief. Symptoms are worsened by nothing. No known sick exposure. Nonsmoker. Denies possibility of being . .Patient presents with: Sinus Problem: drainage, sore throat, left ear pain x 2-3 days PAST MEDICAL HISTORY 05/29/2008: Attention deficit disorder (ADD) No date: Depression No date: Generalized anxiety disorder 05/29/2009: Menarche Comment: menstral cycle No date: PMH - PAST MEDICAL HISTORY OF Comment: Color Vision - Normal PAST SURGICAL HISTORY 2023: EXTRACTION ERUPTED TOOTH/EXR Comment: wisdom teeth ALLERGIES Cats, Tran, and Latex MEDICATIONS No prescriptions on file. FAMILY HISTORY Problem Relation Age of Onset Diabetes Mother other (irritable bowel syndrome) Mother No Known Problems Father Stroke Maternal Grandmother Diabetes Maternal Grandmother Multiple Sclerosis Maternal Grandmother Diabetes Maternal Grandfather Bipolar disorder Maternal Grandfather Schizophrenia Maternal Grandfather Cancer Paternal Grandmother Depression Half-brother Suicide Attempts Half-brother Asthma Half-sister other (eating disorder) Half-sister Leukemia Paternal cousin 8 Social History Tobacco Use Smoking status: Never Passive exposure: Yes Smokeless tobacco: Never Tobacco comments: Mom smokes in her bedroom Vaping Use Vaping status: Some Days Substances: Nicotine Substance Use Topics Alcohol use: Yes Comment: occasionally Drug use: Not Currently Types: Marijuana Review of Systems Constitutional: Positive for malaise/fatigue. Negative for fever. HENT: Positive for congestion, ear pain and sore throat. Negative for ear discharge and nosebleeds. Respiratory: Positive for cough. Negative for shortness of breath and wheezing. Musculoskeletal: Negative for neck pain. Skin: Negative for itching and rash. Objective Blood pressure 132/80, pulse 94, temperature 36.6 C (97.9 F), resp. rate 16, weight 91.6 kg (201 lb 15.1 oz), last menstrual period 11/04/2023, SpO2 98%. Physical Exam Constitutional: General: She is not in acute distress. Appearance: She is not toxic-appearing or diaphoretic. HENT: Head: Normocephalic and atraumatic. Right Ear: Hearing, tympanic membrane, ear canal and external ear normal. Left Ear: Hearing, tympanic membrane, ear canal and external ear normal. Nose: Nose normal. Mouth/Throat: Pharynx: Uvula midline. No pharyngeal swelling, oropharyngeal exudate, posterior oropharyngeal erythema or uvula swelling. Eyes: General: Lids are normal. No scleral icterus. Right eye: No discharge. Left eye: No discharge. Conjunctiva/sclera: Conjunctivae normal. Pupils: Pupils are equal, round, and reactive to light. Neck: Trachea: Trachea normal. Cardiovascular: Rate and Rhythm: Normal rate and regular rhythm. Heart sounds: Normal heart sounds. Pulmonary: Effort: Pulmonary effort is normal. Breath sounds: Normal breath sounds. Musculoskeletal: Cervical back: Normal range of motion and neck supple. Lymphadenopathy: Cervical: No cervical adenopathy. Right cervical: No superficial cervical adenopathy. Left cervical: No superficial cervical adenopathy. Skin: Findings: No rash. Neurological: Mental Status: She is alert and oriented to person, place, and time. ASSESSMENT/PLAN: 1. URI, acute - ICD9: 465.9, ICD10: J06.9 (primary diagnosis) - Discussed viral etiology and rationale for treatment. - Symptomatic treatment with prn analgesia - Supportive care with fluids and rest - Follow up in 3-5 days if symptoms persist or sooner if worsening of symptoms If positive for covid and desires treatment discuss with pcp. - PREDNISONE 10 MG TABLET - FLUTICASONE PROPIONATE 50 MCG/ACTUATION NASAL SPRAY,SUSPENSION 2. Stomatitis - ICD9: 528.00, ICD10: K12.1 -use medication as prescribed -follow up if symptoms persist, worsen, change - PREDNISONE 10 MG TABLET - TRIAMCINOLONE ACETONIDE 0.1 % DENTAL PASTE 3. Dysfunction of both eustachian tubes - ICD9: 381.81, ICD10: H69.93 -use medication as prescribed -follow up if symptoms persist, worsen, change - PREDNISONE 10 MG TABLET No problem-specific Assessment & Plan notes found for this encounter. documented in this encounter [facility] 01-18-2024 Telephone encounter Note Patient is informed Becca Mercer MA [facility] 01-18-2024 Miscellaneous Notes Patient is informed Becca Mercer MA ----- Message from Genevieve Mccallum APRN.SINGLE POINTED OPERATOR sent at 01/17/2024 4:22 PM EDT ----- Let pt know that her NCT was unremarkable. There was no evidence of ulnar or median nerve neuropathy (CTS) or cervical radiculopathy. I would recommend NSAIDS. If persists she can follow up with ortho or may need neuro referral. Results: Extensive electrodiagnostic examination of the right upper extremity and additional nerve conduction studies on the left (including palmar mixed nerve responses) disclose no definite abnormalities. Specifically, there is no evidence of a right or left median neuropathy at or distal to the wrist (carpal tunnel syndrome). There is also no evidence of a right ulnar or radial mononeuropathy based on screening electrodiagnostic studies of these nerves. Furthermore, there is no evidence of a right cervical documented in this encounter [facility] 01-18-2024 Telephone encounter Note ----- Message from Genevieve Mccallum APRN.SINGLE POINTED OPERATOR sent at 01/17/2024 4:22 PM EDT ----- Let pt know that her NCT was unremarkable. There was no evidence of ulnar or median nerve neuropathy (CTS) or cervical radiculopathy. I would recommend NSAIDS. If persists she can follow up with ortho or may need neuro referral. Results: Extensive electrodiagnostic examination of the right upper extremity and additional nerve conduction studies on the left (including palmar mixed nerve responses) disclose no definite abnormalities. Specifically, there is no evidence of a right or left median neuropathy at or distal to the wrist (carpal tunnel syndrome). There is also no evidence of a right ulnar or radial mononeuropathy based on screening electrodiagnostic studies of these nerves. Furthermore, there is no evidence of a right cervical [facility] 01-08-2024 Note HNO ID: [id number] Author: CAROL ESCOBEDO MD Service: ? Author Type: Physician Type: Progress Notes Filed: 01/08/2024 13:36 Note Text: UNIVERSAL PROTOCOL / SAFETY CHECKLIST Procedure to be Performed: EMG Sign In: A Moment of CARE was completed. Personnel directly involved with the procedure wore the appropriate PPE (Personal Protective Equipment). Patient/Surrogate Stated/Verified: PATIENT VERIFIED(optional for EMERGENT procedures): Patient name, Date of , Relevant allergies, and The intended procedure Time Out Communication: Intended patient and procedure match the source documents. Correct side/site marked and visible. Sign Out: SIGN OUT (optional for EMERGENT procedures): Post-procedure follow-up management communicated and Plan of Care Visit completed when applicable. Camryn Page coconut boiler Rohan Escobedo MD Staff, [facility] [place] Electronically signed January 08, 2024 1:36 PM [facility] 01-08-2024 History of Present illness Narrative UNIVERSAL PROTOCOL / SAFETY CHECKLIST Procedure to be Performed: EMG Sign In: A Moment of CARE was completed. Personnel directly involved with the procedure wore the appropriate PPE (Personal Protective Equipment). Patient/Surrogate Stated/Verified: PATIENT VERIFIED(optional for EMERGENT procedures): Patient name, Date of , Relevant allergies, and The intended procedure Time Out Communication: Intended patient and procedure match the source documents. Correct side/site marked and visible. Sign Out: SIGN OUT (optional for EMERGENT procedures): Post-procedure follow-up management communicated and Plan of Care Visit completed when applicable. Camryn Page coconut boiler Rohan Escobedo MD Staff, [facility] [place] Electronically signed January 08, 2024 1:36 PM documented in this encounter [facility] 12-09-2023 History of Present illness Narrative Radiology Service Progress Note PATIENT NAME: Gordo Khan DATE OF SERVICE: December 09, 2023 TIME: 9:05 AM PATIENT IDENTITY VERIFICATION COMPLETED USING TWO (2) IDENTIFIERS: Name and Date of confirmed by patient verbally. FALL SCREENING: Has the patient had 2 falls in the last year or 1 fall with injury or currently using an Ambulatory Assistive Device (Walker, Cane, Wheelchair, Crutches, etc.)? No PATIENT GENDER DATA: Female. status: : No status: NO. PATIENT RELEVANT IMPLANT DATA REVIEWED: Yes PATIENT PRESENTS WITH AN IMPLANTABLE OR ATTACHED PHOSPHORIC ACID OPERATOR: No RADIOLOGY DEPARTMENT: General X-ray: Exam(s) Completed: Lower Extremity X-Ray(s): Ankle, Left and Foot, Left Upper Extremity X-Ray(s): Wrist, right PERIPHERAL IV DATA: Not applicable SIGNED BY: RT Hair(R) December 09, 2023 9:05 AM documented in this encounter [facility] 12-09-2023 Note HNO ID: [id number] Author: FARHANA ARGUETA RT(R) Service: Radiology Author Type: Technologist Type: Progress Notes Filed: 12/09/2023 09:17 Note Text: Radiology Service Progress Note PATIENT NAME: Gordo Khan DATE OF SERVICE: December 09, 2023 TIME: 9:05 AM PATIENT IDENTITY VERIFICATION COMPLETED USING TWO (2) IDENTIFIERS: Name and Date of confirmed by patient verbally. FALL SCREENING: Has the patient had 2 falls in the last year or 1 fall with injury or currently using an Ambulatory Assistive Device (Walker, Cane, Wheelchair, Crutches, etc.)? No PATIENT GENDER DATA: Female. status: : No status: NO. PATIENT RELEVANT IMPLANT DATA REVIEWED: Yes PATIENT PRESENTS WITH AN IMPLANTABLE OR ATTACHED PHOSPHORIC ACID OPERATOR: No RADIOLOGY DEPARTMENT: General X-ray: Exam(s) Completed: Lower Extremity X-Ray(s): Ankle, Left and Foot, Left Upper Extremity X-Ray(s): Wrist, right PERIPHERAL IV DATA: Not applicable SIGNED BY: RT Hair(Marcio) December 09, 2023 9:05 AM [facility] 12-09-2023 Note HNO ID: [id number] Author: TRU WALTERS APRN.SINGLE POINTED OPERATOR Service: ? Author Type: Nurse Practitioner Type: Progress Notes Filed: 12/09/2023 10:15 Note Text: Subjective HPI HPI Gordo Khan is a 23 year old female who presents today for CC of fall today, resulting in left ankle/foot injury and right wrist injury. Has tried nothing for reli. Symptoms are worsened by rom. Denies possibility of being . .Patient presents with: Trauma: Fell from standing on bed, hurt R wrist and Left ankle, x 30 mins ago PAST MEDICAL HISTORY Diagnosis Date Attention deficit disorder (ADD) 05/29/2008 Depression Generalized anxiety disorder Menarche 05/29/2009 menstral cycle PMH - PAST MEDICAL HISTORY OF Color Vision - Normal PAST SURGICAL HISTORY Procedure Laterality Date EXTRACTION ERUPTED TOOTH/EXR 2023 wisdom teeth ALLERGIES Cats, Tran, and Latex MEDICATIONS No prescriptions on file. FAMILY HISTORY Problem Relation Age of Onset Diabetes Mother other (irritable bowel syndrome) Mother No Known Problems Father Stroke Maternal Grandmother Diabetes Maternal Grandmother Multiple Sclerosis Maternal Grandmother Diabetes Maternal Grandfather Bipolar disorder Maternal Grandfather Schizophrenia Maternal Grandfather Cancer Paternal Grandmother Depression Half-brother Suicide Attempts Half-brother Asthma Half-sister other (eating disorder) Half-sister Leukemia Paternal cousin 8 Social History Tobacco Use Smoking status: Never Passive exposure: Yes Smokeless tobacco: Never Tobacco comments: Mom smokes in her bedroom Vaping Use Vaping Use: Some days Substances: Nicotine Substance Use Topics Alcohol use: Yes Comment: occasionally Drug use: Not Currently Types: Marijuana ROS Objective Blood pressure 117/78, pulse 72, temperature 36.5 ?C (97.7 ?F), resp. rate 20, weight 89 kg (196 lb 3.4 oz), last menstrual period 11/04/2023, SpO2 98%. Physical Exam Constitutional: General: She is not in acute distress. Appearance: She is not toxic-appearing or diaphoretic. HENT: Head: Normocephalic and atraumatic. Pulmonary: Effort: Pulmonary effort is normal. No accessory muscle usage or respiratory distress. Musculoskeletal: Right wrist: Tenderness and bony tenderness present. No snuff box tenderness. Decreased range of motion. Arms: Legs: Neurological: Mental Status: She is alert and oriented to person, place, and time. ASSESSMENT/PLAN: 1. Fall, initial encounter - ICD9: E888.9, ICD10: W19.XXXA (primary diagnosis) 2. Pain of left lower extremity due to injury - ICD9: 729.5, ICD10: M79.605 -no bony abnormality noted on xray -Rest, Ice, Compression, Elevation discussed -discussed use of ibuprofen -follow up with primary care if symptoms persist/worsen in 10-14 days - XR FOOT GENERAL 3V AP/LAT/OBL LEFT IMPRESSION: No acute bony finding. Hallux valgus with associated findings as described. Dictated by : MICHAEL HUDSON MD - XR ANKLE GENERAL 3V AP/LAT/OBL LEFT 3. Injury of right wrist, initial encounter - ICD9: 959.3, ICD10: S69.91XA - XR WRIST GENERAL 3V PA/LAT/OBL RIGHT Findings: Right wrist: No fracture or bony destruction. Joint space is maintained. Left foot and ankle: hallux valgus with lateral bunion and lateral subluxation first metatarsal sesamoid. Joint space is otherwise maintained. No fracture or bone destruction. Tru Walters APRN.SINGLE POINTED OPERATOR [facility] 12-09-2023 History of Present illness Narrative Images from the original note were not included. Subjective HPI HPI Gordo Khan is a 23 year old female who presents today for CC of fall today, resulting in left ankle/foot injury and right wrist injury. Has tried nothing for reli. Symptoms are worsened by rom. Denies possibility of being . .Patient presents with: Trauma: Fell from standing on bed, hurt R wrist and Left ankle, x 30 mins ago PAST MEDICAL HISTORY Diagnosis Date Attention deficit disorder (ADD) 05/29/2008 Depression Generalized anxiety disorder Menarche 05/29/2009 menstral cycle PMH - PAST MEDICAL HISTORY OF Color Vision - Normal PAST SURGICAL HISTORY Procedure Laterality Date EXTRACTION ERUPTED TOOTH/EXR 2023 wisdom teeth ALLERGIES Cats, Tran, and Latex MEDICATIONS No prescriptions on file. FAMILY HISTORY Problem Relation Age of Onset Diabetes Mother other (irritable bowel syndrome) Mother No Known Problems Father Stroke Maternal Grandmother Diabetes Maternal Grandmother Multiple Sclerosis Maternal Grandmother Diabetes Maternal Grandfather Bipolar disorder Maternal Grandfather Schizophrenia Maternal Grandfather Cancer Paternal Grandmother Depression Half-brother Suicide Attempts Half-brother Asthma Half-sister other (eating disorder) Half-sister Leukemia Paternal cousin 8 Social History Tobacco Use Smoking status: Never Passive exposure: Yes Smokeless tobacco: Never Tobacco comments: Mom smokes in her bedroom Vaping Use Vaping Use: Some days Substances: Nicotine Substance Use Topics Alcohol use: Yes Comment: occasionally Drug use: Not Currently Types: Marijuana ROS Objective Blood pressure 117/78, pulse 72, temperature 36.5 C (97.7 F), resp. rate 20, weight 89 kg (196 lb 3.4 oz), last menstrual period 11/04/2023, SpO2 98%. Physical Exam Constitutional: General: She is not in acute distress. Appearance: She is not toxic-appearing or diaphoretic. HENT: Head: Normocephalic and atraumatic. Pulmonary: Effort: Pulmonary effort is normal. No accessory muscle usage or respiratory distress. Musculoskeletal: Right wrist: Tenderness and bony tenderness present. No snuff box tenderness. Decreased range of motion. Arms: Legs: Neurological: Mental Status: She is alert and oriented to person, place, and time. ASSESSMENT/PLAN: 1. Fall, initial encounter - ICD9: E888.9, ICD10: W19.XXXA (primary diagnosis) 2. Pain of left lower extremity due to injury - ICD9: 729.5, ICD10: M79.605 -no bony abnormality noted on xray -Rest, Ice, Compression, Elevation discussed -discussed use of ibuprofen -follow up with primary care if symptoms persist/worsen in 10-14 days - XR FOOT GENERAL 3V AP/LAT/OBL LEFT IMPRESSION: No acute bony finding. Hallux valgus with associated findings as described. Dictated by : MICHAEL HUDSON MD - XR ANKLE GENERAL 3V AP/LAT/OBL LEFT 3. Injury of right wrist, initial encounter - ICD9: 959.3, ICD10: S69.91XA - XR WRIST GENERAL 3V PA/LAT/OBL RIGHT Findings: Right wrist: No fracture or bony destruction. Joint space is maintained. Left foot and ankle: hallux valgus with lateral bunion and lateral subluxation first metatarsal sesamoid. Joint space is otherwise maintained. No fracture or bone destruction. Tru Walters APRN.SINGLE POINTED OPERATOR documented in this encounter [facility] 11-28-2023 Instructions Genevieve Mccallum APRN.TAMARA - 11/28/2023 8:34 AM EDT ASSESSMENT/PLAN: 1. Pain in both hands - ICD9: 729.5, ICD10: M79.641, M79.642 (primary diagnosis) - symptoms consistent with CTS. Will check NCT, will order cock up splints. - CONSULT TO ORTHOPAEDICS - [facility]G(NEURO/NI) - COCK-UP WRIST SPLINT 2. Disturbance of skin sensation - ICD9: 782.0, ICD10: R20.9 - CONSULT TO ORTHOPAEDICS - [facility]G(NEURO/NI) - COCK-UP WRIST SPLINT Genevieve M Alessio, RAMP ATTENDANT.SINGLE POINTED OPERATOR Carpal Tunnel Syndrome What is carpal tunnel syndrome? Carpal tunnel syndrome is problem with pain, numbness, and tingling in your wrist and hand. The carpal tunnel is a narrow space in your forearm and the palm of your hand. It is made up of bone and other tissue. The median nerve passes through the carpal tunnel to your thumb, index finger, and middle finger. What is the cause? The exact cause of carpal tunnel syndrome is not known. It may be that pressure, irritation, swelling, or blood flow problems in the carpal tunnel damage the median nerve. Irritation and pressure may come from using your hand and wrist in the same motion over and over. For example, carpal tunnel syndrome is a common problem for cashiers, rn urology, assembly-line workers, and people who work on a keyboard or with a computer mouse. Or a broken bone or other injury may damage or put pressure on the nerve. You may have a higher risk of carpal tunnel syndrome if someone in your family has this problem, or if you are or have a disease like arthritis, diabetes, or a thyroid problem. What are the symptoms? The main symptoms are pain, numbness, or tingling in your hand and wrist, especially in the thumb and the index and middle fingers. The pain may: Come and go Get worse the more you use your hand Be worse at night Feel better if you shake your hand and wrist Your hand may feel weak. It may be hard for you to grab things and hold onto them with your hand. You may have trouble knowing if something is hot or cold when you touch it. How is it diagnosed? Your healthcare provider will ask about your symptoms, medical history, and the ways you use your hands. Your provider will examine you. He or she may tap the middle of your inner wrist or ask you to bend your wrist down for 1 minute to see if either of these tests causes pain or tingling. Your provider may refer you to a specialist for tests to check your nerves. In some cases you may have an ultrasound or MRI scan. How is it treated? If you have a disease that may be causing carpal tunnel syndrome, like arthritis, diabetes, or a thyroid problem, treating the disease may help your symptoms. To relieve pressure on the nerve your healthcare provider may suggest that you: Rest your hand and wrist and avoid activities that may make your symptoms worse. Wear a wrist splint to avoid more damage from twisting or bending. In some cases your provider may prescribe medicine for pain and swelling or give a shot of steroid or numbing medicine into your wrist. Your healthcare provider may recommend stretching and strengthening exercises to help you heal. Your provider may recommend surgery if your symptoms don t get better with these treatments. How can I take care of myself? Some of the things you can do to help your symptoms include: Put your arm up on pillows when you sit or lie down. If your work involves using tools, try using a different tool, or try to use the other hand instead. Follow your healthcare provider's instructions, including any exercises recommended by your provider. Ask your provider: How and when you will hear your test results How long it will take to recover What activities you should avoid and when you can return to your normal activities How to take care of yourself at home What symptoms or problems you should watch for and what to do if you have them Make sure you know when you should come back for a checkup. How can I help prevent carpal tunnel syndrome? Because the exact cause of carpal tunnel is not well understood, it can be hard to prevent. Here are some things you can do that may help: Make sure that your hands and wrists are supported when you use them, especially if you do repetitive work. For example, when you are typing or using a mouse at a computer, make sure your workstation is set up in the proper position and that your hands are comfortably supported in front of the keyboard. It may help to use a pad that is specially designed to give this kind of support. Also check to see that your forearms are at the same level as your keyboard. Make sure that the tools you use are not too large for your hand. Try to use tools with a cushioned formula checker, or wear gloves when you use them. Some workplaces provide tools or equipment that may help you avoid carpal tunnel syndrome. Ask your employer about this. Take frequent breaks from your work and do carpal tunnel exercises. It s not clear, however, that making these changes will help prevent carpal tunnel syndrome. Developed by [email or web address]. Adult Advisor 2013.1 published by [email or web address]. Last modified: 2012-06-26 Last reviewed: 2012-06-22 This content is reviewed periodically and is subject to change as new health information becomes available. The information is intended to inform and educate and is not a replacement for medical evaluation, advice, diagnosis or treatment by a healthcare professional. References Adult Advisor 2014.1 Index Copyright 2014 [employer] and/or one of its subsidiaries. All rights reserved. Carpal Tunnel Syndrome Exercises You may do all of these exercises right away. Wrist range of motion Flexion: Gently bend your wrist forward. Hold for 5 seconds. Do 2 sets of 15. Extension: Gently bend your wrist backward. Hold this position 5 seconds. Do 2 sets of 15. Side to side: Gently move your wrist from side to side (a handshake motion). Hold for 5 seconds in each direction. Do 2 sets of 15. Wrist stretch: Press the back of the hand on your injured side with your other hand to help bend your wrist. Hold for 15 to 30 seconds. Next, stretch the hand back by pressing the fingers in a backward direction. Hold for 15 to 30 seconds. Keep the arm on your injured side straight during this exercise. Do 3 sets. Mid-trap exercise: Lie on your stomach on a firm surface and place a folded pillow underneath your chest. Place your arms out straight to your sides with your elbows straight and thumbs toward the ceiling. Slowly raise your arms toward the ceiling as you squeeze your shoulder blades together. Lower slowly. Do 3 sets of 15. As the exercise gets easier to do, hold soup cans or small weights in your hands. Pectoralis stretch: gun sealing machine operator an open doorway or corner with both hands slightly above your head on the door frame or wall. Slowly lean forward until you feel a stretch in the front of your shoulders. Hold 15 to 30 seconds. Repeat 3 times. [place]ene stretch: Sit or stand and clasp both hands behind your back. Lower your left shoulder and tilt your head toward the right until you feel a stretch. Hold this position for 15 to 30 seconds and then come back to the starting position. Then lower your right shoulder and tilt your head toward the left. Hold for 15 to 30 seconds. Repeat 3 times on each side. Thoracic extension: Sit in a chair and clasp both arms behind your head. Gently arch backward and look up toward the ceiling. Repeat 10 times. Do this several times each day. Scapular squeeze: While sitting or standing with your arms by your sides, squeeze your shoulder blades together and hold for 5 seconds. Do 2 sets of 15. Wrist extension: Hold a soup can or hammer handle in your hand with your palm facing down. Slowly bend your wrist up. Slowly lower the weight down into the starting position. Do 2 sets of 15. Gradually increase the weight of the object you are holding. Frame Welder Cargo Utility Trailers strengthening: Squeeze a soft rubber ball and hold the squeeze for 5 seconds. Do 2 sets of 15. Developed by [email or web address]. Adult Advisor 2014.1 published by [email or web address]. Last modified: 2011-06-25 Last reviewed: 2011-05-27 This content is reviewed periodically and is subject to change as new health information becomes available. The information is intended to inform and educate and is not a replacement for medical evaluation, advice, diagnosis or treatment by a healthcare professional. References Adult Advisor 2013.1 Index Copyright 2014 [employer] and/or one of its subsidiaries. All rights reserved. documented in this encounter [facility] 11-28-2023 Note HNO ID: [id number] Author: GENEVIEVE MCCALLUM APRN.SINGLE POINTED OPERATOR Service: ? Author Type: Nurse Practitioner Type: Progress Notes Filed: 11/28/2023 13:29 Note Text: This note was created using [employer]. Subjective Gordo Khan is a 23 year old female here today for complaints of right hand pain. She reports this has been occurring for months. Reports pain starts base of thumb and will shoot up into her entire hand and into forearm. Reports worsening over the past week. States pain has been there for awhile but has worsened. States 1-4th digits are numb intermittently but the thumb is always numb and tingling. 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 Pain is constant. Pain 10/10. At best 8/10. She has tried tylenol aleve, ibuprofen and nothing helps. She is wearing a compression sleeve which she reports does not help. Reports her left hand is starting to have same symptoms but not as severe or constant as right. ALLERGIES Allergen Reactions Cats Tran Hives, Itching, Rash, Shortness of Breath, Swelling Latex Hives, Itching, Rash, Swelling No current outpatient medications on file. No current facility-administered medications for this visit. ACTIVE PROBLEM LIST Attention Deficit Disorder (Add) Irregular Menses Marfanoid Habitus Obesity, Class I, Bmi 30-34.9 PAST MEDICAL HISTORY Diagnosis Date Attention deficit disorder (ADD) 05/29/2008 Depression Generalized anxiety disorder Menarche 05/29/2009 menstral cycle PMH - PAST MEDICAL HISTORY OF Color Vision - Normal PAST SURGICAL HISTORY Procedure Laterality Date EXTRACTION ERUPTED TOOTH/EXR 2023 wisdom teeth Social History Tobacco Use Smoking status: Never Passive exposure: Yes Smokeless tobacco: Never Tobacco comments: Mom smokes in her bedroom Vaping Use Vaping Use: Some days Substances: Nicotine Substance Use Topics Alcohol use: Yes Comment: occasionally Drug use: Not Currently Types: Marijuana Family History Problem Relation Age of Onset Diabetes Mother other (irritable bowel syndrome) Mother No Known Problems Father Stroke Maternal Grandmother Diabetes Maternal Grandmother Multiple Sclerosis Maternal Grandmother Diabetes Maternal Grandfather Bipolar disorder Maternal Grandfather Schizophrenia Maternal Grandfather Cancer Paternal Grandmother Depression Half-brother Suicide Attempts Half-brother Asthma Half-sister other (eating disorder) Half-sister Leukemia Paternal cousin 8 Review of Systems Constitutional: Negative for activity change, appetite change, chills, fatigue and fever. Respiratory: Negative for shortness of breath and wheezing. Cardiovascular: Negative for chest pain, palpitations and leg swelling. Musculoskeletal: Positive for arthralgias. See HPI Skin: Negative. Neurological: Positive for numbness. Negative for dizziness and headaches. See HPI Objective BP 102/70 (BP Site: Right Arm, BP Position: Sitting, BP Cuff Size: Regular Adult) Pulse 80 Temp 36.6 ?C (97.8 ?F) (Oral) Resp 18 Ht 163.2 cm (5' 4.25) Wt 91.2 kg (201 lb) LMP 09/14/2023 (Exact Date) BMI 34.23 kg/m? Physical Exam Vitals and nursing note reviewed. Constitutional: General: She is not in acute distress. Appearance: She is not ill-appearing. Cardiovascular: Rate and Rhythm: Normal rate and regular rhythm. Pulses: Normal pulses. Heart sounds: Normal heart sounds. Pulmonary: Effort: Pulmonary effort is normal. Breath sounds: Normal breath sounds. Musculoskeletal: Right wrist: Tenderness present. Decreased range of motion. Left wrist: Normal. Right hand: Tenderness present. Decreased range of motion. Decreased strength. Decreased sensation. There is disruption of two-point discrimination. Left hand: Normal. Comments: Positive tinel's and phalens on right Skin: General: Skin is warm and dry. Neurological: Mental Status: She is alert and oriented to person, place, and time. Psychiatric: Mood and Affect: Mood normal. Behavior: Behavior normal. Thought Content: Thought content normal. Judgment: Judgment normal. ASSESSMENT/PLAN: 1. Pain in both hands - ICD9: 729.5, ICD10: M79.641, M79.642 (primary diagnosis) - Chronic, R>L, symptoms consistent with CTS, DD tendonitis. (+) tinel's and Phalen on right. Will order EMG. Reviewed exercises and use of splint at night. Will refer to ortho for evaluation and further recommendations. - CONSULT TO ORTHOPAEDICS - EMG(NEURO/NI) - COCK-UP WRIST SPLINT 2. Disturbance of skin sensation - ICD9: 782.0, ICD10: R20.9 - see above - CONSULT TO ORTHOPAEDICS - EMG(NEURO/NI) - COCK-UP WRIST SPLINT Genevieve Mccallum APRN.[facility] 11-28-2023 History of Present illness Narrative This note was created using [employer]. Subjective Gordo Khan is a 23 year old female here today for complaints of right hand pain. She reports this has been occurring for months. Reports pain starts base of thumb and will shoot up into her entire hand and into forearm. Reports worsening over the past week. States pain has been there for awhile but has worsened. States 1-4th digits are numb intermittently but the thumb is always numb and tingling. 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 Pain is constant. Pain 10/10. At best 8/10. She has tried tylenol aleve, ibuprofen and nothing helps. She is wearing a compression sleeve which she reports does not help. Reports her left hand is starting to have same symptoms but not as severe or constant as right. ALLERGIES Allergen Reactions Cats Tran Hives, Itching, Rash, Shortness of Breath, Swelling Latex Hives, Itching, Rash, Swelling No current outpatient medications on file. No current facility-administered medications for this visit. ACTIVE PROBLEM LIST Attention Deficit Disorder (Add) Irregular Menses Marfanoid Habitus Obesity, Class I, Bmi 30-34.9 PAST MEDICAL HISTORY Diagnosis Date Attention deficit disorder (ADD) 05/29/2008 Depression Generalized anxiety disorder Menarche 05/29/2009 menstral cycle PMH - PAST MEDICAL HISTORY OF Color Vision - Normal PAST SURGICAL HISTORY Procedure Laterality Date EXTRACTION ERUPTED TOOTH/EXR 2023 wisdom teeth Social History Tobacco Use Smoking status: Never Passive exposure: Yes Smokeless tobacco: Never Tobacco comments: Mom smokes in her bedroom Vaping Use Vaping Use: Some days Substances: Nicotine Substance Use Topics Alcohol use: Yes Comment: occasionally Drug use: Not Currently Types: Marijuana Family History Problem Relation Age of Onset Diabetes Mother other (irritable bowel syndrome) Mother No Known Problems Father Stroke Maternal Grandmother Diabetes Maternal Grandmother Multiple Sclerosis Maternal Grandmother Diabetes Maternal Grandfather Bipolar disorder Maternal Grandfather Schizophrenia Maternal Grandfather Cancer Paternal Grandmother Depression Half-brother Suicide Attempts Half-brother Asthma Half-sister other (eating disorder) Half-sister Leukemia Paternal cousin 8 Review of Systems Constitutional: Negative for activity change, appetite change, chills, fatigue and fever. Respiratory: Negative for shortness of breath and wheezing. Cardiovascular: Negative for chest pain, palpitations and leg swelling. Musculoskeletal: Positive for arthralgias. See HPI Skin: Negative. Neurological: Positive for numbness. Negative for dizziness and headaches. See HPI Objective BP 102/70 (BP Site: Right Arm, BP Position: Sitting, BP Cuff Size: Regular Adult) Pulse 80 Temp 36.6 C (97.8 F) (Oral) Resp 18 Ht 163.2 cm (5' 4.25) Wt 91.2 kg (201 lb) LMP 09/14/2023 (Exact Date) BMI 34.23 kg/m Physical Exam Vitals and nursing note reviewed. Constitutional: General: She is not in acute distress. Appearance: She is not ill-appearing. Cardiovascular: Rate and Rhythm: Normal rate and regular rhythm. Pulses: Normal pulses. Heart sounds: Normal heart sounds. Pulmonary: Effort: Pulmonary effort is normal. Breath sounds: Normal breath sounds. Musculoskeletal: Right wrist: Tenderness present. Decreased range of motion. Left wrist: Normal. Right hand: Tenderness present. Decreased range of motion. Decreased strength. Decreased sensation. There is disruption of two-point discrimination. Left hand: Normal. Comments: Positive tinel's and phalens on right Skin: General: Skin is warm and dry. Neurological: Mental Status: She is alert and oriented to person, place, and time. Psychiatric: Mood and Affect: Mood normal. Behavior: Behavior normal. Thought Content: Thought content normal. Judgment: Judgment normal. ASSESSMENT/PLAN: 1. Pain in both hands - ICD9: 729.5, ICD10: M79.641, M79.642 (primary diagnosis) - Chronic, R>L, symptoms consistent with CTS, DD tendonitis. (+) tinel's and Phalen on right. Will order EMG. Reviewed exercises and use of splint at night. Will refer to ortho for evaluation and further recommendations. - CONSULT TO ORTHOPAEDICS - EMG(NEURO/NI) - COCK-UP WRIST SPLINT 2. Disturbance of skin sensation - ICD9: 782.0, ICD10: R20.9 - see above - CONSULT TO ORTHOPAEDICS - EMG(NEURO/NI) - COCK-UP WRIST SPLINT Geneveive Mccallum APRN.SINGLE POINTED OPERATOR documented in this encounter [facility] 11-08-2023 Note HNO ID: [id number] Author: GENEVIEVE MCCALLUM APRN.SINGLE POINTED OPERATOR Service: ? Author Type: Nurse Practitioner Type: Progress Notes Filed: 11/08/2023 12:57 Note Text: This note was created using [employer]. Subjective Gordo Khan is a 23 year old female here today that she might be . Reports she was concerned because she did not get her period for about a month. States she had one test that was positive than negative. Reportes she got her period 11/04/23. Prior her LMP was 09/14/23. She reports she is doing okay. She has been trying to get for about a year now. Denies fever, chills, abd pain. ALLERGIES Allergen Reactions Cats Tran Hives, Itching, Rash, Shortness of Breath, Swelling Latex Hives, Itching, Rash, Swelling No current outpatient medications on file. No current facility-administered medications for this visit. ACTIVE PROBLEM LIST Attention Deficit Disorder (Add) Irregular Menses Marfanoid Habitus Obesity, Class I, Bmi 30-34.9 PAST MEDICAL HISTORY Diagnosis Date Attention deficit disorder (ADD) 05/29/2008 Depression Generalized anxiety disorder Menarche 05/29/2009 menstral cycle PMH - PAST MEDICAL HISTORY OF Color Vision - Normal PAST SURGICAL HISTORY Procedure Laterality Date EXTRACTION ERUPTED TOOTH/EXR 2023 wisdom teeth Social History Tobacco Use Smoking status: Never Passive exposure: Yes Smokeless tobacco: Never Tobacco comments: Mom smokes in her bedroom Vaping Use Vaping Use: Some days Substances: Nicotine Substance Use Topics Alcohol use: Yes Comment: occasionally Drug use: Not Currently Types: Marijuana Family History Problem Relation Age of Onset Diabetes Mother other (irritable bowel syndrome) Mother No Known Problems Father Stroke Maternal Grandmother Diabetes Maternal Grandmother Multiple Sclerosis Maternal Grandmother Diabetes Maternal Grandfather Bipolar disorder Maternal Grandfather Schizophrenia Maternal Grandfather Cancer Paternal Grandmother Depression Half-brother Suicide Attempts Half-brother Asthma Half-sister other (eating disorder) Half-sister Leukemia Paternal cousin 8 . Review of Systems Constitutional: Negative for activity change, chills, diaphoresis, fatigue and fever. Respiratory: Negative for shortness of breath. Cardiovascular: Negative for chest pain. Genitourinary: Positive for vaginal bleeding. Negative for decreased urine volume, difficulty urinating, dyspareunia, dysuria, flank pain, frequency, genital sores, hematuria, pelvic pain, urgency, vaginal discharge and vaginal pain. See HPI Neurological: Negative for dizziness. Psychiatric/Behavioral: Negative for dysphoric mood. The patient is not nervous/anxious. Objective BP 102/72 (BP Site: Right Arm, BP Position: Sitting, BP Cuff Size: Regular Adult) Pulse 82 Temp 36.8 ?C (98.2 ?F) (Oral) Resp 18 Ht 163.2 cm (5' 4.25) Wt 88.4 kg (194 lb 12.8 oz) LMP 09/14/2023 (Exact Date) SpO2 97% BMI 33.18 kg/m? Physical Exam Vitals and nursing note reviewed. Constitutional: General: She is not in acute distress. Appearance: She is not ill-appearing. Cardiovascular: Rate and Rhythm: Normal rate and regular rhythm. Pulses: Normal pulses. Heart sounds: Normal heart sounds. No murmur heard. Pulmonary: Effort: Pulmonary effort is normal. Breath sounds: Normal breath sounds. Abdominal: Palpations: Abdomen is soft. Tenderness: There is no abdominal tenderness. Skin: General: Skin is warm and dry. Neurological: Mental Status: She is alert and oriented to person, place, and time. Psychiatric: Mood and Affect: Mood normal. Behavior: Behavior normal. Thought Content: Thought content normal. Judgment: Judgment normal. ASSESSMENT/PLAN: 1. Irregular menses - ICD9: 626.4, ICD10: N92.6 - missed period. She has now had her period. Normal bleeding. Support provided - encouraged to follow up with OPERATIONS LEAD if further concerns regarding . I did encourage her if this is something she is desiring she should be taking vitamin. She does not smoke. - call if any concerns Genevieve Mccallum APRN.[facility] 11-08-2023 History of Present illness Narrative This note was created using [employer]. Subjective Gordo Khan is a 23 year old female here today that she might be . Reports she was concerned because she did not get her period for about a month. States she had one test that was positive than negative. Reportes she got her period 11/04/23. Prior her LMP was 09/14/23. She reports she is doing okay. She has been trying to get for about a year now. Denies fever, chills, abd pain. ALLERGIES Allergen Reactions Cats Tran Hives, Itching, Rash, Shortness of Breath, Swelling Latex Hives, Itching, Rash, Swelling No current outpatient medications on file. No current facility-administered medications for this visit. ACTIVE PROBLEM LIST Attention Deficit Disorder (Add) Irregular Menses Marfanoid Habitus Obesity, Class I, Bmi 30-34.9 PAST MEDICAL HISTORY Diagnosis Date Attention deficit disorder (ADD) 05/29/2008 Depression Generalized anxiety disorder Menarche 05/29/2009 menstral cycle PMH - PAST MEDICAL HISTORY OF Color Vision - Normal PAST SURGICAL HISTORY Procedure Laterality Date EXTRACTION ERUPTED TOOTH/EXR 2023 wisdom teeth Social History Tobacco Use Smoking status: Never Passive exposure: Yes Smokeless tobacco: Never Tobacco comments: Mom smokes in her bedroom Vaping Use Vaping Use: Some days Substances: Nicotine Substance Use Topics Alcohol use: Yes Comment: occasionally Drug use: Not Currently Types: Marijuana Family History Problem Relation Age of Onset Diabetes Mother other (irritable bowel syndrome) Mother No Known Problems Father Stroke Maternal Grandmother Diabetes Maternal Grandmother Multiple Sclerosis Maternal Grandmother Diabetes Maternal Grandfather Bipolar disorder Maternal Grandfather Schizophrenia Maternal Grandfather Cancer Paternal Grandmother Depression Half-brother Suicide Attempts Half-brother Asthma Half-sister other (eating disorder) Half-sister Leukemia Paternal cousin 8 . Review of Systems Constitutional: Negative for activity change, chills, diaphoresis, fatigue and fever. Respiratory: Negative for shortness of breath. Cardiovascular: Negative for chest pain. Genitourinary: Positive for vaginal bleeding. Negative for decreased urine volume, difficulty urinating, dyspareunia, dysuria, flank pain, frequency, genital sores, hematuria, pelvic pain, urgency, vaginal discharge and vaginal pain. See HPI Neurological: Negative for dizziness. Psychiatric/Behavioral: Negative for dysphoric mood. The patient is not nervous/anxious. Objective BP 102/72 (BP Site: Right Arm, BP Position: Sitting, BP Cuff Size: Regular Adult) Pulse 82 Temp 36.8 C (98.2 F) (Oral) Resp 18 Ht 163.2 cm (5' 4.25) Wt 88.4 kg (194 lb 12.8 oz) LMP 09/14/2023 (Exact Date) SpO2 97% BMI 33.18 kg/m Physical Exam Vitals and nursing note reviewed. Constitutional: General: She is not in acute distress. Appearance: She is not ill-appearing. Cardiovascular: Rate and Rhythm: Normal rate and regular rhythm. Pulses: Normal pulses. Heart sounds: Normal heart sounds. No murmur heard. Pulmonary: Effort: Pulmonary effort is normal. Breath sounds: Normal breath sounds. Abdominal: Palpations: Abdomen is soft. Tenderness: There is no abdominal tenderness. Skin: General: Skin is warm and dry. Neurological: Mental Status: She is alert and oriented to person, place, and time. Psychiatric: Mood and Affect: Mood normal. Behavior: Behavior normal. Thought Content: Thought content normal. Judgment: Judgment normal. ASSESSMENT/PLAN: 1. Irregular menses - ICD9: 626.4, ICD10: N92.6 - missed period. She has now had her period. Normal bleeding. Support provided - encouraged to follow up with OPERATIONS LEAD if further concerns regarding . I did encourage her if this is something she is desiring she should be taking vitamin. She does not smoke. - call if any concerns Genevieve Mccallum APRN.SINGLE POINTED OPERATOR documented in this encounter [facility] 10-03-2023 History of Present illness Narrative Gordo is a 23 year old who presents for an annual gynecologic exam without complaints. Menses: cycles every 21-45 days and 3 days of flow. 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 History Comments: Sexual Activity: Yes; Male Contraception: No contraception data on record PAST MEDICAL HISTORY Diagnosis Date Attention deficit disorder (ADD) 05/29/2008 Depression Generalized anxiety disorder Menarche 05/29/2009 menstral cycle PMH - PAST MEDICAL HISTORY OF Color Vision - Normal PAST SURGICAL HISTORY Procedure Laterality Date EXTRACTION ERUPTED TOOTH/EXR 2023 wisdom teeth FAMILY HISTORY Problem Relation Age of Onset Diabetes Mother other (irritable bowel syndrome) Mother No Known Problems Father Stroke Maternal Grandmother Diabetes Maternal Grandmother Multiple Sclerosis Maternal Grandmother Diabetes Maternal Grandfather Bipolar disorder Maternal Grandfather Schizophrenia Maternal Grandfather Cancer Paternal Grandmother Depression Half-brother Suicide Attempts Half-brother Asthma Half-sister other (eating disorder) Half-sister Leukemia Paternal cousin 8 SOCIAL HISTORY Social History Tobacco Use Smoking status: Never Passive exposure: Yes Smokeless tobacco: Never Tobacco comments: Mom smokes in her bedroom Vaping Use Vaping Use: Some days Substances: Nicotine Substance Use Topics Alcohol use: Yes Comment: occasionally Drug use: Not Currently Types: Marijuana REVIEW OF SYSTEMS Abdomen: No abdominal pain, nausea, vomiting, diarrhea, or constipation. No bloating, early satiety, indigestion, or increased flatulence. Bladder: No dysuria, gross hematuria, urinary frequency, urinary urgency, or incontinence. Breast: No breast lumps, nipple d/c, overlying skin changes, redness or skin retraction. Allergies and current medication updated:Yes EXAM: Ht 5' 4.25 (1.63m) Wt 198 lb (89.8kg) LMP 09/14/2023 BMI 33.72 kg/(m^2). GENERAL: pleasant, female in no apparent distress HEENT: Normocephalic, atraumatic, mucus membranes moist, and no lesions NECK: Supple, full range of motion, no adenopathy, and thyroid normal DERMATOLOGY: Normal, without lesions, non-icteric, and non-hirsute BREAST: soft, non-tender, symmetric, no dominant mass, normal nipple-areolar complex, no lymphadenopathy, and no nipple discharge CHEST: Normal inspiratory effort ABDOMEN: soft, non-tender, and no masses PELVIC: external genitalia normal, normal Bartholin's glands, urethra, [place]'s glands, no vulvar lesions, no cervical lesions, good vaginal support, physiologic discharge present, normal appearing perineal body and perianal region BIMANUAL: uterus normal size, shape and consistency, no adnexal masses, and non-tender RECTOVAGINAL: deferred. NEURO: alert and oriented x3,exam grossly non-focal EXTREMITIES: normal ASSESSMENT/PLAN: 1) Health maintenance: Pap done with reflex HPV. Mammogram starting age 40. Nutrition, exercise and routine health maintenance exams reviewed. Calcium/Vitamin D supplementation information provided. HPV vaccine: completed series 2) Contraception: none. Contraceptive options reviewed and information provided. 3) STD screening: Declined STD check. 4) Follow up one year or sooner as needed Recommended starting a PNV and using ovulation kits Traci Judd APRN.TAMARA documented in this encounter [facility] 09-04-2023 Miscellaneous Notes Patient notified and voiced understanding. Shakira Barnes MA ----- Message from Genevieve Mccallum APRN.SINGLE POINTED OPERATOR sent at 09/04/2023 11:59 AM EDT ----- Let pt know her lipids- TC and LDL are both elevated. Reduce fat in diet and increase exercise to help lower, increase fiber in diet can also help CBC, thyroid and cmp all wnl documented in this encounter [facility] 09-04-2023 Nurse Note Immunizations were given as ordered. Vaccination information sheet(s) given. Yecenia Blue MA documented in this encounter [facility] 09-04-2023 Instructions Genevieve Mccallum, RAMP ATTENDANT.SINGLE POINTED OPERATOR - 09/04/2023 8:56 AM EDT ASSESSMENT/PLAN: 1. Wellness examination - ICD9: V70.0, ICD10: Z00.00 (primary diagnosis) - Counseled on healthy diet and regular exercise - Calcium intake with supplements or by diet of 1000 mg/day for under 50, 8125-8627 mg/day for 50+ - Discussed need and benefit for weight loss. BMI 33.29 kg/(m^2) - Vaping cessation encouraged; discussed risks to health and quitting strategies. Patient is not ready to quit - Counseled patient on limiting alcohol intake to 1 drink per day - Depression screening tool completed and reviewed with patient. Based on score and interview, patient is already diagnosed with depression and recommended no further intervention at this time. - Follow up for annual exam in one year 2. Encounter for medical examination to establish care - ICD9: V70.9, ICD10: Z00.00 - Counseled on healthy diet and regular exercise - Calcium intake with supplements or by diet of 1000 mg/day for under 50, 6576-4714 mg/day for 50+ - Counseled patient on limiting alcohol intake to 1 drink per day - Depression screening tool completed and reviewed with patient. Based on score and interview, patient is already diagnosed with depression and recommended no further intervention at this time. 3. Encounter for immunization - ICD9: V03.89, ICD10: Z23 - MENINGOCOCCAL B VACCINE (BEXSERO) - IMADM PRQ ID SUBQ/IM NJXS 1 VACC 4. Screening for cervical cancer - ICD9: V76.2, ICD10: Z12.4 - CONSULT TO GYNECOLOGY 5. Screening for thyroid disorder - ICD9: V77.0, ICD10: Z13.29 - TSH BLD 6. Screening for lipid disorders - ICD9: V77.91, ICD10: Z13.220 - LIPID PANEL BASIC 7. Screening for deficiency anemia - ICD9: V78.1, ICD10: Z13.0 - CBC 8. Encounter for screening for diabetes mellitus - ICD9: V77.1, ICD10: Z13.1 - COMP METABOLIC PANEL 9. Encounter for hepatitis C screening test for low risk patient - ICD9: V73.89, ICD10: Z11.59 - HEPATITIS C ANTIBODY IA WITH CONFIRMATION 10. Screening for HIV (human immunodeficiency virus) - ICD9: V73.89, ICD10: Z11.4 - HIV 1 2 COMBO(AG/AB),WITH REFLEX TO DIFFERENTIATION Genevieve Mccallum APRN.SINGLE POINTED OPERATOR GET HELP If you have symptoms of clinical depression, you can get help by doing one or more of the followin. Please talk with your doctor. 2. If you are already in treatment, make sure you contact and update your doctor or therapist. 3. Review additional options for care based on patient or provider preference: Central/Multiple Locations: [facility]: [address] [facility] - [phone] Edwardo Zhu: [address] [facility] - [phone] [facility]: [address] [facility] - [phone] [facility]: [address] [facility] - [phone] [place] for [facility]: [address] [place] [address] - [phone] (Medicaid only) [facility]: Multiple Locations - [phone] [facility] Department of Psychiatry & Psychology at [phone] (select Option 1) or [phone] (select Option 1) Connections: Multiple Locations - [phone] (Medicaid only) Kaleb Ellis [facility] - Multiple Locations - [phone] (Medicaid only) [facility] Multiple Locations - [phone] Psychological and Behavioral Consultants: Multiple Locations - [phone] [facility]: Multiple Locations - [phone] [place] Locations: [facility]: [address] [facility] - [phone] [facility]: [address] [place] - [phone] Rebecca Small PhD and Associates: [address] [place] - [phone] [facility] - [address] [place] - [phone] Jase Winter MD: [address] [facility] - [phone] [facility] [address] [facility], [place] - [phone] [facility]: [address] [facility], [place] - [phone] [facility] Counseling/Growth [place], [address] [facility] - [phone] [place] Locations: Priya Gonzalez MD [facility]: [address], [place] - [phone] Rebecca Small PhD [facility] Associates: [address] [facility] - [phone] [facility]: [address] [facility] - [phone] [facility] [address] [facility] - [phone] [facility], [address] - [phone] [facility] [place], [address] [facility] - [phone] [facility]: [address] [facility] [phone] [place] Locations: [facility] - [phone] [facility] Services L Zaria Johnston, [facility] - [phone] [facility] Psychiatry: [address] - [phone] [facility]: [address] [facility] - [phone] [facility] - [address] - [phone] [place] Locations: [facility] - Mark Plata MD Psychiatry, Sleep Medicine - [address] [facility] [phone] or [phone] Zach oSni MD - 24[address] [facility] [phone] [facility] Consultants - KAVITA Celis, [facility] - [address] [phone] [facility] - [address] [phone] [facility] (NO Commercial Insurance accepted) - [address] [phone] [place] [facility] - Bong Kamara, [facility], [facility] - [address] [phone] Corrine Valladares, [facility] - [address] [facility] [phone] Donna Cummings, [facility] - [address] [phone] Leonardo Stinson, [facility] - [address] [phone] Geneva Hernandez, [facility] - [address] [phone] Valentina Albrecht, [facility], [place] (No Medicare, [place], [employer]) - [address] [place] [phone] [place], [facility] - [address] [phone] Martir Maria, [facility] - [address] [phone] For additional resources and information please call or review the website: http://www.[address] [place] [address].org/ If you are feeling suicidal, please call [employer], , or the National Suicide Hotline , Call 571, or go to your nearest emergency room documented in this encounter [facility] 09-04-2023 History of Present illness Narrative This note was created using NoteWriter. Subjective Gordo Khan is a 23 year old female here today to establish care. PMH depression, anxiety, ADD. Patient denies changes in health since last office visit. Reports feeling well. Denies concerns or complaints today. I reviewed patients past medical, surgical, social, and family histories today and updated chart. Allergies, chronic medications, and supplements were also reviewed and list is now up to date. She reports concern for weight gain. States she weighed 185 lbs ~ 2wks ago. And states she is now 198 lbs. She reports she exercise 2-3x/wk with kaylie on her phone. She reports she will at times not eat. States she tries to watch her diet. She would like her second meninginitis vaccine. She does not smoke tobacco but admits to occasionally vapping. She drinks alcohol rarely. ALLERGIES Allergen Reactions Cats Tran Hives, Itching, Rash, Shortness of Breath, Swelling Latex Hives, Itching, Rash, Swelling No current outpatient medications on file. No current facility-administered medications for this visit. ACTIVE PROBLEM LIST Attention Deficit Disorder (Add) Irregular Menses Marfanoid Habitus ALLERGIES Allergen Reactions Cats Tran Hives, Itching, Rash, Shortness of Breath, Swelling Latex Hives, Itching, Rash, Swelling No current outpatient medications on file. No current facility-administered medications for this visit. ACTIVE PROBLEM LIST Attention Deficit Disorder (Add) Irregular Menses Marfanoid Habitus PAST MEDICAL HISTORY Diagnosis Date Attention deficit disorder (ADD) 05/29/2008 Depression Generalized anxiety disorder Menarche 05/29/2009 menstral cycle PMH - PAST MEDICAL HISTORY OF Color Vision - Normal PAST SURGICAL HISTORY Procedure Laterality Date NONE Social History Tobacco Use Smoking status: Never Passive exposure: Yes Smokeless tobacco: Never Tobacco comments: Mom smokes in her bedroom Vaping Use Vaping Use: Some days Substances: Nicotine Substance Use Topics Alcohol use: Yes Comment: occasionally Drug use: Not Currently Types: Marijuana Family History Problem Relation Age of Onset Diabetes Mother other (irritable bowel syndrome) Mother No Known Problems Father Stroke Maternal Grandmother Diabetes Maternal Grandmother Multiple Sclerosis Maternal Grandmother Diabetes Maternal Grandfather Bipolar disorder Maternal Grandfather Schizophrenia Maternal Grandfather Cancer Paternal Grandmother Asthma Half-sister other (eating disorder) Half-sister Depression Half-brother Suicide Attempts Half-brother Leukemia Paternal cousin 8 Review of Systems Constitutional: Negative for activity change, appetite change, chills, diaphoresis, fatigue, fever and unexpected weight change. HENT: Negative for congestion, drooling, ear pain, postnasal drip, sinus pressure, sinus pain, sore throat and trouble swallowing. Eyes: Negative for photophobia and visual disturbance. Respiratory: Positive for shortness of breath. Negative for cough, chest tightness and wheezing. Reports she gets sob with above normal activity Cardiovascular: Negative for chest pain, palpitations and leg swelling. Gastrointestinal: Negative for abdominal pain, blood in stool, constipation, diarrhea, nausea and vomiting. Endocrine: Negative. Genitourinary: Negative for difficulty urinating, dysuria, frequency, hematuria and urgency. LMP- 08/05/23, she reports irregular periods. States she will skip a month. Not on any control. She is trying to conceive. Musculoskeletal: Negative for arthralgias, back pain, myalgias and neck pain. Skin: Negative for color change and rash. Neurological: Positive for headaches. Negative for dizziness, weakness, light-headedness and numbness. Chronic, HAs and dizziness. She reports she will get them about 2x/wk. States she will take tylenol and will shut eyes with wash clothe which helps. States she has been getting them since 2018. States she was worked up for them. Denies triggers. She reports no aura Hematological: Negative. Negative for adenopathy. Does not bruise/bleed easily. Psychiatric/Behavioral: Positive for dysphoric mood. Negative for confusion and sleep disturbance. The patient is not nervous/anxious. Reports feeling down. Denies thoughts of suicide or of hurting self. She reports all this has improved since getting . She is currently in good relationship. Reports best she has felt in a long while Objective BP 118/70 Pulse 79 Temp 36.9 C (98.4 F) Resp 16 Ht 163.8 cm (5' 4.5) Wt 89.4 kg (197 lb) LMP 05/31/2023 (Approximate) SpO2 97% BMI 33.29 kg/m Physical Exam Vitals and nursing note reviewed. Constitutional: General: She is not in acute distress. Appearance: Normal appearance. She is not ill-appearing or diaphoretic. HENT: Head: Normocephalic and atraumatic. Right Ear: Tympanic membrane, ear canal and external ear normal. Left Ear: Tympanic membrane, ear canal and external ear normal. Nose: Nose normal. No congestion or rhinorrhea. Mouth/Throat: Mouth: Mucous membranes are moist. Pharynx: No oropharyngeal exudate. Eyes: General: Lids are normal. No scleral icterus. Right eye: No discharge. Left eye: No discharge. Conjunctiva/sclera: Conjunctivae normal. Pupils: Pupils are equal, round, and reactive to light. Neck: Vascular: Normal carotid pulses. No carotid bruit. Cardiovascular: Rate and Rhythm: Normal rate and regular rhythm. Pulses: Normal pulses. Heart sounds: Normal heart sounds, S1 normal and S2 normal. No murmur heard. No friction rub. No gallop. Pulmonary: Effort: Pulmonary effort is normal. No accessory muscle usage or respiratory distress. Breath sounds: Normal breath sounds. No decreased breath sounds, wheezing, rhonchi or rales. Chest: Chest wall: No tenderness. Abdominal: General: Bowel sounds are normal. There is no distension. Palpations: Abdomen is soft. Tenderness: There is no abdominal tenderness. Musculoskeletal: General: No tenderness. Normal range of motion. Cervical back: Normal range of motion and neck supple. Right lower leg: No edema. Left lower leg: No edema. Skin: General: Skin is warm and dry. Coloration: Skin is not pale. Findings: No erythema or rash. Nails: There is no clubbing. Neurological: General: No focal deficit present. Mental Status: She is alert and oriented to person, place, and time. Motor: No weakness or abnormal muscle tone. Coordination: Coordination normal. Gait: Gait normal. Deep Tendon Reflexes: Reflexes are normal and symmetric. Psychiatric: Attention and Perception: Attention and perception normal. Mood and Affect: Mood normal. Speech: Speech normal. Behavior: Behavior normal. Behavior is cooperative. Thought Content: Thought content normal. Cognition and Memory: Cognition and memory normal. Judgment: Judgment normal. ASSESSMENT/PLAN: 1. Wellness examination - ICD9: V70.0, ICD10: Z00.00 (primary diagnosis) - Counseled on healthy diet and regular exercise - Calcium intake with supplements or by diet of 1000 mg/day for under 50, 6463-7219 mg/day for 50+ - Discussed need and benefit for weight loss. BMI 33.29 kg/(m^2) - Vaping cessation encouraged; discussed risks to health and quitting strategies. Patient is not ready to quit - Counseled patient on limiting alcohol intake to 1 drink per day - Depression screening tool completed and reviewed with patient. Based on score and interview, patient is already diagnosed with depression and recommended no further intervention at this time. - Follow up for annual exam in one year 2. Encounter for medical examination to establish care - ICD9: V70.9, ICD10: Z00.00 - Counseled on healthy diet and regular exercise - Calcium intake with supplements or by diet of 1000 mg/day for under 50, 8412-9224 mg/day for 50+ - Counseled patient on limiting alcohol intake to 1 drink per day - Depression screening tool completed and reviewed with patient. Based on score and interview, patient is already diagnosed with depression and recommended no further intervention at this time. 3. Encounter for immunization - ICD9: V03.89, ICD10: Z23 - MENINGOCOCCAL B VACCINE (BEXSERO) - IMADM PRQ ID SUBQ/IM NJXS 1 VACC - given today in office 4. Screening for cervical cancer - ICD9: V76.2, ICD10: Z12.4 - CONSULT TO GYNECOLOGY 5. Screening for thyroid disorder - ICD9: V77.0, ICD10: Z13.29 - TSH BLD 6. Screening for lipid disorders - ICD9: V77.91, ICD10: Z13.220 - LIPID PANEL BASIC 7. Screening for deficiency anemia - ICD9: V78.1, ICD10: Z13.0 - CBC 8. Encounter for screening for diabetes mellitus - ICD9: V77.1, ICD10: Z13.1 - COMP METABOLIC PANEL 9. Encounter for hepatitis C screening test for low risk patient - ICD9: V73.89, ICD10: Z11.59 - HEPATITIS C ANTIBODY IA WITH CONFIRMATION 10. Screening for HIV (human immunodeficiency virus) - ICD9: V73.89, ICD10: Z11.4 - HIV 1 2 COMBO(AG/AB),WITH REFLEX TO DIFFERENTIATION Genevieve Mccallum APRN.SINGLE POINTED OPERATOR documented in this encounter [facility] 06-01-2023 Discharge summary Note Date/Time June 01, 2023 2:09[facility] Medical Records Department [address] [place] [address] Emergency Department Summary 06/01/23 MR#: [id number] Acct: [id number] Name: GORDO KHAN Rep #:[id number] : 2000 23 From: Dereje Sanchez MD PCP: Dr. Gabino Summers MD Status :PRE ER Location: ED HPI HPI - URI History of Present Illness Chief Complaint: Cold Sx Detail of Chief Complaint: Upper respiratory tract infectious symptoms with fever, chills and myalgias Informant: patient Onset/Context/Timing Onset: Yesterday Context: Sudden Onset Timing: Continuous Quality: Documented temperature to 102.8 ?F, upper respiratory tract symptoms Location: Generalized Current Severity: Mild Maximum Severity: Severe Worsened by: Not Worsened By Swallowing, Eating Solids or Drinking Liquids Relieved by: Not Relieved By Tylenol or NSAIDs Associated Symptoms Associated Symptoms: Positive for Nasal Congestion, Headache, Myalgias, Nausea, Shortness of Breath, Chest Pain and Nonproductive cough; Negative for Sinus Pressure, Vomiting, Diarrhea, Hemoptysis or Productive Cough Narrative Narrative: Patient is a 23-year-old who presents with document temperature 102.8 ?F with headache, myalgias, arthralgias, nonproductive cough with nasal congestion, postnasal drainage sore throat. She denies any ill contacts. She denies light sensitivity, neck stiffness. She does report nausea without vomiting diarrhea. She denies urologic symptoms. Patient states she is not . Prior similar symptoms: No Recent Illness/Hospitalization: No ROS ROS ED Constitutional Constitutional ED: Reports chills, fever(s) and sweats Eyes Eyes: Denies blurry vision, change in vision or diplopia ENT ENT ED: Reports rhinorrhea and sore throat; Denies ear pain Cardiovascular Cardiovascular: Reports chest pain; Denies orthopnea, palpitations, paroxysmal nocturnal dyspnea or racing heartbeat Respiratory/Chest Respiratory/Chest: Reports cough and dyspnea; Denies dyspnea on exertion, orthopnea, paroxysmal nocturnal dyspnea or sputum Gastrointestinal Gastrointestinal: Reports nausea; Denies abdominal pain, diarrhea or vomiting Genitourinary Genitourinary ED: Denies dysuria, hematuria or urinary frequency Musculoskeletal Musculoskeletal: Reports arthralgias and myalgias; Denies back pain or neck pain Integumentary Denies Abrasions or rash Neurologic Neurologic: Reports headache(s); Denies paresthesias or weakness Endocrine Endocrinology: Denies cold intolerance or heat intolerance Hematologic/Lymphatic Hematologic/Lymphatic: Denies easy bleeding or easy bruising [facility] Medical History Anxiety Depression Encounter for screening for COVID-19 Home Medications ondansetron 4 mg disintegrating tablet 4 mg PO Q8H PRN nausea and vomiting #10 tabs 05/14/22 [Rx Last Taken Unknown] cephalexin 500 mg capsule 500 mg PO Q12H 06/01/23 [History Last Taken Unknown] ondansetron 4 mg disintegrating tablet 4 mg PO Q8H PRN PRN Nausea #10 tabs 06/01/23 [Rx Last Taken Unknown] oseltamivir 75 mg capsule (Tamiflu) 75 mg PO BID 5 days #10 caps 06/01/23 [Rx Last Taken Unknown] Allergy/AdvReac Type Severity Reaction Status Date / Time No Known Allergies Allergy Verified 06/01/23 11:26 Social History household members: family current occupational status: employed Smoking Status: Never smoker EXAM Physical Exam Const Vital Signs: 06/01/23 11:26 06/01/23 13:25 06/01/23 13:27 Temperature 102.0 F H Temperature Source Oral Pulse Rate 121 H 120 H Respiratory Rate 18 12 Respiratory Pattern Normal Blood Pressure 102/56 L Blood Pressure Mean 71 Pulse Ox 99 98 Oxygen Delivery Method Room Air Vital signs remarkable temperature 102.0 ?F with a heart rate of 120. Positive well nourished and well developed Constitutional Narrative: Patient appears ill but not toxic. General Appearance ED: well developed; Negative for cyanotic, diaphoretic or pallor HEENT Reports dry mucous membranes normocephalic and atraumatic Face and Sinus: Negative for sinus tenderness Mouth ED: Yes dry mucous membranes Mouth: dry mucous membranes Throat: posterior oropharynx normal Eyes PERRL and EOMs intact bilaterally General Eye ED: Negative for pale conjunctiva or scleral icterus Neck no lymphadenopathy, supple and no meningeal signs Resp normal respiratory effort and clear to auscultation bilaterally Cardio S1 normal heart sound, S2 normal heart sound and no murmurs Rate: tachycardic Rhythm: regular rhythm GI non-tender, non-distended and no masses Auscultation: normoactive bowel sounds Palpation: soft Back/Spine no CVA tenderness Extremity normal to inspection and full ROM General Extremety ED: Negative for cyanosis General Extremity: Negative for cyanosis Neuro oriented x3, CN's II-XII intact bilaterally and no sensory deficits noted Sensorium / Orientation: alert Psych mental status grossly normal Skin General Skin Exam: Negative for jaundice or pallor Lesions: no lesions Rashes: no rashes MDM MDM MDM Narrative Medical decision making narrative: Patient with upper respiratory tract infectious symptoms. Will obtain swab to rule out COVID versus influenza versus RSV. Since patient's respiratory rate isnormal with no hypoxia and no abnormal oscillatory findings x-ray was not obtained. Patient was treated with Zofran for her nausea. She was prescribed Tamiflu. She was given a work excuse. Prior records indicate patient had uncomplicated . Otherwise unremarkable. 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 Instructions: ED Influenza (Adult) Prescriptions: New oseltamivir [Tamiflu] 75 mg capsule 75 mg PO BID 5 Days Qty: 10 0RF ondansetron [ondansetron] 4 mg tablet,disintegrating 4 mg PO Q8H PRN PRN (Reason: Nausea) Qty: 10 0RF No Action ondansetron 4 mg tablet,disintegrating 4 mg PO Q8H PRN (Reason: nausea and vomiting) Qty: 10 0RF cephalexin 500 mg capsule 500 mg PO Q12H Patient Comments: TAKE 1 CAPSULE BY MOUTH TWICE DAILY Primary Care Provider: Gabino Summers Referrals: Gabino Summers MD [Primary Care Provider] - 1 Week if not improving Disposition Disposition: Home, Self Care What to do if you have Problems For any increased pain, shortness of breath, bleeding, nausea or vomiting, chestpain, or any unexpected problems, contact your Primary Care Provider. Call [facility] ([phone]) or report to the closest Emergency Room. Call 911 if necessary. 06/01/23 1411 <Electronically signed by Dereje Sanchez MD> Cosigner Signature (if applicable): CC: Dr. Gabino Summers MD ~ Signed [facility] Work Phone: [phone] 781-857912-29-2023 Discharge summary Author Timi Mñuoz [facility] May 26, 2023 10:57pm Note Date/Time May 26, 2023 10:36pm [facility] Medical Records Department [address] [place] [address] Emergency Department Summary 05/26/23 MR#: [id number] Acct: [id number] Name: GORDO KHAN Rep #:[id number] : 2000 23 From: Timi Muñoz MD PCP: Dr. Gabino Summers MD Status :REG ER Location: ED HPI History of Present Illness Chief Complaint: General Illness Informant: patient Onset/Context/Timing Onset: Days Context: Gradual Onset Timing: Continuous Maximum Severity: Mild Narrative Narrative: 23-year-old female no seen past medical history. URI symptoms with a sore throat last 3 days. No vomiting or diarrhea. No dysuria. She also requested to be tested to see if she might be . Last menstrual period was 04/21/23. No abdominal pain. No vaginal bleeding. Prior similar symptoms: Yes Recent Illness/Hospitalization: No PFSH PFSH Medical History Anxiety Depression Encounter for screening for COVID-19 Home Medications amoxicillin 875 mg-potassium clavulanate 125 mg tablet 1 tab PO BID #20 tabs 05/14/22 [Rx Last Taken Unknown] ondansetron 4 mg disintegrating tablet 4 mg PO Q8H PRN nausea and vomiting #10 tabs 05/14/22 [Rx Last Taken Unknown] Allergy/AdvReac Type Severity Reaction Status Date / Time No Known Allergies Allergy Verified 05/26/23 21:36 Social History Smoking Status: Never smoker ROS ROS ED ROS Narrative Cough, fever, chills and sore throat. Review of Systems ROS Unobtainable: Denies due to encephalopathy Constitutional Constitutional ED: Reports chills, fever(s) and subjective Eyes Eyes: Denies blurry vision ENT ENT ED: Reports sore throat; Denies ear pain or rhinorrhea Cardiovascular Cardiovascular: Denies chest pain or palpitations Respiratory/Chest Respiratory/Chest: Reports cough Gastrointestinal Gastrointestinal: Denies abdominal pain, constipation, diarrhea, melena, nausea or vomiting Genitourinary Genitourinary ED: Denies dysuria or hematuria Musculoskeletal Musculoskeletal: Denies arthralgias or back pain Integumentary Denies abscess or Abrasions Neurologic Neurologic: Denies headache(s) Psychiatric Psychiatric: Denies anxiety or depression Endocrine Endocrinology: Denies cold intolerance Hematologic/Lymphatic Hematologic/Lymphatic: Reports none Allergic/Immunologic Allergic/Immunologic ED: Denies mouth swelling, tongue swelling or urticaria EXAM Physical Exam Narrative Exam Narrative: 23-year-old female no acute distress. Vital signs stable afebrile. Pulse ox 99% room air no hypoxia. H EENT exam TMs normal. Posterior pharynx minimally erythematous. No exudate. No sign of swelling. No trouble swallowing or breathing. Moist mucous membranes. Neck nontender no lymphadenopathy. No meningismus. Lungs clear to auscultation bilaterally. Heart regular rhythm no murmur. Rate about 90. Abdomen soft nontender. Moving all 4 extremities. Nontender no edema. Awake and alert. Answering questions following commands. Const Vital Signs: 05/26/23 21:31 05/26/23 22:48 Temperature 98.6 F Temperature Source Temporal Pulse Rate 97 Respiratory Rate 15 Respiratory Effort Normal Non-Labored Respiratory Pattern Normal Blood Pressure 127/88 H Blood Pressure Mean 101 Pulse Ox 99 Oxygen Delivery Method Room Air Positive well nourished and well developed; Negative for obese, cachectic, contractures or unkempt General Appearance ED: well developed and NAD; Negative for unkempt, cachectic, contractures, cyanotic, diaphoretic or pallor Nutritional Appearance: Negative for cachectic or obese HEENT Reports moist mucous membranes; Denies dry mucous membranes HEENT Narrative: Mild posterior erythema. No exudate. Tonsils are nonenlarged. No abscess. Notrouble breathing or swallowing. Negative for trauma or tenderness Mouth ED: No dry mucous membranes Mouth: No dry mucous membranes Eyes PERRL and EOMs intact bilaterally General Eye ED: Negative for pale conjunctiva or scleral icterus Neck no lymphadenopathy, supple and no JVD General: Negative for tenderness Lymph Lymphatic: Negative for other Chest Wall inspection of chest normal and palpation of chest normal Chest: Negative for other Resp normal respiratory effort and clear to auscultation bilaterally Effort and Inspection: Negative for retractions Auscultation: Negative for rales, rhonchi or wheezes Cardio regular rate, regular rhythm, S1 normal heart sound, S2 normal heart sound and no murmurs Palpation: Negative for palpable S3 or palpable S4 Rate: Negative for bradycardia or tachycardic Rhythm: Negative for abnormal rhythm GI normal to inspection, nondistended, normoactive bowel sounds, non-tender, non-distended and no masses Inspection: Negative for abdominal distention Auscultation: normoactive bowel sounds Palpation: soft; Negative for tender, guarding, mass or rebound tenderness present Bladder / Kidney Exam: No other Back/Spine no CVA tenderness General Back: Negative for CVA tenderness Cervical Spine: Negative for cervical spine tenderness Thoracic Spine / Upper Back: Negative for thoracic spinal tenderness Lumbar Spine / Lower Back: Negative for lumbar spinal tenderness Extremity normal to inspection General Extremety ED: Negative for edema, tenderness or other findings General Extremity: Negative for edema or other findings Neuro oriented x3 and CN's II-XII intact bilaterally Sensorium / Orientation: alert Motor Exam: strength 5/5 throughout Psych mental status grossly normal Appearance: Negative for unkempt Attitude: No agitated Mood & Affect: Negative for depressed, anxious or tearful Skin no rashes or lesions noted, no wounds and skin turgor normal General Skin Exam: elasticity normal; Negative for jaundice or pallor Lesions: No lesion noted Rashes: No rashes noted Trauma: Negative for abrasion Wounds: Negative for wounds noted MDM MDM MDM Narrative Medical decision making narrative: 23-year-old female viral syndrome versus strep throat. Strep being obtained. She also requested a test. Clinically she looks well. She does not need IV, labs or imaging. Repeat exam unchanged. Patient be treated as a viral syndrome. Fluids and rest. Tylenol and Motrin. Warm salt water gargling. Follow-up if not improving or return if worse. History & Record Review Discussion w/independent historian: Patient Additional record(s) reviewed:: Prior inpatient record, Prior outpatient record,Prior ED visit and Prior labs Lab Data Attestation: I reviewed the patient's lab results. Lab results narrative: Rapid strep is negative. Urine test negative. Labs: Laboratory Results - last 24 hr 05/26/23 22:38 Urine Test Negative Discharge Plan Triage Chief Complaint: General Illness ED Provider: Timi Muñoz Dx/Rx/DC Orders Clinical Impression: Viral syndrome Instructions: ED Viral Syndrome (Adult) Prescriptions: No Action amoxicillin-pot clavulanate 875-125 mg tablet 1 tab PO BID Qty: 20 0RF ondansetron 4 mg tablet,disintegrating 4 mg PO Q8H PRN (Reason: nausea and vomiting) Qty: 10 0RF Primary Care Provider: Gabino Summers Referrals: Gabino Summers MD [Primary Care Provider] - As Needed Activity Restrictions/Additional Instructions: Plenty of fluids and rest. Alternate Tylenol and Motrin for fever and body aches. Warm salt water gargling. Follow-up if not improving or return if worse. Your rapid strep test was negative. Your urine test was negative. Disposition Disposition: Home, Self Care What to do if you have Problems For any increased pain, shortness of breath, bleeding, nausea or vomiting, chestpain, or any unexpected problems, contact your Primary Care Provider. Call [facility] ([phone]) or report to the closest Emergency Room. Call 911 if necessary. 05/26/232256 <Electronically signed by Timi Muñoz MD> Cosigner Signature (if applicable): CC: Dr. Gabino Summers MD ~ Signed [facility] Work Phone: [phone] History of Present illness Narrative* Guru Santana, MITCHELL.SINGLE POINTED OPERATOR - 02/06/2023 10:30 AM EDT Subjective HPI Nontoxic-appearing female presents to urgent care with chief complaint of sore throat cough. duration of symptoms 4 days. Associated symptoms sore throat, nasal congestion, nasal discharge and nonproductive cough. Patient denies the use of any winr-flw-izzrajw medications or home remedies for symptom management. No known sick contacts. Most bothersome symptom today is sore throat. Feels like cough is from postnasal drip symptoms.. Patient denies any productive cough, fever, chest pain, shortness of breath, pleuritic pain, rash, abdominal pain, nausea, vomiting or change in bowel or bladder habit. Past medical history prescription medication and allergies reviewed. .Patient presents with: Sore Throat: Cough x 4 days PAST MEDICAL HISTORY Diagnosis Date Attention deficit disorder (ADD) 2009 Menarche 2010 menstral cycle PMH - PAST MEDICAL HISTORY OF Color Vision - Normal PAST SURGICAL HISTORY Procedure Laterality Date NONE ALLERGIES Cats MEDICATIONS cholecalciferol (VITAMIN D3) 5,000 unit tab Take 5,000 Units by mouth once daily. (Patient not taking: Reported on 02/06/2023) 28 mg iron- 800 mcg tab Take 1 tablet by mouth once daily. (Patient not taking: Reported on 02/06/2023) sertraline (ZOLOFT) 50 mg tablet Take 50 mg by mouth once daily. (Patient not taking: Reported on 02/06/2023) albuterol HFA (PROVENTIL HFA, VENTOLIN HFA) 90 mcg/actuation inhaler Inhale 2 Puffs as instructed every 4 hours as needed for wheezing/shortness of breath. (Patient not taking: Reported on 03/03/2022) FAMILY HISTORY Problem Relation Age of Onset other (irritable bowel syndrome) Mother Multiple Sclerosis Maternal Grandmother Diabetes Other Maternal side Stroke Other maternal side other (leukemia) Other 1st cousin Social History Tobacco Use Smoking status: Never Passive exposure: Yes Smokeless tobacco: Never Tobacco comments: Mom smokes in her bedroom Vaping Use Vaping Use: Never used Substance Use Topics Alcohol use: No Drug use: No BP 102/74 Pulse 83 Temp 36.8 C (98.2 F) Resp 21 Wt 84 kg (185 lb 3.2 oz) LMP 04/21/2020 (Approximate) SpO2 98% BMI 32.29 kg/m Review of Systems Constitutional: Negative for chills, fever and malaise/fatigue. HENT: Positive for sore throat. Negative for congestion, ear discharge, ear pain and sinus pain. Eyes: Negative for blurred vision, pain, discharge and redness. Respiratory: Positive for cough. Negative for hemoptysis, sputum production, shortness of breath, wheezing and stridor. Cardiovascular: Negative for chest pain. Gastrointestinal: Negative for abdominal pain, diarrhea, nausea and vomiting. Musculoskeletal: Negative for myalgias. Skin: Negative for itching and rash. Neurological: Negative for dizziness and headaches. Objective Physical Exam Constitutional: General: She is not in acute distress. Appearance: She is not diaphoretic. HENT: Head: Normocephalic. Jaw: No trismus, tenderness, swelling or pain on movement. Right Ear: Tympanic membrane, ear canal and external ear normal. Left Ear: Tympanic membrane, ear canal and external ear normal. Nose: Congestion present. Mouth/Throat: Mouth: Mucous membranes are moist. Pharynx: Oropharynx is clear. Uvula midline. Posterior oropharyngeal erythema present. No pharyngeal swelling, oropharyngeal exudate or uvula swelling. Eyes: Conjunctiva/sclera: Conjunctivae normal. Pupils: Pupils are equal, round, and reactive to light. Cardiovascular: Rate and Rhythm: Normal rate and regular rhythm. Heart sounds: Normal heart sounds. Pulmonary: Effort: Pulmonary effort is normal. No tachypnea, accessory muscle usage or respiratory distress. Breath sounds: Normal breath sounds. No stridor. No wheezing, rhonchi or rales. Abdominal: General: There is no distension. Palpations: Abdomen is soft. Tenderness: There is no abdominal tenderness. There is no guarding or rebound. Musculoskeletal: Cervical back: Normal range of motion and neck supple. No edema, erythema, rigidity or tenderness. No pain with movement. Normal range of motion. Lymphadenopathy: Cervical: No cervical adenopathy. Skin: General: Skin is warm and dry. Neurological: Mental Status: She is alert and oriented to person, place, and time. ASSESSMENT/PLAN: 1. Sore throat - ICD9: 462, ICD10: J02.9 (primary diagnosis) - STREP A MOLECULAR (POC) 2. Strep throat - ICD9: 034.0, ICD10: J02.0 Strep test positive. Placed on amoxicillin. We discussed concerns about also viral URI. Did take a negative COVID home 19 test. Patient was educated on supportive therapies. Patient will follow up with primary care provider as needed. Patient was instructed to immediately proceed to emergency room for any new, worsening, or symptoms lasting longer than anticipated. The patient's clinical presentation is otherwise unremarkable at this time. Based on exam and clinical finding, the patient is stable for discharge. Plan of care was discussed with patient. Patient verbalizes understanding and agrees to plan of care. This note was generated using Memoir software. It may contain errors in wording,punctuation, or spelling. Guru Santana APRN.SINGLE POINTED OPERATOR [facility] Viramontes [facility] September 27, 2022 10:36pm Note Date/Time September 27, 2022 9:00pm [facility] Medical Records Department [address] [place] [address] Emergency Department Summary 09/27/22 MR#: [id number] Acct: [id number] Name: GORDO KHAN Rep #:[id number] : 2000 22 From: [place] PCP: Dr. Gabino Summers MD Status :REG ER Location: ED HPI History of Present Illness Chief Complaint: Shortness of Breath Narrative Narrative: 22-year-old female here with shortness of breath. Patient notes has been ongoing for the past several days, approximately 3. She notes today got worse she notes having a panic attack which caused worsening shortness of breath. She denies any chest pain. She denies any productive cough. Does note coughingwhen she is having difficulty breathing. She denies any lower extremity edema, orthopnea or proximal nocturnal dyspnea. She denies any volume loss such as vomiting or diarrhea. She denies any bleeding diathesis. She denies any sick contacts or recent travel. The patient denies recent surgery in the last 4 weeks or immobilization in the last 3 days, denies previous diagnosis of DVT or PE, hemoptysis, unilateral leg swelling or malignancy with treatment the last 6 months. No estrogen use noted. [facility] Medical History (Updated 09/27/22 @ 22:[address] Da Viramontes DO) Anxiety Depression Encounter for screening for COVID-19 Home Medications amoxicillin 875 mg-potassium clavulanate 125 mg tablet 1 tab PO BID #20 tabs 05/14/22 [Rx Last Taken Unknown] ondansetron 4 mg disintegrating tablet 4 mg PO Q8H PRN nausea and vomiting #10 tabs 05/14/22 [Rx Last Taken Unknown] Allergy/AdvReac Type Severity Reaction Status Date / Time No Known Allergies Allergy Verified 09/27/22 20:52 Social History Smoking Status: Never smoker ROS ROS ED ROS Narrative Constitutional: Denies fever HEENT: Denies sore throat Neck: Denies neck pain Cardiovascular: Denies chest pain, syncope Respiratory: Endorses shortness of breath GI: Denies nausea vomiting or abdominal pain : Denies changes in urinary habits Musculoskeletal: Denies muscle or joint pain Neurologic: Denies numbness weakness or loss of sensation Skin denies rash EXAM Physical Exam Narrative Exam Narrative: Nursing triage notes reviewed, Vital signs reviewed Constitutional: please see mdm HENT: MMM Eyes: Pupils equal round and reactive to light, Extraocular muscles intact Neck: No stridor, no JVD, full neck ROM Lungs: Clear to auscultation, No wheezing or rales. No increased work of breathing, no conversational dyspnea, no accessory muscle use, no nasal flaring. No respiratory distress noted Heart: Regular rate and rhythm, No murmurs, No rubs and No gallops, 2+ distal pulses (radial, femoral, posterior tibial) in all extremities Abdomen: Soft, there is no tenderness, rigidity, rebound or guarding, no obviousperitoneal signs, no palpable pulsatile abdominal masses, no auscultated abdominal bruit : No CVAT Extremities: No edema Neuro: No focal neurological deficits, cranial nerves II through XII intact, 5/5strength in all extremities. Intact sensation to light touch in all extremities,2+ reflexes bilateral patella dens. Normal gait. No ataxia. Skin: No rash or lesions noted Const Vital Signs: 09/27/22 20:50 09/27/22 21:33 Temperature 97.2 F L Temperature Source Temporal Pulse Rate 84 Respiratory Rate 18 Respiratory Effort Normal Non-Labored Respiratory Depth Normal Respiratory Pattern Normal Blood Pressure 135/90 H Blood Pressure Mean 105 Pulse Ox 98 Oxygen Delivery Method Room Air Room Air MDM MDM MDM Narrative Medical decision making narrative: Chief Complaint: Shortness of breath External records reviewed: Chest x-ray from 2021 shows no acute process MDM: The patient was hemodynamically stable, afebrile, nontoxic-appearing. Patient no signs of significant respiratory distress did not require BiPAP or intubation. Patient no conversational dyspnea or increased work of breathing. Accessory muscle use. Lungs were clear. No obvious full consolidation was noted on exam I considered the following differential diagnosis: Pneumonia, asthma exacerbation, PE, ACS, arrhythmia, COVID, flu Patient's physical exam was not consistent with asthma or COPD as there is no wheezing. She had a low risk Wells score and as such I have low suspicion for PE. I did obtain an EKG and chest x-ray to rule out evidence of pneumonia, ACS or arrhythmia obtain a COVID and flu swab to rule out signs of viral infectious etiologies. Work-up showed no evidence of myocardial ischemia, arrhythmia. No evidence of pneumonia, pneumothorax or focal cardiopulmonary abnormalities. COVID and flu swab are pending at this time. Instructed patient follow-up on Health system for COVID and flu swab results. There is no need for ED observation to await these test as there is no specific treatment that is indicated given her benign appearance, low risk factor profile and young age. She is window for Tamiflu. There is no benefit to Paxlovid in this patient population and demographic. Factors affecting care: None Social determinants of health: None History obtained from others: Shared decision making: I will have a discussion with the patient and or visitors regarding risk/benefits of further testing or admission. They will be made aware of of the risk/benefits inherent in this decision they will be given the opportunity to voice understanding. Consults: None Lab Data Attestation: I reviewed the patient's lab results. Lab results narrative: EKG with normal sinus rhythm, normal axis, normal intervals, no ST or T wave changes to suggest ischemia. No evidence of WPW, Brugada, ARVD. Radiography Chest X-Ray - ED: Read by ED Physician Diagnostic Testing: Clinical Impression(s) from Imaging Studies Chest X-Ray 09/27/22 21:35 IMPRESSION: Normal x-ray examination of the chest. Electronically Signed: Guru Ward MD at 21:51 EDT , I have personally reviewed the patient's chest x-ray. Chest x-ray is unremarkable for pulmonary edema, pneumothorax, pneumonia or focal cardiopulmonary abnormality. Discharge Plan Triage Chief Complaint: Shortness of Breath ED Provider: Da Viramontes Dx/Rx/DC Orders Clinical Impression: Acute dyspnea Instructions: ED Dyspnea Prescriptions: No Action amoxicillin-pot clavulanate 875-125 mg tablet 1 tab PO BID Qty: 20 0RF ondansetron 4 mg tablet,disintegrating 4 mg PO Q8H PRN (Reason: nausea and vomiting) Qty: 10 0RF Stand Alone Forms: ED Work / School Excuse Primary Care Provider: Gabino Summers Referrals: Gabino Summers MD [Primary Care Provider] - Activity Restrictions/Additional Instructions: Thank you for trusting us with your care today! Please take Tylenol (2 pills, 650 mg), ibuprofen (2 pills, 400 mg) every 6 hoursas needed for pain and fever control. Please return to the emergency department if your symptoms change or worsen. Please follow with your primary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 Visits Authorized [id number] Closed Auto-Generate d Referral 03/01/2022 03/31/2023 1 1 [facility] for referral (narrative)* Outpatient Procedure (Routine) - Pending Review Specialty Diagnoses / Procedures Referred By Contac t Referred To Contact [facility] Diagnoses Pain in both hands Disturbance of skin sensation Procedures EMG(NEURO/NI) NERVE CONDUCTION STUDIES 9-10 STUDIES Genevieve Mccallum, RAMP ATTENDANT.SINGLE POINTED OPERATOR [address] [place] [address] Neu[facility] [address] [place] [address] Referral ID Status Reason Start Date Expiration Date Visits Requested Visits Authorized [id number] Pending Review Auto-Generat ed Referral 11/28/2023 11/27/2024 1 1 * Consult, Test, Treat (Routine) - Authorized Specialty Diagnoses / Procedures Referred By Contac t Referred To Contact Orthopedics Diagnoses Pain in both hands Disturbance of skin sensation Procedures CONSULT TO ORTHOPAEDICS OFFICE/OUTPATIENT [facility] 60 MINUTES Genevieve Mccallum APRN.SINGLE POINTED OPERATOR [address] [place] [address] Alexandre Sauceda MD [address] [address] Referral ID Status Reason Start Date Expiration Date Visits Requested Visits Authorized [id number] Authorized PCP Requested Referral 11/28/2023 11/27/2024 1 1 [facility] for referral (narrative)* Diagnostic Procedure Only (Urgent) - Closed Specialty Diagnoses / Procedures Referred By Contac t Referred To Contact XR IMAGING Diagnoses Injury of right wrist, initial encounter Procedures XR WRIST GENERAL 3V PA/LAT/OBL RIGHT RADEX WRIST COMPLETE MINIMUM 3 VIEWS Tru Walters APRN.SINGLE POINTED OPERATOR [address] [place] [address] [place] [address] Referral ID Status Reason Start Date Expiration Date V isits Requested Visits Authorized [id number] Closed Auto-Generate d Referral 12/09/2023 01/07/2025 1 1 * Diagnostic Procedure Only (Urgent) - Closed Specialty Diagnoses / Procedures Referred By Contac t Referred To Contact XR IMAGING Diagnoses Pain of left lower extremity due to injury Procedures XR ANKLE GENERAL 3V AP/LAT/OBL LEFT RADEX ANKLE COMPLETE MINIMUM 3 VIEWS Tru Walters APRN.SINGLE POINTED OPERATOR [address] [place] [address] [place] [address] Referral ID Status Reason Start Date Expiration Date V isits Requested Visits Authorized [id number] Closed Auto-Generate d Referral 12/09/2023 01/07/2025 1 1 * Diagnostic Procedure Only (Urgent) - Closed Specialty Diagnoses / Procedures Referred By Contac t Referred To Contact XR IMAGING Diagnoses Pain of left lower extremity due to injury Procedures XR FOOT GENERAL 3V AP/LAT/OBL LEFT RADEX FOOT COMPLETE MINIMUM 3 VIEWS Tru Walters APRN.SINGLE POINTED OPERATOR [address] [place] [address] [place] [address] Referral ID Status Reason Start Date Expiration Date V isits Requested Visits Authorized [id number] Closed Auto-Generate d Referral 12/09/2023 01/07/2025 1 1 [facility] for referral (narrative)* Diagnostic Procedure Only (Urgent) - Closed Specialty Diagnoses / Procedures Referred By Contac t Referred To Contact XR IMAGING Diagnoses Pain of left lower extremity due to injury Procedures XR ANKLE GENERAL 3V AP/LAT/OBL LEFT RADEX ANKLE COMPLETE MINIMUM 3 VIEWS Tru Walters APRN.SINGLE POINTED OPERATOR [address] [place] [address] [place] [address] Referral ID Status Reason Start Date Expiration Date V isits Requested Visits Authorized [id number] Closed Auto-Generate d Referral 12/09/2023 01/07/2025 1 1 [facility] for referral (narrative)* Diagnostic Procedure Only (Urgent) - Closed Specialty Diagnoses / Procedures Referred By Contac t Referred To Contact XR IMAGING Diagnoses Acute wrist pain, left Procedures XR WRIST INJURY 4V PA/LAT/OBL/SCAPH LEFT RADEX WRIST COMPLETE MINIMUM 3 VIEWS Jerson Busch MD [address] [place] [address] [place] [address] Referral ID Status Reason Start Date Expiration Date V isits Requested Visits Authorized [id number] Closed Auto-Generate d Referral 08/30/2021 09/29/2022 1 1 [facility] for referral (narrative)* Outpatient Procedure (Routine) - New Request Specialty Diagnoses / Procedures Referred By Contac t Referred To Contact [facility] Diagnoses SOB (shortness of breath) Procedures LUNG VOLUMES Genevieve Mccallum APRN.CNP [address] [place] [address] [address] Referral ID Status Reason Start Date Expiration Date Visits Requested Visits Authorized [id number] New Request Auto-Generat ed Referral 04/29/2024 05/29/2025 1 1 * Outpatient Procedure (Routine) - New Request Specialty Diagnoses / Procedures Referred By Contac t Referred To Contact [facility] Diagnoses SOB (shortness of breath) Procedures LUNG DIFFUSION CAPACITY (DLCO) DIFFUSING CAPACITY Genevieve Mccallum APRN.CNP [address] [place] [address] Respiratory [facility] [address] [place] [address] Referral ID Status Reason Start Date Expiration Date Visits Requested Visits Authorized [id number] New Request Auto-Generat ed Referral 04/29/2024 05/29/2025 1 1 * Outpatient Procedure (Routine) - New Request Specialty Diagnoses / Procedures Referred By Contac t Referred To Contact [facility] Diagnoses SOB (shortness of breath) Procedures SPIROMETRY - BASELINE AND POST DILATOR BRNCDILAT RSPSE SPMTRY PRE&POST-BRNCDILAT ADMN Genevieve Mccallum APRN.CNP [address] [place] [address] [address] Referral ID Status Reason Start Date Expiration Date Visits Requested Visits Authorized [id number] New Request Auto-Generat ed Referral 04/29/2024 05/29/2025 1 1 [facility] for referral (narrative)No reason for referral [facility] Reason for visit Narrative* Diagnostic Procedure Only (Routine) - Closed Specialty Diagnoses / Procedures Referred By Contac t Referred To Contact XR IMAGING Diagnoses Bilateral foot pain Procedures XR FOOT GENERAL 3V AP/LAT/OBL BILATERAL RADEX FOOT COMPLETE MINIMUM 3 VIEWS Olivier Hung [address] [place] [address] Xr Imaging Referral ID Status Reason Start Date Expiration Date V isits Requested Visits Authorized [id number] Closed Auto-Generate d Referral 03/01/2022 03/31/2023 1 1 [facility] for visit Narrative* Diagnostic Procedure Only (Urgent) - Closed Specialty Diagnoses / Procedures Referred By Contac t Referred To Contact XR IMAGING Diagnoses Injury of right wrist, initial encounter Procedures XR WRIST GENERAL 3V PA/LAT/OBL RIGHT RADEX WRIST COMPLETE MINIMUM 3 VIEWS Tru Walters RAMP ATTENDANT.SINGLE POINTED OPERATOR [address] [place] [address] [place] [address] Referral ID Status Reason Start Date Expiration Date V isits Requested Visits Authorized [id number] Closed Auto-Generate d Referral 12/09/2023 01/07/2025 1 1 [facility] for visit Narrative* Diagnostic Procedure Only (Urgent) - Closed Specialty Diagnoses / Procedures Referred By Contac t Referred To Contact XR IMAGING Diagnoses Acute wrist pain, left Procedures XR WRIST INJURY 4V PA/LAT/OBL/SCAPH LEFT RADEX WRIST COMPLETE MINIMUM 3 VIEWS Jerson Busch MD [address] [place] [address] [place] [address] Referral ID Status Reason Start Date Expiration Date V isits Requested Visits Authorized [id number] Closed Auto-Generate d Referral 08/30/2021 09/29/2022 1 1 [facility] for visit Narrative* Diagnostic Procedure Only (Urgent) - Closed Specialty Diagnoses / Procedures Referred By Contac t Referred To Contact XR IMAGING Diagnoses Acute pain of left shoulder Procedures XR SHOULDER GENERAL 3V OR MORE AP/TRUE AP/OTHER LEFT RADEX SHOULDER COMPLETE MINIMUM 2 VIEWS Moomaw, Fadia, RAMP ATTENDANT.SINGLE POINTED OPERATOR [address] [place] [address] Phone: tel: fax: [place] [address] Referral ID Status Reason Start Date Expiration Date V isits Requested Visits Authorized [id number] Closed Auto-Generate d Referral 08/19/2024 09/18/2025 1 1 [facility] Summary Purpose Family History No Family History Records FoundNo Family History Records FoundNo Family History Records FoundNo Family History Records Found Advance Directives No Advanced Directives Records Found Advance Directive Response Recorded Date/ Time Living Will No September 15, 2021 1:43pm Power of Steam Shovel Engineer No September 15 1:43pm Advance Directive Response Recorded Date/ Time Living Will No May 14, 2 022 4:32pm Power of Steam Shovel Engineer No May 14, 2022 4:32pm Advance Directive Response Recorded Date/ Time Living Will No September 27, 2022 9: 33pm Power of Steam Shovel Engineer No September 27, 2022 9:33pm Advance Directive Response Recorded Date/ Time Living Will No May 26, 2 023 10:47pm Power of Steam Shovel Engineer No May 26, 2023 10:47pm Advance Directive Response Recorded Date/ Time Living Will No June 01 4 1:25pm Power of Steam Shovel Engineer No June 01, 2 024 1:25pm Advance Directive Response Recorded Date/ Time Living Will No August 25, 2024 11:19am Do you have a Healthcare Power of Steam Shovel Engineer? No August 25, 2024 11:19am Advance Directive Response Recorded Date/ Time Do you have a Healthcare Power of Steam Shovel Engineer? No February 07, 2025 9:42am Chief Complaint and Reason for Visit Chief Complaint COVID TEST/EXPOSURE sorethroat LEFT HAND INJURY Reason for Visit Encounter for screen ing for COVID-19 Chief Complaint LEFT HAND INJURY Chief Complaint sob Chief Complaint SOB Chief Complaint SORE THROAT, COUGH, SOB, WEAKNESS Chief Complaint SORE THROAT, COUGH, SOB, WEAKNESS COUGH CONGESTION Chief Complaint Admit Date SOB August 25, 2024 11: 09am Chief Complaint Admit Date N/D February 07, 2025 9:02am Reason for Referral Specialty Diagnoses / Procedures Referred By Contac t Referred To Contact [facility] Diagnoses Screening for cervical cancer Procedures CONSULT TO GYNECOLOGY OFFICE/OUTPATIENT [facility] 60 MINUTES Genevieve Mccallum, RAMP ATTENDANT.SINGLE POINTED OPERATOR [address] [place] [address] Arely Jim MD [address] [place] [address] Referral ID Status Reason Start Date Expiration Date Visits Requested Visits Authorized [id number] Authorized PCP Requested Referral Auto-Generate d Referral 09/04/2023 09/03/2024 1 1 Additional Source Comments INFORMATION SOURCE (unrecogn ized section and content) DATE CREATED AUTHOR 11/21/2017 [facility] DATE CREATED AUTHOR AUTHOR'S ORGANIZ ATION 09/20/2024 [facility] DATE CREATED AUTHOR AUTHOR'S ORGANIZ ATION 11/30/2024 [facility] DATE CREATED AUTHOR AUTHOR'S ORGANIZ ATION 02/11/[address] [facility] Source Comments (unrecognize d section and content) In the event this informatio n is protected by the Federal Confidentiality of Alcohol and Drug Abuse Patient Records regulations: The Federal rules restrict any use of the information to criminally investigate or prosecute any alcohol or drug abuse patient.[facility] the event this information is protected by the Federal Confidentiality of Alcohol and Drug Abuse Patient Records regulations: The Federal rules restrict any use of the information to criminally investigate or prosecute any alcohol or drug abuse patient.[facility]In the event this information is protected by the Federal Confidentiality of Alcohol and Drug Abuse Patient Records regulations: The Federal rules restrict any use of the information to criminally investigate or prosecute any alcohol or drug abuse patient.[facility]In the event this information is protected by the Federal Confidentiality of Alcohol and Drug Abuse Patient Records regulations: The Federal rules restrict any use of the information to criminally investigate or prosecute any alcohol or drug abuse patient.[facility]In the event this information is protected by the Federal Confidentiality of Alcohol and Drug Abuse Patient Records regulations: The Federal rules restrict any use of the information to criminally investigate or prosecute any alcohol or drug abuse patient.[facility] HospitalIn the event this information is protected by the Federal Confidentiality of Alcohol and Drug Abuse Patient Records regulations: The Federal rules restrict any use of the information to criminally investigate or prosecute any alcohol or drug abuse patient.[facility] HospitalIn the event this information is protected by the Federal Confidentiality of Alcohol and Drug Abuse Patient Records regulations: The Federal rules restrict any use of the information to criminally investigate or prosecute any alcohol or drug abuse patient.[facility] the event this information is protected by the Federal Confidentiality of Alcohol and Drug Abuse Patient Records regulations: The Federal rules restrict any use of the information to criminally investigate or prosecute any alcohol or drug abuse patient.[facility]In the event this information is protected by the Federal Confidentiality of Alcohol and Drug Abuse Patient Records regulations: The Federal rules restrict any use of the information to criminally investigate or prosecute any alcohol or drug abuse patient.[facility]In the event this information is protected by the Federal Confidentiality of Alcohol and Drug Abuse Patient Records regulations: The Federal rules restrict any use of the information to criminally investigate or prosecute any alcohol or drug abuse patient.[facility] HospitalIn the event this information is protected by the Federal Confidentiality of Alcohol and Drug Abuse Patient Records regulations: The Federal rules restrict any use of the information to criminally investigate or prosecute any alcohol or drug abuse patient.[facility] HospitalIn the event this information is protected by the Federal Confidentiality of Alcohol and Drug Abuse Patient Records regulations: The Federal rules restrict any use of the information to criminally investigate or prosecute any alcohol or drug abuse patient.[facility] the event this information is protected by the Federal Confidentiality of Alcohol and Drug Abuse Patient Records regulations: The Federal rules restrict any use of the information to criminally investigate or prosecute any alcohol or drug abuse patient.[facility]In the event this information is protected by the Federal Confidentiality of Alcohol and Drug Abuse Patient Records regulations: The Federal rules restrict any use of the information to criminally investigate or prosecute any alcohol or drug abuse patient.[facility] HospitalIn the event this information is protected by the Federal Confidentiality of Alcohol and Drug Abuse Patient Records regulations: The Federal rules restrict any use of the information to criminally investigate or prosecute any alcohol or drug abuse patient.[facility] HospitalIn the event this information is protected by the Federal Confidentiality of Alcohol and Drug Abuse Patient Records regulations: The Federal rules restrict any use of the information to criminally investigate or prosecute any alcohol or drug abuse patient.[facility] HospitalIn the event this information is protected by the Federal Confidentiality of Alcohol and Drug Abuse Patient Records regulations: The Federal rules restrict any use of the information to criminally investigate or prosecute any alcohol or drug abuse patient.[facility] HospitalIn the event this information is protected by the Federal Confidentiality of Alcohol and Drug Abuse Patient Records regulations: The Federal rules restrict any use of the information to criminally investigate or prosecute any alcohol or drug abuse patient.[facility] HospitalIn the event this information is protected by the Federal Confidentiality of Alcohol and Drug Abuse Patient Records regulations: The Federal rules restrict any use of the information to criminally investigate or prosecute any alcohol or drug abuse patient.[facility] HospitalIn the event this information is protected by the Federal Confidentiality of Alcohol and Drug Abuse Patient Records regulations: The Federal rules restrict any use of the information to criminally investigate or prosecute any alcohol or drug abuse patient.[facility] HospitalIn the event this information is protected by the Federal Confidentiality of Alcohol and Drug Abuse Patient Records regulations: The Federal rules restrict any use of the information to criminally investigate or prosecute any alcohol or drug abuse patient.[facility] HospitalIn the event this information is protected by the Federal Confidentiality of Alcohol and Drug Abuse Patient Records regulations: The Federal rules restrict any use of the information to criminally investigate or prosecute any alcohol or drug abuse patient.[facility] HospitalIn the event this information is protected by the Federal Confidentiality of Alcohol and Drug Abuse Patient Records regulations: The Federal rules restrict any use of the information to criminally investigate or prosecute any alcohol or drug abuse patient.[facility] HospitalIn the event this information is protected by the Federal Confidentiality of Alcohol and Drug Abuse Patient Records regulations: The Federal rules restrict any use of the information to criminally investigate or prosecute any alcohol or drug abuse patient.[facility] HospitalIn the event this information is protected by the Federal Confidentiality of Alcohol and Drug Abuse Patient Records regulations: The Federal rules restrict any use of the information to criminally investigate or prosecute any alcohol or drug abuse patient.[facility] HospitalIn the event this information is protected by the Federal Confidentiality of Alcohol and Drug Abuse Patient Records regulations: The Federal rules restrict any use of the information to criminally investigate or prosecute any alcohol or drug abuse patient.[facility] HospitalIn the event this information is protected by the Federal Confidentiality of Alcohol and Drug Abuse Patient Records regulations: The Federal rules restrict any use of the information to criminally investigate or prosecute any alcohol or drug abuse patient.[facility] HospitalIn the event this information is protected by the Federal Confidentiality of Alcohol and Drug Abuse Patient Records regulations: The Federal rules restrict any use of the information to criminally investigate or prosecute any alcohol or drug abuse patient.[facility] HospitalIn the event this information is protected by the Federal Confidentiality of Alcohol and Drug Abuse Patient Records regulations: The Federal rules restrict any use of the information to criminally investigate or prosecute any alcohol or drug abuse patient.[facility] HospitalIn the event this information is protected by the Federal Confidentiality of Alcohol and Drug Abuse Patient Records regulations: The Federal rules restrict any use of the information to criminally investigate or prosecute any alcohol or drug abuse patient.[facility] HospitalIn the event this information is protected by the Federal Confidentiality of Alcohol and Drug Abuse Patient Records regulations: The Federal rules restrict any use of the information to criminally investigate or prosecute any alcohol or drug abuse patient.[facility] HospitalIn the event this information is protected by the Federal Confidentiality of Alcohol and Drug Abuse Patient Records regulations: The Federal rules restrict any use of the information to criminally investigate or prosecute any alcohol or drug abuse patient.[facility] HospitalIn the event this information is protected by the Federal Confidentiality of Alcohol and Drug Abuse Patient Records regulations: The Federal rules restrict any use of the information to criminally investigate or prosecute any alcohol or drug abuse patient.[facility] HospitalIn the event this information is protected by the Federal Confidentiality of Alcohol and Drug Abuse Patient Records regulations: The Federal rules restrict any use of the information to criminally investigate or prosecute any alcohol or drug abuse patient.[facility] HospitalIn the event this information is protected by the Federal Confidentiality of Alcohol and Drug Abuse Patient Records regulations: The Federal rules restrict any use of the information to criminally investigate or prosecute any alcohol or drug abuse patient.[facility] HospitalIn the event this information is protected by the Federal Confidentiality of Alcohol and Drug Abuse Patient Records regulations: The Federal rules restrict any use of the information to criminally investigate or prosecute any alcohol or drug abuse patient.[facility] HospitalIn the event this information is protected by the Federal Confidentiality of Alcohol and Drug Abuse Patient Records regulations: The Federal rules restrict any use of the information to criminally investigate or prosecute any alcohol or drug abuse patient.[facility] HospitalIn the event this information is protected by the Federal Confidentiality of Alcohol and Drug Abuse Patient Records regulations: The Federal rules restrict any use of the information to criminally investigate or prosecute any alcohol or drug abuse patient.[facility] HospitalIn the event this information is protected by the Federal Confidentiality of Alcohol and Drug Abuse Patient Records regulations: The Federal rules restrict any use of the information to criminally investigate or prosecute any alcohol or drug abuse patient.[facility] HospitalIn the event this information is protected by the Federal Confidentiality of Alcohol and Drug Abuse Patient Records regulations: The Federal rules restrict any use of the information to criminally investigate or prosecute any alcohol or drug abuse patient.[facility] Reason for Visit (unrecogniz ed section and content) Reason Comments Arm Injury left x 5-6 days, bic ycle accident Reason Comments Established Patient Pain Reason Comments Sore Throat Cough x 4 days Reason Comments Results Reason Comments New Patient Establish care previ ous pcp was Dr. Summers in [place]. Would like to address health maintenance Well Adult Reason Comments Yearly Exam Reason Comments Trauma Fell from standing o n bed, hurt R wrist and Left ankle, x 30 mins ago Reason Onset Date Comments EMG 01/08/2024 Specialty Diagnoses / Procedures Referred By Ritchie t Referred To Contact [facility] Diagnoses Pain in both hands Disturbance of skin sensation Procedures EMG(NEURO/NI) NERVE CONDUCTION STUDIES 9-10 STUDIES Genevieve Mccallum, RAMP ATTENDANT.SINGLE POINTED OPERATOR [address] [place] [address] [address] [facility] [address] [place], [place] [id number] Referral ID Status Reason Start Date Expiration Date V isits Requested Visits Authorized [id number] Closed Auto-Generate d Referral 01/08/2024 05/28/2024 1 1 Reason Comments Sinus Problem drainage, sore throa t, left ear pain x 2-3 days Reason Comments Cough Pt has c/o persisten t cough and sob for 3 weeks. Pt has c/o chills and body aches.Pt was in [place] ER on 04/13/2024 for cough and sob. Reason Comments Procedure Specialty Diagnoses / Procedures Referred By Ritchie t Referred To Contact [facility] Diagnoses SOB (shortness of breath) Procedures SPIROMETRY - BASELINE AND POST DILATOR BRNCDILAT RSPSE SPMTRY PRE&POST-BRNCDILAT ADMN Genevieve Mccallum, RAMP ATTENDANT.SINGLE POINTED OPERATOR [address] [place] [address] Res[address] [facility] [address] [place], [place] [id number] Referral ID Status Reason Start Date Expiration Date V isits Requested Visits Authorized [id number] Closed Auto-Generate d Referral 04/29/2024 05/29/2025 1 1 Specialty Diagnoses / Procedures Referred By Ritchie t Referred To Contact [facility] Diagnoses SOB (shortness of breath) Procedures LUNG VOLUMES Genevieve Mccallum, RAMP ATTENDANT.SINGLE POINTED OPERATOR [address] [place] [address] Respiratory [facility] [address] [place] [address] [place] [address] Referral ID Status Reason Start Date Expiration Date V isits Requested Visits Authorized [id number] Closed Auto-Generate d Referral 04/29/2024 05/29/2025 1 1 Specialty Diagnoses / Procedures Referred By Ritchie monteiro Referred To Contact [facility] Diagnoses SOB (shortness of breath) Procedures LUNG DIFFUSION CAPACITY (DLCO) DIFFUSING CAPACITY Genevieve Mccallum, RAMP ATTENDANT.SINGLE POINTED OPERATOR [address] [place] [address] Respiratory [facility] [address] [place] [address] Referral ID Status Reason Start Date Expiration Date V isits Requested Visits Authorized [id number] Closed Auto-Generate d Referral 04/29/2024 05/29/2025 1 1 Reason Comments cat scratches Right hand x 1 day Reason Onset Date Comments Refill Request 07/24/2024 Reason Comments Arm Pain left shoulder and up per arm pain x 2 days, denies injury Reason Comments Left shoulder pain Referred by Fadia Elizabeth aw Reason Onset Date Comments ED Follow-up 08/30/2024 [facility] ED 08/25/24 Reason Comments Well Woman Reason Comments Discussion infertility Reason Comments Discussion Reason Onset Date Comments Refill Request 11/09/2024 Reason Comments Appointment Reason Onset Date Comments Refill Request 01/13/2025 Care Teams (unrecognized sec tion and content) Skelp Processor Relationship Specialty Start Date End Date Patrick Summers MD [address] [place], [place] [id number] PCP - General Family Practice 08/30/21 Skelp Processor Relationship Specialty Start Date End Date Patrick Summers MD [address] [place], [place] [id number] PCP - General Family Medicine 08/30/21 Skelp Processor Relationship Specialty Start Date End Date Patrick Summers MD [address], [place] [id number] PCP - General Family Medicine 08/30/21 Skelp Processor Relationship Specialty Start Date End Date Patrick Summers MD [address] [place] [address] PCP - General Family Medicine 08/30/21 Team Status: Active Member Role Status Dates Dr. Jose Elias Jennings MD Family Provider Active Dr. Gabino Summers MD Primary Care Provider Acti ve Team Status: Inactive Member Role Status Dates Dr. Gabino Summers MD Primary Care Provider Acti ve Dr. Da Viramontes DO Emergency Provider Active Skelp Processor Relationship Specialty Start Date End Date Patrick Summers MD [address] [facility] [place], [place] [id number] PCP - General Family Medicine 08/30/21 Team Status: Inactive Member Role Status Dates Dr. Gabino Summers MD Primary Care Provider Acti ve Dr. Timi Muñoz MD Emergency Provider Active Team Status: Inactive Member Role Status Dates Dr. Gabino Summers MD Primary Care Provider Acti ve Dr. Timi Muñoz MD Attending Provider, Emergency Pro vider Active Team Status: Inactive Member Role Status Dates Dr. Gabino Summers MD Primary Care Provider Acti ve Dr. Dereje Sanchez MD Emergency Provider Active Skelp Processor Relationship Specialty Start Date End Date Genevieve Mccallum, RAMP ATTENDANT.SINGLE POINTED OPERATOR [address] [place] [address] PCP - General Internal Medicine 09/04/23 Skelp Processor Relationship Specialty Start Date End Date Genevieve Mccallum, RAMP ATTENDANT.SINGLE POINTED OPERATOR [address], [place] [id number] PCP - General Internal Medicine 09/04/23 Skelp Processor Relationship Specialty Start Date End Date Genevieve Mccalulm, RAMP ATTENDANT.SINGLE POINTED OPERATOR [address], [place] [id number] PCP - General Internal Medicine 09/04/23 Skelp Processor Relationship Specialty Start Date End Date Genevieve Mccallum, RAMP ATTENDANT.SINGLE POINTED OPERATOR [address] [place] [address] PCP - General Internal Medicine 09/04/23 Skelp Processor Relationship Specialty Start Date End Date Genevieve Mccallum, RAMP ATTENDANT.SINGLE POINTED OPERATOR [address] [place] [address] PCP - General Internal Medicine 09/04/23 Skelp Processor Relationship Specialty Start Date End Date Genevieve Mccallum, RAMP ATTENDANT.SINGLE POINTED OPERATOR [address] [place] [address] PCP - General Internal Medicine 09/04/23 Skelp Processor Relationship Specialty Start Date End Date Genevieve Mccallum, RAMP ATTENDANT.SINGLE POINTED OPERATOR [address] [place] [address] PCP - General Internal Medicine 09/04/23 Skelp Processor Relationship Specialty Start Date End Date Genevieve Mccallum, RAMP ATTENDANT.SINGLE POINTED OPERATOR [address] [place] [address] PCP - General Internal Medicine 09/04/23 Skelp Processor Relationship Specialty Start Date End Date Patrick Summers MD [address] [place] [address] PCP - General Family Medicine 08/30/21 09/03/23 Skelp Processor Relationship Specialty Start Date End Date Genevieve Mccallum, RAMP ATTENDANT.SINGLE POINTED OPERATOR [address] [place] [address] PCP - General Internal Medicine 09/04/23 Skelp Processor Relationship Specialty Start Date End Date Genevieve Mccallum, RAMP ATTENDANT.SINGLE POINTED OPERATOR [address] [place] [address] PCP - General Internal Medicine 09/04/23 Skelp Processor Relationship Specialty Start Date End Date Genevieve Mccallum, RAMP ATTENDANT.SINGLE POINTED OPERATOR [address] [place] [address] PCP - General Internal Medicine 09/04/23 Skelp Processor Relationship Specialty Start Date End Date Genevieve Mccallum, RAMP ATTENDANT.SINGLE POINTED OPERATOR [address] [place] [address] PCP - General Internal Medicine 09/04/23 Skelp Processor Relationship Specialty Start Date End Date Genevieve Mccallum, RAMP ATTENDANT.SINGLE POINTED OPERATOR [address] [place] [address] PCP - General Internal Medicine 09/04/23 Skelp Processor Relationship Specialty Start Date End Date Genevieve Mccallum, RAMP ATTENDANT.SINGLE POINTED OPERATOR [address] [place] [address] PCP - General Internal Medicine 09/04/23 Skelp Processor Relationship Specialty Start Date End Date Genevieve Mccallum, RAMP ATTENDANT.SINGLE POINTED OPERATOR [address] [place] [address] PCP - General Internal Medicine 09/04/23 Skelp Processor Relationship Specialty Start Date End Date Genevieve Mccallum, RAMP ATTENDANT.SINGLE POINTED OPERATOR [address] [place] [address] PCP - General Internal Medicine 09/04/23 Skelp Processor Relationship Specialty Start Date End Date Genevieve Mccallum, RAMP ATTENDANT.SINGLE POINTED OPERATOR [address] [place] [address] PCP - General Internal Medicine 09/04/23 Skelp Processor Relationship Specialty Start Date End Date Genevieve Mccallum RAMP ATTENDANT.SINGLE POINTED OPERATOR [address] [place], [place] [id number] PCP - General Internal Medicine 09/04/23 Skelp Processor Relationship Specialty Start Date End Date Genevieve Mccallum RAMP ATTENDANT.SINGLE POINTED OPERATOR [address] [place] [address] PCP - General Internal Medicine 09/04/23 Team Status: Active Member Role Status Dates Genevieve Mccallum CUSTOMER PRICING MANAGER, CUSTOMER PRICING MANAGER-C Primary Care Provider Active Team Status: Inactive Member Role Status Dates Genevieve Mccallum CUSTOMER PRICING MANAGER, CUSTOMER PRICING MANAGER-C Primary Care Provider Active Start: August 25, 2024 End: August 25, 2024 Dr. Ulices Don , DO Emergency Provider Active Start: August 25, 2024 End: August 25, 2024 Skelp Processor Relationship Specialty Start Date End Date Genevieve Mccallum RAMP ATTENDANT.SINGLE POINTED OPERATOR [facility] [place] [address] [place] [address] PCP - General Internal Medicine 09/04/23 Skelp Processor Relationship Specialty Start Date End Date Genevieve Mccallum RAMP ATTENDANT.SINGLE POINTED OPERATOR [address] [place] [address] PCP - General Internal Medicine 09/04/23 Skelp Processor Relationship Specialty Start Date End Date Genevieve Mccallum RAMP ATTENDANT.SINGLE POINTED OPERATOR [address] [place] [address] PCP - General Internal Medicine 09/04/23 Skelp Processor Relationship Specialty Start Date End Date Genevieve Mccallum RAMP ATTENDANT.SINGLE POINTED OPERATOR [address] [place] [address] PCP - General Internal Medicine 09/04/23 Skelp Processor Relationship Specialty Start Date End Date Genevieve Mccallum APRN.CNP [address] [place] [address] PCP - General Internal Medicine 09/04/23 Team Status: Active Member Role/Relationship Status Dates Genevieve Mccallum CUSTOMER PRICING MANAGER, CUSTOMER PRICING MANAGER-C Primary Care Provider Active Team Status: Inactive Member Role/Relationship Status Dates Genevieve Mccallum CUSTOMER PRICING MANAGER, CUSTOMER PRICING MANAGER-C Primary Care Provider Active Start: February 07, 2025 End: February 07, 2025 Dr. Tee Templeton , DO Emergency Provider Active Start: February 07, 2025 End: February 07, 2025 Goals (unrecognized section and content) Goals may be documented in a n alternate sectionGoals may be documented in an alternate sectionGoals may be documented in an alternate sectionGoals may be documented in an alternate sectionGoals may be documented in an alternate sectionGoals may be documented in an alternate sectionGoals may be documented in an alternate sectionGoals may be documented in an alternate sectionGoals may be documented in an alternate section FOR RECORDS PERTAINING TO PATIENTS WHO ARE OR HAVE BEEN ENROLLED IN A CHEMICAL DEPENDENCY/SUBSTANCEABUSE PROGRAM, SOME INFORMATION MAY BE OMITTED. This clinical summary was aggregated from multiple sources. Caution should be exercised in using it in the provision of clinical care. This summary normalizes information from multiple sources, and as a consequence, information in this document may materially change the coding, format and clinical context of patient data. In addition, data may be omitted in some cases. CLINICAL DECISIONS SHOULD BE BASED ON THE PRIMARY CLINICAL RECORDS. [employer] [facility]. provides no warranty or guarantee of the accuracy or completeness of information in this document.
--- NOTE | 2025-03-12 18:14 | ED.VIS.DYS ---
HPI History of Present Illness Chief Complaint: Shortness of Breath Informant: patient Onset/Context/Timing Onset: Days (4) Context: gradual Timing: Waxes and wanes Quality: Positive for Dyspnea on exertion and Orthopnea Worsened by: Exertion and Lying flat Relieved by: - (Sitting up) Associated Symptoms Chest Pain: Positive for Pressure and - (Substernal) Narrative Narrative: Patient presents with shortness of breath that has been getting worse over the past 4 days. Patient states she went to urgent care today and was referred to the emergency department. Patient states her shortness of breath waxes and wanes. Patient states it is worse with exertion and worse with laying flat. Patient states it is better with sitting up. Patient admits to some pressure over the substernal area. Patient states that sometimes she feels dizzy with standing. Patient denies any fevers or chills. PE Risk Factors: Negative for Cancer, OCP + Smoking + > 35, Prior DVT or PE, Recent immobilization, Recent surgery or Recent travel [facility] Medical History Anxiety Depression Encounter for screening for COVID-19 Home Medications ?Medication ?Instructions ?Recorded ?Last Taken ?Type albuterol sulfate 90 mcg/actuation 2 puff inhalation Q4H PRN PRN 03/12/25 Unknown History aerosol inhaler wheezing Allergy/AdvReac Type Severity Reaction Status Date / Time latex Allergy Intermediate Hives Verified 03/12/25 17:26 cat dander (cats) Allergy Mild Itching Verified 03/12/25 17:26 ochoa Allergy Mild PT UNSURE Verified 03/12/25 17:26 OF REACTION Family History no significant family his Surgical History no surgical history Social History household members: family current occupational status: employed Smoking Status: Never smoker ROS ROS ED Constitutional Constitutional ED: Denies chills or fever(s) Eyes Eyes: Reports blurry vision; Denies change in vision ENT ENT ED: Denies rhinorrhea or sore throat Cardiovascular Cardiovascular: Reports chest pain; Denies palpitations Respiratory/Chest Respiratory/Chest: Reports dyspnea; Denies cough Gastrointestinal Gastrointestinal: Denies nausea or vomiting Genitourinary Genitourinary ED: Denies dysuria or hematuria Musculoskeletal Musculoskeletal: Denies back pain or neck pain Integumentary Denies abscess or rash Neurologic Neurologic: Reports headache(s); Denies weakness Allergic/Immunologic Allergic/Immunologic ED: Denies mouth swelling or urticaria EXAM Physical Exam Const Vital Signs: 03/12/25 17:26 03/12/25 17:54 03/12/25 18:30 Temperature 97.5 F L Temperature Source Temporal Pulse Rate 87 78 Respiratory Rate 26 H 12 Respiratory Effort Short of Breath Respiratory Depth Normal Respiratory Pattern Normal Normal Blood Pressure 136/93 H Blood Pressure Mean 107 Pulse Ox 99 Oxygen Delivery Method Room Air Room Air 03/12/25 19:26 03/12/25 20:38 Temperature 97.5 F L Temperature Source Pulse Rate 86 86 Respiratory Rate 12 Respiratory Effort Respiratory Depth Respiratory Pattern Blood Pressure 112/78 115/77 Blood Pressure Mean 89 89 Pulse Ox 99 99 Oxygen Delivery Method Room Air Positive well nourished and well developed General Appearance ED: well developed and NAD HEENT Reports moist mucous membranes atraumatic Neck supple and no JVD Resp normal respiratory effort Cardio regular rate and regular rhythm GI non-tender and non-distended Palpation: soft Extremity normal to inspection General Extremety ED: Negative for edema or tenderness General Extremity: Negative for edema Neuro oriented x3, CN's II-XII intact bilaterally and no sensory deficits noted Jerry Coma Scale: document GCS findings Spontaneous Obeys Commands Oriented 15 Sensorium / Orientation: alert Motor Exam: strength 5/5 throughout Psych mental status grossly normal MDM MDM MDM Narrative Medical decision making narrative: Differential diagnosis includes reactive airway disease, pneumonia, bronchitis, electrolyte abnormality, pulmonary embolism, cardiac dysrhythmia, and anxiety. EKG will be obtained to assess for cardiac dysrhythmia and cardiac ischemia. Chest x-ray will be obtained to assess for pneumonia and bronchitis. CBC will be obtained to assess for leukocytosis and anemia. Basic metabolic profile will be obtained to assess for electrolyte abnormality and renal function. Lab Data Attestation: I reviewed the patient's lab results. Lab results narrative: CBC was reviewed and was within normal limits. Basic metabolic profile was reviewed and was within normal limits. D-dimer was reviewed and was normal at 0.36. Labs: Laboratory Results - last 24 hr 03/12/25 03/12/25 18:00 18:46 WBC 8.4 RBC 4.51 Hgb 12.7 Hct 37.3 MCV 82.7 MCH 28.2 MCHC 34.0 RDW Std Deviation 37.9 RDW Coeff of Bailee 12.5 Plt Count 368 MPV 10.1 Immature Gran % (Auto) 0.200 Neut % (Auto) 51.7 Lymph % (Auto) 33.5 [place] % (Auto) 6.0 Eos % (Auto) 7.9 H Baso % (Auto) 0.7 Absolute Neuts (auto) 4.3 Absolute Lymphs (auto) 2.81 Nucleated RBC % 0 D-Dimer Quant (PE/DVT) 0.36 Sodium 138 Potassium 3.9 Chloride 106 Carbon Dioxide 22.4 Anion Gap 10 BUN 20 H Creatinine 0.91 Estim Creat Clear Calc 101.54 Est GFR (MDRD) Non-Af 90 BUN/Creatinine Ratio 21.8 H Glucose 83 Calcium 9.3 Radiography Chest X-Ray - ED: 2 View, Read by ED Physician, Read by Radiologist and No Acute Disease Diagnostic Testing: Clinical Impression(s) from Imaging Studies Chest X-Ray 03/12/25 18:18 IMPRESSION: No acute cardiopulmonary disease. Reading Location: [id number] and lateral chest x-ray was obtained. There are 2 views. On my independent interpretation, lung malik are clear. There is normal cardiac silhouette. Bony thorax is normal. There is no acute process noted. Radiologist also interpreted the x-ray and agrees. EKG Initial EKG: Attestation: I personally reviewed and interpreted this EKG as follows: Interpretation: Sinus Rhythm (80) and No Acute Injury Pattern Comments: EKG was obtained. On my independent interpretation, it showed a normal sinus rhythm with a rate of 80. NC interval, QRS interval, and QTc intervals were all normal. Collins was normal. There are no acute ST or T wave changes. Prior EKG tracings: available for review Prior: Unchanged (02/07/2025) Treatment and Re-Evaluation :: Patient was given a DuoNeb aerosol here. Patient was advised of her findings. Patient was feeling better on reevaluation. Patient was instructed to follow-up with her primary care physician in 5 to 7 days for further evaluation. Patient was instructed to return if worse in any way. Patient understood and was agreeable with the plan. All questions were answered. Discharge Plan Triage Chief Complaint: Shortness of Breath ED Provider: Ricky Harvey Dx/Rx/DC Orders Clinical Impression: Dyspnea, Elevated blood pressure reading Instructions: ED Dyspnea Prescriptions: No Action albuterol sulfate 90 mcg/actuation HFA aerosol inhaler 2 puff inhalation Q4H PRN PRN (Reason: wheezing) Primary Care Provider: Sofie Paz NP Referrals: Sofie Paz NP, MEAT AND SEAFOOD MANAGER-C [Primary Care Provider, Medical] - 5-7 Days Print Language: Chadian Disposition Disposition: Home, Self Care
--- NOTE | 2025-03-12 18:18 | RAD_ITS ---
PROCEDURE: CHEST PA AND LATERAL 03/12/2025 REASON FOR EXAM: DYSPNEA TECHNIQUE: Procedure Code: RADCXR Modality: DX Procedure: CHEST PA AND LATERAL COMPARISON: 08/25/2024 FINDINGS: Lungs/Pleura: Clear. Heart/Mediastinum: Normal in size. Bones/Soft tissues: Unremarkable. RAD/Chest PA and Lateral IMPRESSION: No acute cardiopulmonary disease. Reading Location: [id number]
--- NOTE | 2025-03-12 18:19 | EKG12_ITS ---
Test Reason : SOB Blood Pressure : */* mmHG Vent. Rate : 80 BPM Atrial Rate : 80 BPM P-R Int : 160 ms QRS Dur : 78 ms QT Int : 362 ms P-R-T Axes : 52 83 66 degrees QTcB Int : 417 ms Normal sinus rhythm with sinus arrhythmia Normal ECG When compared with ECG of 07-Feb-2025 09:24, No significant change was found Confirmed by SAIRA MC, CLAUDE ([id number]), telegraph editor EDDIE RAMOS ([id number]) on 03/13/2025 1:19:25 PM Referred By: Confirmed By: CLAUDE CHÁVEZ MD
[2025-03-12 18:30] VITALS: PULSE 78; RESP 12
[2025-03-12 18:33] LABS: Hematocrit 37.3 % (37-47); Hemoglobin 12.7 g/dL (12.0-15.0); Immature Granulocytes Count 0.020 X10^3/uL (0.0-0.0); Mean Corp Hgb Conc 34.0 g/dL (32-36); Mean Corpuscular Volume 82.7 fL (81-99); Mean Platelet Vol. 10.1 fl (6.2-12.0); NRBC Flagged by Analyzer 0 % (0-5); Platelet Count 368 K/mm3 (150-450); RBC Distribution Width CV 12.5 % (11.6-14.6); RBC Distribution Width SD 37.9 fl (35.1-43.9); Red Blood Count 4.51 M/mm3 (4.2-5.4); White Blood Count 8.4 K/mm3 (4.4-11.0)
[2025-03-12 19:18] LABS: Anion Gap 10 (5-15); BUN 20 mg/dL (4-19); BUN/Creat Ratio 21.8 RATIO (10-20); Calcium,Total 9.3 mg/dL (7.6-11.0); Carbon Dioxide 22.4 mmol/L (21.0-32.0); Chloride 106 mmol/L (98-108); Estimated Creatinine Clearance 101.54 ml/min (50-250); Glucose 83 mg/dL (70-99); Potassium 3.9 mmol/L (3.3-5.1)
[2025-03-12 19:26] VITALS: BP 112/78; PULSE 86; O2SAT 99
[2025-03-12 19:41] LABS: D-Dimer Quantitative (DVT/PE) 0.36 FEU/ug/m (0.27-0.49)
[2025-03-12 20:38] VITALS: BP 115/77; PULSE 86; RESP 12; TEMP 36.4; O2SAT 100; O2SAT 99
[2025-03-12 21:00] VITALS: BP 115/77; PULSE 82; RESP 16
== END 2025-03-12 21:14 | disposition home or self-care (01) ==
PROVIDERS: Emergency Provider Emergency Medicine; PCP Nurse Practitioner Adult Health; Visit Provider Emergency Medicine
DX: R06.02 Shortness of breath (principal); R03.0 Elevated blood-pressure reading, without diagnosis of hypertension; R07.9 Chest pain, unspecified; R51.9 Headache, unspecified
CPT/HCPCS: 71046; 80048; 85025; 85379; 93005; 94640; 99283; A4216

== ENCOUNTER 2025-04-06 09:21 | Emergency (ER) | payer OTHER, MEDICAID, SELFPAY ==
[2025-04-06 09:22] VITALS: BP 125/87; PULSE 85; RESP 16; TEMP 35.8; O2SAT 100; BMI 32.7
--- NOTE | 2025-04-06 10:06 | ED.VIS.GI ---
HPI HPI - GI History of Present Illness Chief Complaint: Nausea/Vomiting Informant: patient Narrative Narrative: Patient is a 24-year-old female with a history of asthma and ADD, presenting with chest tightness, dysphagia, nausea, and myalgias. - Symptoms began on Monday at 0900, two days ago. - Reports chest tightness and burning sensation when swallowing, extending from the upper chest to the upper abdomen. - Experiences severe headaches described as pounding, causing difficulty keeping eyes open. - Nausea with almost every intake of food or drink; has not vomited since Monday. - Reports myalgias in arms and legs, worse yesterday but slightly improved today; denies arthralgias. - Had a fever of 100.3?F on Monday night, lasting about 6.5 hours; fever broke around 0530 yesterday. - Slight cough without sputum production; denies rhinorrhea, congestion, or sore throat. - Denies lower abdominal pain, diarrhea, or urinary issues; has not had a bowel movement since Monday. - No back pain or wheezing; chest tightness does not feel like wheezing. - Prescribed antiemetic medication, which has not been effective. - Took Excedrin this morning for headache relief. [facility] Medical History Anxiety Depression Encounter for screening for COVID-19 Home Medications ?Medication ?Instructions ?Recorded ?Last Taken ?Type albuterol sulfate 90 mcg/actuation 2 puff inhalation Q4H PRN PRN 03/12/25 Unknown History aerosol inhaler wheezing fluticasone propionate 45 2 puff inhalation BID 04/06/25 Unknown History mcg-salmeterol 21 mcg/actuation HFA inhaler (Advair HFA) montelukast 10 mg tablet 10 mg PO QHS 04/06/25 Unknown History mupirocin 2 % topical ointment 1 applic topical TID ATHLETES FOOT 04/06/25 Unknown History pantoprazole 40 mg tablet,delayed 40 mg PO DAILY #14 tabs 04/06/25 Unknown Rx release promethazine 25 mg tablet 25 mg PO Q6H PRN PRN Nausea #10 04/06/25 Unknown Rx TABLETS Allergy/AdvReac Type Severity Reaction Status Date / Time latex Allergy Intermediate Hives Verified 04/06/25 09:23 cat dander (cats) Allergy Mild Itching Verified 04/06/25 09:23 ochoa Allergy Mild PT UNSURE Verified 04/06/25 09:23 OF REACTION Surgical History no surgical history Social History household members: family current occupational status: employed Smoking Status: Never smoker ROS ROS ED Constitutional Constitutional ED: Reports chills and fever(s) Eyes Eyes: Denies change in vision or diplopia ENT ENT ED: Denies ear pain, rhinorrhea or sore throat Cardiovascular Cardiovascular: Reports as per HPI and chest pain; Denies palpitations or radiating jaw, neck or arm pain Respiratory/Chest Respiratory/Chest: Reports cough; Denies dyspnea, dyspnea on exertion or sputum Gastrointestinal Gastrointestinal: Reports abdominal pain and nausea; Denies diarrhea, hematochezia, melena or vomiting Genitourinary Genitourinary ED: Denies dysuria or hematuria Musculoskeletal Musculoskeletal: Reports myalgias; Denies arthralgias, back pain or neck pain Integumentary Denies abscess or rash Neurologic Neurologic: Reports headache(s); Denies paresthesias or weakness Psychiatric Psychiatric: Denies anxiety or suicidal thoughts EXAM Physical Exam Const Vital Signs: 04/06/25 09:22 04/06/25 10:17 04/06/25 10:22 Temperature 96.4 F L Temperature Source Temporal Pulse Rate 85 78 Respiratory Rate 16 14 Blood Pressure 125/87 H 107/68 Blood Pressure Mean 99 81 Pulse Ox 100 98 Oxygen Delivery Method Room Air Room Air Room Air 04/06/25 11:15 Temperature Temperature Source Pulse Rate 76 Respiratory Rate 16 Blood Pressure 109/77 Blood Pressure Mean 87 Pulse Ox 96 Oxygen Delivery Method Room Air Positive well nourished and well developed General Appearance ED: well developed and NAD HEENT Reports moist mucous membranes normocephalic and atraumatic Eyes PERRL and EOMs intact bilaterally Neck full ROM and supple Resp normal respiratory effort and clear to auscultation bilaterally Cardio regular rate, regular rhythm and no murmurs GI non-distended GI Narrative: Mild-moderate epigastric and left lower quadrant tenderness otherwise benign abdomen. Auscultation: normoactive bowel sounds Palpation: soft; Negative for guarding or rebound tenderness present Back/Spine no CVA tenderness General Back: other FROM Extremity normal to inspection General Extremety ED: Negative for edema, pulses abnormal or tenderness General Extremity: Negative for edema or pulses abnormal Neuro oriented x3, CN's II-XII intact bilaterally and no sensory deficits noted Sensorium / Orientation: awake and alert Motor Exam: strength 5/5 throughout Skin no rashes or lesions noted and no wounds MDM MDM MDM Narrative Medical decision making narrative: Assessment: The patient is a 24-year-old female with PMH of asthma and ADD presenting for two days of burning chest pain worse with swallowing, nausea, myalgias, and a documented fever to 100.3 ?F. Normal chest x-ray, normal EKG, and normal labs including troponin, liver enzymes, and lipase coupled with complete symptom resolution after a GI cocktail make acute gastritis the most likely etiology, presumed viral given the prodrome of fever and myalgias; cardiac and pulmonary causes are effectively ruled out. Plan: - Administered GI cocktail in ED with complete relief of symptoms - Prescribed pantoprazole 40 mg PO daily ? 2 weeks - Prescribed promethazine for nausea PRN - Advised use of Mylanta or other topical antacids PRN for discomfort - Discharged home with supportive care instructions; patient agrees with plan Diagnostics: - Chest x-ray: normal - EKG interpreted: normal. Independently interpreted by me, Grover Colón - Labs: troponin normal; liver enzymes normal; lipase normal Reevaluations: - Symptoms completely resolved after GI cocktail Lab Data Attestation: I reviewed the patient's lab results. Labs: Laboratory Results - last 24 hr 04/06/25 04/06/25 09:40 11:43 WBC 5.0 RBC 4.38 Hgb 12.5 Hct 35.9 L MCV 82.0 MCH 28.5 MCHC 34.8 RDW Std Deviation 37.5 RDW Coeff of Bailee 12.6 Plt Count 353 MPV 9.9 Immature Gran % (Auto) 0.200 Neut % (Auto) 54.1 Lymph % (Auto) 29.0 [place] % (Auto) 10.9 H Eos % (Auto) 5.6 H Baso % (Auto) 0.2 Absolute Neuts (auto) 2.7 Absolute Lymphs (auto) 1.46 Nucleated RBC % 0 Sodium 138 Potassium 3.7 Chloride 102 Carbon Dioxide 26.7 Anion Gap 9 BUN 17 Creatinine 0.84 Estim Creat Clear Calc 108.97 Est GFR (MDRD) Non-Af 99 BUN/Creatinine Ratio 20.3 H Glucose 105 H Calcium 9.3 Total Bilirubin 0.41 AST 22 ALT 28 Alkaline Phosphatase 53 Troponin T High Sens 7 D Troponin T Hi Sens 2 Hr 8 Total Protein 6.9 Albumin 4.2 Globulin 2.7 Albumin/Globulin Ratio 1.6 Lipase 26 Radiography Diagnostic Testing: Clinical Impression(s) from Imaging Studies Chest X-Ray 04/06/25 10:25 IMPRESSION: No acute cardiopulmonary abnormalities. Reading Location: [facility] Rhythm Strip Rhythm Strip: Sinus Rhythm Rate: 68 Ectopy: None EKG Initial EKG: Attestation: I personally reviewed and interpreted this EKG as follows: Interpretation: Sinus Rhythm and No Acute Injury Pattern Comments: Nml axis & intervals; nml EKG Discharge Plan Triage Chief Complaint: Nausea/Vomiting ED Provider: Grover Colón Dx/Rx/DC Orders Clinical Impression: Acute gastritis without bleeding, Acute viral syndrome, Chest pain due to GERD Instructions: ED GERD (Adult), ED Gastritis (Adult) Prescriptions: New pantoprazole 40 mg tablet,delayed release (DR/EC) 40 mg PO DAILY Qty: 14 0RF promethazine 25 mg tablet 25 mg PO Q6H PRN PRN (Reason: Nausea) Qty: 10 0RF No Action albuterol sulfate 90 mcg/actuation HFA aerosol inhaler 2 puff inhalation Q4H PRN PRN (Reason: wheezing) montelukast 10 mg tablet 10 mg PO QHS mupirocin 2 % ointment 1 applic topical TID fluticasone propion-salmeterol [Advair HFA] 45-21 mcg/actuation HFA aerosol inhaler 2 puff inhalation BID Primary Care Provider: Sofie Paz NP Referrals: Sofie Paz NP, DISTRIBUT[employer] CENTER SUPERVISOR-C [Primary Care Provider, Medical] - 1 Week if not improving Activity Restrictions/Additional Instructions: - Prescribed pantoprazole once daily for two weeks to reduce acid and soothe your esophagus. - Use Mylanta or other [id number] antacids as needed for chest and upper belly burning. - Take promethazine as needed for nausea since your previous nausea medication wasn?t effective. - Chest X-ray, EKG, and blood tests (troponins, liver enzymes, lipase) were all normal, ruling out heart, lung, and other organ problems. - Supportive care advised: rest, let your body fight off the stomach bug, and return to normal activities as you feel able. Print Language: [place] Disposition Disposition: Home, Self Care
[2025-04-06 10:22] VITALS: BP 107/68; PULSE 78; RESP 14; O2SAT 98
--- NOTE | 2025-04-06 10:25 | RAD_ITS ---
PROCEDURE: RAD/Chest PA and Lateral
[2025-04-06] MEDS: Lidocaine 2% Viscous15 ML UDC 15 ML PO (10:32)
[2025-04-06 10:35] LABS: Hematocrit 35.9 % (37-47); Hemoglobin 12.5 g/dL (12.0-15.0); Immature Granulocytes Count 0.010 X10^3/uL (0.0-0.0); Mean Corp Hgb Conc 34.8 g/dL (32-36); Mean Corpuscular Volume 82.0 fL (81-99); Mean Platelet Vol. 9.9 fl (6.2-12.0); NRBC Flagged by Analyzer 0 % (0-5); Platelet Count 353 K/mm3 (150-450); RBC Distribution Width CV 12.6 % (11.6-14.6); RBC Distribution Width SD 37.5 fl (35.1-43.9); Red Blood Count 4.38 M/mm3 (4.2-5.4); White Blood Count 5.0 K/mm3 (4.4-11.0)
[2025-04-06 10:48] LABS: AST(SGOT) 22 U/L (<=31); Alanine Aminotransfer ALT/SGPT 28 U/L (<=34); Albumin, Serum 4.2 g/dL (3.5-5.0); Alkaline Phosphatase 53 U/L (35-104); Anion Gap 9 (5-15); BUN 17 mg/dL (4-19); BUN/Creat Ratio 20.3 RATIO (10-20); Calcium,Total 9.3 mg/dL (7.6-11.0); Carbon Dioxide 26.7 mmol/L (21.0-32.0); Chloride 102 mmol/L (98-108); Estimated Creatinine Clearance 108.97 ml/min (50-250); Globulin 2.7 g/dL (2.2-4.2); Glucose 105 mg/dL (70-99); Lipase 26 U/L (13-75); Potassium 3.7 mmol/L (3.3-5.1); Troponin T High Sensitivity 7 ng/L (<=14)
[2025-04-06 11:15] VITALS: BP 109/77; PULSE 76; RESP 16; O2SAT 96
[2025-04-06 12:09] LABS: Troponin T High Sens 2 HR 8 ng/L (<=14)
[2025-04-06 12:56] VITALS: BP 96/57; PULSE 60; RESP 14; TEMP 36.8; O2SAT 100
== END 2025-04-06 12:57 | disposition home or self-care (01) ==
PROVIDERS: Emergency Provider Emergency Medicine; PCP Nurse Practitioner Adult Health; Visit Provider Emergency Medicine
DX: K29.00 Acute gastritis without bleeding (principal); K21.9 Gastro-esophageal reflux disease without esophagitis; B34.9 Viral infection, unspecified; J45.909 Unspecified asthma, uncomplicated; Z79.899 Other long term (current) drug therapy
CPT/HCPCS: 71046; 80053; 83690; 84484; 85025; 93005; 96374; 99284; A4216; J2405